=== PATIENT | female | born 1940 | race Caucasian/White ===

== ENCOUNTER → 2017-11-28 10:10 | Outpatient (CLI) | payer MEDICARE, SELFPAY ==
[2017-11-28 11:49] LABS: Calcium 12.2 mg/dL (8.4-10.2); Estimated Glomerular Filt Rate 12.2 mL/min (>60); Glucose 99 mg/dL (80-110); HEMOLYSIS < 15 (0-50); Potassium 3.2 mmol/L (3.4-5.1); Sodium 140 mmol/L (137-145)
== END ==
PROVIDERS: Family Provider Internal Medicine; PCP Internal Medicine; Visit Provider Internal Medicine
DX: I10 Essential (primary) hypertension (principal); N18.3 Chronic kidney disease, stage 3 (moderate)
CPT/HCPCS: 36415; 80048

== ENCOUNTER → 2017-12-13 15:50 | Outpatient (CLI) | payer MEDICARE, SELFPAY | PROVIDERS: Family Provider Internal Medicine; PCP Internal Medicine; Visit Provider Internal Medicine | DX: Z53.9 Procedure and treatment not carried out, unspecified reason (principal) | CPT/HCPCS: 87507 ==

== ENCOUNTER → 2017-12-13 16:55 | Outpatient (CLI) | payer MEDICARE, SELFPAY ==
[2017-12-13 17:35] LABS: Add Manual Diff / Slide Review NO; Basophils Percent Auto 1.3 % (0-2); Eosinophils Percent Auto 3.1 % (2-4); Hematocrit 36.5 % (36-46); Hemoglobin 11.8 g/dL (12.0-16.0); Lymphocytes Percent Auto 25.1 % (25-40); Mean Corpuscular HGB Conc 32.2 % (30-36); Mean Corpuscular Volume 89.9 fL (80-100); Monocytes Percent Auto 6.4 % (3-14); Neutrophils Absolute Auto 5500 /uL (3000-5900); Neutrophils Percent Auto 64.1 % (50-75); Platelet Count 151 X10^3/uL (150-400); Red Blood Cell Count 4.06 X10^6/uL (4.0-5.2); Red Cell Distribution Width 18.4 % (11.6-14.8); White Blood Cell Count 8.5 X10^3/uL (4.5-11.0)
[2017-12-13 19:04] LABS: Blood Urea Nitrogen 36 mg/dL (7-17); Calcium 11.9 mg/dL (8.4-10.2); Carbon Dioxide 25 mmol/L (22-32); Chloride 101 mmol/L (98-107); Estimated Glomerular Filt Rate 27.2 mL/min (>60); Glucose 89 mg/dL (80-110); HEMOLYSIS < 15 (0-50); Potassium 3.6 mmol/L (3.4-5.1); Sodium 140 mmol/L (137-145)
[2017-12-14 08:51] LABS: Alanine Aminotransferase 27 IU/L (9-52); Albumin Globulin Ratio 1.7 (1.0-2.8); Alkaline Phosphatase 82 U/L (38-126); Aspartate Aminotransferase 21 IU/L (14-36); Bilirubin Total 0.4 mg/dL (0.2-1.3); Bilirubin Unconjugated 0.1 mg/dL (0.0-1.1); Globulin 2.4 g/dL (1.7-4.1); HEMOLYSIS < 15 (0-50); Total Protein 6.4 g/dL (6.3-8.2)
[2017-12-15 15:15] LABS: Parathyroid Hormone Int 20 pg/mL (14-64)
[2017-12-16 20:14] LABS: Ionized Calcium 6.1 mg/dL (4.8-5.6)
== END ==
PROVIDERS: Family Provider Internal Medicine; PCP Internal Medicine; Visit Provider Internal Medicine
DX: N18.3 Chronic kidney disease, stage 3 (moderate) (principal); I10 Essential (primary) hypertension; R19.7 Diarrhea, unspecified; E83.52 Hypercalcemia
CPT/HCPCS: 36415; 80048; 80076; 82330; 83970; 84550; 85025

== ENCOUNTER → 2017-12-14 14:57 | Outpatient (CLI) | payer MEDICARE, SELFPAY ==
[2017-12-14 17:19] LABS: Campylobacter Not Detected (Not Detect); Cryptosporidium Not Detected (Not Detect); Cyclospora cayetanensis Not Detected (Not Detect); Entamoeba histolytica Not Detected (Not Detect); Enteroaggregative E.coli Not Detected (Not Detect); Enteropathogenic E.coli Not Detected (Not Detect); Enterotoxigenic E.coli It/st Not Detected (Not Detect); Giardia lamblia Not Detected (Not Detect); Plesiomonsa shigelloides Not Detected (Not Detect); Salmonella Not Detected (Not Detect); Shiga-like toxin-prod E.coli Not Detected (Not Detect); Shigella/Enteroinvasive E.coli Not Detected (Not Detect); Vibrio Not Detected (Not Detect); Vibrio cholerae Not Detected (Not Detect); Yersinia enterocolitica Not Detected (Not Detect)
[2017-12-14 17:20] LABS: Adenovirus F 40/41 Not Detected (Not Detect); Astrovirus Not Detected (Not Detect); Clostridium difficile toxin AB Detected (Not Detect); Norovirus GI/GII Not Detected (Not Detect); Rotavirus A Not Detected (Not Detect)
== END ==
PROVIDERS: Family Provider Internal Medicine; PCP Internal Medicine; Visit Provider Internal Medicine
DX: R19.7 Diarrhea, unspecified (principal)
CPT/HCPCS: 87507

== ENCOUNTER → 2018-01-23 11:56 | Outpatient (CLI) | payer MEDICARE, SELFPAY ==
[2018-01-23 12:56] LABS: BUN Creatinine Ratio 16.5 (6-22); Blood Urea Nitrogen 28 mg/dL (7-17); C-Reactive Protein Quant 1.2 mg/dL (<1.0); Calcium 11.2 mg/dL (8.4-10.2); Carbon Dioxide 27 mmol/L (22-32); Chloride 104 mmol/L (98-107); Estimated Glomerular Filt Rate 29.1 mL/min (>60); Glucose 99 mg/dL (80-110); HEMOLYSIS < 15 (0-50); Potassium 4.6 mmol/L (3.4-5.1); Sodium 139 mmol/L (137-145); Uric Acid 4.3 mg/dL (2.5-6.2)
[2018-01-23 13:07] LABS: Erythrocyte Sedimentation Rate 45 MM/HR (0-20)
[2018-01-23 20:47] LABS: Adenovirus F 40/41 Not Detected (Not Detect); Astrovirus Not Detected (Not Detect); Campylobacter Not Detected (Not Detect); Clostridium difficile toxin AB Detected (Not Detect); Cryptosporidium Not Detected (Not Detect); Cyclospora cayetanensis Not Detected (Not Detect); Entamoeba histolytica Not Detected (Not Detect); Enteroaggregative E.coli Not Detected (Not Detect); Enteropathogenic E.coli Not Detected (Not Detect); Enterotoxigenic E.coli It/st Not Detected (Not Detect); Giardia lamblia Not Detected (Not Detect); Norovirus GI/GII Not Detected (Not Detect); Plesiomonsa shigelloides Not Detected (Not Detect); Rotavirus A Not Detected (Not Detect); Salmonella Not Detected (Not Detect); Sapovirus Not Detected; Shiga-like toxin-prod E.coli Not Detected (Not Detect); Shigella/Enteroinvasive E.coli Not Detected (Not Detect); Vibrio Not Detected (Not Detect); Vibrio cholerae Not Detected (Not Detect); Yersinia enterocolitica Not Detected (Not Detect)
== END ==
PROVIDERS: Family Provider Internal Medicine; PCP Internal Medicine; Visit Provider Internal Medicine
DX: N18.3 Chronic kidney disease, stage 3 (moderate) (principal); E83.52 Hypercalcemia; A04.72 Enterocolitis due to Clostridium difficile, not specified as recurrent; Z87.39 Personal history of other diseases of the musculoskeletal system and connective tissue
CPT/HCPCS: 36415; 80048; 84550; 85651; 86140; 87507

== ENCOUNTER → 2018-02-01 09:35 | Outpatient (CLI) | payer MEDICARE, SELFPAY ==
--- NOTE | 2018-02-01 09:37 | DI.NM.S_ITS ---
PROCEDURE: NM BONE SCAN WHOLE BODY RADIOPHARMACEUTICAL: 19.4 mCi Tc-99m MDP IV. INDICATIONS: hypercalcemia TECHNIQUE: Delayed whole-body scintigrams were obtained approximately 3-4 hours after intravenous injection of radiotracer. Anterior and posterior views were acquired from vertex to feet. Additional left and right oblique views were not obtained COMPARISON: [facility], , CHEST 2 VIEW, 02/04/2010, 10:46. FINDINGS: Osteoarthritic changes are noted in the sternoclavicular, glenohumeral and acromioclavicular joints bilaterally. There is dextroconvex scoliosis in the midthoracic spine with focal area of increased tracer activity at the T8 level, possibly representing compression fracture but indeterminate. Probable degenerative uptake also noted in the lower lumbar spine at L4. Pelvis and hips are unremarkable. Photopenia at the knees consistent with bilateral arthroplasties. Considerable degenerative uptake over the tarsal bones with additional uptake over the left medial malleolus and first metatarsal phalangeal joint. The right foot shows uptake most marked over the right first metatarsal phalangeal joint and second toe. IMPRESSION: 1. No findings suspect for metastatic bone disease. 2. Mid thoracic scoliosis and focal uptake at the T8 level. Likely degenerative uptake at the L4 level. Plain films of the thoracic and lumbar spine suggested. 3. Status post bilateral total knee arthroplasties. 4. Degenerative type uptake in the upper and lower extremities. Dictated by: Cornelius Espinoza M.D. on 02/01/2018 at 15:56 Approved by: Cornelius Espinoza M.D. on 02/01/2018 at 16:03
== END ==
PROVIDERS: Family Provider Internal Medicine; PCP Internal Medicine; Visit Provider Internal Medicine
DX: E83.52 Hypercalcemia (principal); M41.9 Scoliosis, unspecified; Z96.653 Presence of artificial knee joint, bilateral
CPT/HCPCS: 78306; A9503

== ENCOUNTER → 2018-03-17 09:27 | Outpatient (CLI) | payer MEDICARE, SELFPAY ==
[2018-03-17 10:29] LABS: Add Manual Diff / Slide Review NO; Eosinophils Percent Auto 2.1 % (2-4); Hematocrit 36.9 % (36-46); Lymphocytes Percent Auto 22.3 % (25-40); Mean Corpuscular HGB Conc 32.5 % (30-36); Mean Corpuscular Hemoglobin 30.1 PG (26-34); Mean Corpuscular Volume 92.8 fL (80-100); Monocytes Percent Auto 6.3 % (3-14); Neutrophils Absolute Auto 5200 /uL (3000-5900); Neutrophils Percent Auto 68.3 % (50-75); Platelet Count 147 X10^3/uL (150-400); Red Blood Cell Count 3.97 X10^6/uL (4.0-5.2); Red Cell Distribution Width 17.2 % (11.6-14.8); White Blood Cell Count 7.6 X10^3/uL (4.5-11.0)
[2018-03-17 10:44] LABS: Erythrocyte Sedimentation Rate 26 MM/HR (0-20)
[2018-03-17 10:48] LABS: Alanine Aminotransferase 41 IU/L (9-52); Albumin 4.1 g/dL (3.5-5.0); Albumin Globulin Ratio 1.5 (1.0-2.8); Alkaline Phosphatase 105 U/L (38-126); Aspartate Aminotransferase 34 IU/L (14-36); BUN Creatinine Ratio 18.2 (6-22); Bilirubin Total 0.4 mg/dL (0.2-1.3); Blood Urea Nitrogen 31 mg/dL (7-17); C-Reactive Protein Quant 1.2 mg/dL (<1.0); Calcium 10.8 mg/dL (8.4-10.2); Carbon Dioxide 26 mmol/L (22-32); Chloride 107 mmol/L (98-107); Estimated Glomerular Filt Rate 29.1 mL/min (>60); Globulin 2.8 g/dL (1.7-4.1); Glucose 96 mg/dL (80-110); HEMOLYSIS < 15 (0-50); Potassium 4.7 mmol/L (3.4-5.1); Sodium 143 mmol/L (137-145); Total Protein 6.9 g/dL (6.3-8.2)
[2018-03-18 15:44] LABS: Clostridium Difficile Tox PCR Negative for C. diff
== END ==
PROVIDERS: Family Provider Internal Medicine; PCP Internal Medicine; Visit Provider Internal Medicine
DX: A04.72 Enterocolitis due to Clostridium difficile, not specified as recurrent (principal); N18.3 Chronic kidney disease, stage 3 (moderate); R19.7 Diarrhea, unspecified
CPT/HCPCS: 36415; 80053; 85025; 85651; 86140; 87493

== ENCOUNTER → 2018-03-18 13:36 | Outpatient (CLI) | payer MEDICARE, SELFPAY | PROVIDERS: Family Provider Internal Medicine; PCP Internal Medicine; Visit Provider Internal Medicine | DX: Z53.9 Procedure and treatment not carried out, unspecified reason (principal) ==

== ENCOUNTER → 2018-05-16 16:26 | Outpatient (CLI) | payer MEDICARE, SELFPAY ==
[2018-05-16 17:22] LABS: Appearance Urine UA SL CLOUDY; Bilirubin Urine UA NEGATIVE (NEGATIVE); Color Urine UA YELLOW; Glucose Urine UA NEGATIVE (Normal); Ketones Urine UA NEGATIVE (NEGATIVE); Leukocyte Esterase Urine UA 2+ (NEGATIVE); Nitrite Urine UA POSITIVE (Negative); Occult Blood Urine UA TRACE-LYSED (Negative); Protein Urine UA 2+ (Negative); Specific Gravity Urine UA 1.015 (1.000-1.035); Urobilinogen Urine UA 0.2 E.U./dL (0.2)
[2018-05-16 17:26] LABS: Add Manual Diff / Slide Review NO; Basophils Percent Auto 0.7 % (0-2); Eosinophils Percent Auto 1.3 % (2-4); Hematocrit 34.8 % (36-46); Hemoglobin 11.3 g/dL (12.0-16.0); Mean Corpuscular HGB Conc 32.5 % (30-36); Mean Corpuscular Hemoglobin 29.7 PG (26-34); Mean Corpuscular Volume 91.3 fL (80-100); Monocytes Percent Auto 6.3 % (3-14); Neutrophils Absolute Auto 7000 /uL (3000-5900); Neutrophils Percent Auto 74.7 % (50-75); Platelet Count 182 X10^3/uL (150-400); Red Blood Cell Count 3.82 X10^6/uL (4.0-5.2); Red Cell Distribution Width 16.8 % (11.6-14.8); White Blood Cell Count 9.3 X10^3/uL (4.5-11.0)
[2018-05-16 17:28] LABS: RBC Urine 0-1/HPF (0-5/HPF)
[2018-05-16 17:30] LABS: Renal Epithelial Cells Urine 1-5/HPF; Squamous Epithelial Cell Urine 0-1 /HPF; Transitional Epi Cells Urine 1-5/HPF (0-5/HPF); WBC Urine 30-100/HPF (0-5/HPF)
[2018-05-16 17:31] LABS: Bacteria Urine Many (>30); Culture Indicated Urine Specimen Cultured; Mucus Urine 1+ (Negative); Urine Comments Occ Oval Fat Body
[2018-05-16 17:40] LABS: Alanine Aminotransferase 44 IU/L (9-52); Albumin 3.9 g/dL (3.5-5.0); Albumin Globulin Ratio 1.8 (1.0-2.8); Alkaline Phosphatase 116 U/L (38-126); Amylase 43 U/L (30-110); Aspartate Aminotransferase 23 IU/L (14-36); BUN Creatinine Ratio 18.1 (6-22); Bilirubin Total 0.4 mg/dL (0.2-1.3); Blood Urea Nitrogen 29 mg/dL (7-17); Calcium 11.4 mg/dL (8.4-10.2); Carbon Dioxide 29 mmol/L (22-32); Chloride 102 mmol/L (98-107); Estimated Glomerular Filt Rate 31.2 mL/min (>60); Globulin 2.2 g/dL (1.7-4.1); Glucose 105 mg/dL (80-110); HEMOLYSIS < 15 (0-50); Lipase 101 U/L (23-300); Sodium 145 mmol/L (137-145); Total Protein 6.1 g/dL (6.3-8.2)
[2018-05-16 17:52] LABS: Erythrocyte Sedimentation Rate 56 MM/HR (0-20)
[2018-05-16 17:53] LABS: C-Reactive Protein Quant 7.7 mg/dL (<1.0)
[2018-05-16 17:56] LABS: Free T4, Direct Thyroxine 1.29 ng/dL (0.78-2.19)
[2018-05-18 13:55] LABS: Parathyroid Hormone Int 10 pg/mL (14-64)
== END ==
PROVIDERS: PCP Internal Medicine; Visit Provider Internal Medicine
DX: I10 Essential (primary) hypertension (principal); N18.3 Chronic kidney disease, stage 3 (moderate); E83.52 Hypercalcemia
CPT/HCPCS: 36415; 80053; 81001; 82150; 83690; 83970; 84439; 84443; 85025; 85651; 86140; 87077; 87086; 87186

== ENCOUNTER → 2019-02-01 12:12 | Outpatient (CLI) | payer MEDICARE, SELFPAY ==
--- NOTE | 2019-02-01 12:15 | DI.RAD.S_ITS ---
PROCEDURE: XR KNEE RT 3V INDICATIONS: right knee pain TECHNIQUE: 3 views of the knee were acquired. COMPARISON: [facility], BESSY, TIB/FIB 2V RIGHT, 05/27/2014, 19:31. [facility], , KNEE 3V RIGHT, 10/02/2010, 10:13. FINDINGS: Bones: No fractures or dislocations. There is right knee total arthroplasty. There is lucency over the medial aspect of the femoral prosthesis component No suspicious bony lesions. Soft tissues: No joint effusion. No suspicious soft tissue calcifications. Multiple subcutaneous soft tissue calcifications anterior to the knee. IMPRESSION: Right knee arthroplasty. There is lucency over the medial aspect of the femoral prosthesis component concerning for prosthesis loosening. Dictated by: Donaldo Yan M.D. on 02/01/2019 at 17:25 Approved by: Donaldo Yan M.D. on 02/01/2019 at 17:29
== END ==
PROVIDERS: PCP Internal Medicine; Visit Provider Nurse Practitioner
DX: M25.561 Pain in right knee (principal); W10.9XXA Fall (on) (from) unspecified stairs and steps, initial encounter
CPT/HCPCS: 73562

== ENCOUNTER 2019-02-26 11:36 | Emergency (ER) | payer MEDICARE, SELFPAY ==
[2019-02-26 11:50] VITALS: BP 192/88; PULSE 65; RESP 18; TEMP 36.7; O2SAT 100
--- NOTE | 2019-02-26 11:59 | DI.RAD.S_ITS ---
PROCEDURE: XR SHOULDER RT MIN 2V INDICATIONS: atraumatic right shoulder pain x 3 weeks. TECHNIQUE: 3 views of the shoulder were acquired. COMPARISON: None. FINDINGS: Bones: No fractures or dislocations. No suspicious bony lesions. Visualized ribs appear intact. Periarticular osteophyte formation at the acromioclavicular joint glenohumeral joints. Soft tissues: Calcifications project over the rotator cuff. IMPRESSION: 1. Osteoarthritis. 2. Calcific tendinitis of the rotator cuff. Dictated by: Julita Betts M.D. on 02/26/2019 at 12:32 Approved by: Julita Betts M.D. on 02/26/2019 at 12:32
[2019-02-26] MEDS: IBUPROFEN 400 MG TABLET PO (13:16)
[2019-02-26] MEDS: LIDOCAINE PATCH 1 EACH ADH..PATCH TOP (13:16)
[2019-02-26] MEDS: TRAMADOL 50 MG TABLET PO (13:17)
--- NOTE | 2019-02-26 13:50 | ED.UPPEXIN ---
HPI - Extremity Injury (Upper) <Amanda Butler, [facility] - Last Filed: 02/26/19 14:52> General Chief Complaint: Extremity Injury, Upper Stated Complaint: Right shoulder/elbow/wrist/gout Time Seen by Provider: 02/26/19 12:00 Source: patient and family Mode of arrival: ambulatory Limitations: no limitations History of Present Illness HPI narrative: The patient is a 78-year-old female former smoker with history of knee replacement who presents for chief complaint of shoulder pain. She states that she has had right shoulder pain, worse with motion for the past few weeks. She states that Tylenol and heat help her pain. However she is concerned that the pain keeps coming back. She denies any falls or trauma other than a fall to her knees last month. She states that she was seen by her PCP for knee pain, plans on following up with Orthopedics. She states that she has had x-rays done. She states her shoulder pain is worse by range of motion. She denies any redness. She did try her gout medications to see if they would help on it does not help. She tried colchicine and prednisone 3 days ago. She denies any recent falls or trauma, chest pain, shortness of breath, fevers nausea vomiting or diarrhea. She states she is here only for her right shoulder pain. Related Data Home Medications Medication Instructions Recorded Confirmed albuterol sulfate HFA 90 1 puff INHALATION BID 12/13/17 02/26/19 mcg/actuation aerosol inhaler fluticasone propionate 110 1 puff INHALATION BID 12/13/17 02/26/19 mcg/actuation HFA aerosol inhaler loratadine 10 mg tablet 10 mg PO DAILY 12/13/17 02/26/19 acetaminophen [Tylenol 8 Hour] 650 mg PO PRN PRN 02/26/19 02/26/19 albuterol sulfate 2.5 mg INHALATION PRN PRN 02/26/19 02/26/19 allopurinol 300 mg PO DAILY 02/26/19 02/26/19 clopidogrel [Plavix] 75 mg PO DAILY 02/26/19 02/26/19 colchicine 0.6 mg PO DIRECTED 02/26/19 02/26/19 fluticasone propionate [Flonase 1 spray INTRANASAL DAILY 02/26/19 02/26/19 Allergy Relief] furosemide 20 mg PO DAILY 02/26/19 02/26/19 oxybutynin chloride 10 mg PO DAILY 02/26/19 02/26/19 zinc 50 mg PO DAILY 02/26/19 02/26/19 Previous Rx's Medication Instructions Recorded potassium chloride ER 20 mEq 20 meq PO DAILY #30 tab 08/30/18 tablet,extended release(part/cryst) atenolol 50 mg tablet 25 mg PO DAILY #45 tab 11/30/18 Allergies Allergy/AdvReac Type Severity Reaction Status Date / Time aspirin [ASPIRIN] Allergy Mild RACING Verified 02/01/19 11:24 HEARTBEAT/RASH gemfibrozil [GEMFIBROZIL] Allergy Mild Verified 02/01/19 11:24 iodine [IODINE] Allergy Mild RASH Verified 02/01/19 11:24 Penicillins [PENICILLINS] Allergy Mild GI Verified 02/01/19 11:24 DISTURBANCE, RASH promethazine [PROMETHAZINE] Allergy Mild RASH Verified 02/01/19 11:24 Sulfa (Sulfonamide AdvReac Severe SOB Verified 02/01/19 11:24 Antibiotics) [SULFA (SULFONAMIDE ANTIBIOTICS)] atorvastatin [ATORVASTATIN] AdvReac Mild MUSCLE Verified 02/01/19 11:24 ACHES AND WEAKNESS latex AdvReac Mild Rash when Verified 02/01/19 11:24 worn rosuvastatin [ROSUVASTATIN] AdvReac Mild MUSCLE Verified 02/01/19 11:24 PAIN ANS WEAKNESS Review of Systems <JAMIA Hallman - Last Filed: 02/26/19 14:52> Review of Systems GENERAL: Denies chills, fatigue, malaise, fever, sweats. HEENT: Denies sinus pain, ear pain, sore throat, difficulty swallowing, dizziness. RESPIRATORY: Denies dyspnea, cough, wheezing, hemoptysis, sputum. CARDIOVASCULAR: Denies chest pain, palpitations, orthopnea, edema, GASTROINTESTINAL: Denies nausea, vomiting, abdominal pain, diarrhea, constipation, melena. : Denies dysuria, frequency, incontinence, hematuria, urinary retention. MUSCULOSKELETAL: See HPI SKIN: Denies rash, skin lesions, or other NEUROLOGIC: Denies weakness, headache, numbness, change in speech, confusion, seizures, incoordination. PSYCHIATRIC: No concerning psychosocial issues. 12 point review of systems is negative except for those stated above PFSH <ENEDINA Hallman - Last Filed: 02/26/19 14:52> Medical History Essential hypertension (Chronic) Chronic renal failure, stage 3 (moderate) (Chronic 11/29/16) Unspecified asthma, uncomplicated (Chronic) Chronic back pain (Chronic) History of stroke (Resolved 05/2014) Urinary incontinence (Chronic 07/24/15) Peripheral edema (Chronic 01/10/17) Hammertoe of right foot (Inactive) H/O: gout (Chronic) Social History marital status: number of children: 3 household members: children lives independently: Yes caregiver/support person: No housing: house pets and animals: Yes education level: master's degree occupational status: other current occupational exposures/hazards: No 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 special jim needs: No travel history: other leisure activities: music Smoking Status: Former smoker Tobacco: How many years used: 2 Smokeless tobacco user: other quit status: quit date established second hand exposure: No alcohol intake: never substance use type: does not use Social History marital status: number of children: 3 household members: children lives independently: Yes caregiver/support person: No housing: house pets and animals: Yes education level: master's degree occupational status: other current occupational exposures/hazards: No 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 Normocephalic. No temporal or scalp tenderness. EYES: Pupils equal round and reactive. Extraocular motions intact. No scleral icterus. No injection or drainage. ENT: Nose without bleeding, purulent drainage or septal hematoma. Throat without erythema, tonsillar hypertrophy or exudate. Uvula midline. Airway patent. NECK: Trachea midline. No JVD or lymphadenopathy. Supple, nontender, no meningeal signs. CARDIOVASCULAR: Regular rate and rhythm RESPIRATORY: Clear to auscultation. Breath sounds equal bilaterally. No wheezes, rales, or rhonchi. No cough. No accessory muscle use. GASTROINTESTINAL: Abdomen soft, non-tender, nondistended. No hepato-splenomegaly, or palpable masses. No guarding. EXTREMITIES: General pain to palpation right shoulder. Able to flex and extend right shoulder. Positive radial pulse right hand. BACK: Nontender without deformity or crepitance. No flank tenderness. NEURO: AOx3. SKIN: No overlying erythema rash laceration or abrasion noted right shoulder Initial Vital Signs Initial Vital Signs: Vital Signs Temperature 98.1 F 02/26/19 11:50 Pulse Rate 65 02/26/19 11:50 Respiratory Rate 18 02/26/19 11:50 Blood Pressure 192/88 H 02/26/19 11:50 Pulse Oximetry 100 02/26/19 11:50 <Doreen Alonso DO - Last Filed: 02/27/19 07:13> Initial Vital Signs Initial Vital Signs: Vital Signs Temperature 98.1 F 02/26/19 11:50 Pulse Rate 65 02/26/19 11:50 Respiratory Rate 18 02/26/19 11:50 Blood Pressure 192/88 H 02/26/19 11:50 Pulse Oximetry 100 02/26/19 11:50 Course <ROXIE Hallman-STEPHAN - Last Filed: 02/26/19 14:52> Orders Ordered: Discontinued Medications Ibuprofen (Advil) 400 mg PO NOW ONE Stop: 02/26/19 12:54 Last Admin: 02/26/19 13:16 Dose: 400 mg Lidocaine (Lidoderm) 1 each TOP NOW ONE Stop: 02/26/19 12:50 Last Admin: 02/26/19 13:16 Dose: 1 each Tramadol HCl (Ultram) 50 mg PO NOW ONE Stop: 02/26/19 12:50 Last Admin: 02/26/19 13:17 Dose: 50 mg Vital Signs - 8 hr 02/26/19 11:50 Temperature 98.1 F Pulse Rate 65 Respiratory Rate 18 Blood Pressure 192/88 H Pulse Oximetry 100 <Doreen Alonso DO - Last Filed: 02/27/19 07:13> Orders Ordered: Discontinued Medications Ibuprofen (Advil) 400 mg PO NOW ONE Stop: 02/26/19 12:54 Last Admin: 02/26/19 13:16 Dose: 400 mg Lidocaine (Lidoderm) 1 each TOP NOW ONE Stop: 02/26/19 12:50 Last Admin: 02/26/19 13:16 Dose: 1 each Tramadol HCl (Ultram) 50 mg PO NOW ONE Stop: 02/26/19 12:50 Last Admin: 02/26/19 13:17 Dose: 50 mg Vital Signs - 8 hr 02/26/19 11:50 Temperature 98.1 F Pulse Rate 65 Respiratory Rate 18 Blood Pressure 192/88 H Pulse Oximetry 100 MDM - Extremity Injury (Upper) <ENEDINA Hallman - Last Filed: 02/26/19 14:52> Imaging Data Shoulder x-ray: Radiologist's impression: [address] [id number] XRay Report Signed Patient: Sarah Enrique [facility]#: [id number] : 1940Acct:[id number] Age/Sex: 78 / FDate of Service: 02/26/19 Loc: ED Accession Number: [id number] Procedure: XR shoulder RT min 2V Ordering Provider: Doreen Alonso D.O. PROCEDURE: XR SHOULDER RT MIN 2V INDICATIONS: atraumatic right shoulder pain x 3 weeks. TECHNIQUE: 3 views of the shoulder were acquired. COMPARISON: None. FINDINGS: Bones: No fractures or dislocations. No suspicious bony lesions. Visualized ribs appear intact. Periarticular osteophyte formation at the acromioclavicular joint glenohumeral joints. Soft tissues: Calcifications project over the rotator cuff. IMPRESSION: 1. Osteoarthritis. 2. Calcific tendinitis of the rotator cuff. Dictated by: Julita Betts M.D. on 02/26/2019 at 12:32 Approved by: Julita Betts M.D. on 02/26/2019 at 12:32 [facility] Narrative Medical decision making narrative: Patient presents with a chief complaint of shoulder pain. She states she has been using Tylenol and heat at home with success. However she is concerned that the pain keeps coming back. X-ray shows calcific tendinitis of right rotator cuff. I discussed at length usual treatment for this includes anti-inflammatories, physical therapy etc. Encouraged her to follow up with primary care provider. She is given lidocaine patches we discussed at length continued heat, anti-inflammatories etc. Patient is neurovascularly intact. I discussed going back to the ER for any acute concerns such as chest pain, shortness of breath, decreased circulation hand. No questions or concerns upon discharge. Discharge Plan Departure Patient Disposition: Home Clinical Impression: Calcific tendinitis of right shoulder Acute shoulder pain Qualifiers: Laterality: right Qualified Code(s): M25.511 - Pain in right shoulder Discharge Date/Time: 02/26/19 14:34 Interventions: ED Discharge Assessment Last Done: 02/26/19 14:33 Instructions: Calcific Tendonitis of the Shoulder, DI for Calcific Tendonitis of the Shoulder, DI for Shoulder Pain Activity Restrictions/Additional Instructions: Your x-ray shows no fracture, but there is concern for calcific tendinitis of the shoulder. Please continue anti-inflammatories such as ibuprofen as able. I also suggest Tylenol and heat this helps. You can also try lidocaine 4% patches [id number] or Aspercreme. Please follow up with primary care provider. Physical therapy may be helpful Please come back to the emergency department for any acute concerns such as chest pain, shortness of breath concern of heart attack or stroke. Prescriptions: No Action potassium chloride 20 mEq tablet,ER particles/crystals 20 meq PO DAILY Qty: 30 RF: 3 atenolol 50 mg tablet 25 mg PO DAILY Qty: 45 RF: 3 albuterol sulfate 90 mcg/actuation HFA aerosol inhaler 1 puff INHALATION BID RF: 0 loratadine [Claritin] 10 mg tablet 10 mg PO DAILY RF: 0 fluticasone propionate [Flovent HFA] 110 mcg/actuation HFA aerosol inhaler 1 puff INHALATION BID RF: 0 allopurinol 300 mg tablet 300 mg PO DAILY RF: 0 oxybutynin chloride 10 mg tablet extended release 24hr 10 mg PO DAILY RF: 0 clopidogrel [Plavix] 75 mg tablet 75 mg PO DAILY RF: 0 albuterol sulfate 2.5 mg /3 mL (0.083 %) Solution For Nebulization 2.5 mg INHALATION PRN PRN (Reason: Shortness Of Breath) RF: 0 acetaminophen [Tylenol 8 Hour] 650 mg Tablet Extended Release 650 mg PO PRN PRN (Reason: pain) RF: 0 zinc 50 mg Tablet 50 mg PO DAILY RF: 0 colchicine 0.6 mg Tablet 0.6 mg PO DIRECTED RF: 0 fluticasone propionate [Flonase Allergy Relief] 50 mcg/actuation Lucernemines,Suspension 1 spray INTRANASAL DAILY RF: 0 furosemide 20 mg tablet 20 mg PO DAILY RF: 0 Referrals: David Welsh MD [Primary Care Provider] - <Doreen Alonso DO - Last Filed: 02/27/19 07:13> Cosign ED Attending Cosignature Attestation: I was immediately available in the department for consultation. Documentation has been reviewed. I agree with assessment and plan.
== END 2019-02-26 14:34 | disposition home or self-care (01) ==
PROVIDERS: Emergency Provider Nurse Practitioner Family; PCP Internal Medicine
DX: M75.31 Calcific tendinitis of right shoulder (principal)
CPT/HCPCS: 73030; 99283

== ENCOUNTER 2019-08-18 13:29 | Emergency (ER) | payer MEDICARE, SELFPAY ==
[2019-08-18 13:40] VITALS: BP 176/83; PULSE 60; RESP 14; TEMP 37; O2SAT 100; BMI 26.2
--- NOTE | 2019-08-18 14:07 | ED.UPPEXIN ---
HPI - Extremity Injury (Upper) <Meaghan ChewFAUSTINO - Last Filed: 08/18/19 21:29> General Chief Complaint: Extremity Injury, Upper Stated Complaint: Right Shoulder Pain Time Seen by Provider: 08/18/19 13:43 Source: patient Mode of arrival: Ambulatory Limitations: no limitations History of Present Illness HPI narrative: 79yo female with a history of chronic right shoulder pain with osteoarthritis and calcified tendinitis of the rotator cuff, presents emergency department complaining of worsening right shoulder pain over the past 3 days. This originally started in February for which she was seen in the emergency department. She states she had a cortisone shot in her right shoulder in March which significantly improved the pain. Patient states the pain is worse with arm extension and shoulder internal external rotation. She states it feels slightly better when she presses on her deltoid muscle. She has an appointment in September but states the pain is slowly returning. She denies any trauma to the area, falls, swelling, redness, fevers, chills, nausea, vomiting, diarrhea, or other concerns. Patient is hoping to have another cortisone injection. Related Data Home Medications Medication Instructions Recorded Confirmed albuterol sulfate 90 mcg/actuation 1 puff INHALATION BID 12/13/17 03/01/19 aerosol inhaler fluticasone propionate 110 1 puff INHALATION BID 12/13/17 03/01/19 mcg/actuation HFA aerosol inhaler loratadine 10 mg tablet 10 mg PO DAILY 12/13/17 03/01/19 acetaminophen [Tylenol 8 Hour] 650 mg PO PRN PRN 02/26/19 03/01/19 albuterol sulfate 2.5 mg INHALATION PRN PRN 02/26/19 03/01/19 allopurinol 300 mg PO DAILY 02/26/19 03/01/19 clopidogrel [Plavix] 75 mg PO DAILY 02/26/19 03/01/19 colchicine 0.6 mg PO DIRECTED 02/26/19 03/01/19 fluticasone propionate [Flonase 1 spray INTRANASAL DAILY 02/26/19 03/01/19 Allergy Relief] furosemide 20 mg PO DAILY 02/26/19 03/01/19 zinc 50 mg PO DAILY 02/26/19 03/01/19 Previous Rx's Medication Instructions Recorded potassium chloride 20 mEq 20 meq PO DAILY #30 tab 08/30/18 tablet,extended release(part/cryst) atenolol 50 mg tablet 25 mg PO DAILY #45 tab 11/30/18 dexamethasone 2 mg tablet 2 mg PO Q6H #16 tab 03/01/19 tramadol 50 mg tablet 50 mg PO Q8H PRN #30 tab 03/01/19 oxybutynin chloride 10 mg 10 mg PO DAILY #90 tab 05/14/19 tablet,extended release 24 hr Allergies Allergy/AdvReac Type Severity Reaction Status Date / Time aspirin [ASPIRIN] Allergy Mild RACING Verified 08/18/19 13:40 HEARTBEAT/RASH gemfibrozil [GEMFIBROZIL] Allergy Mild Verified 08/18/19 13:40 iodine [IODINE] Allergy Mild RASH Verified 08/18/19 13:40 Penicillins [PENICILLINS] Allergy Mild GI Verified 08/18/19 13:40 DISTURBANCE, RASH promethazine [PROMETHAZINE] Allergy Mild RASH Verified 08/18/19 13:40 Sulfa (Sulfonamide AdvReac Severe SOB Verified 08/18/19 13:40 Antibiotics) [SULFA (SULFONAMIDE ANTIBIOTICS)] atorvastatin [ATORVASTATIN] AdvReac Mild MUSCLE Verified 08/18/19 13:40 ACHES AND WEAKNESS latex AdvReac Mild Rash when Verified 08/18/19 13:40 worn rosuvastatin [ROSUVASTATIN] AdvReac Mild MUSCLE Verified 08/18/19 13:40 PAIN ANS WEAKNESS Review of Systems <FAUSTINO Villeda - Last Filed: 08/18/19 21:29> Review of Systems Narrative: REVIEW OF SYSTEMS: GENERAL: Denies fever or chills. HENT: No head trauma. EYES: No double vision or vision loss. CARDIOVASCULAR: No chest pain or syncope. RESPIRATORY: No shortness of breath or cough. GASTROINTESTINAL: No nausea, vomiting, diarrhea, or constipation. MUSCULOSKELETAL: Complains of right shoulder pain, see HPI. INTEGUMENTARY: No rash, lesions, or pruritus. NEURO: No numbness, tingling. PSYCH: No behavior or mood changes. Patient History <FAUSTINO Villeda - Last Filed: 08/18/19 21:29> Medical History Chronic back pain (Chronic) Chronic renal failure, stage 3 (moderate) (Chronic 11/29/16) Essential hypertension (Chronic) H/O: gout (Chronic) Hammertoe of right foot (Inactive) History of stroke (Resolved 05/2014) Peripheral edema (Chronic 01/10/17) Unspecified asthma, uncomplicated (Chronic) Urinary incontinence (Chronic 07/24/15) Social History marital status: number of children: 3 household members: children lives independently: Yes caregiver/support person: No housing: house pets and animals: Yes education level: master's degree occupational status: other current occupational exposures/hazards: No 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 jim/congregation: [employer] special jim needs: No travel history: other leisure activities: music Smoking Status: Former smoker Tobacco: How many years used: 2 Smokeless tobacco user: other quit status: quit date established second hand exposure: No alcohol intake: never substance use type: does not use Smoking Status: Former smoker alcohol intake frequency: holidays/special occasions only Substance Use Type: does not use Exam <FAUSTINO Villeda - Last Filed: 08/18/19 21:29> Initial Vital Signs Initial Vital Signs: Vital Signs Temperature 98.6 F 08/18/19 13:40 Pulse Rate 60 08/18/19 13:40 Respiratory Rate 14 08/18/19 13:40 Blood Pressure 176/83 H 08/18/19 13:40 Pulse Oximetry 100 08/18/19 13:40 PHYSICAL EXAMINATION: GENERAL: Well groomed, alert, and cooperative. Answers questions promptly and appropriately. Vital signs noted. HENT: Normocephalic, atraumatic. EYES: Symmetrical, sclera white, no periorbital swelling. CARDIOVASCULAR: S1 and S2 sounds normal. Regular rate and rhythm, no murmurs, clicks, or bruits. No pedal edema. RESPIRATORY: Normal respiratory rate, trachea midline, airway patent. No stridor, nasal flaring or accessory muscle use. Lungs are clear in all [place]. MUSCULOSKELETAL: Tenderness to anterior and posterior aspect of joint. Equal strength bilaterally to mother helper and forearms. Decreased arm extension, internal, and external rotation. Unable to test deltoid strength due to limited range of motion of shoulder. No clavicle or rib tenderness. No ecchymosis or erythema to the area. Normal gait and coordination. Equal tone and mass bilaterally. EXTREMITIES: CMS intact. Radial pulses 2+ and intact bilaterally. SKIN: Warm, dry, soft, appropriate color for ethnicity. No lesions, rashes, or wounds to visual areas.. NEURO: Alert and Oriented X 3. No sensory deficits. PSYCH: Appropriate affect and mood. <Lali Gonzales MD - Last Filed: 09/01/19 18:36> Initial Vital Signs Initial Vital Signs: Vital Signs Temperature 98.6 F 08/18/19 13:40 Pulse Rate 60 08/18/19 13:40 Respiratory Rate 14 08/18/19 13:40 Blood Pressure 176/83 H 08/18/19 13:40 Pulse Oximetry 100 08/18/19 13:40 <Lali Gonzales MD - Last Filed: 09/01/19 18:36> [facility] Procedure Name of Procedure: Right intra-articular shoulder injection Time out performed: Yes Technique/Description of procedure performed: Indication: Right shoulder arthritis with calcific tendinitis. No evidence of infection Area is prepped in a sterile manner. Anterior approach is used 1 cc of 2% lidocaine without epi, 40 mg of Kenalog injected into the right shoulder joint with minimal resistance. Significant pain relief almost immediately Patient tolerated the procedure well There were no complications Follow-up instructions were given 14:[address] Gonzales. Course <FAUSTINO Villeda - Last Filed: 08/18/19 21:29> Course Course Narrative: Dr. Gonzales performed a joint injection to patient's right shoulder. Patient declined x-ray. Orders Ordered: Discontinued Medications Lidocaine HCl 4.4 ml/ Sodium (Chloride) 54.4 mls @ 326.4 mls/hr IV NOW ONE Stop: 08/18/19 14:22 Last Admin: 08/18/19 14:53 Dose: Not Given Documented by: MEICANDELARIA Lidocaine HCl (Xylocaine 2%) 1 ml SUBCUT NOW ONE Stop: 08/18/19 14:35 Last Admin: 08/18/19 14:34 Dose: 1 ml Documented by: BRITNI Triamcinolone (Kenalog-40) 40 mg IM NOW ONE Stop: 08/18/19 14:21 Last Admin: 08/18/19 14:32 Dose: 40 mg Documented by: MEISENB Vital Signs Vital signs: Vital Signs - 8 hr 08/18/19 13:40 08/18/19 15:01 08/18/19 15:10 Temperature 98.6 F Pulse Rate 60 71 72 Respiratory Rate 14 18 Blood Pressure 176/83 H Blood Pressure [Right Arm] 226/99 H Pulse Oximetry 100 100 99 <Lali Gonzales MD - Last Filed: 09/01/19 18:36> Orders Ordered: Discontinued Medications Lidocaine HCl 4.4 ml/ Sodium (Chloride) 54.4 mls @ 326.4 mls/hr IV NOW ONE Stop: 08/18/19 14:22 Last Admin: 08/18/19 14:53 Dose: Not Given Documented by: MEICANDELARIA Lidocaine HCl (Xylocaine 2%) 1 ml SUBCUT NOW ONE Stop: 08/18/19 14:35 Last Admin: 08/18/19 14:34 Dose: 1 ml Documented by: MEICANDELARIA Triamcinolone (Kenalog-40) 40 mg IM NOW ONE Stop: 08/18/19 14:21 Last Admin: 08/18/19 14:32 Dose: 40 mg Documented by: BRITNI Vital Signs Vital signs: Vital Signs - 8 hr 08/18/19 13:40 08/18/19 15:01 08/18/19 15:10 Temperature 98.6 F Pulse Rate 60 71 72 Respiratory Rate 14 18 Blood Pressure 176/83 H Blood Pressure [Right Arm] 226/99 H Pulse Oximetry 100 100 99 MDM - Extremity Injury (Upper) <FAUSTINO Villeda - Last Filed: 08/18/19 21:29> Medical Records Attestation: I reviewed the patient's medical records. Lab Data Attestation: I reviewed the patient's lab results. MDM Narrative Medical decision making narrative: 79-year-old female here for a steroid injection to her right shoulder with chronic arthritis and calcification of rotator cuff tendon. Injection was performed by Dr. Gonzales. I suspect this most likely a chronic exacerbation of her previous shoulder pain. Less likely fracture due to lack of trauma or swelling. Less likely cellulitis or septic joint due to lack of erythema or systemic symptoms such as fever. Patient reported improved pain after injection. Follow-up instructions discussed and return precautions given. Discharge Plan Departure Patient Disposition: Home Clinical Impression: Acute shoulder pain Qualifiers: Laterality: right Qualified Code(s): M25.511 - Pain in right shoulder Discharge Date/Time: 08/18/19 15:10 Instructions: DI for Shoulder Pain Activity Restrictions/Additional Instructions: Thank you for coming in today I'm so sorry that her shoulder is hurting so much. We did do steroid injection into the right shoulder. The injection also included a small amount of numbing medicine. That numbing medicine should help for the next couple of hours and the steroid should start working by tomorrow morning. I do want you to be aware that often times a 2nd joint injection is not as effective as the 1st one. I would suggest that you use a sling to give your shoulder a bit more support so it's not bothering you so much. It is okay to use a topical lidocaine patch over the area of tenderness. It is also okay to use Tylenol as needed for pain You need to follow-up with your orthopedic surgeon to see if there's additional options to help with your pain. I hope you feel better. Prescriptions: No Action potassium chloride 20 mEq tablet,ER particles/crystals 20 meq PO DAILY Qty: 30 RF: 3 atenolol 50 mg tablet 25 mg PO DAILY Qty: 45 RF: 3 oxybutynin chloride 10 mg tablet extended release 24hr 10 mg PO DAILY Qty: 90 RF: 1 albuterol sulfate 90 mcg/actuation HFA aerosol inhaler 1 puff INHALATION BID RF: 0 loratadine [Claritin] 10 mg tablet 10 mg PO DAILY RF: 0 fluticasone propionate [Flovent HFA] 110 mcg/actuation HFA aerosol inhaler 1 puff INHALATION BID RF: 0 tramadol 50 mg tablet 50 mg PO Q8H PRN (Reason: pain) Qty: 30 RF: 0 dexamethasone 2 mg tablet 2 mg PO Q6H Qty: 16 RF: 0 allopurinol 300 mg tablet 300 mg PO DAILY RF: 0 clopidogrel [Plavix] 75 mg tablet 75 mg PO DAILY RF: 0 albuterol sulfate 2.5 mg /3 mL (0.083 %) Solution For Nebulization 2.5 mg INHALATION PRN PRN (Reason: Shortness Of Breath) RF: 0 acetaminophen [Tylenol 8 Hour] 650 mg Tablet Extended Release 650 mg PO PRN PRN (Reason: pain) RF: 0 zinc 50 mg Tablet 50 mg PO DAILY RF: 0 colchicine 0.6 mg Tablet 0.6 mg PO DIRECTED RF: 0 fluticasone propionate [Flonase Allergy Relief] 50 mcg/actuation [place],Suspension 1 spray INTRANASAL DAILY RF: 0 furosemide 20 mg tablet 20 mg PO DAILY RF: 0 Referrals: David Welsh MD [Primary Care Provider] -
--- NOTE | 2019-08-18 14:08 | PC.NURSE ---
right shoulder pain , worsening the last 3 days, denies injuries, requesting steroid Injections. skin warm dry pink, cap refill <2,, limited rom due to pain .
[2019-08-18] MEDS: TRIAMCINOLONE 40 MG/ML VIAL IM (14:32)
[2019-08-18] MEDS: LIDOCAINE 2% INJ MDV 1 ML SUBCUT (14:34)
[2019-08-18 15:01] VITALS: PULSE 71; O2SAT 100
[2019-08-18 15:10] VITALS: BP 226/99; PULSE 72; RESP 18; O2SAT 99
== END 2019-08-18 15:10 | disposition home or self-care (01) ==
PROVIDERS: Emergency Provider Nurse Practitioner; PCP Internal Medicine
DX: M25.511 Pain in right shoulder (principal)
CPT/HCPCS: 96372; 99283

== ENCOUNTER 2020-04-18 13:45 | Emergency (ER) | payer MEDICARE, SELFPAY ==
[2020-04-18] VITALS (10 sets, daily range): BP systolic 168–203; BP diastolic 73–82; PULSE 57–82; RESP 18–27; TEMP 36.5; O2SAT 98–100
--- NOTE | 2020-04-18 14:18 | ED.GENADULT ---
HPI - General Adult General Chief complaint: Weakness Stated complaint: sleepiness started last night Time Seen by Provider: 04/18/20 14:08 Source: patient Mode of arrival: Wheelchair Limitations: no limitations History of Present Illness HPI narrative: Patient is an 79-year-old female. Not on anti coagulation here for evaluation of which she describes as sleepiness. She states that yesterday she slept in the afternoon which she normally does not do. She went to bed last night and slept all night without much problems. Woke up this morning. Took a nap between breakfast and lunch and then took another nap after lunch. She states this is not normal for her. Patient's family was at bedside states that they thought that she may be slurring her words yesterday. The patient states that was because they talk to her right after she woke up from her nap. Other than the sleepiness she denies any other symptoms. Has been taking her medications like normal. Contact her primary doctor's office who told her to come to the emergency department for evaluation. Related Data Home Medications Medication Instructions Recorded Confirmed albuterol sulfate 90 mcg/actuation 1 puff INHALATION BID 12/13/17 03/01/19 aerosol inhaler fluticasone propionate 110 1 puff INHALATION BID 12/13/17 03/01/19 mcg/actuation HFA aerosol inhaler loratadine 10 mg tablet 10 mg PO DAILY 12/13/17 03/01/19 acetaminophen [Tylenol 8 Hour] 650 mg PO PRN PRN 02/26/19 03/01/19 albuterol sulfate 2.5 mg INHALATION PRN PRN 02/26/19 03/01/19 colchicine 0.6 mg PO DIRECTED 02/26/19 03/01/19 fluticasone propionate [Flonase 1 spray INTRANASAL DAILY 02/26/19 03/01/19 Allergy Relief] furosemide 20 mg PO DAILY 02/26/19 03/01/19 zinc 50 mg PO DAILY 02/26/19 03/01/19 Previous Rx's Medication Instructions Recorded potassium chloride 20 mEq 20 meq PO DAILY #30 tab 08/30/18 tablet,extended release(part/cryst) dexamethasone 2 mg tablet 2 mg PO Q6H #16 tab 03/01/19 tramadol 50 mg tablet 50 mg PO Q8H PRN #30 tab 03/01/19 clopidogrel 75 mg tablet 75 mg PO DAILY #90 tab 10/01/19 allopurinol 300 mg tablet 300 mg PO DAILY #90 tab 01/04/20 oxybutynin chloride 10 mg 10 mg PO DAILY #90 tab 02/20/20 tablet,extended release 24 hr atenolol 50 mg tablet 25 mg PO DAILY #45 tab 03/19/20 nitrofurantoin monohyd/m-cryst 100 mg PO Q12H 5 Days #10 cap 04/18/20 [Macrobid] Allergies Allergy/AdvReac Type Severity Reaction Status Date / Time aspirin [ASPIRIN] Allergy Mild RACING Verified 08/18/19 13:40 HEARTBEAT/RASH gemfibrozil [GEMFIBROZIL] Allergy Mild Verified 08/18/19 13:40 iodine [IODINE] Allergy Mild RASH Verified 08/18/19 13:40 Penicillins [PENICILLINS] Allergy Mild GI Verified 08/18/19 13:40 DISTURBANCE, RASH promethazine [PROMETHAZINE] Allergy Mild RASH Verified 08/18/19 13:40 Sulfa (Sulfonamide AdvReac Severe SOB Verified 08/18/19 13:40 Antibiotics) [SULFA (SULFONAMIDE ANTIBIOTICS)] atorvastatin [ATORVASTATIN] AdvReac Mild MUSCLE Verified 08/18/19 13:40 ACHES AND WEAKNESS latex AdvReac Mild Rash when Verified 08/18/19 13:40 worn rosuvastatin [ROSUVASTATIN] AdvReac Mild MUSCLE Verified 08/18/19 13:40 PAIN ANS WEAKNESS Review of Systems Constitutional Constitutional: Reports daytime sleepiness, Denies difficulty sleeping and Denies fever(s) Eyes Eyes: Denies change in vision Cardiovascular Cardiovascular: Denies chest pain and Denies dyspnea Respiratory Respiratory: Denies dyspnea Gastrointestinal Gastrointestinal: Denies abdominal pain Genitourinary Genitourinary: Denies dysuria Genitourinary: Denies dysuria Musculoskeletal Musculoskeletal: Denies arthralgias and Denies myalgias Integumentary/Breasts Skin/Breast: Denies rash Neurologic Neurologic: Denies behavioral changes Psychiatric Psychiatric: Denies behavioral changes Hematologic/Lymphatic Hematologic/Lymphatic: Denies easy bleeding and Denies easy bruising Allergic/Immunologic Allergic/Immunologic: Denies urticaria Patient History Medical History Chronic back pain (Chronic) Chronic renal failure, stage 3 (moderate) (Chronic 11/29/16) Essential hypertension (Chronic) H/O: gout (Chronic) Hammertoe of right foot (Inactive) History of stroke (Resolved 05/2014) Peripheral edema (Chronic 01/10/17) Unspecified asthma, uncomplicated (Chronic) Urinary incontinence (Chronic 07/24/15) Social History marital status: number of children: 3 household members: children lives independently: Yes caregiver/support person: No housing: house pets and animals: Yes education level: master's degree occupational status: other current occupational exposures/hazards: No 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 jim/christianity: Islam special jim needs: No travel history: other leisure activities: music Smoking Status: Former smoker Tobacco: How many years used: 2 Smokeless tobacco user: other quit status: quit date established second hand exposure: No alcohol intake: never substance use type: does not use Smoking Status: Former smoker alcohol intake frequency: holidays/special occasions only Substance Use Type: does not use Exam Initial Vital Signs Initial Vital Signs: Vital Signs Temperature 97.7 F 04/18/20 14:01 Pulse Rate 82 04/18/20 14:01 Respiratory Rate 20 04/18/20 14:01 Blood Pressure 203/82 H 04/18/20 14:01 Pulse Oximetry 98 04/18/20 14:01 Const General: cooperative, comfortable, well developed and well groomed Limitations: mental status not altered HENMT Head: normal to inspection and normocephalic Ears: hearing grossly normal bilaterally Nose: external nose normal Face and sinus: normal facial exam Eyes General: appearance normal, both eyes and all related structures Pupils: PERRL Resp Effort & Inspection: normal respiratory effort Auscultation: clear to auscultation bilaterally Cardio Rate: regular rate Rhythm: regular rhythm GI Inspection: non-distended Palpation: soft and No firm Skin Lesions: no lesions Rashes: no rashes Neuro General: patient alert, patient awake and patient oriented x3 Cranial Nerves: CN's II-XI intact bilaterally Cognition: normal cognition Speech: speech normal Motor: muscle tone normal throughout Sensory Exam: no sensory deficits noted Extrem General: normal to inspection and capillary refill normal Psych Appearance: grossly normal and well kempt Scores GCS Malik coma scale eye opening: Spontaneous Malik coma scale verbal response: [place] coma scale motor response: Obey commands Malik coma scale total score: 15 NIH Stroke Scale Level of Conciousness: Alert, keenly responsive Ask month/age: Answers both questions correctly. Open/close eyes, close hand: Performs both tasks correctly Best gaze horizontal: Normal Visual lazcano: No visual loss Facial palsy: Normal symetrical movement Left arm drift: No drift for full 10 sec Right arm drift: No drift for full 10 sec Left leg drift: No drift for full 5 sec Right leg drift: No drift for full 5 sec Limb ataxia: Absent Sensory on face/arms/legs: Normal, no sensory loss Best language: No aphasia, normal Dysarthria: Normal Extinction or inattention: No abnormality Total NIH Stroke scale score: 0 Course Orders Ordered: ED Orders 04/18/20 14:19 CT head/brain wo con Stat EKG-12 Lead Stat 04/18/20 14:30 Complete Blood Count AUTO DIFF Stat Comprehensive Metabolic Panel Stat Ethanol (ETOH) Stat Lipase Stat Partial Thromboplastin Time Stat Prothrombin Time INR Stat 04/18/20 14:48 Urine Culture Stat Urine Microscopic Stat 04/18/20 15:20 Ammonia (NH3) Stat Vital Signs Vital signs: Vital Signs - 8 hr 04/18/20 14:01 04/18/20 14:45 04/18/20 15:00 Temperature 97.7 F Pulse Rate 82 69 62 Respiratory Rate 20 20 Blood Pressure 203/82 H Pulse Oximetry 98 99 98 04/18/20 15:02 04/18/20 15:30 04/18/20 15:31 Temperature Pulse Rate 58 L 59 L 63 Respiratory Rate 22 22 27 H Blood Pressure 180/74 H 187/80 H Pulse Oximetry 98 99 100 04/18/20 16:00 04/18/20 16:01 04/18/20 16:30 Temperature Pulse Rate 58 L 60 58 L Respiratory Rate 18 26 H 24 Blood Pressure 189/77 H Pulse Oximetry 98 98 99 04/18/20 16:31 Temperature Pulse Rate 57 L Respiratory Rate 20 Blood Pressure 168/73 H Pulse Oximetry 99 Medical Decision Making Lab Data Lab results reviewed: Yes I reviewed the patient's lab results. Result diagrams: 04/18/20 14:30 04/18/20 14:30 Labs: Lab Results 04/18/20 04/18/20 04/18/20 Range/Units 14:30 14:30 14:30 WBC 7.1 (4.5-11.0) X10^3/uL RBC 3.50 L (4.0-5.2) X10^6/uL Hgb 11.2 L (12.0-16.0) g/dL Hct 34.9 L (36-46) % MCV 99.7 (80-100) fL MCH 32.1 (26-34) PG MCHC 32.2 (30-36) % RDW 15.4 H (11.6-14.8) % Plt Count 131 L (150-400) X10^3/uL Neut % (Auto) 61.5 (50-75) % Lymph % (Auto) 28.7 (25-40) % Grady % (Auto) 6.7 (3-14) % Eos % (Auto) 1.8 L (2-4) % Baso % (Auto) 1.3 (0-2) % Neut # (Auto) 4300 (4873-0210) /uL Lymph # (Auto) 2000 (1768-6750) /uL Grady # (Auto) 500 (0-900) /uL Eos # (Auto) 100 (0-450) /uL Baso # (Auto) 100 (0-100) /uL PT 10.5 (10.1-12.7) SECONDS INR 0.9 (0.9-1.3) APTT 28 (26.4-36.2) SECONDS Sodium 139 (137-145) mmol/L Potassium 3.8 (3.4-5.1) mmol/L Chloride 108 H (98-107) mmol/L Carbon Dioxide 25 (22-32) mmol/L BUN 42 H (7-17) mg/dL Creatinine 1.51 H (0.52-1.04) mg/dL Estimated GFR 33.2 L (>60) mL/min BUN/Creatinine Ratio 27.8 H (6-22) Glucose 95 (80-110) mg/dL Calcium 11.7 H (8.4-10.2) mg/dL Total Bilirubin 0.4 (0.2-1.3) mg/dL AST 24 (14-36) IU/L ALT 18 (<35) IU/L Alkaline Phosphatase 71 (38-126) U/L Ammonia (9-30) umol/L Total Protein 6.1 L (6.3-8.2) g/dL Albumin 3.8 (3.5-5.0) g/dL Globulin 2.3 (1.7-4.1) g/dL Albumin/Globulin Ratio 1.7 (1.0-2.8) Lipase 226 (23-300) U/L Urine RBC (0-5/HPF) Urine WBC (0-5/HPF) Ur Squamous Epith Cells (0-5/HPF) Urine Bacteria (None) Ur Culture Indicated? Ethyl Alcohol < 10 ( - 10) mg/dL 04/18/20 04/18/20 Range/Units 14:48 15:20 WBC (4.5-11.0) X10^3/uL RBC (4.0-5.2) X10^6/uL Hgb (12.0-16.0) g/dL Hct (36-46) % MCV (80-100) fL MCH (26-34) PG MCHC (30-36) % RDW (11.6-14.8) % Plt Count (150-400) X10^3/uL Neut % (Auto) (50-75) % Lymph % (Auto) (25-40) % [place] % (Auto) (3-14) % Eos % (Auto) (2-4) % Baso % (Auto) (0-2) % Neut # (Auto) (5259-2643) /uL Lymph # (Auto) (7131-1073) /uL [place]ady # (Auto) (0-900) /uL Eos # (Auto) (0-450) /uL Baso # (Auto) (0-100) /uL PT (10.1-12.7) SECONDS INR (0.9-1.3) APTT (26.4-36.2) SECONDS Sodium (137-145) mmol/L Potassium (3.4-5.1) mmol/L Chloride (98-107) mmol/L Carbon Dioxide (22-32) mmol/L BUN (7-17) mg/dL Creatinine (0.52-1.04) mg/dL Estimated GFR (>60) mL/min BUN/Creatinine Ratio (6-22) Glucose (80-110) mg/dL Calcium (8.4-10.2) mg/dL Total Bilirubin (0.2-1.3) mg/dL AST (14-36) IU/L ALT (<35) IU/L Alkaline Phosphatase (38-126) U/L Ammonia < 9 L (9-30) umol/L Total Protein (6.3-8.2) g/dL Albumin (3.5-5.0) g/dL Globulin (1.7-4.1) g/dL Albumin/Globulin Ratio (1.0-2.8) Lipase (23-300) U/L Urine RBC 0-1/hpf (0-5/HPF) Urine WBC 30-100/hpf H (0-5/HPF) Ur Squamous Epith Cells 1-5 /hpf (0-5/HPF) Urine Bacteria Many (>30) H (None) Ur Culture Indicated? Specimen cultured Ethyl Alcohol ( - 10) mg/dL Urine Dip Bedside Urine Glucose Negative Bedside Urine Bilirubin - Negative Bedside Urine Ketone - Negative Urine Specific [place] 1.025 Bedside Urine Occult Blood - Negative Bedside Urine pH 5.5 Bedside Urine Protein ++ 100 Bedside Urine Urobilinogen - Negative Bedside Urine Nitrite + Positive Bedside Urine Leukocytes +/- 15 Esterase Point of care testing: Urine Dip Bedside Urine Glucose Negative Bedside Urine Bilirubin - Negative Bedside Urine Ketone - Negative Urine Specific [place] 1.025 Bedside Urine Occult Blood - Negative Bedside Urine pH 5.5 Bedside Urine Protein ++ 100 Bedside Urine Urobilinogen - Negative Bedside Urine Nitrite + Positive Bedside Urine Leukocytes +/- [address] scan - head: Radiologist's Impression: [address] [address] [address] Scan Report Signed Patient: Sarah Enrique [facility]#: [id number] : 1940Acct:[id number] Age/Sex: 79 / FDate of Service: 04/18/20 Loc: ED Accession Number: [id number] Procedure: CT head/brain wo con Ordering Provider: Morris Miller D.O. PROCEDURE: CT HEAD/BRAIN WO CON INDICATIONS: Slurring words TECHNIQUE: Noncontrast 4.5 mm thick angled axial sections acquired from the foramen magnum to the vertex, with coronal and sagittal reformats. For radiation dose reduction, the following was used: automated exposure control, adjustment of mA and/or kV according to patient size. COMPARISON: [facility], CT, HEAD WITHOUT CONTRAST, 05/27/2014, 20:44. FINDINGS: Image quality: Excellent. CSF spaces: Basal cisterns are patent. No extra-axial fluid collections. The ventricles are symmetric in size and shape. Brain: No intracranial bleeds or masses. There is cerebral volume loss for age, with resultant ventricular and sulcal prominence. There are periventricular and deep white matter chronic small vessel ischemic changes , with interval progression . There is intracranial internal carotid artery atherosclerosis. Skull and face: Calvarium and visualized facial bones appear intact, without suspicious lesions. Sinuses: Visualized sinuses and mastoids are clear. IMPRESSION: No acute intracranial process. Numerous white matter hypodense changes which are technically age indeterminate. If there is clinical concern for acute ischemia, a noncontrast brain MRI could provide further assessment Dictated by: Long Beatty M.D. on 04/18/2020 at 15:18 Approved by: Long Beatty M.D. on 04/18/2020 at 15:22 ECG Data Attestation: I personally reviewed and interpreted this ECG as follows: Prior ECG tracings: not available for review Interpretation: Sinus rhythm Ventricular rate of 61 Normal axis Normal QRS Normal QTC No ST T wave changes MDM Narrative Medical decision making narrative: Patient has a nonfocal neurologic exam. NIH score of 0. She is not slurring her words here in the emergency department and her son agrees with this. Her head CT does show chronic disease. Discussed the case with her primary provider who was able to look at a MRI from a prior stroke and the findings on the CT scan today seemed similar to those. I feel the patient can be safely discharged home with follow-up with primary provider beginning next week. She is not having any urinary symptoms however she does have a nitrite positive urine. Given her slurring words and sleepiness this could potentially be the cause of these symptoms. I did inform her that a urine culture was pending at the time of discharge. Antibiotics were electronically transmitted to her preferred pharmacy. She was given return precautions and follow-up instructions. She expressed understanding and agreement. Discharge Plan Departure Patient Disposition: Home Clinical Impression: Daytime somnolence Urinary tract infection Qualifiers: Urinary tract infection type: acute cystitis Hematuria presence: with hematuria Qualified Code(s): N30.01 - Acute cystitis with hematuria Instructions: DI for Fatigue Activity Restrictions/Additional Instructions: I recommend that on Tuesday morning you contact Dr. Welsh office for a follow-up. Take the antibiotics as directed. Return to the emergency department for any new or worsening symptoms. Your prescription was electronically transmitted to [facility]. Prescriptions: New nitrofurantoin monohyd/m-cryst [Macrobid] 100 mg capsule 100 mg PO Q12H 5 Days Qty: 10 RF: 0 No Action potassium chloride 20 mEq tablet,ER particles/crystals 20 meq PO DAILY Qty: 30 RF: 3 clopidogrel [Plavix] 75 mg tablet 75 mg PO DAILY Qty: 90 RF: 3 allopurinol 300 mg tablet 300 mg PO DAILY Qty: 90 RF: 3 oxybutynin chloride 10 mg tablet extended release 24hr 10 mg PO DAILY Qty: 90 RF: 0 atenolol 50 mg tablet 25 mg PO DAILY Qty: 45 RF: 0 albuterol sulfate 90 mcg/actuation HFA aerosol inhaler 1 puff INHALATION BID RF: 0 loratadine [Claritin] 10 mg tablet 10 mg PO DAILY RF: 0 fluticasone propionate [Flovent HFA] 110 mcg/actuation HFA aerosol inhaler 1 puff INHALATION BID RF: 0 tramadol 50 mg tablet 50 mg PO Q8H PRN (Reason: pain) Qty: 30 RF: 0 dexamethasone 2 mg tablet 2 mg PO Q6H Qty: 16 RF: 0 albuterol sulfate 2.5 mg /3 mL (0.083 %) Solution For Nebulization 2.5 mg INHALATION PRN PRN (Reason: Shortness Of Breath) RF: 0 acetaminophen [Tylenol 8 Hour] 650 mg Tablet Extended Release 650 mg PO PRN PRN (Reason: pain) RF: 0 zinc 50 mg Tablet 50 mg PO DAILY RF: 0 colchicine 0.6 mg Tablet 0.6 mg PO DIRECTED RF: 0 fluticasone propionate [Flonase Allergy Relief] 50 mcg/actuation [place],Suspension 1 spray INTRANASAL DAILY RF: 0 furosemide 20 mg tablet 20 mg PO DAILY RF: 0 Referrals: David Welsh MD [Primary Care Provider] -
[2020-04-18 14:40] LABS: Add Manual Diff / Slide Review NO; Basophils Absolute Auto 100 /uL (0-100); Basophils Percent Auto 1.3 % (0-2); Eosinophils Absolute Auto 100 /uL (0-450); Eosinophils Percent Auto 1.8 % (2-4); Hematocrit 34.9 % (36-46); Hemoglobin 11.2 g/dL (12.0-16.0); Lymphocytes Absolute Auto 2000 /uL (1100-4500); Lymphocytes Percent Auto 28.7 % (25-40); Mean Corpuscular HGB Conc 32.2 % (30-36); Mean Corpuscular Hemoglobin 32.1 PG (26-34); Mean Corpuscular Volume 99.7 fL (80-100); Monocytes Absolute Auto 500 /uL (0-900); Monocytes Percent Auto 6.7 % (3-14); Neutrophils Absolute Auto 4300 /uL (1500-7000); Neutrophils Percent Auto 61.5 % (50-75); Platelet Count 131 X10^3/uL (150-400); Red Cell Distribution Width 15.4 % (11.6-14.8); White Blood Cell Count 7.1 X10^3/uL (4.5-11.0)
[2020-04-18 14:46] LABS: INR 0.9 (0.9-1.3); Prothrombin Time 10.5 SECONDS (10.1-12.7)
[2020-04-18 14:49] LABS: PTT Partial Thromboplastin Tim 28 SECONDS (26.4-36.2)
[2020-04-18 14:51] LABS: Alanine Aminotransferase 18 IU/L (<35); Albumin 3.8 g/dL (3.5-5.0); Albumin Globulin Ratio 1.7 (1.0-2.8); Alkaline Phosphatase 71 U/L (38-126); Aspartate Aminotransferase 24 IU/L (14-36); BUN Creatinine Ratio 27.8 (6-22); Bilirubin Total 0.4 mg/dL (0.2-1.3); Blood Urea Nitrogen 42 mg/dL (7-17); Calcium 11.7 mg/dL (8.4-10.2); Carbon Dioxide 25 mmol/L (22-32); Chloride 108 mmol/L (98-107); Estimated Glomerular Filt Rate 33.2 mL/min (>60); Ethanol (ETOH) < 10 mg/dL; Globulin 2.3 g/dL (1.7-4.1); Glucose 95 mg/dL (80-110); HEMOLYSIS < 15 (0-50); Lipase 226 U/L (23-300); Potassium 3.8 mmol/L (3.4-5.1); Sodium 139 mmol/L (137-145); Total Protein 6.1 g/dL (6.3-8.2)
[2020-04-18 15:26] LABS: Bacteria Urine Many (>30); Culture Indicated Urine Specimen Cultured; RBC Urine 0-1/HPF (0-5/HPF); Squamous Epithelial Cell Urine 1-5 /HPF (0-5/HPF); WBC Urine 30-100/HPF (0-5/HPF)
[2020-04-18 15:41] LABS: Ammonia (NH3) < 9 umol/L (9-30)
== END 2020-04-18 16:55 | disposition home or self-care (01) ==
PROVIDERS: Emergency Provider Emergency Medicine; PCP Internal Medicine
DX: N30.01 Acute cystitis with hematuria (principal); R40.0 Somnolence; R47.81 Slurred speech
CPT/HCPCS: 36415; 70450; 80053; 80320; 81003; 81015; 82140; 83690; 85025; 85610; 85730; 87077; 87086; 87186; 93005; 99284

== ENCOUNTER → 2020-04-22 11:51 | Outpatient (CLI) | payer MEDICARE, SELFPAY ==
[2020-04-22 15:59] LABS: TSH w/ Reflex to FT4 1.63 uIU/mL (0.47-4.68)
== END ==
PROVIDERS: PCP Internal Medicine; Visit Provider Internal Medicine
DX: R40.0 Somnolence (principal)
CPT/HCPCS: 36415; 84443

== ENCOUNTER 2020-06-01 07:24 | Emergency (ER) | payer MEDICARE, SELFPAY ==
[2020-06-01] VITALS (46 sets, daily range): BP systolic 142–212; BP diastolic 69–106; PULSE 66–103; RESP 12–31; TEMP 37.3; O2SAT 92–100; BMI 25.0
--- NOTE | 2020-06-01 07:35 | DI.RAD.S_ITS ---
PROCEDURE: XR CHEST 1V INDICATIONS: chest pain TECHNIQUE: One view of the chest was acquired. COMPARISON: [facility], CHEST 1 VIEW, 05/17/2014, 16:00. [facility], CHEST 1 VIEW, 05/27/2014, 19:24. FINDINGS: Surgical changes and devices: None. Lungs and pleura: Generalized interstitial prominence is seen. No pleural effusions or pneumothorax. Mediastinum: The cardiac contours are within normal limits. The aorta demonstrates calcification and tortuosity. Bones and chest wall: No suspicious bony lesions. S-shaped scoliotic curvature is seen. Age-appropriate bony degenerative changes are seen. Overlying soft tissues appear unremarkable. IMPRESSION: Interstitial prominence is seen throughout. The interstitial prominence is nonspecific, yet may be related to pulmonary edema. Dictated by: Latrell Jiang M.D. on 06/01/2020 at 7:27 Approved by: Latrell Jiang M.D. on 06/01/2020 at 7:28
--- NOTE | 2020-06-01 07:39 | ED.ARRPALP ---
HPI - Arrhythmia/Palpitations General Chief Complaint: Weakness Stated Complaint: RACING HEART Time Seen by Provider: 06/01/20 07:26 Source: patient and family Limitations: no limitations History of Present Illness HPI narrative: This is a pleasant 79-year-old female who comes in with complaint of fast heartbeat overnight. She states she noticed symptoms at about midnight. Patient states that she was able to fall asleep and when she woke this morning about 7:00 a.m. she felt weak, she still felt like her heart rate was fast but not as significantly fast. She still feels like did some quick at this time although her telemetry rhythm is in the 70s but she states it also does not feel like it is as fast as it was. She denies any fevers or chills. No cold cough or congestion. She does not think that she has had any recent COVID exposures. She denies any chest pain or pressure, no shortness of breath, no lightheadedness or presyncope. No nausea or vomiting. No diaphoresis. No abdominal pain. She did have some discomfort into her arms and back. She denies any prior symptoms that are similar. She does have chronic swelling in her bilateral lower extremities which they relate to gout. Per patient her ankles are always swollen and they are not any worse than normal. 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 She states she has many allergies. She denies any tobacco or alcohol use. She states she did have a stress test 20 years ago she has never had a heart catheterization. She follows with Dr. 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 Related Data Home Medications Medication Instructions Recorded Confirmed albuterol sulfate 90 mcg/actuation 1 puff INHALATION BID 12/13/17 05/20/20 aerosol inhaler fluticasone propionate 110 1 puff INHALATION BID 12/13/17 05/20/20 mcg/actuation HFA aerosol inhaler loratadine 10 mg tablet 10 mg PO DAILY 12/13/17 05/20/20 acetaminophen [Tylenol 8 Hour] 650 mg PO PRN PRN 02/26/19 05/20/20 albuterol sulfate 2.5 mg INHALATION PRN PRN 02/26/19 05/20/20 colchicine 0.6 mg PO DIRECTED 02/26/19 05/20/20 fluticasone propionate [Flonase 1 spray INTRANASAL DAILY 02/26/19 05/20/20 Allergy Relief] furosemide 20 mg PO DAILY 02/26/19 05/20/20 zinc 50 mg PO DAILY 02/26/19 05/20/20 Previous Rx's Medication Instructions Recorded potassium chloride 20 mEq 20 meq PO DAILY #30 tab 08/30/18 tablet,extended release(part/cryst) clopidogrel 75 mg tablet 75 mg PO DAILY #90 tab 10/01/19 allopurinol 300 mg tablet 300 mg PO DAILY #90 tab 01/04/20 atenolol 50 mg tablet 25 mg PO DAILY #45 tab 03/19/20 nitrofurantoin 100 mg PO Q12H #4 cap 04/22/20 monohydrate/macrocrystals 100 mg capsule amlodipine 2.5 mg tablet 2.5 mg PO DAILY #30 tab 05/20/20 oxybutynin chloride 10 mg 10 mg PO DAILY #90 tab 05/29/20 tablet,extended release 24 hr Allergies Allergy/AdvReac Type Severity Reaction Status Date / Time aspirin [ASPIRIN] Allergy Mild RACING Verified 06/01/20 08:56 HEARTBEAT/RASH gemfibrozil [GEMFIBROZIL] Allergy Mild Verified 06/01/20 08:56 iodine [IODINE] Allergy Mild RASH Verified 06/01/20 08:56 Penicillins [PENICILLINS] Allergy Mild GI Verified 06/01/20 08:56 DISTURBANCE, RASH promethazine [PROMETHAZINE] Allergy Mild RASH Verified 06/01/20 08:56 Sulfa (Sulfonamide AdvReac Severe SOB Verified 06/01/20 08:56 Antibiotics) [SULFA (SULFONAMIDE ANTIBIOTICS)] atorvastatin [ATORVASTATIN] AdvReac Mild MUSCLE Verified 06/01/20 08:56 ACHES AND WEAKNESS latex AdvReac Mild Rash when Verified 06/01/20 08:56 worn rosuvastatin [ROSUVASTATIN] AdvReac Mild MUSCLE Verified 06/01/20 08:56 PAIN ANS WEAKNESS Review of Systems Review of Systems ROS Unobtainable: All systems reviewed & are unremarkable except as noted in HPI and below Patient History Medical History (Updated 06/01/20 @ 14:09 by Amanda Osei DO) Chronic back pain Chronic renal failure, stage 3 (moderate) (11/29/16) Essential hypertension H/O: gout Hammertoe of right foot History of stroke (05/2014) Peripheral edema (01/10/17) Unspecified asthma, uncomplicated Urinary incontinence (07/24/15) Social History marital status: number of children: 3 household members: children lives independently: Yes caregiver/support person: No housing: house pets and animals: Yes education level: master's degree occupational status: other current occupational exposures/hazards: No 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: [employer] special jim needs: No travel history: other leisure activities: music Smoking Status: Former smoker Tobacco: How many years used: 2 Smokeless tobacco user: other quit status: quit date established second hand exposure: No alcohol intake: never substance use type: does not use Smoking Status: Former smoker alcohol intake frequency: holidays/special occasions only Substance Use Type: does not use Exam Narrative Exam Narrative: GENERAL: Alert and oriented x three, thin elderly female in mild distress HEENT: Head normocephalic, atraumatic, EOMI, pupils reactive, face symmetric, moist mucous membranes NECK: Supple, full range of motion CARDIOVASCULAR: Regular rate and rhythm without murmurs, rubs or gallops. No JVD. Patient has bilateral lower extremity swelling which is nonpitting. RESPIRATORY: Breath sounds equal bilaterally, no wheezes rales or rhonchi. ABDOMEN: Soft, nontender. Normoactive bowel sounds all 4 quadrants. No guarding or rebound, rigidity, no mass : No CVA tenderness EXTREMITIES: Normal range of motion, no clubbing or edema. Neurovascularly intact. No erythema, no warmth bilateral lower extremities. NEUROLOGICAL: Cranial nerves II through XII grossly intact. Moving all extremities SKIN: Warm, dry, no petechiae, no rashes or lesions. Initial Vital Signs Initial Vital Signs: Vital Signs Temperature 99.1 F 06/01/20 07:33 Pulse Rate 75 06/01/20 07:33 Respiratory Rate 20 06/01/20 07:33 Blood Pressure 188/79 H 06/01/20 07:33 Pulse Oximetry 99 06/01/20 07:33 Course Orders Ordered: ED Orders 06/01/20 10:22 Urine Culture Stat Urine Microscopic Stat 06/01/20 14:09 EKG-12 Lead Stat 06/01/20 15:31 Troponin I Stat 06/01/20 15:45 Partial Thromboplastin Time Stat Discontinued Medications Amlodipine Besylate (Amlodipine 5 Mg Tablet) 10 mg PO NOW ONE Stop: 06/01/20 09:39 Last Admin: 06/01/20 09:44 Dose: 10 mg Documented by: FIONA Clopidogrel Bisulfate (Clopidogrel 75 Mg Tablet) 75 mg PO NOW ONE Stop: 06/01/20 09:13 Last Admin: 06/01/20 09:38 Dose: 75 mg Documented by: FIONA Furosemide (Furosemide 40 Mg/4 Ml Vial) 40 mg IV NOW ONE Stop: 06/01/20 08:51 Last Admin: 06/01/20 09:00 Dose: 40 mg Documented by: FIONA Heparin Sodium (Porcine) (Heparin 5,000 Unit/Ml Vial) 4,000 unit IV NOW ONE Stop: 06/01/20 09:13 Last Admin: 06/01/20 09:47 Dose: 4,000 unit Documented by: FIONA Heparin Sodium/Dextrose (Heparin Drip) 25,000 unit in 500 mls @ 20 mls/hr IV CONT SHASHI; Protocol Last Titration: 06/01/20 17:44 Dose: 0 units/hr, 0 mls/hr Documented by: Admin: 06/01/20 09:48 Dose: 1,000 units/hr, 20 mls/hr Documented by: FIONA Labetalol HCl (Labetalol 20 Mg/4 Ml Syringe) 10 mg IV NOW ONE Stop: 06/01/20 09:13 Last Admin: 06/01/20 09:38 Dose: 10 mg Documented by: FIONA Reevaluation(s) Reevaluation #1: Patient currently asymptomatic. Time: 08:57 Reevaluation #2: Updated patient of lab findings, she is allergic to aspirin she states her face and lips swell when she takes this medication. She has not had her morning Plavix. We did discuss recommendations from Cardiology Time: 09:15 Reevaluation #3: Currently awaiting echo results, will recontact Cardiology shortly as patient just completed the exam. She continues to be asymptomatic and blood pressure is improved 155/76 Time: 13:30 Consultations Consultation #1: Spoke with Dr. Santillan who recommends getting an echo at this time as he suspects this may be more of a hypertensive emergency than acute [place]. Um he and I did discuss patient has allergy to aspirin which she describes as swelling of her face and lips. Plan to give her her normal Plavix dose of 75 mg, start with heparin bolus and drip which can be stopped if they decide that is not necessary. Plan to get echo to help decide disposition here or to outside facility with Cardiology in house. We also discussed labetalol IV as well as increasin patient's dose of amlodipine to 10 mg. Time: 09:15 Consultation #2: Patient's echo does show some akinetic changes. LV function was appropriate. Spoke with Dr. Santillan who does recommend transfer at this time patient blood pressure has improved. Patient EKG changes reviewed with Dr. Santillan on second. Continue heparin drip in Plavix, we did discuss repeating troponin it has been almost 8 hours from her initial. Awaiting bed assignment at [facility]. Time: 15:21 Consultation #3: Spoke with hospitalist, Dr. Louise accepts for transfer. Discussed cardiology recommendations. ECHO, EKG findings, labs, current medications on board. Troponin being repeated. Patient continues to be asymptomatic in department. Hypertension as improved after medication earlier today. Time: 13:35 Vital Signs Vital signs: Vital Signs - 8 hr 06/01/20 11:15 06/01/20 11:29 06/01/20 11:30 Pulse Rate 72 72 74 Respiratory Rate 20 19 Blood Pressure 168/77 H 168/77 H 166/77 H Pulse Oximetry 98 98 06/01/20 11:45 06/01/20 12:00 06/01/20 12:30 Pulse Rate 73 78 77 Respiratory Rate 17 23 18 Blood Pressure 163/78 H 155/76 H Pulse Oximetry 97 97 99 06/01/20 13:00 06/01/20 13:30 06/01/20 13:59 Pulse Rate 79 78 77 Respiratory Rate 19 19 27 H Blood Pressure 184/79 H Pulse Oximetry 98 97 97 06/01/20 14:00 06/01/20 14:15 06/01/20 14:30 Pulse Rate 85 82 82 Respiratory Rate 25 H 23 Blood Pressure 171/77 H 189/81 H 154/72 H Pulse Oximetry 97 97 95 06/01/20 14:45 06/01/20 15:00 06/01/20 15:15 Pulse Rate 78 81 82 Respiratory Rate 21 23 29 H Blood Pressure 161/76 H 158/77 H 152/78 H Pulse Oximetry 06/01/20 15:30 06/01/20 15:45 06/01/20 16:00 Pulse Rate 81 84 103 H Respiratory Rate 28 H 22 31 H Blood Pressure 153/73 H 158/74 H Pulse Oximetry 06/01/20 16:03 06/01/20 16:15 06/01/20 16:30 Pulse Rate 84 82 83 Respiratory Rate 28 H 27 H 25 H Blood Pressure 178/77 H 147/69 H 142/71 H Pulse Oximetry 06/01/20 16:45 Pulse Rate 84 Respiratory Rate 22 Blood Pressure 154/73 H Pulse Oximetry MDM - Arrhythmia/Palpitations Lab Data Attestation: I reviewed the patient's lab results. Result diagrams: 06/01/20 08:10 06/01/20 08:10 Labs: Lab Results 06/01/20 06/01/20 06/01/20 Range/Units 08:10 08:10 08:10 WBC 6.5 (4.5-11.0) X10^3/uL RBC 3.73 L (4.0-5.2) X10^6/uL Hgb 12.0 (12.0-16.0) g/dL Hct 37.5 (36-46) % MCV 100.5 H (80-100) fL MCH 32.0 (26-34) PG MCHC 31.9 (30-36) % RDW 15.9 H (11.6-14.8) % Plt Count 171 (150-400) X10^3/uL Neut % (Auto) 56.3 (50-75) % Lymph % (Auto) 32.5 (25-40) % [place] % (Auto) 6.9 (3-14) % Eos % (Auto) 2.0 (2-4) % Baso % (Auto) 2.3 H (0-2) % Neut # (Auto) 3700 (5441-3351) /uL Lymph # (Auto) 2100 (5014-5659) /uL [place] # (Auto) 500 (0-900) /uL Eos # (Auto) 100 (0-450) /uL Baso # (Auto) 100 (0-100) /uL PT 10.7 (10.1-12.7) SECONDS INR 0.9 (0.9-1.3) APTT 29 (26.4-36.2) SECONDS Sodium 138 (137-145) mmol/L Potassium 3.8 (3.4-5.1) mmol/L Chloride 106 (98-107) mmol/L Carbon Dioxide 27 (22-32) mmol/L BUN 34 H (7-17) mg/dL Creatinine 1.29 H (0.52-1.04) mg/dL Estimated GFR 39.8 L (>60) mL/min BUN/Creatinine Ratio 26.4 H (6-22) Glucose 94 (80-110) mg/dL Calcium 11.1 H (8.4-10.2) mg/dL Magnesium (1.6-2.3) mg/dL Total Bilirubin 0.5 (0.2-1.3) mg/dL AST 56 H (14-36) IU/L ALT 32 (<35) IU/L Alkaline Phosphatase 87 (38-126) U/L Total Creatine Kinase 184 H (30-135) U/L CK-MB (CK-2) 14.50 H (<2.37) ng/mL CK-MB (CK-2) Rel Index 7.9 H* (1.5-5.0) % Troponin I 4.170 H* (0.01-0.034) ng/mL NT-Pro-B Natriuret Pep (<450) pg/mL Total Protein 6.8 (6.3-8.2) g/dL Albumin 4.0 (3.5-5.0) g/dL Globulin 2.8 (1.7-4.1) g/dL Albumin/Globulin Ratio 1.4 (1.0-2.8) Lipase 230 (23-300) U/L TSH (0.47-4.68) uIU/mL Urine RBC (0-5/HPF) Urine WBC (0-5/HPF) Urine Bacteria (None) Ur Culture Indicated? COVID-19 PCR (Negative) 06/01/20 06/01/20 06/01/20 Range/Units 08:10 08:10 09:20 WBC (4.5-11.0) X10^3/uL RBC (4.0-5.2) X10^6/uL Hgb (12.0-16.0) g/dL Hct (36-46) % MCV (80-100) fL MCH (26-34) PG MCHC (30-36) % RDW (11.6-14.8) % Plt Count (150-400) X10^3/uL Neut % (Auto) (50-75) % Lymph % (Auto) (25-40) % [place] % (Auto) (3-14) % Eos % (Auto) (2-4) % Baso % (Auto) (0-2) % Neut # (Auto) (7575-9391) /uL Lymph # (Auto) (7143-9359) /uL [place] # (Auto) (0-900) /uL Eos # (Auto) (0-450) /uL Baso # (Auto) (0-100) /uL PT (10.1-12.7) SECONDS INR (0.9-1.3) APTT (26.4-36.2) SECONDS Sodium (137-145) mmol/L Potassium (3.4-5.1) mmol/L Chloride (98-107) mmol/L Carbon Dioxide (22-32) mmol/L BUN (7-17) mg/dL Creatinine (0.52-1.04) mg/dL Estimated GFR (>60) mL/min BUN/Creatinine Ratio (6-22) Glucose (80-110) mg/dL Calcium (8.4-10.2) mg/dL Magnesium 2.1 (1.6-2.3) mg/dL Total Bilirubin (0.2-1.3) mg/dL AST (14-36) IU/L ALT (<35) IU/L Alkaline Phosphatase (38-126) U/L Total Creatine Kinase (30-135) U/L CK-MB (CK-2) (<2.37) ng/mL CK-MB (CK-2) Rel Index (1.5-5.0) % Troponin I (0.01-0.034) ng/mL NT-Pro-B Natriuret Pep 1140 H (<450) pg/mL Total Protein (6.3-8.2) g/dL Albumin (3.5-5.0) g/dL Globulin (1.7-4.1) g/dL Albumin/Globulin Ratio (1.0-2.8) Lipase (23-300) U/L TSH 2.17 (0.47-4.68) uIU/mL Urine RBC (0-5/HPF) Urine WBC (0-5/HPF) Urine Bacteria (None) Ur Culture Indicated? COVID-19 PCR Negative (Negative) 06/01/20 06/01/20 06/01/20 Range/Units 10:22 15:31 15:45 WBC (4.5-11.0) X10^3/uL RBC (4.0-5.2) X10^6/uL Hgb (12.0-16.0) g/dL Hct (36-46) % MCV (80-100) fL MCH (26-34) PG MCHC (30-36) % RDW (11.6-14.8) % Plt Count (150-400) X10^3/uL Neut % (Auto) (50-75) % Lymph % (Auto) (25-40) % [place] % (Auto) (3-14) % Eos % (Auto) (2-4) % Baso % (Auto) (0-2) % Neut # (Auto) (6169-7856) /uL Lymph # (Auto) (9477-1289) /uL [place] # (Auto) (0-900) /uL Eos # (Auto) (0-450) /uL Baso # (Auto) (0-100) /uL PT (10.1-12.7) SECONDS INR (0.9-1.3) APTT 67 H D (26.4-36.2) SECONDS Sodium (137-145) mmol/L Potassium (3.4-5.1) mmol/L Chloride (98-107) mmol/L Carbon Dioxide (22-32) mmol/L BUN (7-17) mg/dL Creatinine (0.52-1.04) mg/dL Estimated GFR (>60) mL/min BUN/Creatinine Ratio (6-22) Glucose (80-110) mg/dL Calcium (8.4-10.2) mg/dL Magnesium (1.6-2.3) mg/dL Total Bilirubin (0.2-1.3) mg/dL AST (14-36) IU/L ALT (<35) IU/L Alkaline Phosphatase (38-126) U/L Total Creatine Kinase (30-135) U/L CK-MB (CK-2) (<2.37) ng/mL CK-MB (CK-2) Rel Index (1.5-5.0) % Troponin I 4.810 H* (0.01-0.034) ng/mL NT-Pro-B Natriuret Pep (<450) pg/mL Total Protein (6.3-8.2) g/dL Albumin (3.5-5.0) g/dL Globulin (1.7-4.1) g/dL Albumin/Globulin Ratio (1.0-2.8) Lipase (23-300) U/L TSH (0.47-4.68) uIU/mL Urine RBC None seen (0-5/HPF) Urine WBC 5-10/hpf H (0-5/HPF) Urine Bacteria Many (>30) H (None) Ur Culture Indicated? Specimen cultured COVID-19 PCR (Negative) Urine Dip Bedside Urine Glucose Negative Bedside Urine Bilirubin - Negative Bedside Urine Ketone - Negative Urine Specific [place] 1.015 Bedside Urine Occult Blood - Negative Bedside Urine pH 6.0 Bedside Urine Protein + 30 Bedside Urine Urobilinogen - Negative Bedside Urine Nitrite + Positive Bedside Urine Leukocytes - Negative Esterase Imaging Data Chest x-ray: Radiologist's Impresson: [address] [id number] ReportSigned Patient: Sarah Enrique [facility]#: [id number]: [id number]:[id number]/Sex: 79 / FDate of Service: 06/01/20Loc: EDAccession Number: [id number] Procedure: XR chest 1V Ordering Provider: Amanda Osei D.O. PROCEDURE: XR CHEST 1V INDICATIONS: chest pain TECHNIQUE: One view of the chest was acquired. COMPARISON: [facility], CHEST 1 VIEW, 05/17/2014, 16:00. [facility], CHEST 1 VIEW, 05/27/2014, 19:24. FINDINGS: Surgical changes and devices: None. Lungs and pleura: Generalized interstitial prominence is seen. No pleural effusions or pneumothorax. Mediastinum: The cardiac contours are within normal limits. The aorta demonstrates calcification and tortuosity. Bones and chest wall: No suspicious bony lesions. S-shaped scoliotic curvature is seen. Age-appropriate bony degenerative changes are seen. Overlying soft tissues appear unremarkable. IMPRESSION: Interstitial prominence is seen throughout. The interstitial prominence is nonspecific, yet may be related to pulmonary edema. Dictated by: Latrell Jiang M.D. on 06/01/2020 at 7:27 Approved by: Latrell Jiang M.D. on 06/01/2020 at 7:28 ECG Data Attestation: I personally reviewed and interpreted this ECG as follows: Prior ECG tracings: available for review Interpretation: Rate of 71, pr 136, qrs of 78 and QTC of 415. T wave inversions of 3 andV1, No elevation appreciated. Prior EKG from 04/18/20 appears similar except for lead 3 and v1. EKG#2 sinus rhythm rate 82, RI 132, QRS 82 and QTC 455. T-wave inversion/depression is more significant on repeat EKG, there appears to be about a L of elevation V1 definitely there in V2 flattened in V3 a little bit of depression in lateral leads. [facility] Narrative Medical decision making narrative: Patient comes in with complaint of palpitations or heart racing, she states that she did have some discomfort into both arms in her back during that episode. She went to sleep and upon awakening this morning about 7:00 a.m. still felt weak but otherwise no arm, chest or back discomfort. Patient is hypertensive upon arrival. Her EKG shows some nonspecific change. Labs show an elevated troponin at 4, she has normal hemoglobin, normal coags, patient's renal function appears at baseline with her prior creatinine ranging from 1.5-1.7 from April of 2020 through January of 2018. Patient's BNP is elevated at 1140 with no priors for comparison and her chest x-ray does show some interstitial changes consistent with pulmonary edema. TSH is negative and COVID swab is negative as well. Patient has a allergy she describes is swelling of her lips and face with aspirin so this was deferred and she was given her regular dose of Plavix, started on heparin bolus and drip, and patient received a dose of IV labetalol as well as amlodipine 10 mg which did improve her blood pressure. This had been discussed with Dr. Santillan, he requested echo and evaluated this and felt it was necessary for transfer to [facility]. Discussed with Dr. Louise hospitalist who kindly accepted. Discharge Plan Departure Patient Disposition: [facility] Clinical Impression: Non-ST elevation [place] (NSTEMI) Prescriptions: No Action potassium chloride 20 mEq tablet,ER particles/crystals 20 meq PO DAILY Qty: 30 RF: 3 clopidogrel [Plavix] 75 mg tablet 75 mg PO DAILY Qty: 90 RF: 3 allopurinol 300 mg tablet 300 mg PO DAILY Qty: 90 RF: 3 atenolol 50 mg tablet 25 mg PO DAILY Qty: 45 RF: 0 oxybutynin chloride 10 mg tablet extended release 24hr 10 mg PO DAILY Qty: 90 RF: 1 albuterol sulfate 90 mcg/actuation HFA aerosol inhaler 1 puff INHALATION BID RF: 0 loratadine [Claritin] 10 mg tablet 10 mg PO DAILY RF: 0 fluticasone propionate [Flovent HFA] 110 mcg/actuation HFA aerosol inhaler 1 puff INHALATION BID RF: 0 nitrofurantoin monohyd/m-cryst [Macrobid] 100 mg capsule 100 mg PO Q12H Qty: 4 RF: 0 amlodipine 2.5 mg tablet 2.5 mg PO DAILY Qty: 30 RF: 3 albuterol sulfate 2.5 mg /3 mL (0.083 %) Solution For Nebulization 2.5 mg INHALATION PRN PRN (Reason: Shortness Of Breath) RF: 0 acetaminophen [Tylenol 8 Hour] 650 mg Tablet Extended Release 650 mg PO PRN PRN (Reason: pain) RF: 0 zinc 50 mg Tablet 50 mg PO DAILY RF: 0 colchicine 0.6 mg Tablet 0.6 mg PO DIRECTED RF: 0 fluticasone propionate [Flonase Allergy Relief] 50 mcg/actuation [place],Suspension 1 spray INTRANASAL DAILY RF: 0 furosemide 20 mg tablet 20 mg PO DAILY RF: 0 Referrals: David Welsh MD [Primary Care Provider] -
[2020-06-01 08:23] LABS: INR 0.9 (0.9-1.3); Prothrombin Time 10.7 SECONDS (10.1-12.7)
[2020-06-01 08:24] LABS: Add Manual Diff / Slide Review NO; Basophils Absolute Auto 100 /uL (0-100); Basophils Percent Auto 2.3 % (0-2); Eosinophils Absolute Auto 100 /uL (0-450); Hematocrit 37.5 % (36-46); Lymphocytes Absolute Auto 2100 /uL (1100-4500); Lymphocytes Percent Auto 32.5 % (25-40); Mean Corpuscular HGB Conc 31.9 % (30-36); Mean Corpuscular Volume 100.5 fL (80-100); Monocytes Absolute Auto 500 /uL (0-900); Monocytes Percent Auto 6.9 % (3-14); Neutrophils Absolute Auto 3700 /uL (1500-7000); Neutrophils Percent Auto 56.3 % (50-75); Platelet Count 171 X10^3/uL (150-400); Red Blood Cell Count 3.73 X10^6/uL (4.0-5.2); Red Cell Distribution Width 15.9 % (11.6-14.8); White Blood Cell Count 6.5 X10^3/uL (4.5-11.0)
[2020-06-01 08:26] LABS: PTT Partial Thromboplastin Tim 29 SECONDS (26.4-36.2)
[2020-06-01 08:31] LABS: Magnesium 2.1 mg/dL (1.6-2.3)
[2020-06-01 08:33] LABS: Alanine Aminotransferase 32 IU/L (<35); Albumin Globulin Ratio 1.4 (1.0-2.8); Alkaline Phosphatase 87 U/L (38-126); Aspartate Aminotransferase 56 IU/L (14-36); BUN Creatinine Ratio 26.4 (6-22); Bilirubin Total 0.5 mg/dL (0.2-1.3); Blood Urea Nitrogen 34 mg/dL (7-17); Calcium 11.1 mg/dL (8.4-10.2); Carbon Dioxide 27 mmol/L (22-32); Chloride 106 mmol/L (98-107); Creatine Kinase 184 U/L (30-135); Estimated Glomerular Filt Rate 39.8 mL/min (>60); Globulin 2.8 g/dL (1.7-4.1); Glucose 94 mg/dL (80-110); HEMOLYSIS < 15 (0-50); Lipase 230 U/L (23-300); Potassium 3.8 mmol/L (3.4-5.1); Sodium 138 mmol/L (137-145); Total Protein 6.8 g/dL (6.3-8.2)
[2020-06-01 08:41] LABS: NT-proBNP (BNP-Adult 18+) 1140 pg/mL (<450)
[2020-06-01] MEDS: FUROSEMIDE 40 MG/4 ML VIAL IV (09:00)
[2020-06-01 09:04] LABS: Thyroid Stimulating Hormone 2.17 uIU/mL (0.47-4.68)
[2020-06-01] MEDS: LABETALOL 20 MG/4 ML SYRINGE 10 MG IV (09:38)
[2020-06-01] MEDS: CLOPIDOGREL 75 MG TABLET PO (09:38)
[2020-06-01 09:39] LABS: COVID19 -Nasal RAPID Negative (Negative)
[2020-06-01] MEDS: AMLODIPINE 5 MG TABLET 10 MG PO (09:44)
[2020-06-01] MEDS: HEPARIN 5,000 UNIT/ML VIAL 4000 UNIT IV (09:47)
[2020-06-01] MEDS: HEPARIN DRIP 25,000 UNIT/500 ML IV.SOLN 20 UNIT IV (09:48)
[2020-06-01 10:59] LABS: RBC Urine None Seen (0-5/HPF)
[2020-06-01 11:04] LABS: CKMB % Relative Index 7.9 % (1.5-5.0)
[2020-06-01 11:18] LABS: Bacteria Urine Many (>30); Culture Indicated Urine Specimen Cultured; WBC Urine 5-10/HPF (0-5/HPF)
--- NOTE | 2020-06-01 12:26 | DI.ECHO.S_ITS ---
Echocardiogram Report + + :Name: JOSEPHINE HOLT Study Date: 06/01/2020 Height: 60 in : :[facility] Exam Location: [place] Weight: 120 lb : : Gender: Female BSA: 1.5 m2 : :: 1940 Age: 79 yrs BP: 155/76 mmHg: :Reason For Study: Hypertension/ DE : :Ordering Physician: [place] : :Hospitalist Performed By: Mary Page : + + Interpretation Summary 1) Normal left ventricular thickness, size, and systolic function (EF 60-65%). 2) Akinesis of the inferoapex and apex. 3) Normal right ventricular size and function. 4) There is moderate aortic stenosis (valve area 1.3cm2, mean gradient 26.5mmHg). 5) Hypertension present during the study (BP 155/76mmHg). 6) Compared to the Echo done 05/20/2014, wall motion abnormalities are new on this study. Procedure: A two-dimensional transthoracic echocardiogram with color flow and Doppler was performed. The study quality was technically adequate. Comparison is made with the echocardiogram of 05/20/2014. The patient was in normal sinus rhythm during the exam. Left Ventricle: The left ventricle is normal in size and wall thickness. The ejection fraction is estimated to be 60-65%. Akinesis of the inferoapex and apex. Diastolic parameters suggest a relaxation abnormality of the left ventricle, consistent with probable normal filling pressures. Right Ventricle: The right ventricle is normal in size and function. Atria: The left atrium is severely dilated. The right atrium is borderline dilated. There is no Doppler evidence for an interatrial shunt. The interatrial septum bows toward left atrium consistent with elevated right atrial pressure. Mitral Valve: There is mild to moderate mitral annular calcification. The mitral valve leaflets appear moderately thickened, but open well. There is trace mitral regurgitation. Aortic Valve: The aortic valve is trileaflet. The aortic valve is moderately calcified. The peak aortic velocity is 3.5 m/sec. The aortic valve mean gradient is 26.5 mmHg. The peak aortic velocity on the previous exam was 2.2 m/sec. The calculated aortic valve area is 1.3 cm2. There is moderate aortic stenosis. There is mild aortic regurgitation. Compared to the prior echo study, the aortic insufficiency is a new finding. Tricuspid Valve: The tricuspid valve is normal in structure and function. There is trace tricuspid regurgitation. The right ventricular systolic pressure is estimated to be at least 27 mmHg based on an estimated right atrial pressure of 3 mm Hg. Pulmonic Valve: The pulmonic valve is not well visualized. There is a trace or physiologic amount of pulmonic regurgitation. Great Vessels: The aortic root is normal size. The ascending aorta is normal in size. The pulmonary is not well visualized. The IVC is of normal diameter and collapses greater than 50% with a sniff. This suggests a low right atrial pressure of 3 mm Hg. Pericardium/ Pleura There is a trace loculated pericardial effusion. There is no pleural effusion. MMode/2D Measurements & Calculations LVIDd: 4.2 cm LVOT diam: 2.0 cm LVIDs: 2.0 cm Ao root diam: 3.0 cm FS: 51.6 % asc Aorta Diam: 3.3 cm IVSd: 0.83 cm LVPWd: 0.82 cm LV menjivar. diameter/BSA (cm/m^2): 2.8 LV sys. diameter/BSA (cm/m^2): 1.3 LA A2 area: 24.3 cm2 RA long axis: 4.9 cm LA A4 area: 22.7 cm2 RA area: 15.8 cm2 LA length (vol): 5.2 cm RA vol: 43.3 ml LA vol: 90.7 ml RA : 28.8 ml/m2 LA vol index: 60.4 ml/m2 IVC diam: 1.4 cm RVD1 (basal): 3.0 cm TAPSE: 2.1 cm Doppler Measurements & Calculations Ao V2 max: 352.5 cm/sec LVOT Max Jerry: 151.9 cm/sec Ao V2 mean: 245.0 cm/sec LV V1 max P.2 mmHg Ao max P.7 mmHg LV V1 VTI: 30.9 cm Ao mean P.5 mmHg DANTE(I,D): 1.3 cm2 Ao V2 VTI: 73.4 cm DANTE(V,D): 1.3 cm2 sev ratio: 0.42 DANTE indexed to BSA (cm^2/m^2): 0.84 AI P1/2t: 436.0 msec AI dec slope: 244.9 cm/sec2 MV E max jerry: 81.3 cm/sec TR max jerry: 246.4 cm/sec MV A max jerry: 126.8 cm/sec TR max P.3 mmHg MV E/A: 0.64 PA V2 max: 93.6 cm/sec Med Peak E' Jerry: 3.5 cm/sec PA V2 mean: 69.7 cm/sec E/E' med: 23.3 PA mean P.1 mmHg Lat Peak E' Jerry: 7.8 cm/sec PA pr(Accel): 46.9 mmHg E/E' lat: 10.4 E/e' average: 16.8 MV dec time: 0.28 sec MVA(VTI): 3.0 cm2 MV V2 mean: 67.6 cm/sec SV(LVOT): 93.1 ml MV mean P.2 mmHg MV V2 VTI: 31.1 cm Reading Physician:03:22 PM
[2020-06-01 16:05] LABS: PTT Partial Thromboplastin Tim 67 SECONDS (26.4-36.2)
== END 2020-06-01 18:00 | disposition short-term general hospital (02) ==
PROVIDERS: Emergency Provider Emergency Medicine; PCP Internal Medicine
DX: I21.4 Non-ST elevation (NSTEMI) myocardial infarction (principal); R07.9 Chest pain, unspecified; J81.1 Chronic pulmonary edema
CPT/HCPCS: 36415; 71045; 80053; 81003; 81015; 82550; 82553; 83690; 83735; 83880; 84443; 84484; 85025; 85610; 85730; 87077; 87086; 87186; 87635; 93005; 93010; 93306; 96365; 96366; 96375; 99284; J1644; J1940

== ENCOUNTER → 2020-07-18 12:13 | Outpatient (CLI) | payer MEDICARE, SELFPAY ==
[2020-07-18 14:13] LABS: Appearance Urine UA CLOUDY; Bilirubin Urine UA NEGATIVE (NEGATIVE); Color Urine UA YELLOW; Glucose Urine UA NEGATIVE (Negative); Ketones Urine UA NEGATIVE (NEGATIVE); Leukocyte Esterase Urine UA 2+ (NEGATIVE); Nitrite Urine UA POSITIVE (Negative); Occult Blood Urine UA TRACE-LYSED (Negative); Protein Urine UA 2+ (Negative); Urobilinogen Urine UA 0.2 E.U./dL (0.2)
[2020-07-18 14:20] LABS: pH Urine UA 5.5 (4.5-8.0)
[2020-07-18 14:22] LABS: Amorphous Sediment Urine 2+; Bacteria Urine Many (>30); Culture Indicated Urine Specimen Cultured; RBC Urine 0-1/HPF (0-5/HPF); Squamous Epithelial Cell Urine 0-1 /HPF (0-5/HPF); WBC Urine 10-30/HPF (0-5/HPF)
== END ==
PROVIDERS: PCP Internal Medicine; Referring Provider Internal Medicine; Visit Provider Internal Medicine
DX: R30.0 Dysuria (principal)
CPT/HCPCS: 81001; 87077; 87086; 87186

== ENCOUNTER → 2021-02-23 12:23 | Outpatient (CLI) | payer MEDICARE, SELFPAY ==
[2021-02-23 13:21] LABS: Alanine Aminotransferase 49 IU/L (<35); Albumin 4.1 g/dL (3.5-5.0); Albumin Globulin Ratio 1.5 (1.0-2.8); Alkaline Phosphatase 91 U/L (38-126); Aspartate Aminotransferase 52 IU/L (14-36); BUN Creatinine Ratio 23.9 (6-22); Bilirubin Total 0.4 mg/dL (0.2-1.3); Blood Urea Nitrogen 34 mg/dL (7-17); Calcium 10.8 mg/dL (8.4-10.2); Carbon Dioxide 27 mmol/L (22-32); Chloride 107 mmol/L (98-107); Cholesterol 185 mg/dL (140-199); Estimated Glomerular Filt Rate 35.5 mL/min (>60); Globulin 2.8 g/dL (1.7-4.1); Glucose 107 mg/dL (80-110); HDL Cholesterol 85 mg/dL (40-60); HEMOLYSIS < 15 (0-50); LDL Cholesterol Calculated 65 mg/dL (<100); Potassium 4.4 mmol/L (3.4-5.1); Sodium 140 mmol/L (137-145); Total Protein 6.9 g/dL (6.3-8.2); Triglycerides 175 mg/dL (35-150)
== END ==
PROVIDERS: PCP Internal Medicine; Referring Provider Internal Medicine; Visit Provider Internal Medicine
DX: I10 Essential (primary) hypertension (principal); I25.10 Atherosclerotic heart disease of native coronary artery without angina pectoris; N18.32 Chronic kidney disease, stage 3b
CPT/HCPCS: 36415; 80053; 80061

== ENCOUNTER → 2021-06-29 12:11 | Outpatient (CLI) | payer MEDICARE, SELFPAY ==
--- NOTE | 2021-06-29 12:13 | DI.RAD.S_ITS ---
PROCEDURE: XR FOOT LT MIN 3V INDICATIONS: pain, swelling TECHNIQUE: 3 views of the foot were acquired. COMPARISON: [facility], , FOOT 3V LEFT, 06/04/2011, 12:01. FINDINGS: Bones: No fractures or dislocations. No suspicious bony lesions. Generalized decrease in osseous mineralization noted. Plantar calcaneal spur noted. Tarsometatarsal joint space narrowing and small marginal osteophyte Soft tissues: No tibiotalar joint effusion. Achilles tendon appears normal. Diffuse atherosclerotic vascular calcification noted. Dorsal soft tissue swelling noted. IMPRESSION: Osteopenia, osteoarthritis and atherosclerosis without fracture or lytic lesion. Approved by: Mihir Parra M.D. on 06/29/2021 at 11:49
== END ==
PROVIDERS: PCP Internal Medicine; Referring Provider Physician Assistant; Visit Provider Physician Assistant
DX: I70.202 Unspecified atherosclerosis of native arteries of extremities, left leg (principal); M19.072 Primary osteoarthritis, left ankle and foot; M85.872 Other specified disorders of bone density and structure, left ankle and foot; R26.89 Other abnormalities of gait and mobility; M79.89 Other specified soft tissue disorders
CPT/HCPCS: 73630

== ENCOUNTER → 2021-08-17 12:54 | Outpatient (CLI) | payer MEDICARE, SELFPAY ==
[2021-08-17 14:11] LABS: Alanine Aminotransferase 36 IU/L (<35); Albumin 4.2 g/dL (3.5-5.0); Albumin Globulin Ratio 1.6 (1.0-2.8); Alkaline Phosphatase 84 U/L (38-126); Aspartate Aminotransferase 46 IU/L (14-36); BUN Creatinine Ratio 20.3 (6-22); Bilirubin Total 0.5 mg/dL (0.2-1.3); Blood Urea Nitrogen 31 mg/dL (7-17); Carbon Dioxide 25 mmol/L (22-32); Chloride 107 mmol/L (98-107); Cholesterol 165 mg/dL (140-199); Estimated Glomerular Filt Rate 32.5 mL/min (>60); Globulin 2.6 g/dL (1.7-4.1); Glucose 92 mg/dL (80-110); HDL Cholesterol 70 mg/dL (40-60); HEMOLYSIS < 15 (0-50); LDL Cholesterol Calculated 59 mg/dL (<100); Potassium 3.4 mmol/L (3.4-5.1); Sodium 139 mmol/L (137-145); Total Protein 6.8 g/dL (6.3-8.2); Triglycerides 180 mg/dL (35-150); Uric Acid 2.9 mg/dL (2.5-6.2)
== END ==
PROVIDERS: PCP Internal Medicine; Referring Provider Internal Medicine; Visit Provider Internal Medicine
DX: I10 Essential (primary) hypertension (principal); N18.32 Chronic kidney disease, stage 3b; Z87.39 Personal history of other diseases of the musculoskeletal system and connective tissue
CPT/HCPCS: 36415; 80053; 80061; 84550

== ENCOUNTER → 2022-02-19 12:25 | Outpatient (CLI) | payer MEDICARE, SELFPAY ==
[2022-02-19 15:46] LABS: Alanine Aminotransferase 38 IU/L (<35); Albumin 3.9 g/dL (3.5-5.0); Albumin Globulin Ratio 1.6 (1.0-2.8); Alkaline Phosphatase 82 U/L (38-126); Aspartate Aminotransferase 44 IU/L (14-36); BUN Creatinine Ratio 24.6 (6-22); Bilirubin Total 0.1 mg/dL (0.2-1.3); Blood Urea Nitrogen 34 mg/dL (7-17); Calcium 10.6 mg/dL (8.4-10.2); Carbon Dioxide 27 mmol/L (22-32); Chloride 108 mmol/L (98-107); Estimated Glomerular Filt Rate 38 mL/min (>60); Globulin 2.5 g/dL (1.7-4.1); Glucose 89 mg/dL (80-110); HEMOLYSIS < 15 (0-50); Potassium 3.7 mmol/L (3.4-5.1); Sodium 141 mmol/L (137-145); Total Protein 6.4 g/dL (6.3-8.2); Uric Acid 2.3 mg/dL (2.5-6.2)
== END ==
PROVIDERS: PCP Internal Medicine; Referring Provider Internal Medicine; Visit Provider Internal Medicine
DX: E83.52 Hypercalcemia (principal); I10 Essential (primary) hypertension; M10.9 Gout, unspecified; N18.32 Chronic kidney disease, stage 3b
CPT/HCPCS: 36415; 80053; 84550

== ENCOUNTER → 2022-08-19 | Outpatient (CLI) | payer MEDICARE, SELFPAY ==
--- NOTE | 2022-08-19 16:13 | DI.ECHO.S_ITS ---
Interpretation Summary 1) Normal left ventricular size and systolic function (EF 60-65%). 2) Akinesis of the inferoapex and apex. 3) Normal right ventricular size and function. 4) There is severe aortic stenosis (valve area 0.7cm2, mean gradient 52mmHg). 5) Hypertension present during the study (BP 182/90mmHg). 6) Compared to the Echo done 06/01/2020, aortic stenosis has progressed from moderate to severe on this study. Procedure: A two-dimensional transthoracic echocardiogram with color flow and Doppler was performed. The study quality was technically adequate. The patient was in sinus rhythm with heart rates between 60-64 bpm during the exam. The patient had occasional PVCs during the exam. Left Ventricle: The left ventricle is normal in size. Left ventricular wall thickness is borderline increased. The ejection fraction is estimated to be 60-65%. This is unchanged compared to the previous study. Akinesis of the inferoapex and apex. Diastolic parameters suggest a relaxation abnormality of the left ventricle, consistent with probable normal filling pressures. Right Ventricle: The right ventricle is normal in size and function. Atria: The left atrium is severely dilated. The right atrium is mildly dilated. There is no Doppler evidence for an interatrial shunt. Mitral Valve: The mitral valve leaflets are moderately calcified. Calcified mitral apparatus causing mitral stenosis. There is mild mitral stenosis. There is mild mitral regurgitation. Aortic Valve: The aortic valve is trileaflet. The aortic valve is heavily calcified. There is severe aortic stenosis. Compared to the prior echo study, there has been an increase in the severity of aortic stenosis. The aortic valve mean gradient is 52 mmHg. There is mild aortic regurgitation. Tricuspid Valve: The tricuspid valve is normal in structure and function. There is mild tricuspid regurgitation. This is an increase compared to the previous study. The right ventricular systolic pressure is estimated to be at least 28.6 mmHg based on an estimated right atrial pressure of 3 mm Hg. Pulmonic Valve: The pulmonic valve leaflets are thin and pliable; valve motion is normal. There is no pulmonic valvular regurgitation. Great Vessels: The ascending aorta is normal in size. The IVC is of normal diameter and collapses greater than 50% with a sniff. This suggests a low right atrial pressure of 3 mm Hg. Pericardium/ Pleura There is a trace loculated pericardial effusion. There is no pleural effusion. MMode/2D Measurements & Calculations LVIDd: 2.8 cm LVOT diam: 1.8 cm LVIDs: 1.7 cm Ao root diam: 3.0 cm FS: 39.3 % asc Aorta Diam: 3.1 cm EPSS: 0.20 cm IVSd: 1.1 cm LVPWd: 1.1 cm LV menjivar. diameter/BSA (cm/m^2): 1.8 LV sys. diameter/BSA (cm/m^2): 1.1 LA dimension: 4.0 cm RA long axis: 4.3 cm LA A2 area: 23.6 cm2 RA area: 13.5 cm2 LA A4 area: 19.7 cm2 RA vol: 36.0 ml LA length (vol): 5.7 cm RA : 23.5 ml/m2 LA vol: 69.6 ml IVC diam: 1.7 cm LA vol index: 45.3 ml/m2 RVD1 (basal): 2.9 cm LVLs ap4: 5.2 cm LVLd ap2: 6.6 cm TAPSE_phl: 2.9 cm LVLs ap2: 6.1 cm Doppler Measurements & Calculations Ao V2 max: 470.0 cm/sec LVOT Max Jerry: 124.0 cm/sec Ao V2 mean: 348.0 cm/sec LV V1 max P.2 mmHg Ao max P.4 mmHg LV V1 VTI: 30.3 cm Ao mean P.0 mmHg DANTE(I,D): 0.65 cm2 Ao V2 VTI: 118.0 cm DANTE(V,D): 0.67 cm2 sev ratio: 0.26 DANTE indexed to BSA (cm^2/m^2): 0.43 AI P1/2t: 536.3 msec AI dec slope: 225.0 cm/sec2 MV E max jerry: 118.0 cm/sec TR max jerry: 253.0 cm/sec MV A max jerry: 135.0 cm/sec TR max P.6 mmHg MV E/A: 0.87 PA V2 max: 102.0 cm/sec Med Peak E' Jerry: 4.0 cm/sec PA V2 mean: 70.4 cm/sec E/E' med: 29.5 PA mean P.0 mmHg Lat Peak E' Jerry: 7.2 cm/sec E/E' lat: 16.4 E/e' average: 22.9 MV dec time: 0.28 sec MVA(VTI): 1.7 cm2 MV V2 mean: 82.9 cm/sec SV(LVOT): 77.1 ml MV mean P.0 mmHg MV V2 VTI: 45.8 cm AV P1/2t-pr_phl: 537.0 msec AV VR_phl: 0.27 DANTE(VTI)/BSA_phl: 0.42 Reading Physician:07:26 PM
== END ==
LOC: ECHO 15:41
PROVIDERS: PCP Internal Medicine; Referring Provider Internal Medicine Cardiovascular Disease; Visit Provider Internal Medicine Cardiovascular Disease
DX: I08.3 Combined rheumatic disorders of mitral, aortic and tricuspid valves (principal); I25.10 Atherosclerotic heart disease of native coronary artery without angina pectoris
CPT/HCPCS: 93306

== ENCOUNTER → 2022-10-18 12:26 | Outpatient (CLI) | payer MEDICARE, SELFPAY ==
[2022-10-18 14:36] LABS: Alanine Aminotransferase 20 IU/L (<35); Albumin 3.3 g/dL (3.5-5.0); Albumin Globulin Ratio 1.6 (1.0-2.8); Alkaline Phosphatase 69 U/L (38-126); Aspartate Aminotransferase 24 IU/L (14-36); BUN Creatinine Ratio 27.9 (6-22); Bilirubin Total 0.3 mg/dL (0.2-1.3); Blood Urea Nitrogen 48 mg/dL (7-17); Calcium 10.5 mg/dL (8.4-10.2); Carbon Dioxide 20 mmol/L (22-32); Chloride 108 mmol/L (98-107); Estimated Glomerular Filt Rate 29 mL/min (>60); Globulin 2.1 g/dL (1.7-4.1); Glucose 92 mg/dL (80-110); HEMOLYSIS < 15 (0-50); Potassium 3.8 mmol/L (3.4-5.1); Sodium 137 mmol/L (137-145); Total Protein 5.4 g/dL (6.3-8.2); Uric Acid 1.8 mg/dL (2.5-6.2)
== END ==
PROVIDERS: PCP Internal Medicine; Referring Provider Internal Medicine; Visit Provider Internal Medicine
DX: I10 Essential (primary) hypertension (principal); Z87.39 Personal history of other diseases of the musculoskeletal system and connective tissue; N18.30 Chronic kidney disease, stage 3 unspecified
CPT/HCPCS: 36415; 80053; 84550

== ENCOUNTER → 2023-01-07 12:51 | Outpatient (CLI) | payer MEDICARE, SELFPAY ==
[2023-01-07 13:45] LABS: Add Manual Diff / Slide Review NO; Basophils Absolute Auto 100 /uL (0-100); Eosinophils Absolute Auto 200 /uL (0-450); Eosinophils Percent Auto 2.6 % (2-4); Hematocrit 30.1 % (36-46); Hemoglobin 9.9 g/dL (12.0-16.0); Lymphocytes Absolute Auto 1600 /uL (1100-4500); Mean Corpuscular HGB Conc 33.1 % (30-36); Mean Corpuscular Hemoglobin 34.3 PG (26-34); Mean Corpuscular Volume 103.6 fL (80-100); Monocytes Absolute Auto 500 /uL (0-900); Monocytes Percent Auto 7.4 % (3-14); Neutrophils Absolute Auto 4500 /uL (1500-7000); Platelet Count 131 X10^3/uL (150-400); White Blood Cell Count 6.9 X10^3/uL (4.5-11.0)
[2023-01-07 13:55] LABS: Alanine Aminotransferase 17 IU/L (<35); Albumin Globulin Ratio 1.7 (1.0-2.8); Alkaline Phosphatase 73 U/L (38-126); Aspartate Aminotransferase 22 IU/L (14-36); BUN Creatinine Ratio 23.2 (6-22); Bilirubin Total 0.4 mg/dL (0.2-1.3); Blood Urea Nitrogen 62 mg/dL (7-17); C-Reactive Protein Quant 0.9 mg/dL (<1.0); Calcium 10.7 mg/dL (8.4-10.2); Carbon Dioxide 19 mmol/L (22-32); Chloride 107 mmol/L (98-107); Estimated Glomerular Filt Rate 17 mL/min (>60); Globulin 2.4 g/dL (1.7-4.1); Glucose 105 mg/dL (80-110); HEMOLYSIS < 15 (0-50); Potassium 3.4 mmol/L (3.4-5.1); Sodium 139 mmol/L (137-145); Total Protein 6.4 g/dL (6.3-8.2)
[2023-01-07 14:29] LABS: Erythrocyte Sedimentation Rate 33 MM/HR (0-20)
[2023-01-07 17:27] LABS: Folate > 20.0 ng/mL (2.76-20.0); Vitamin B12 > 1000 pg/mL (239-931)
[2023-01-07 18:15] LABS: Clostridium Difficile Tox PCR Negative for C. diff (Negative)
== END ==
PROVIDERS: PCP Internal Medicine; Referring Provider Internal Medicine; Visit Provider Internal Medicine
DX: D64.9 Anemia, unspecified (principal); E83.52 Hypercalcemia; I10 Essential (primary) hypertension; R19.7 Diarrhea, unspecified; M10.9 Gout, unspecified; N18.30 Chronic kidney disease, stage 3 unspecified
CPT/HCPCS: 36415; 80053; 82607; 82746; 84443; 84550; 85025; 85651; 86140; 87493

== ENCOUNTER → 2023-01-10 13:07 | Outpatient (CLI) | payer MEDICARE, SELFPAY ==
[2023-01-10 15:46] LABS: BUN Creatinine Ratio 21.8 (6-22); Blood Urea Nitrogen 57 mg/dL (7-17); Calcium 9.9 mg/dL (8.4-10.2); Carbon Dioxide 15 mmol/L (22-32); Chloride 109 mmol/L (98-107); Estimated Glomerular Filt Rate 18 mL/min (>60); Glucose 82 mg/dL (80-110); HEMOLYSIS < 15 (0-50); Potassium 3.2 mmol/L (3.4-5.1); Sodium 137 mmol/L (137-145)
== END ==
PROVIDERS: PCP Internal Medicine; Referring Provider Internal Medicine; Visit Provider Internal Medicine
DX: N17.9 Acute kidney failure, unspecified (principal)
CPT/HCPCS: 36415; 80048

== ENCOUNTER 2023-01-20 15:41 | Inpatient (IN) | payer MEDICARE, SELFPAY ==
[2023-01-20] VITALS (22 sets, daily range): BP systolic 107–136; BP diastolic 59–81; PULSE 53–78; RESP 14–31; TEMP 36.3–36.6; O2SAT 91–100; BMI 22.4; BMI 22.2
[2023-01-20 16:31] LABS: Add Manual Diff / Slide Review NO; Basophils Absolute Auto 100 /uL (0-100); Basophils Percent Auto 0.8 % (0-2); Eosinophils Absolute Auto 100 /uL (0-450); Eosinophils Percent Auto 1.7 % (2-4); Hematocrit 30.2 % (36-46); Hemoglobin 10.1 g/dL (12.0-16.0); Lymphocytes Absolute Auto 1200 /uL (1100-4500); Lymphocytes Percent Auto 16.9 % (25-40); Mean Corpuscular HGB Conc 33.4 % (30-36); Mean Corpuscular Hemoglobin 34.3 PG (26-34); Mean Corpuscular Volume 102.7 fL (80-100); Monocytes Absolute Auto 400 /uL (0-900); Monocytes Percent Auto 6.3 % (3-14); Neutrophils Absolute Auto 5200 /uL (1500-7000); Neutrophils Percent Auto 74.3 % (50-75); Platelet Count 126 X10^3/uL (150-400); Red Blood Cell Count 2.94 X10^6/uL (4.0-5.2); Red Cell Distribution Width 18.4 % (11.6-14.8)
[2023-01-20 16:34] LABS: Alanine Aminotransferase 19 IU/L (<35); Albumin 3.9 g/dL (3.5-5.0); Albumin Globulin Ratio 1.6 (1.0-2.8); Alkaline Phosphatase 70 U/L (38-126); Aspartate Aminotransferase 24 IU/L (14-36); BUN Creatinine Ratio 25.2 (6-22); Bilirubin Total 0.3 mg/dL (0.2-1.3); Blood Urea Nitrogen 70 mg/dL (7-17); Calcium 10.8 mg/dL (8.4-10.2); Carbon Dioxide 16 mmol/L (22-32); Chloride 106 mmol/L (98-107); Estimated Glomerular Filt Rate 16 mL/min (>60); Globulin 2.4 g/dL (1.7-4.1); Glucose 108 mg/dL (80-110); HEMOLYSIS < 15 (0-50); Lipase 458 U/L (23-300); Sodium 137 mmol/L (137-145); Total Protein 6.3 g/dL (6.3-8.2)
[2023-01-20 16:41] LABS: Potassium 2.6 mmol/L (3.4-5.1)
[2023-01-20] MEDS: POTASSIUM CHLORIDE 20 MEQ/15 ML UDC 40 MEQ PO (17:01)
[2023-01-20] MEDS: ONDANSETRON 4 MG/2 ML INJ IV (17:01)
[2023-01-20] MEDS: POTASSIUM CHLORIDE IN WATER 10 MEQ/100 ML PIGGYBACK 100 MEQ IV ×2 (17:01→18:21)
[2023-01-20] MEDS: SODIUM CHLORIDE 0.9% 1,000 ML 1000 ML IV (17:02)
--- NOTE | 2023-01-20 18:44 | DI.CT.S_ITS ---
PROCEDURE: CT ABDOMEN PELVIS WO CON INDICATIONS: Diarrhea/abdominal pain TECHNIQUE: After the administration of oral contrast, 5 mm thick sections acquired from the diaphragms to the symphysis. 5 mm coronal and sagittal reformats were performed. For radiation dose reduction, the following was used: automated exposure control, adjustment of mA and/or kV according to patient size. COMPARISON: [facility], , CT ABDOMEN/PELVIS W/WO CONTRAST, 06/28/2003, 12:52. FINDINGS: ABDOMEN: Lung bases: No pleural effusion. Solid organs: Liver is normal in size. Gallbladder contains multiple small stones. Pancreas is normal in size. Spleen is normal in size. No adrenal nodules. No hydronephrosis. 3 mm nonobstructing stone right inferior kidney. Several hyperdense structures are present involving both kidneys, at least 1 of which measures greater than 70 Hounsfield units typical of a hyperdense cyst, others are technically indeterminate with internal density in the range of 66-67 Hounsfield units. Peritoneum and bowel: No bowel obstruction. No free air or substantial free fluid. Nodes and vessels: No retroperitoneal or mesenteric adenopathy by size criteria. Aorta and inferior vena cava are normal in size. PELVIS: Genitourinary: Appearance of asymmetric wall thickening calcification at the anterior bladder (for example series 2, image 66). Miscellaneous: No adenopathy. Bones: Multilevel degenerative change of the visualized spine. IMPRESSION: 1. No acute appearing abnormality identified within the abdomen or pelvis. 2. Small nonobstructing right renal stone. 3. Cholelithiasis. 4. Several indeterminate structures are present involving both kidneys, likely hyperdense cysts but technically indeterminate. Nonemergent renal protocol MRI or CT may be helpful for further evaluation. 5. Focal wall thickening of the urinary bladder with associated calcification, nonspecific, could be post infectious/postinflammatory but neoplasia is not excludable. Evaluation with cystoscopy may be helpful. Dictated by: Sergio Gillis M.D. on 01/20/2023 at 19:41 Approved by: Sergio Gillis M.D. on 01/20/2023 at 19:49
--- NOTE | 2023-01-20 19:22 | ED_ITS ---
HPI - Nausea/Vomiting/Diarrhea General Chief complaint: Nausea/Vomiting/Diarrhea Stated complaint: Trouble with things, Sent from [facility] Time Seen by Provider: 01/20/23 18:20 Source: patient and family Mode of arrival: Wheelchair History of Present Illness HPI Narrative: Patient sent here from the office by primary care Dr. Weems, for IV hydration as well as potassium replacement and CT abdomen and pelvis. As well as possible admission in the hospital. Patient has dealt with diarrhea for many weeks. Worse in the last 3 weeks. Can not eat or drink anything. And when she does has diarrhea. Patient denies denies any chest pain abdominal pain back pain. No black or bloody stools. Related Data Home Medications Medication Instructions Recorded Confirmed loratadine 10 mg tablet (Claritin) 10 mg PO DAILY 12/13/17 01/20/23 albuterol sulfate 2.5 mg/3 mL 2.5 mg inhalation PRN PRN 02/26/19 01/20/23 (0.083 %) solution for nebulization Shortness Of Breath zinc 50 mg tablet 50 mg PO DAILY 02/26/19 01/20/23 prednisone 20 mg tablet 20 mg PO DAILY PRN gout flare x4-5 06/17/20 01/20/23 days acetaminophen 650 mg 650 mg PO BID PRN pain 07/18/20 01/20/23 tablet,extended release (Tylenol 8 Hour) albuterol sulfate 90 mcg/actuation 1 puff inhalation BID PRN 07/18/20 01/20/23 aerosol inhaler shortness of breath or wheezing amlodipine 2.5 mg tablet 2.5 mg PO DAILY 01/20/23 01/20/23 Previous Rx's Medication Instructions Recorded Disabled Parking #1 ea 08/29/20 nitroglycerin 0.4 mg sublingual 0.4 mg sublingual Q5-15M PRN chest 09/02/20 tablet pain #100 tabs colchicine 0.6 mg tablet 0.6 mg PO BID PRN gout #60 tabs 02/19/22 fluticasone propionate 50 1 spray intranasal DAILY #16 grams 02/19/22 mcg/actuation nasal spray,suspension (Flonase Allergy Relief) furosemide 20 mg tablet 20 mg PO DAILY #90 tabs 02/19/22 isosorbide mononitrate 60 mg 60 mg PO DAILY #90 tabs 02/19/22 tablet,extended release 24 hr metoprolol tartrate 50 mg tablet 50 mg PO BID #180 tabs 02/19/22 oxybutynin chloride 10 mg 10 mg PO DAILY #90 tabs 02/19/22 tablet,extended release 24 hr rosuvastatin 5 mg tablet 2.5 mg PO QPM #45 tabs 02/19/22 allopurinol 300 mg tablet 450 mg PO QPM #135 tabs 08/04/22 clopidogrel 75 mg tablet (Plavix) 75 mg PO DAILY #90 tabs 10/08/22 Allergies Allergy/AdvReac Type Severity Reaction Status Date / Time aspirin [ASPIRIN] Allergy Mild RACING Verified 01/20/23 15:51 HEARTBEAT/RASH gemfibrozil [GEMFIBROZIL] Allergy Mild Verified 01/20/23 15:51 iodine [IODINE] Allergy Mild RASH Verified 01/20/23 15:51 Penicillins [PENICILLINS] Allergy Mild GI Verified 01/20/23 15:51 DISTURBANCE, RASH promethazine [PROMETHAZINE] Allergy Mild RASH Verified 01/20/23 15:51 Sulfa (Sulfonamide AdvReac Severe SOB Verified 01/20/23 15:51 Antibiotics) [SULFA (SULFONAMIDE ANTIBIOTICS)] atorvastatin [ATORVASTATIN] AdvReac Mild MUSCLE Verified 01/20/23 15:51 ACHES AND WEAKNESS latex AdvReac Mild Rash when Verified 01/20/23 15:51 worn rosuvastatin [ROSUVASTATIN] AdvReac Mild MUSCLE Verified 01/20/23 15:51 PAIN ANS WEAKNESS Review of Systems Review of Systems Narrative: GENERAL: negative chills, fatigue, malaise, fever, sweats. HEENT: negative sinus pain, ear pain, sore throat RESPIRATORY: negative dyspnea, cough CARDIOVASCULAR: negative chest pain, palpitations GASTROINTESTINAL: negative nausea, vomiting, abdominal pain, positive diarrhea : negative dysuria, frequency, hematuria MUSCULOSKELETAL: negative muscle or bony pain SKIN: negative rash, skin lesions NEUROLOGIC: negative weakness, numbness ROS Unobtainable: All systems reviewed & are unremarkable except as noted in HPI and below Patient History Medical History Chronic back pain Chronic renal failure, stage 3 (moderate) (11/29/16) Coronary artery disease Essential hypertension H/O: gout Hammertoe of right foot History of stroke (05/2014) Hypercalcemia Peripheral edema (01/10/17) Unspecified asthma, uncomplicated Urinary incontinence (07/24/15) Social History marital status: number of children: 3 household members: none lives independently: Yes caregiver/support person: No housing: house pets and animals: Yes education level: master's degree occupational status: other current occupational exposures/hazards: No 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 EYES: Pupils equal round ENT: Mucous membranes moist. NECK: Trachea midline. CARDIOVASCULAR: Regular rate and rhythm without murmurs RESPIRATORY: Clear to auscultation. Breath sounds equal bilaterally. No wheezes, rales, or rhonchi. GASTROINTESTINAL: Abdomen soft, non-tender abdomen soft flat nontender no peritoneal signs bowel sounds are present. EXTREMITIES: No gross deformities. BACK: No flank tenderness. NEURO: AOx4. SKIN: Warm and dry PSYCH: Not anxious, is cooperative Initial Vital Signs Initial Vital Signs: Vital Signs Temperature 98 F 01/20/23 15:48 Pulse Rate 56 L 01/20/23 15:48 Respiratory Rate 18 01/20/23 15:48 Blood Pressure 136/62 01/20/23 15:48 Pulse Oximetry 100 01/20/23 15:48 Oxygen Delivery Method Room Air 01/20/23 15:48 Course Orders Ordered: ED Orders 01/20/23 18:44 CT abdomen pelvis wo con Stat 01/20/23 21:40 Urine Culture Stat Urine Microscopic Stat Acetaminophen (Acetaminophen 325 Mg Tablet) 650 mg PO Q6H SHASHI Last Admin: 01/20/23 23:30 Dose: 650 mg Documented By: PEDRO PABLO Enoxaparin Sodium (Enoxaparin 30 Mg/0.3 Ml Syringe) 30 mg SUBCUT DAILY [facility] Potassium Chloride/Sodium Chloride (Ns With Kcl 20 Meq) 1,000 mls @ 84 mls/hr IV CONT SHASHI Last Admin: 01/21/23 00:13 Dose: 84 mls/hr Documented By: PEDRO PABLO Ondansetron HCl (Ondansetron 4 Mg Odt) 4 mg PO NOW PRN PRN Reason: Nausea And Vomiting Ondansetron HCl (Ondansetron 4 Mg/2 Ml Inj) 4 mg IV NOW PRN PRN Reason: Nausea And Vomiting Last Admin: 01/20/23 17:01 Dose: 4 mg Documented By: RB Discontinued Medications Sodium Chloride (Normal Saline 0.9%) 1,000 mls @ 1,000 mls/hr IV BOLUS ONE Stop: 01/20/23 17:04 Last Infusion: 01/20/23 18:13 Dose: 0 mls/hr Documented By: Admin: 01/20/23 17:02 Dose: 1,000 mls/hr Documented By: RB POTASSIUM CHLORIDE IN WATER (Potassium Cl 10 Meq/100 Ml Muna) 10 meq in 100 mls @ 100 mls/hr IV Q1H SHASHI Stop: 01/20/23 18:59 Last Infusion: 01/20/23 19:50 Dose: 0 mls/hr Documented By: Infusion: 01/20/23 19:15 Dose: 100 mls/hr Documented By: Infusion: 01/20/23 18:58 Dose: 0 mls/hr Documented By: Admin: 01/20/23 18:21 Dose: 100 mls/hr Documented By: Infusion: 01/20/23 18:01 Dose: 0 mls/hr Documented By: Admin: 01/20/23 17:01 Dose: 100 mls/hr Documented By: RB Potassium Chloride (Potassium Chloride 20 Meq/15 Ml Udc) 40 meq PO NOW ONE Stop: 01/20/23 16:46 Last Admin: 01/20/23 17:01 Dose: 40 meq Documented By: RB Vital Signs Vital signs: Vital Signs - 8 hr 01/20/23 19:30 01/20/23 19:45 01/20/23 20:00 Pulse Rate 78 76 71 Respiratory Rate 22 18 15 Pulse Oximetry 99 99 96 Oxygen Delivery Method Room Air Room Air Room Air 01/20/23 20:15 01/20/23 20:30 01/20/23 20:45 Pulse Rate 78 77 70 Respiratory Rate 20 18 18 Pulse Oximetry 99 99 97 Oxygen Delivery Method Room Air Room Air 01/20/23 21:00 01/20/23 21:15 Pulse Rate 72 74 Respiratory Rate 23 24 Pulse Oximetry 97 97 Oxygen Delivery Method Room Air MDM - Nausea/Vomiting/Diarrhea Lab Data 01/20/23 16:15 01/20/23 16:15 Labs: Lab Results 01/20/23 01/20/23 01/20/23 Range/Units 16:15 16:15 21:40 WBC 7.0 (4.5-11.0) X10^3/uL RBC 2.94 L (4.0-5.2) X10^6/uL Hgb 10.1 L (12.0-16.0) g/dL Hct 30.2 L (36-46) % MCV 102.7 H (80-100) fL MCH 34.3 H (26-34) PG MCHC 33.4 (30-36) % RDW 18.4 H (11.6-14.8) % Plt Count 126 L (150-400) X10^3/uL Neut % (Auto) 74.3 (50-75) % Lymph % (Auto) 16.9 L (25-40) % [place] % (Auto) 6.3 (3-14) % Eos % (Auto) 1.7 L (2-4) % Baso % (Auto) 0.8 (0-2) % Neut # (Auto) 5200 (9187-3126) /uL Lymph # (Auto) 1200 (3769-8569) /uL [place] # (Auto) 400 (0-900) /uL Eos # (Auto) 100 (0-450) /uL Baso # (Auto) 100 (0-100) /uL Sodium 137 (137-145) mmol/L Potassium 2.6 L* (3.4-5.1) mmol/L Chloride 106 (98-107) mmol/L Carbon Dioxide 16 L (22-32) mmol/L BUN 70 H (7-17) mg/dL Creatinine 2.78 H (0.52-1.04) mg/dL Estimated GFR 16 L (>60) mL/min BUN/Creatinine Ratio 25.2 H (6-22) Glucose 108 (80-110) mg/dL Calcium 10.8 H (8.4-10.2) mg/dL Total Bilirubin 0.3 (0.2-1.3) mg/dL AST 24 (14-36) IU/L ALT 19 (<35) IU/L Alkaline Phosphatase 70 (38-126) U/L Total Protein 6.3 (6.3-8.2) g/dL Albumin 3.9 (3.5-5.0) g/dL Globulin 2.4 (1.7-4.1) g/dL Albumin/Globulin Ratio 1.6 (1.0-2.8) Lipase 458 H (23-300) U/L Urine RBC 0-1/hpf (0-5/HPF) Urine WBC 5-10/hpf H (0-5/HPF) Ur Squamous Epith Cells None seen (0-5/HPF) Urine Bacteria Occasional (0-1) (None) Ur Culture Indicated? Specimen cultured Urine Dip Bedside Urine Glucose Negative Bedside Urine Bilirubin - Negative Bedside Urine Ketone - Negative Urine Specific [place] 1.01 Bedside Urine Occult Blood - Negative Bedside Urine pH 6 Bedside Urine Protein +/- 15 Bedside Urine Urobilinogen - Negative Bedside Urine Nitrite + Positive Bedside Urine Leukocytes + [address] scan - abdomen/pelvis: Radiologist's Impression: [address] [address] [address] Scan Report Signed Patient: Sarah Enrique MR#: [id number] : 1940 Acct:[id number] Age/Sex: 82 / F Date of Service: 01/20/23 Loc: ED Accession Number: [id number] ?? Procedure: CT abdomen pelvis wo con Ordering Provider: Rubén Dior MD PROCEDURE:? CT ABDOMEN PELVIS WO CON ? INDICATIONS:? Diarrhea/abdominal pain ? TECHNIQUE:? After the administration of oral contrast, 5 mm thick sections acquired from the diaphragms to the symphysis.? 5 mm coronal and sagittal reformats were performed.? For radiation dose reduction, the following was used:? automated exposure control, adjustment of mA and/or kV according to patient size.? ? COMPARISON:? [facility], , CT ABDOMEN/PELVIS W/WO CONTRAST, 06/28/2003, 12:52. ? FINDINGS:? ? ABDOMEN:? Lung bases:? No pleural effusion. ? Solid organs:? Liver is normal in size.? Gallbladder contains multiple small stones.? Pancreas is normal in size.? Spleen is normal in size.? No adrenal nodules.? No hydronephrosis.? 3 mm nonobstructing stone right inferior kidney.? Several hyperdense structures are present involving both kidneys, at least 1 of which measures greater than 70 Hounsfield units typical of a hyperdense cyst, others are technically indeterminate with internal density in the range of 66-67 Hounsfield units. ? Peritoneum and bowel:? No bowel obstruction.? No free air or substantial free fluid. ? Nodes and vessels:? No retroperitoneal or mesenteric adenopathy by size criteria.? Aorta and inferior vena cava are normal in size.? PELVIS:? Genitourinary:? Appearance of asymmetric wall thickening calcification at the anterior bladder (for example series 2, image 66). ? Miscellaneous:? No adenopathy.? ? Bones:? Multilevel degenerative change of the visualized spine. ? IMPRESSION:? 1. No acute appearing abnormality identified within the abdomen or pelvis. 2. Small nonobstructing right renal stone. 3. Cholelithiasis. 4. Several indeterminate structures are present involving both kidneys, likely hyperdense cysts but technically indeterminate.? Nonemergent renal protocol MRI or CT may be helpful for further evaluation. 5. Focal wall thickening of the urinary bladder with associated calcification, nonspecific, could be post infectious/postinflammatory but neoplasia is not excludable.? Evaluation with cystoscopy may be helpful. ? ? Dictated by: Sergio Gillis M.D. on 01/20/2023 at 19:41 ? ? Approved by: Sergio Gillis M.D. on 01/20/2023 at 19:49 ? [facility] Narrative Medical decision making narrative: Patient sent here from the office by primary care Dr. Weems, for IV hydration as well as potassium replacement and CT abdomen and pelvis. As well as possible admission in the hospital. Patient has dealt with diarrhea for many weeks. Worse in the last 3 weeks. Can not eat or drink anything. And when she does has diarrhea. Patient denies denies any chest pain abdominal pain back pain. No black or bloody stools. After history and exam CBC CMP CT abdomen pelvis potassium chloride normal saline, stool culture [facility] CC: Diarrhea hypokalemia Complicating co-morbidities: Chronic diarrhea Data collected from: Patient Medical records reviewed: Office visit primary care today Dr. Weems Differential considered: Includes but not limited to colitis bacterial enter itis viral enteritis Exam documented above, pertinent findings include: Nontender abdomen Lab Test results independently reviewed as above. Pertinent findings: WBC 7.0 hemoglobin 10.1 potassium 2.6 BUN 70 creatinine 2.78 GFR 16 Imaging studies independently reviewed: CT abdomen pelvis no acute finding Consultations: 8:56 p.m. spoke with dick selby for dr weems will admit pt Treatments: Normal saline KCL Re-evaluations: 9:00 p.m.. Reviewed results with patient. At the same in no distress. She does agree for admission. Discussion: Appropriate for admission for hypokalemia and potassium replacement. Consideration for colonoscopy will be done tomorrow morning. Diagnosis: Hypokalemia Discharge Plan Departure Patient Disposition: Admitted as Observation Clinical Impression: Acute hypokalemia, Chronic kidney disease Admit Date/Time: 01/20/23 21:49 Admit Provider: David Weems
[2023-01-20 22:03] LABS: Bacteria Urine Occasional (0-1); Culture Indicated Urine Specimen Cultured; RBC Urine 0-1/HPF (0-5/HPF); Squamous Epithelial Cell Urine None Seen (0-5/HPF); WBC Urine 5-10/HPF (0-5/HPF)
--- NOTE | 2023-01-20 22:38 | PC.NURSE ---
2235: Pt arrived to room 224 via wheelchair from ED at 2150. Pt is in no acute distress. VSS. Pt is AAO x4. Pt's daughter in law was at bedside. Pt oriented to room, unit, RN, ARNP, and educated regarding POC. Pt verbalized understanding. Pt was educated regarding fall precautions and using call light to call for assistance. Pt verbalized understanding; call light is within reach. Dr. Stein was notified that pt is in room 224 and admit orders need to be placed; awaiting response.
[2023-01-20] MEDS: ACETAMINOPHEN 325 MG TABLET 650 MG PO (23:30)
[2023-01-21] VITALS: BP 105/59; PULSE 65; RESP 18; TEMP 36.6; O2SAT 94
[2023-01-21] MEDS: KCL 20 MEQ IN NS 1,000 ML 84 MEQ IV (00:13)
[2023-01-21 04:00] VITALS: BP 97/58; PULSE 63; RESP 16; TEMP 36.3; O2SAT 99
[2023-01-21] MEDS: ACETAMINOPHEN 325 MG TABLET 650 MG PO ×2 (04:31→21:46)
[2023-01-21 04:50] LABS: Add Manual Diff / Slide Review NO; Basophils Absolute Auto 0 /uL (0-100); Basophils Percent Auto 0.6 % (0-2); Eosinophils Absolute Auto 100 /uL (0-450); Hematocrit 24.1 % (36-46); Lymphocytes Absolute Auto 1700 /uL (1100-4500); Lymphocytes Percent Auto 26.2 % (25-40); Mean Corpuscular HGB Conc 33.3 % (30-36); Mean Corpuscular Hemoglobin 34.4 PG (26-34); Mean Corpuscular Volume 103.5 fL (80-100); Monocytes Absolute Auto 500 /uL (0-900); Monocytes Percent Auto 7.3 % (3-14); Neutrophils Absolute Auto 4100 /uL (1500-7000); Neutrophils Percent Auto 63.9 % (50-75); Platelet Count 96 X10^3/uL (150-400); Red Blood Cell Count 2.33 X10^6/uL (4.0-5.2); Red Cell Distribution Width 18.7 % (11.6-14.8); White Blood Cell Count 6.5 X10^3/uL (4.5-11.0)
[2023-01-21 05:06] LABS: Alanine Aminotransferase 17 IU/L (<35); Albumin 2.7 g/dL (3.5-5.0); Albumin Globulin Ratio 1.2 (1.0-2.8); Alkaline Phosphatase 52 U/L (38-126); Aspartate Aminotransferase 23 IU/L (14-36); BUN Creatinine Ratio 28.3 (6-22); Bilirubin Total 0.3 mg/dL (0.2-1.3); Blood Urea Nitrogen 63 mg/dL (7-17); Calcium 9.2 mg/dL (8.4-10.2); Carbon Dioxide 15 mmol/L (22-32); Chloride 116 mmol/L (98-107); Estimated Glomerular Filt Rate 21 mL/min (>60); Globulin 2.3 g/dL (1.7-4.1); Glucose 90 mg/dL (80-110); HEMOLYSIS < 15 (0-50); Potassium 3.6 mmol/L (3.4-5.1); Sodium 138 mmol/L (137-145)
--- NOTE | 2023-01-21 06:43 | P.HP_ITS ---
History of Present Illness History of Present Illness Date Patient Seen: 01/21/23 Time Patient Seen: 06:43 Chief complaint: Diarrhea?and?dehydration Narrative: 82-y ear-old?female?who?has?been?dealing?with?ongoing?diarrhea?characterized?by?loose ?stool?several?times ?a?day.??She?seems?to?think?this?is?stimulated?by?eating?and?so?has?cut?back?sig nificantly?on?any?or al?intake?although?trying?to?keep?herself?hydrated?with?fluids?primarily.?? She?is?become?increasingly?weak.?? Was?seen?in?the?clinic?about?2?weeks?ago?initial?studies?for?C?diff?(which?she?h as?a?hi story?of)?were?negative.??She?did?however?demonstrate?some?evidence?of?acute?kid jacob?injury/dehydrati on.??She?is?worked?hard?to?continue?hydration?but?is?become?persistently?weak? No?real?abdominal?pa in?or?cramping.??No?syncope?near?syncope?lightheadedness?dizziness.??No?fever?ch ills.??Nobody?else?i n?the?household?has?been?ill?or?has?any?symptoms.??She?seen?no?blood?in?the?toil et.??No?urinary?tract?symptoms.??No?real?nausea?or?vomiting.?? [facility] Medical History Chronic back pain Chronic renal failure, stage 3 (moderate) (11/29/16) Coronary artery disease Essential hypertension H/O: gout Hammertoe of right foot History of stroke (05/2014) Hypercalcemia Peripheral edema (01/10/17) Unspecified asthma, uncomplicated Urinary incontinence (07/24/15) Social History marital status: number of children: 3 household members: none lives independently: Yes caregiver/support person: No housing: house pets and animals: Yes education level: master's degree occupational status: other current occupational exposures/hazards: No 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[employer] special jim needs: No travel history: other leisure activities: music Smoking Status: Former smoker Tobacco: How many years used: 2 Smokeless tobacco user: other quit status: quit date established second hand exposure: No alcohol intake: current substance use type: does not use Meds Home Medications and Allergies Home Medications Medication Instructions Recorded Confirmed Type loratadine 10 mg tablet (Claritin) 10 mg PO DAILY 12/13/17 01/20/23 History albuterol sulfate 2.5 mg/3 mL 2.5 mg inhalation PRN PRN 02/26/19 01/20/23 History (0.083 %) solution for nebulization Shortness Of Breath zinc 50 mg tablet 50 mg PO DAILY 02/26/19 01/20/23 History prednisone 20 mg tablet 20 mg PO DAILY PRN gout flare x4-5 06/17/20 01/20/23 History days acetaminophen 650 mg 650 mg PO BID PRN pain 07/18/20 01/20/23 History tablet,extended release (Tylenol 8 Hour) albuterol sulfate 90 mcg/actuation 1 puff inhalation BID PRN 07/18/20 01/20/23 History aerosol inhaler shortness of breath or wheezing Disabled Parking #1 ea 08/29/20 01/20/23 Rx nitroglycerin 0.4 mg sublingual 0.4 mg sublingual Q5-15M PRN chest 09/02/20 01/20/23 Rx tablet pain #100 tabs colchicine 0.6 mg tablet 0.6 mg PO BID PRN gout #60 tabs 02/19/22 01/20/23 Rx fluticasone propionate 50 1 spray intranasal DAILY #16 grams 02/19/22 01/20/23 Rx mcg/actuation nasal spray,suspension (Flonase Allergy Relief) furosemide 20 mg tablet 20 mg PO DAILY #90 tabs 02/19/22 01/20/23 Rx isosorbide mononitrate 60 mg 60 mg PO DAILY #90 tabs 02/19/22 01/20/23 Rx tablet,extended release 24 hr metoprolol tartrate 50 mg tablet 50 mg PO BID #180 tabs 02/19/22 01/20/23 Rx oxybutynin chloride 10 mg 10 mg PO DAILY #90 tabs 02/19/22 01/20/23 Rx tablet,extended release 24 hr rosuvastatin 5 mg tablet 2.5 mg PO QPM #45 tabs 02/19/22 01/20/23 Rx allopurinol 300 mg tablet 450 mg PO QPM #135 tabs 08/04/22 01/20/23 Rx clopidogrel 75 mg tablet (Plavix) 75 mg PO DAILY #90 tabs 10/08/22 01/20/23 Rx amlodipine 2.5 mg tablet 2.5 mg PO DAILY 01/20/23 01/20/23 History Allergies Allergy/AdvReac Type Severity Reaction Status Date / Time aspirin [ASPIRIN] Allergy Mild RACING Verified 01/20/23 15:51 HEARTBEAT/RASH gemfibrozil [GEMFIBROZIL] Allergy Mild Verified 01/20/23 15:51 iodine [IODINE] Allergy Mild RASH Verified 01/20/23 15:51 Penicillins [PENICILLINS] Allergy Mild GI Verified 01/20/23 15:51 DISTURBANCE, RASH promethazine [PROMETHAZINE] Allergy Mild RASH Verified 01/20/23 15:51 Sulfa (Sulfonamide AdvReac Severe SOB Verified 01/20/23 15:51 Antibiotics) [SULFA (SULFONAMIDE ANTIBIOTICS)] atorvastatin [ATORVASTATIN] AdvReac Mild MUSCLE Verified 01/20/23 15:51 ACHES AND WEAKNESS latex AdvReac Mild Rash when Verified 01/20/23 15:51 worn rosuvastatin [ROSUVASTATIN] AdvReac Mild MUSCLE Verified 01/20/23 15:51 PAIN ANS WEAKNESS Review of Systems Review of Systems ROS: Yes All systems reviewed with the patient and are negative except as otherwise documented Exam Vital Signs (past 8 hours): - 01/21/23 00:00 01/21/23 04:00 Temperature 97.8 F 97.3 F L Pulse Rate 65 63 Respiratory Rate 18 16 Blood Pressure 105/59 L 97/58 L Pulse Oximetry 94 99 Oxygen Flow Rate 0 0 Oxygen Delivery Method Room Air Oxygen Flow Rate 0 Narrative Exam Narrative: Elderly?female?who?looks?fairly?weak?and?globally?uncomfo rtable,?as?well?as?chronically?ill HEENT?unremarkable Lungs-Clear? Heart-regular?rate?and?rhythm, ?harsh?blowing?murmur?throughout?the?precordium?consistent?with?her?known?aortic ?stenosis Abdomen-positive?bowel?tones?soft?nontender?nondistended Extremities-no?cyanosis?clubbing?or?edema Neuro-alert?oriented?x3?moves?all?4?extremities Objective Labs 01/21/23 04:18 01/21/23 04:18 Labs: Laboratory Results - last 24 hr 01/20/23 01/20/23 01/20/23 16:15 16:15 21:40 WBC 7.0 RBC 2.94 L Hgb 10.1 L Hct 30.2 L MCV 102.7 H MCH 34.3 H MCHC 33.4 RDW 18.4 H Plt Count 126 L Neut % (Auto) 74.3 Lymph % (Auto) 16.9 L [place] % (Auto) 6.3 Eos % (Auto) 1.7 L Baso % (Auto) 0.8 Neut # (Auto) 5200 Lymph # (Auto) 1200 [place] # (Auto) 400 Eos # (Auto) 100 Baso # (Auto) 100 Sodium 137 Potassium 2.6 L* Chloride 106 Carbon Dioxide 16 L BUN 70 H Creatinine 2.78 H Estimated GFR 16 L BUN/Creatinine Ratio 25.2 H Glucose 108 Calcium 10.8 H Total Bilirubin 0.3 AST 24 ALT 19 Alkaline Phosphatase 70 Total Protein 6.3 Albumin 3.9 Globulin 2.4 Albumin/Globulin Ratio 1.6 Lipase 458 H Urine RBC 0-1/hpf Urine WBC 5-10/hpf H Ur Squamous Epith Cells None seen Urine Bacteria Occasional (0-1) Ur Culture Indicated? Specimen cultured 01/21/23 01/21/23 04:18 04:18 WBC 6.5 RBC 2.33 L Hgb 8.0 L Hct 24.1 L MCV 103.5 H MCH 34.4 H MCHC 33.3 RDW 18.7 H Plt Count 96 L Neut % (Auto) 63.9 Lymph % (Auto) 26.2 [place] % (Auto) 7.3 Eos % (Auto) 2.0 Baso % (Auto) 0.6 Neut # (Auto) 4100 Lymph # (Auto) 1700 [place] # (Auto) 500 Eos # (Auto) 100 Baso # (Auto) 0 Sodium 138 Potassium 3.6 Chloride 116 H Carbon Dioxide 15 L BUN 63 H Creatinine 2.23 H Estimated GFR 21 L BUN/Creatinine Ratio 28.3 H Glucose 90 Calcium 9.2 Total Bilirubin 0.3 AST 23 ALT 17 Alkaline Phosphatase 52 Total Protein 5.0 L Albumin 2.7 L Globulin 2.3 Albumin/Globulin Ratio 1.2 Lipase Urine RBC Urine WBC Ur Squamous Epith Cells Urine Bacteria Ur Culture Indicated? Assessment & Plan Assessment & Plan narrative: 1.?? Acute?kidney?injury/dehydration-patient?received?IV?fluids?in?the?ER.??Her?elect rolytes?have?been?no rmalized?with?IV?potassium.??She?somewhat?hypotensive?this?morning?needs?to?cont inue?on?IV?fluids?at?this?time? 2.?GI-patient?with?ongoing?symptoms?of?diarrhea?seem?to?be?triggered?by?food?ing estion. ??Lipase?a?bit?elevated?but?CT?scan?does?not?really?demonstrate?evidence?of?acti ve?pancreatitis.??Pa tient?not?on?high-risk?medication?for?pancreatitis.??Will?continue?investigation ?for?possible?infect ious?source?of?her?diarrhea.??May?eventually?need?colonoscopy?for?this?and?her?a nemia.??Consider?emp iric?treatment?with?metronidazole?or?other?appropriate?antibiotic?therapy.??Stoo l?sample?be?obtained ?looking?for?infectious?sources?as?well?as?screening?for?GI?bleed 3.??Anemia-patient?newly?anemic?w ith?macrocytosis.??This?is?developed?since?her?illness?began?it?would?appear.??N o?evidence?of?active ?bleeding.??For?the?moment?will?investigate?for?vitamin?B12/folic?acid?deficienc ies.??May?eventually ?require?upper?and?lower?endoscopy?to?rule?out?GI?bleed.??Will?also?evaluate?for ?GI?bleeding?with?occult?blood?testing?of?stool.?? 4.?History?of?CVA-patient?with?a?history?of?significant?CVA.??She?is ?been?on?clopidogrel?ever?sense?and?she?does?not?tolerate/has?an?allergy?to?aspi rin.??I?would?contin ue?this?for?now?unless?we?establish?she?has?an?active?GI?bleed?which?I?am?not?co nvinced?is?the?case?at?this?time. 5.?Coronary?disease-patient?with?evidence?of?triple-vessel?coronary?disease?on?p revio us?catheterization.??She?is?on?multiple?medications?including?metoprolol?and?alicia g-acting?nitrates?fo r?this?indication.??However?she?somewhat?hypotensive?this?morning?I?am?going?to? hold?these?medications?for?now?plan?to?restart?once?blood?pressure?supports. 6.??Asthma-patient?with?as?needed?albuterol?available 7.??VTE?prophylaxis-continue?with?SCDs?alone.??Do?not?believe?she?is?a?candidate ?for?Lo venox?at?this?time?because?of?her?anemia?until?we?establish?whether?not?she?has? active?bleeding. 8. ??Code?status-patient?requests?full?code?in?the?event?of?a?sudden?cardiac?or?res piratory?arrest?whic h?is?appropriate.??I?do?think?she?understands,?she?would?not?want?to?be?kept?ali ve?artificially?but? understands?that?in?the?moment?of?a?sudden?arrest?she?would?want?the?opportunity ?to?be?resuscitated. Quality VTE Deep Vein Thrombosis/Pulmonary Embolism Present on Admission: No
[2023-01-21] MEDS: LACTATED RINGERS 1,000 ML 150 ML IV ×2 (06:59→13:17)
[2023-01-21 07:40] LABS: Vitamin B12 > 1000 pg/mL (239-931)
[2023-01-21 08:00] VITALS: BP 100/50; PULSE 69; RESP 15; TEMP 36.4; O2SAT 99
[2023-01-21 09:28] LABS: Folate > 20.0 ng/mL (2.76-20.0)
[2023-01-21] MEDS: ENOXAPARIN 30 MG/0.3 ML SYRINGE SUBCUT (09:42)
[2023-01-21] MEDS: CLOPIDOGREL 75 MG TABLET PO (09:42)
--- NOTE | 2023-01-21 11:19 | CM.DANOTE ---
DCP Assessment: Patient is a 82yo F here under the care of Dr. Welsh after experiencing diarrhea/vomiting/dehydration. PCP: Dr. Welsh Payer: Medicare and self pay BOX NAILER reviewed EMR. From nursing staff, patient has had chronic diarrhea for the past 10 years. Nursing staff suggests that HH may be a good idea for d/c. BOX NAILER entered room and introduced self and role. Patient was sitting up in bed and appeared A/Ox4. Patient reports she lives home alone with her cat and parrot. Patient's son/emergency contact Miguel ([phone] or [phone]) lives a few blocks away and helps her as needed. Patient is confident that she would be safe to return home upon her d/c and denies HH at this time. Patient reports she is pretty independent at baseline. She has a walker/cane that she utilizes and she has a shower seat/grab bars in the bathroom. Patient drives [place] Her son Miguel assists her with longer drives. Patient is hopeful to be out of here Tuesday or Tuesday. Plan: patient will likely d/c home when medically stable with no needs from CM team. CM team will continue to follow closely to r/o HH. Transport with son in POV. NAIDA Corbin Discharge Planning/Care Management CM Discharge Assessment Start: 01/21/23 11:18 Freq: Status: Active Protocol: Document 01/21/23 11:18 (Rec: 01/21/23 11:19 [id number]) Discharge Planning Assessment Assigned Pound Keeper NAIDA Wolfe DPOA/Assigned Designee Name Miguel (son) Contact Information [phone] Advance Directives? Yes: Health Care DIrective Advance Directives on File Yes History Provided By Patient,Medical Record Prior Living Arrangements House Household Members none Type of transporation used prior to Drives own vehicle admit Comment drives short distances. son in area to assist as needed. Independent with ADL's Yes Is patient alert and oriented? Yes Barriers to Discharge No Discharge Plan Home Transportation Arrangement son will come transport her home Whiteboard Updated in Patient Room with Yes name and ext. # of Pound Keeper Review Status In Process Next Review Type Continued Stay Review
[2023-01-21 12:26] LABS: Adenovirus F 40/41 Not Detected (Not Detect); Astrovirus Not Detected (Not Detect); Campylobacter Not Detected (Not Detect); Clostridium difficile toxin AB Not Detected (Not Detect); Cryptosporidium Not Detected (Not Detect); Cyclospora cayetanensis Not Detected (Not Detect); Entamoeba histolytica Not Detected (Not Detect); Enteroaggregative E.coli Not Detected (Not Detect); Enteropathogenic E.coli Not Detected (Not Detect); Enterotoxigenic E.coli It/st Not Detected (Not Detect); Giardia lamblia Not Detected (Not Detect); Norovirus GI/GII Not Detected (Not Detect); Plesiomonsa shigelloides Not Detected (Not Detect); Rotavirus A Not Detected (Not Detect); Salmonella Not Detected (Not Detect); Sapovirus Not Detected (Not Detect); Shiga-like toxin-prod E.coli Not Detected (Not Detect); Shigella/Enteroinvasive E.coli Not Detected (Not Detect); Vibrio Not Detected (Not Detect); Vibrio cholerae Not Detected (Not Detect); Yersinia enterocolitica Not Detected (Not Detect)
[2023-01-21 12:57] VITALS: BP 141/73; PULSE 82; RESP 16; TEMP 36.5; O2SAT 100
[2023-01-21 13:00] LABS: Hematocrit 27.6 % (36-46); Hemoglobin 9.1 g/dL (12.0-16.0)
[2023-01-21 13:14] LABS: BUN Creatinine Ratio 26.2 (6-22); Blood Urea Nitrogen 54 mg/dL (7-17); Calcium 9.4 mg/dL (8.4-10.2); Carbon Dioxide 16 mmol/L (22-32); Chloride 115 mmol/L (98-107); Estimated Glomerular Filt Rate 23 mL/min (>60); Glucose 122 mg/dL (80-110); HEMOLYSIS < 15 (0-50); Potassium 2.9 mmol/L (3.4-5.1); Sodium 141 mmol/L (137-145)
[2023-01-21] MEDS: POTASSIUM CHLORIDE IN WATER 10 MEQ/100 ML PIGGYBACK 100 MEQ IV ×4 (14:19→17:26)
[2023-01-21 15:30] VITALS: BP 137/78; PULSE 78; RESP 18; TEMP 36.5; O2SAT 98
[2023-01-21 20:00] VITALS: BP 127/58; PULSE 74; RESP 19; TEMP 37.3; O2SAT 100
[2023-01-21] MEDS: ATORVASTATIN 20 MG TABLET 10 MG PO (20:02)
[2023-01-21] MEDS: POTASSIUM CHLORIDE IN WATER 10 MEQ/100 ML PIGGYBACK 50 MEQ IV ×2 (21:45→23:34)
[2023-01-22] VITALS: BP 112/57; PULSE 72; RESP 16; TEMP 37.1; O2SAT 98
[2023-01-22 00:33] LABS: HEMOLYSIS < 15 (0-50); Magnesium 1.8 mg/dL (1.6-2.3); Potassium 3.9 mmol/L (3.4-5.1)
[2023-01-22 04:00] VITALS: BP 117/69; PULSE 69; RESP 19; TEMP 37.1; O2SAT 97
[2023-01-22] MEDS: ACETAMINOPHEN 325 MG TABLET 650 MG PO ×2 (04:48→06:30)
[2023-01-22 05:12] LABS: Add Manual Diff / Slide Review NO; Basophils Absolute Auto 0 /uL (0-100); Basophils Percent Auto 0.7 % (0-2); Eosinophils Absolute Auto 100 /uL (0-450); Hematocrit 24.9 % (36-46); Hemoglobin 8.4 g/dL (12.0-16.0); Lymphocytes Absolute Auto 1800 /uL (1100-4500); Lymphocytes Percent Auto 27.1 % (25-40); Mean Corpuscular HGB Conc 33.5 % (30-36); Mean Corpuscular Hemoglobin 34.3 PG (26-34); Mean Corpuscular Volume 102.5 fL (80-100); Monocytes Absolute Auto 500 /uL (0-900); Monocytes Percent Auto 7.8 % (3-14); Neutrophils Absolute Auto 4200 /uL (1500-7000); Neutrophils Percent Auto 62.4 % (50-75); Platelet Count 103 X10^3/uL (150-400); Red Blood Cell Count 2.43 X10^6/uL (4.0-5.2); White Blood Cell Count 6.7 X10^3/uL (4.5-11.0)
[2023-01-22 05:20] LABS: Prothrombin Time 11.5 SECONDS (10.1-12.7)
[2023-01-22 05:22] LABS: PTT Partial Thromboplastin Tim 26 SECONDS (26-36)
[2023-01-22 05:32] LABS: Lipase 273 U/L (23-300)
[2023-01-22 05:33] LABS: BUN Creatinine Ratio 26.4 (6-22); Blood Urea Nitrogen 43 mg/dL (7-17); Calcium 8.9 mg/dL (8.4-10.2); Carbon Dioxide 16 mmol/L (22-32); Chloride 113 mmol/L (98-107); Estimated Glomerular Filt Rate 31 mL/min (>60); Glucose 90 mg/dL (80-110); HEMOLYSIS < 15 (0-50); Potassium 3.9 mmol/L (3.4-5.1); Sodium 135 mmol/L (137-145)
[2023-01-22] MEDS: LACTATED RINGERS 1,000 ML 100 ML IV (08:11)
[2023-01-22] MEDS: CLOPIDOGREL 75 MG TABLET PO (08:18)
--- NOTE | 2023-01-22 10:27 | PM.DS.1 ---
History of Present Illness History of Present Illness Date Patient Seen: 01/22/23 Time Patient Seen: 10:15 Chief complaint: Diarrhea?and?dehydration Narrative: Potassium repleted and patient is feeling better today. Able to get up and move around with her usual need for assistance. Hypokalemia does seem to be 2/2 her diarrhea issue - we discussed empiric management with Imodium AD. She is eating and going to the bathroom ok. Reports her appetite is much decreased lately for no real reason she can identify. OK to go home on potassium supplementation to f/u as outpt. Discharge Providers Provider Date of admission: 01/21/23 15:45 Discharge Date: 01/22/23 Primary care physician: David Welsh MD Discharge provider: Sathya Stein MD Summary Hospital Course Discharge Diagnosis: #Acute?kidney?injury/dehydration #acute hypokalemia #systolic ejection murmur #diarrhea #macrocytic anemia #Hx of CVA #Hx of CAD s/p caths Hospital Course: Admitted with dehydration and hypokalemia repleted feeling better this morning endorses continued daily diarrhea discussed management with Imodium we will need to follow up as an outpatient with Dr. Welsh advise continue potassium supplementation. She endorses loss of appetite and energy last few months I do note a systolic ejection squeak over the aorta she might benefit from outpatient echo or colonoscopy. Status at Discharge Cognitive/behavioral status at discharge: at baseline, oriented Functional status at discharge: uses cane/walker Overall status at discharge: patient is back to baseline Exam Vital Signs (past 8 hours): - 01/22/23 04:00 Temperature 98.7 F Pulse Rate 69 Respiratory Rate 19 Blood Pressure 117/69 Pulse Oximetry 97 Oxygen Flow Rate 2 Oxygen Delivery Method Room Air Oxygen Flow Rate 2 Narrative Exam Narrative: Pleasant elderly lying in hospital bed Resp Other: Clear to auscultation bilaterally Cardio Other: mildly elevated rate with 3+ systolic ejection squeak at aorta GI Other: soft nontender active bowel sounds Neuro General: patient alert, patient awake, patient oriented x3, moves all extremities and no focal motor deficits Objective Labs 01/22/23 04:41 01/22/23 04:41 Labs: Laboratory Results - last 24 hr 01/21/23 01/21/23 01/21/23 10:25 12:55 12:55 WBC RBC Hgb 9.1 L Hct 27.6 L MCV MCH MCHC RDW Plt Count Neut % (Auto) Lymph % (Auto) [place] % (Auto) Eos % (Auto) Baso % (Auto) Neut # (Auto) Lymph # (Auto) [place] # (Auto) Eos # (Auto) Baso # (Auto) PT INR APTT Sodium 141 Potassium 2.9 L Chloride 115 H Carbon Dioxide 16 L BUN 54 H Creatinine 2.06 H Estimated GFR 23 L BUN/Creatinine Ratio 26.2 H Glucose 122 H Calcium 9.4 Magnesium Lipase Stl C. cayetanensis PCR Not detected Stool Rotavirus (PCR) Not detected Stool Adenovirus (PCR) Not detected Stool Astrovirus (PCR) Not detected Stool Cryptosporidium PCR Not detected Stl E.coli Shiga Tox PCR Not detected St Sh/Enteroin Ecoli PCR Not detected Stool E coli O157 PCR Not Reportable Stl Enterotoxigenic E PCR Not detected Stool EPEC (PCR) Not detected Stl E. histolytica PCR Not detected Stool Giardia Lamblia PCR Not detected Stool Sapovirus (PCR) Not detected Stl P. shigelloides PCR Not detected St Y.enterocolitica PCR Not detected Stool Vibrio (PCR) Not detected Stl Vibrio cholerae PCR Not detected Stl Enteroaggr Ecoli PCR Not detected Stl Norovirus GI/GII PCR Not detected Campylobacter (PCR) Not detected C. difficile Tox (PCR) Not detected Salmonella (PCR) Not detected 01/22/23 01/22/23 01/22/23 00:13 04:41 04:41 WBC 6.7 RBC 2.43 L Hgb 8.4 L Hct 24.9 L MCV 102.5 H MCH 34.3 H MCHC 33.5 RDW 19.0 H Plt Count 103 L Neut % (Auto) 62.4 Lymph % (Auto) 27.1 [place] % (Auto) 7.8 Eos % (Auto) 2.0 Baso % (Auto) 0.7 Neut # (Auto) 4200 Lymph # (Auto) 1800 [place] # (Auto) 500 Eos # (Auto) 100 Baso # (Auto) 0 PT INR APTT Sodium 135 L Potassium 3.9 3.9 Chloride 113 H Carbon Dioxide 16 L BUN 43 H Creatinine 1.63 H Estimated GFR 31 L BUN/Creatinine Ratio 26.4 H Glucose 90 Calcium 8.9 Magnesium 1.8 Lipase Stl C. cayetanensis PCR Stool Rotavirus (PCR) Stool Adenovirus (PCR) Stool Astrovirus (PCR) Stool Cryptosporidium PCR Stl E.coli Shiga Tox PCR St Sh/Enteroin Ecoli PCR Stool E coli O157 PCR Stl Enterotoxigenic E PCR Stool EPEC (PCR) Stl E. histolytica PCR Stool Giardia Lamblia PCR Stool Sapovirus (PCR) Stl P. shigelloides PCR St Y.enterocolitica PCR Stool Vibrio (PCR) Stl Vibrio cholerae PCR Stl Enteroaggr Ecoli PCR Stl Norovirus GI/GII PCR Campylobacter (PCR) C. difficile Tox (PCR) Salmonella (PCR) 01/22/23 01/22/23 04:41 04:41 WBC RBC Hgb Hct MCV MCH MCHC RDW Plt Count Neut % (Auto) Lymph % (Auto) [place] % (Auto) Eos % (Auto) Baso % (Auto) Neut # (Auto) Lymph # (Auto) [place] # (Auto) Eos # (Auto) Baso # (Auto) PT 11.5 INR 1.0 APTT 26 Sodium Potassium Chloride Carbon Dioxide BUN Creatinine Estimated GFR BUN/Creatinine Ratio Glucose Calcium Magnesium Lipase 273 Stl C. cayetanensis PCR Stool Rotavirus (PCR) Stool Adenovirus (PCR) Stool Astrovirus (PCR) Stool Cryptosporidium PCR Stl E.coli Shiga Tox PCR St Sh/Enteroin Ecoli PCR Stool E coli O157 PCR Stl Enterotoxigenic E PCR Stool EPEC (PCR) Stl E. histolytica PCR Stool Giardia Lamblia PCR Stool Sapovirus (PCR) Stl P. shigelloides PCR St Y.enterocolitica PCR Stool Vibrio (PCR) Stl Vibrio cholerae PCR Stl Enteroaggr Ecoli PCR Stl Norovirus GI/GII PCR Campylobacter (PCR) C. difficile Tox (PCR) Salmonella (PCR) [facility] Medical History Chronic back pain Chronic renal failure, stage 3 (moderate) (11/29/16) Coronary artery disease Essential hypertension H/O: gout Hammertoe of right foot History of stroke (05/2014) Hypercalcemia Peripheral edema (01/10/17) Unspecified asthma, uncomplicated Urinary incontinence (07/24/15) Social History marital status: number of children: 3 household members: none lives independently: Yes caregiver/support person: No housing: house pets and animals: Yes education level: master's degree occupational status: other current occupational exposures/hazards: No 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 jim/holiness: Islam special jim needs: No travel history: other leisure activities: music Smoking Status: Former smoker Tobacco: How many years used: 2 Smokeless tobacco user: other quit status: quit date established second hand exposure: No alcohol intake: current substance use type: does not use Discharge Assessment & Plan Assessment and Plan Assessment: #Acute?kidney?injury/dehydration #acute hypokalemia improved s/p IVF and potassium repletion continue K supplementation #systolic ejection murmur possible aortic stenosis, consider echo as outpt #diarrhea etiology unclear but certainly contributing to her hypokalemia recommend aggressive management with loperamide aim for 1 BM/day continue supplementation outpt - consider colonoscopy #macrocytic anemia workup unrevealing, continue to look at this as outpt #Hx of CVA continue clopidogrel #Hx of CAD s/p caths resume home meds dispo: home with family to f/u as outpt PCP: Blaise Time spent: 40 min Discharge Plan Discharge Plan Patient Disposition: Home Discharge orders & Medications Prescriptions: New potassium chloride 20 mEq tablet extended release 20 meq PO DAILY Qty: 30 0RF Continued nitroglycerin 0.4 mg tablet, sublingual 0.4 mg sublingual Q5-15M PRN (Reason: chest pain) Qty: 100 1RF Rx Instructions: Maximum 3 tabs in 15 mins. Call 911 if chest pain has not gone away. allopurinol 300 mg tablet 450 mg PO QPM Qty: 135 3RF clopidogrel [Plavix] 75 mg tablet 75 mg PO DAILY Qty: 90 3RF loratadine [Claritin] 10 mg tablet 10 mg PO DAILY albuterol sulfate 90 mcg/actuation HFA aerosol inhaler 1 puff INHALATION BID PRN (Reason: shortness of breath or wheezing) prednisone 20 mg tablet 20 mg PO DAILY PRN (Reason: gout flare x4-5 days) (DME) Disabled Parking See Rx Instructions .ROUTE .MEDSUPPLY Qty: 1 0RF Rx Instructions: Patient qualifies for disabled parking as per the attached form. colchicine 0.6 mg tablet 0.6 mg PO BID PRN (Reason: gout) Qty: 60 0RF fluticasone propionate [Flonase Allergy Relief] 50 mcg/actuation spray,suspension 1 spray INTRANASAL DAILY Qty: 16 8RF furosemide 20 mg tablet 20 mg PO DAILY Qty: 90 3RF isosorbide mononitrate 60 mg tablet extended release 24 hr 60 mg PO DAILY Qty: 90 3RF metoprolol tartrate 50 mg tablet 50 mg PO BID Qty: 180 3RF oxybutynin chloride 10 mg tablet extended release 24hr 10 mg PO DAILY Qty: 90 2RF rosuvastatin 5 mg tablet 2.5 mg PO QPM Qty: 45 3RF albuterol sulfate 2.5 mg /3 mL (0.083 %) Solution For Nebulization 2.5 mg INHALATION PRN PRN (Reason: Shortness Of Breath) zinc 50 mg Tablet 50 mg PO DAILY acetaminophen [Tylenol 8 Hour] 650 mg tablet extended release 650 mg PO BID PRN (Reason: pain) amlodipine 2.5 mg Tablet 2.5 mg PO DAILY Follow up/Referrals: David Welsh MD [Primary Care Provider] - Visit Report/Discharge Packet Stand Alone Forms: Patient Portal/API, Stroke Signs & Symptoms Discharge Data Primary Care Provider: David Welsh Quality VTE Deep Vein Thrombosis/Pulmonary Embolism Present on Admission: No
--- NOTE | 2023-01-22 11:12 | PC.NURSE ---
Addendum entered by Alison Juarez R.N. 01/22/23 13:52: Pt D/C instructions given to pt & son w/understanding. HL D/C'd Pt escorted by staff via W/C to waiting vehicle in stable condition. Original Note: Pt denies discomfort. IVF changed to SL SBA w/walker to BR Pt discharge plan in progress. Call light w/in reach, bed alarm on for pt safety. Continue w/plan of care
[2023-01-22 11:16] VITALS: BP 120/65; PULSE 70; RESP 18; TEMP 36.6; O2SAT 98
--- NOTE | 2023-01-22 11:55 | CM.DPC ---
Addendum entered by Rufina Luong R.N. 01/22/23 12:37: Son, Miguel, is here. Brought in an [facility] pamphlet, and Senior Resource Book with listing of agencies for house keeping. Son is hoping to speak to Dr. Stein about patient's labs, wants to ensure that she is medically ready for discharge. Nurse, Meghan, has texted Dr. Stein, who is supposed to come in and meet with son. Original Note: DCP Cont: Dr. Stein is here seeing patient, medically ready for discharge. She has been up using walker. Patient reluctant to go home today. Met with patient and let her know that home health can be ordered. Patient stated she had someone coming to her house for cleaning. Let her know that home health is not the same, it is covered by her insurance. She stated, then what do they do? Let her know that nursing can come in, check her vitals, medications, labs if needed, and that P.T. and O.t. can come in and work on mobility and strengthening. Stated, she doesn't think that she will need it, but should be ok. Went over agency list on Medicare.gov, has no preferences. Called [facility] (was on calendar), unable to get through. Called over at [facility], spoke to Lea in intake. Stated that nursing can come by the . Went ahead and gave her the name of patient, and faxed over face sheet, orders, face to face, DC Summary, and H&P. Patient stated, she does not want to leave today, Dr. Welsh told me that I could stay until Tuesday. Dr. Stein explained to patient that she is medically stable, no medical criteria to keep her here. This DC c4 planner explained the same, asked her if she wanted to go to a skilled facility, stated, No. She stated she can't cook. Asked her if she is interested in Meals on Wheels, stated that she is not. Dr. Stein called patient's son and explained patient's reluctant to leave, but no medical need to keep her. Son will be in, he is the one picking her up. [facility] now has referral, patient should be discharging home today. P: Patient is supposed to discharge home today, son will be here, and will try to meet with provider, and explain to patient. Rufina Luong RN/Drawing Operator
[2023-01-22] MEDS: LOPERAMIDE 2 MG CAPSULE 4 MG PO (13:14)
== END 2023-01-22 13:50 | disposition home health service (06) | DRG 641 ==
LOC: ED 20:58 → AC 21:50
PROVIDERS: Emergency Medicine; Family Medicine; Admitting Provider Internal Medicine; Emergency Provider Emergency Medicine; PCP Internal Medicine; Referring Provider Emergency Medicine; Visit Provider Internal Medicine
DX: E86.0 Dehydration (principal); N17.9 Acute kidney failure, unspecified; E87.6 Hypokalemia; R19.7 Diarrhea, unspecified; I25.10 Atherosclerotic heart disease of native coronary artery without angina pectoris; J45.909 Unspecified asthma, uncomplicated; R01.1 Cardiac murmur, unspecified; M10.9 Gout, unspecified; I10 Essential (primary) hypertension; Z86.73 Personal history of transient ischemic attack (TIA), and cerebral infarction without residual deficits; Z87.891 Personal history of nicotine dependence
CPT/HCPCS: 36415; 74176; 80048; 80053; 81003; 81015; 82607; 82746; 83690; 83735; 84132; 85014; 85018; 85025; 85610; 85730; 87045; 87077; 87086; 87186; 87507; 87899; 93005; 96365; 96366; 96375; 99223; 99284; G0378; J1650; J2405

== ENCOUNTER → 2023-01-28 11:14 | Outpatient (CLI) | payer MEDICARE, SELFPAY ==
[2023-01-20 22:15] VITALS: BMI 22.2
[2023-01-28 12:24] LABS: Alanine Aminotransferase 19 IU/L (<35); Albumin 3.3 g/dL (3.5-5.0); Albumin Globulin Ratio 1.7 (1.0-2.8); Alkaline Phosphatase 67 U/L (38-126); Aspartate Aminotransferase 21 IU/L (14-36); BUN Creatinine Ratio 25.2 (6-22); Bilirubin Total 0.2 mg/dL (0.2-1.3); Blood Urea Nitrogen 62 mg/dL (7-17); Calcium 10.2 mg/dL (8.4-10.2); Carbon Dioxide 16 mmol/L (22-32); Chloride 108 mmol/L (98-107); Estimated Glomerular Filt Rate 19 mL/min (>60); Glucose 118 mg/dL (80-110); HEMOLYSIS < 15 (0-50); Potassium 4.8 mmol/L (3.4-5.1); Sodium 133 mmol/L (137-145); Total Protein 5.3 g/dL (6.3-8.2)
== END ==
PROVIDERS: PCP Internal Medicine; Referring Provider Internal Medicine; Visit Provider Internal Medicine
DX: E87.6 Hypokalemia (principal); I10 Essential (primary) hypertension; N18.9 Chronic kidney disease, unspecified
CPT/HCPCS: 36415; 80053

== ENCOUNTER → 2023-02-11 15:20 | Outpatient (CLI) | payer MEDICARE, SELFPAY ==
[2023-01-20 22:15] VITALS: BMI 22.2
[2023-02-11 16:58] LABS: BUN Creatinine Ratio 46.2 (6-22); Blood Urea Nitrogen 73 mg/dL (7-17); Calcium 9.6 mg/dL (8.4-10.2); Carbon Dioxide 24 mmol/L (22-32); Chloride 102 mmol/L (98-107); Estimated Glomerular Filt Rate 32 mL/min (>60); Glucose 134 mg/dL (80-110); HEMOLYSIS < 15 (0-50); Magnesium 2.1 mg/dL (1.6-2.3); Potassium 4.8 mmol/L (3.4-5.1); Sodium 136 mmol/L (137-145)
== END ==
PROVIDERS: PCP Internal Medicine; Referring Provider Internal Medicine; Visit Provider Internal Medicine
DX: E87.6 Hypokalemia (principal); N18.9 Chronic kidney disease, unspecified
CPT/HCPCS: 36415; 80048; 83735

== ENCOUNTER → 2023-02-28 12:10 | Outpatient (CLI) | payer MEDICARE, SELFPAY ==
[2023-01-20 22:15] VITALS: BMI 22.2
[2023-02-28 13:07] LABS: Add Manual Diff / Slide Review NO; Basophils Absolute Auto 0 /uL (0-100); Basophils Percent Auto 0.2 % (0-2); Eosinophils Absolute Auto 0 /uL (0-450); Eosinophils Percent Auto 0.1 % (2-4); Hematocrit 23.4 % (36-46); Hemoglobin 7.6 g/dL (12.0-16.0); Lymphocytes Absolute Auto 300 /uL (1100-4500); Lymphocytes Percent Auto 3.9 % (25-40); Mean Corpuscular HGB Conc 32.4 % (30-36); Mean Corpuscular Hemoglobin 35.1 PG (26-34); Mean Corpuscular Volume 108.4 fL (80-100); Monocytes Absolute Auto 200 /uL (0-900); Monocytes Percent Auto 2.7 % (3-14); Neutrophils Absolute Auto 8300 /uL (1500-7000); Neutrophils Percent Auto 93.1 % (50-75); Platelet Count 127 X10^3/uL (150-400); Red Blood Cell Count 2.16 X10^6/uL (4.0-5.2); Red Cell Distribution Width 17.3 % (11.6-14.8); White Blood Cell Count 8.9 X10^3/uL (4.5-11.0)
[2023-02-28 13:40] LABS: Alanine Aminotransferase 47 IU/L (<35); Albumin 3.2 g/dL (3.5-5.0); Albumin Globulin Ratio 1.6 (1.0-2.8); Alkaline Phosphatase 61 U/L (38-126); Aspartate Aminotransferase 27 IU/L (14-36); BUN Creatinine Ratio 59.9 (6-22); Bilirubin Total 0.2 mg/dL (0.2-1.3); Blood Urea Nitrogen 88 mg/dL (7-17); Calcium 9.4 mg/dL (8.4-10.2); Carbon Dioxide 22 mmol/L (22-32); Chloride 109 mmol/L (98-107); Estimated Glomerular Filt Rate 35 mL/min (>60); Glucose 114 mg/dL (80-110); HEMOLYSIS < 15 (0-50); Potassium 4.8 mmol/L (3.4-5.1); Sodium 134 mmol/L (137-145); Total Protein 5.2 g/dL (6.3-8.2)
[2023-02-28 14:05] LABS: Appearance Urine UA CLEAR; Bilirubin Urine UA NEGATIVE (NEGATIVE); Color Urine UA YELLOW; Glucose Urine UA NEGATIVE (Negative); Ketones Urine UA NEGATIVE (NEGATIVE); Leukocyte Esterase Urine UA NEGATIVE (NEGATIVE); Nitrite Urine UA POSITIVE (Negative); Occult Blood Urine UA NEGATIVE (Negative); Protein Urine UA NEGATIVE (Negative); Urobilinogen Urine UA 0.2 E.U./dL (0.2)
[2023-02-28 14:33] LABS: Bacteria Urine Many (>30); Culture Indicated Urine Specimen Cultured; RBC Urine None Seen (0-5/HPF); Squamous Epithelial Cell Urine 1-5 /HPF (0-5/HPF); WBC Urine 10-30/HPF (0-5/HPF)
[2023-03-02 09:58] LABS: Folate 9.5 ng/mL (2.76-20.0); Vitamin B12 929 pg/mL (239-931)
== END ==
PROVIDERS: PCP Internal Medicine; Referring Provider Internal Medicine; Visit Provider Internal Medicine
DX: E83.52 Hypercalcemia (principal); I10 Essential (primary) hypertension; I35.0 Nonrheumatic aortic (valve) stenosis; D64.9 Anemia, unspecified; N18.30 Chronic kidney disease, stage 3 unspecified
CPT/HCPCS: 36415; 80053; 81001; 82607; 82746; 85025; 87077; 87086; 87186

== ENCOUNTER 2023-03-10 16:03 | Inpatient (IN) | payer MEDICARE, SELFPAY ==
[2023-01-20 22:15] VITALS: BMI 22.2
[2023-03-10] VITALS (7 sets, daily range): BP systolic 110–151; BP diastolic 52–70; PULSE 88–102; RESP 14–25; TEMP 36.4–37.2; O2SAT 94–100; BMI 23.2
[2023-03-10 19:20] LABS: Add Manual Diff / Slide Review NO; Basophils Absolute Auto 0 /uL (0-100); Basophils Percent Auto 0.2 % (0-2); Eosinophils Absolute Auto 0 /uL (0-450); Lymphocytes Absolute Auto 300 /uL (1100-4500); Lymphocytes Percent Auto 3.3 % (25-40); Mean Corpuscular Hemoglobin 34.3 PG (26-34); Mean Corpuscular Volume 107.1 fL (80-100); Monocytes Absolute Auto 300 /uL (0-900); Neutrophils Absolute Auto 9400 /uL (1500-7000); Neutrophils Percent Auto 93.5 % (50-75); Platelet Count 143 X10^3/uL (150-400); Red Blood Cell Count 2.05 X10^6/uL (4.0-5.2); Red Cell Distribution Width 16.4 % (11.6-14.8); White Blood Cell Count 10.1 X10^3/uL (4.5-11.0)
[2023-03-10 19:21] LABS: PTT Partial Thromboplastin Tim 22 SECONDS (26-36)
[2023-03-10 19:23] LABS: Alanine Aminotransferase 31 IU/L (<35); Albumin 3.5 g/dL (3.5-5.0); Albumin Globulin Ratio 1.7 (1.0-2.8); Alkaline Phosphatase 49 U/L (38-126); Aspartate Aminotransferase 25 IU/L (14-36); BUN Creatinine Ratio 50.5 (6-22); Bilirubin Total 0.2 mg/dL (0.2-1.3); Blood Urea Nitrogen 94 mg/dL (7-17); Calcium 9.9 mg/dL (8.4-10.2); Carbon Dioxide 18 mmol/L (22-32); Chloride 112 mmol/L (98-107); Estimated Glomerular Filt Rate 27 mL/min (>60); Globulin 2.1 g/dL (1.7-4.1); Glucose 118 mg/dL (80-110); HEMOLYSIS < 15 (0-50); Sodium 137 mmol/L (137-145); Total Protein 5.6 g/dL (6.3-8.2)
[2023-03-10 19:25] LABS: Potassium 5.5 mmol/L (3.4-5.1)
--- NOTE | 2023-03-10 19:41 | ED.GIBLEED ---
HPI - GI Bleed General Chief complaint: GI Bleed Stated complaint: Black diarrhea, Weakness Time Seen by Provider: 03/10/23 19:41 Source: patient Mode of arrival: Wheelchair Limitations: no limitations History of Present Illness HPI Narrative: This is an 82-year-old female history of prior NSTEMI, aortic stenosis, prior kidney resection with reconstruction of bladder, appendectomy on medications for hypertension, gout and anticoagulated on Plavix daily. Patient presents with complaint of black tarry stool that started last night and into today. She describes some progressive weakness in general. No syncope. She is had some lightheadedness. She denies chest pain or pressure, no shortness of breath, no cough, no orthopnea. Patient states no nausea or vomiting. Started having diarrhea black stool she is had several episodes last night and today. She did try Imodium. She is not been taking any iron, Pepto-Bismol or similar medications. She states she had chronic diarrhea and was hospitalized about a month ago but did not have black stools at that time. Did not have any upper or lower scopes. Patient states the black discoloration is new. Patient states her diarrhea had actually stopped for some time. Patient denies any urinary symptoms. She no she is on a blood thinner but does not know the name. Related Data Home Medications Medication Instructions Recorded Confirmed loratadine 10 mg tablet (Claritin) 10 mg PO DAILY 12/13/17 03/11/23 albuterol sulfate 2.5 mg/3 mL 2.5 mg inhalation PRN PRN 02/26/19 03/11/23 (0.083 %) solution for nebulization Shortness Of Breath acetaminophen 650 mg 650 mg PO BID PRN pain 07/18/20 03/11/23 tablet,extended release (Tylenol 8 Hour) albuterol sulfate 90 mcg/actuation 1 puff inhalation BID PRN 07/18/20 03/11/23 aerosol inhaler shortness of breath or wheezing amlodipine 2.5 mg tablet 2.5 mg PO DAILY 01/20/23 03/11/23 Previous Rx's Medication Instructions Recorded Disabled Parking #1 ea 08/29/20 nitroglycerin 0.4 mg sublingual 0.4 mg sublingual Q5-15M PRN chest 09/02/20 tablet pain #100 tabs colchicine (gout) 0.6 mg tablet 0.6 mg PO BID PRN gout #60 tabs 02/19/22 fluticasone propionate 50 1 spray intranasal DAILY #16 grams 02/19/22 mcg/actuation nasal spray,suspension (Flonase Allergy Relief) isosorbide mononitrate 60 mg 60 mg PO DAILY #90 tabs 02/19/22 tablet,extended release 24 hr metoprolol tartrate 50 mg tablet 50 mg PO BID #180 tabs 02/19/22 allopurinol 300 mg tablet 450 mg PO QPM #135 tabs 08/04/22 clopidogrel 75 mg tablet (Plavix) 75 mg PO DAILY #90 tabs 10/08/22 potassium chloride 20 mEq 20 meq PO DAILY #30 tabs 01/22/23 tablet,extended release prednisone 20 mg tablet 40 mg PO DAILY #60 tabs 01/24/23 [id number]-[id number] 2 cap PO QID #360 caps 01/28/23 36,000-114,000-180,000 unit capsule,delay rel (Creon) furosemide 20 mg tablet 20 mg PO DAILY #90 tabs 02/21/23 oxybutynin chloride 10 mg 10 mg PO DAILY #90 tabs 02/21/23 tablet,extended release 24 hr rosuvastatin 5 mg tablet 2.5 mg PO QPM #45 tabs 02/21/23 ciprofloxacin HCl 500 mg tablet 500 mg PO BID #20 tabs 02/28/23 Allergies Allergy/AdvReac Type Severity Reaction Status Date / Time aspirin [ASPIRIN] Allergy Mild RACING Verified 03/10/23 16:09 HEARTBEAT/RASH gemfibrozil [GEMFIBROZIL] Allergy Mild Verified 03/10/23 16:09 iodine [IODINE] Allergy Mild RASH Verified 03/10/23 16:09 Penicillins [PENICILLINS] Allergy Mild GI Verified 03/10/23 16:09 DISTURBANCE, RASH promethazine [PROMETHAZINE] Allergy Mild RASH Verified 03/10/23 16:09 Sulfa (Sulfonamide AdvReac Severe SOB Verified 03/10/23 16:09 Antibiotics) [SULFA (SULFONAMIDE ANTIBIOTICS)] atorvastatin [ATORVASTATIN] AdvReac Mild MUSCLE Verified 03/10/23 16:09 ACHES AND WEAKNESS latex AdvReac Mild Rash when Verified 03/10/23 16:09 worn rosuvastatin [ROSUVASTATIN] AdvReac Mild MUSCLE Verified 03/10/23 16:09 PAIN ANS WEAKNESS Review of Systems Review of Systems ROS Unobtainable: All systems reviewed & are unremarkable except as noted in HPI and below Patient History Medical History Aortic stenosis Chronic back pain Chronic renal failure, stage 3 (moderate) (11/29/16) Coronary artery disease Essential hypertension H/O: gout Hammertoe of right foot History of stroke (05/2014) Hypercalcemia Peripheral edema (01/10/17) Unspecified asthma, uncomplicated Urinary incontinence (07/24/15) Social History marital status: number of children: 3 household members: none lives independently: Yes caregiver/support person: No housing: house pets and animals: Yes education level: master's degree occupational status: other current occupational exposures/hazards: No 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/yarsanism: [employer] special jim needs: No travel history: other leisure activities: music Smoking Status: Former smoker Tobacco: How many years used: 2 Smokeless tobacco user: other quit status: quit date established second hand exposure: No alcohol intake: current substance use type: does not use Smoking Status: Former smoker alcohol intake frequency: holidays/special occasions only Substance Use Type: does not use Exam Narrative Exam Narrative: GENERAL: Alert and oriented x three, elderly female in mild distress HEENT: Head normocephalic, atraumatic, EOMI, pupils reactive, face symmetric, moist mucous membranes NECK: Supple, full range of motion CARDIOVASCULAR: Regular rate and rhythm without murmurs, rubs or gallops. RESPIRATORY: Breath sounds equal bilaterally, no wheezes rales or rhonchi. No tachypnea or accessory muscle use. ABDOMEN: Soft, nontender. Normoactive bowel sounds all 4 quadrants. No guarding or rebound, rigidity, no mass, stool occult is positive with black tarry stool on examination. Nondistended. : No CVA tenderness EXTREMITIES: Normal range of motion, patient has bilateral lower extremity edema. Neurovascularly intact NEUROLOGICAL: Cranial nerves II through XII grossly intact. Moving all extremities SKIN: Warm, dry, no petechiae, no rashes or lesions. Initial Vital Signs Initial Vital Signs: Vital Signs Temperature 98.9 F 03/10/23 16:09 Pulse Rate 91 H 03/10/23 16:09 Respiratory Rate 14 03/10/23 16:09 Blood Pressure 110/52 L 03/10/23 16:09 Pulse Oximetry 100 03/10/23 16:09 Oxygen Delivery Method Room Air 03/10/23 16:09 Course Orders Ordered: Ondansetron HCl (Ondansetron 4 Mg/2 Ml Inj) 4 mg IV NOW PRN PRN Reason: Nausea And Vomiting Discontinued Medications Furosemide (Furosemide 40 Mg/4 Ml Vial) 40 mg IV NOW ONE Stop: 03/10/23 22:24 Last Admin: 03/11/23 00:46 Dose: 40 mg Documented By: KYLEIGH Furosemide (Furosemide 40 Mg/4 Ml Vial) 40 mg IV NOW ONE Stop: 03/11/23 04:25 Last Admin: 03/11/23 05:24 Dose: 40 mg Documented By: KYLEIGH Pantoprazole Sodium (Pantoprazole 40 Mg Vial) 80 mg IV NOW ONE Stop: 03/10/23 19:09 Last Admin: 03/10/23 22:12 Dose: 80 mg Documented By: CECY Pantoprazole Sodium (Pantoprazole 40 Mg Vial) 80 mg IV NOW ONE Stop: 03/10/23 22:24 Last Admin: 03/10/23 22:34 Dose: Not Given Documented By: CECY Vital Signs Vital signs: Vital Signs - 8 hr 03/10/23 22:30 03/10/23 22:30 Pulse Rate 99 H Respiratory Rate 25 H Blood Pressure 140/68 Pulse Oximetry 98 Oxygen Delivery Method Room Air MDM - GI Bleed Lab Data 03/11/23 04:45 03/11/23 04:45 Labs: Lab Results 03/10/23 03/10/23 03/10/23 Range/Units 16:43 16:43 16:43 WBC 10.1 (4.5-11.0) X10^3/uL RBC 2.05 L (4.0-5.2) X10^6/uL Hgb 7.0 L (12.0-16.0) g/dL Hct 22.0 L (36-46) % MCV 107.1 H (80-100) fL MCH 34.3 H (26-34) PG MCHC 32.0 (30-36) % RDW 16.4 H (11.6-14.8) % Plt Count 143 L (150-400) X10^3/uL Neut % (Auto) 93.5 H (50-75) % Lymph % (Auto) 3.3 L (25-40) % Pacific % (Auto) 3.0 (3-14) % Eos % (Auto) 0.0 L (2-4) % Baso % (Auto) 0.2 (0-2) % Neut # (Auto) 9400 H (2151-7605) /uL Lymph # (Auto) 300 L (3868-7917) /uL Pacific # (Auto) 300 (0-900) /uL Eos # (Auto) 0 (0-450) /uL Baso # (Auto) 0 (0-100) /uL PT 11.0 (10.1-12.7) SECONDS INR 1.0 (0.9-1.3) APTT 22 L (26-36) SECONDS Sodium 137 (137-145) mmol/L Potassium 5.5 H (3.4-5.1) mmol/L Chloride 112 H (98-107) mmol/L Carbon Dioxide 18 L (22-32) mmol/L BUN 94 H (7-17) mg/dL Creatinine 1.86 H (0.52-1.04) mg/dL Estimated GFR 27 L (>60) mL/min BUN/Creatinine Ratio 50.5 H (6-22) Glucose 118 H (80-110) mg/dL Calcium 9.9 (8.4-10.2) mg/dL Total Bilirubin 0.2 (0.2-1.3) mg/dL AST 25 (14-36) IU/L ALT 31 (<35) IU/L Alkaline Phosphatase 49 (38-126) U/L Total Protein 5.6 L (6.3-8.2) g/dL Albumin 3.5 (3.5-5.0) g/dL Globulin 2.1 (1.7-4.1) g/dL Albumin/Globulin Ratio 1.7 (1.0-2.8) Blood Type Antibody Screen Crossmatch 03/10/23 Range/Units 20:05 WBC (4.5-11.0) X10^3/uL RBC (4.0-5.2) X10^6/uL Hgb (12.0-16.0) g/dL Hct (36-46) % MCV (80-100) fL MCH (26-34) PG MCHC (30-36) % RDW (11.6-14.8) % Plt Count (150-400) X10^3/uL Neut % (Auto) (50-75) % Lymph % (Auto) (25-40) % Pacific % (Auto) (3-14) % Eos % (Auto) (2-4) % Baso % (Auto) (0-2) % Neut # (Auto) (5881-3383) /uL Lymph # (Auto) (1320-1847) /uL Pacific # (Auto) (0-900) /uL Eos # (Auto) (0-450) /uL Baso # (Auto) (0-100) /uL PT (10.1-12.7) SECONDS INR (0.9-1.3) APTT (26-36) SECONDS Sodium (137-145) mmol/L Potassium (3.4-5.1) mmol/L Chloride (98-107) mmol/L Carbon Dioxide (22-32) mmol/L BUN (7-17) mg/dL Creatinine (0.52-1.04) mg/dL Estimated GFR (>60) mL/min BUN/Creatinine Ratio (6-22) Glucose (80-110) mg/dL Calcium (8.4-10.2) mg/dL Total Bilirubin (0.2-1.3) mg/dL AST (14-36) IU/L ALT (<35) IU/L Alkaline Phosphatase (38-126) U/L Total Protein (6.3-8.2) g/dL Albumin (3.5-5.0) g/dL Globulin (1.7-4.1) g/dL Albumin/Globulin Ratio (1.0-2.8) Blood Type O Positive Antibody Screen Negative Crossmatch See Detail Point of Care Testing Stool Occult Blood Positive MDM Narrative Medical decision making narrative: 82-year-old female who presents with complaint of black tarry stools patient appears to likely have not GI bleed, she does have chronic medical issues but they appear fairly baseline creatinine slightly elevated at 1.8 but looks like she ranges between 2.5 and 1.5 BUN is elevated at 90 she tends to be 40s to 60s. Hemoglobin is been drifting down since mid January was 10, 9 and today is 7. Patient is hemodynamically stable. Positive stool occult with black tarry stools. Patient is on Plavix daily. Spoke with Dr. Alexandra, general surgery who asked for NPO after midnight with plan for scope tomorrow. Spoke with Dr. Stein, covering for patient's admitting service accepts for admission agrees with plan for Protonix, 1 unit of blood, Lasix afterwards to prevent fluid overload. Patient and family are agreeable. Sudden patient both state that she is DNR/DNI. But open to interventions otherwise. Critical Care Time Critical Care Time Critical Care Time: Yes Total Critical Care Time: 35 Attestation: The high probability of a clinically significant, sudden or life threatening deterioration of the [cardiac, heme] system(s) required my full and direct attention, intervention and personal management. The aggregate critical care time was [] minutes. This time is in addition to time spent performing reported procedures but includes the following: [x] Data Review and interpretation [x] Patient assessment and monitoring of vital signs [x] Documentation [x] Medication orders and management Discharge Plan Departure Patient Disposition: Admitted As Inpatient Clinical Impression: GI bleed, Symptomatic anemia, CKD (chronic kidney disease) Admit Date/Time: 03/10/23 22:32 Admit Provider: Sathya Stein
[2023-03-10] MEDS: PANTOPRAZOLE 40 MG VIAL 80 MG IV (22:12)
[2023-03-11] VITALS (16 sets, daily range): BP systolic 102–142; BP diastolic 49–69; PULSE 67–114; RESP 16–24; TEMP 36.1–36.9; O2SAT 93–100; BMI 26.0; BMI 26.6
--- NOTE | 2023-03-11 | PATH_ITS ---
[facility] Accession Number: [id number] No. of containers..01 Tissue . 01 Material submitted: . stomach - STOMACH BIOPSY . 01 Diagnosis: Stomach, Biopsies: Gastric antral and body mucosa with mild features of reactive gastropathy. Negative for Helicobacter organisms by immunohistochemistry. Negative for intestinal metaplasia. Negative for dysplasia or malignancy. [facility] 03/21/2023 1527 Local . 01 Electronically signed: . Garrison Dobbs MD, PhD, Pathologist NPI- [id number] . 01 Gross description: . STOMACH BIOPSY: Received in formalin is 3 fragment(s) of prieto, soft tissue measuring 0.2 x 0.2 x 0.1 cm to 0.2 x 0.1 x 0.1 cm submitted entirely in 1 cassette(s) /AAY 03/14/2023 0548 Local . 01 Microscopic: . An immunohistochemical stain was performed to evaluate for Helicobacter organisms and is negative. The control stain showed appropriate reactivity. . * This test was developed and its performance characteristics determined by [facility]. It has not been cleared or approved by the U.S. Food and Drug Administration. The FDA has determined that such clearance or approval is not necessary. This test is used for clinical purposes. It should not be regarded as investigational or for research. . 01 Pathologist provided ICD-10: K29.70 . 01 CPT . 281392, K42005 Specimen Comment: A courtesy copy of this report has been sent to [phone] Performed at: 01 [facility] [address] [place] [address] [address] [facility], [place], [place] [id number] MD Bob Freeman MD Phone: [phone]
--- NOTE | 2023-03-11 00:16 | PC.NURSE ---
Patient transferred upstairs to acute care with Leukocyte reduced RBC running at 100ml/hr. Patient also notably having increased expiratory wheezing when transferring patient. Face to face update given to Elyse RN who assumed care of patient and Renee NESBITT, doctor of nursing practice upstairs.
[2023-03-11] MEDS: FUROSEMIDE 40 MG/4 ML VIAL IV ×2 (00:46→05:24)
[2023-03-11 04:58] LABS: Add Manual Diff / Slide Review NO; Basophils Absolute Auto 0 /uL (0-100); Basophils Percent Auto 0.2 % (0-2); Eosinophils Absolute Auto 0 /uL (0-450); Eosinophils Percent Auto 0.3 % (2-4); Hematocrit 25.8 % (36-46); Hemoglobin 8.3 g/dL (12.0-16.0); Lymphocytes Absolute Auto 1300 /uL (1100-4500); Lymphocytes Percent Auto 9.2 % (25-40); Mean Corpuscular HGB Conc 32.1 % (30-36); Mean Corpuscular Hemoglobin 32.5 PG (26-34); Mean Corpuscular Volume 101.1 fL (80-100); Monocytes Absolute Auto 700 /uL (0-900); Monocytes Percent Auto 4.9 % (3-14); Neutrophils Absolute Auto 11700 /uL (1500-7000); Neutrophils Percent Auto 85.4 % (50-75); Platelet Count 127 X10^3/uL (150-400); Red Blood Cell Count 2.55 X10^6/uL (4.0-5.2); Red Cell Distribution Width 19.7 % (11.6-14.8); White Blood Cell Count 13.7 X10^3/uL (4.5-11.0)
[2023-03-11 05:09] LABS: BUN Creatinine Ratio 52.7 (6-22); Blood Urea Nitrogen 97 mg/dL (7-17); Calcium 9.9 mg/dL (8.4-10.2); Carbon Dioxide 18 mmol/L (22-32); Chloride 114 mmol/L (98-107); Estimated Glomerular Filt Rate 27 mL/min (>60); Glucose 84 mg/dL (80-110); HEMOLYSIS < 15 (0-50); Sodium 140 mmol/L (137-145)
[2023-03-11 05:39] LABS: NT-proBNP (BNP-Adult 18+) 30500 pg/mL (<450)
--- NOTE | 2023-03-11 06:51 | DI.ECHO.S_ITS ---
[place] [facility]---------+ [facility] +---------+ : : [address] : : : : [phone] : : : : Phone: [phone]+ Echocardiogram Report + + :Name: JOSEPHINE HOLT Study Date: 03/11/2023 Height: 59 in : :[facility] ReadingLocation: Weight: 128 lb : : Gender: Female BSA: 1.5 m2 : :: 1940 Age: 82 yrs BP: 142/69 mmHg: :Reason For Study: Congestive Heart Failure : :Ordering Physician: ROCKY, : :LACEY Lizarraga Performed By: Shanice Landry : :Referring: LACEY HIDALGO : + + Interpretation Summary The ejection fraction is estimated to be 55-60%. Grade II diastolic dysfunction. The right ventricle is normal in size and function. The right ventricular systolic pressure is estimated to be at least 42 mmHg based on an estimated right atrial pressure of 8 mm Hg. The left atrium is severely dilated. There is mild mitral regurgitation. There is severe aortic stenosis. There is mild aortic regurgitation. There is mild tricuspid regurgitation. Cardiology consultation is recommended for severe aortic stenosis. Procedure: A two-dimensional transthoracic echocardiogram with color flow and Doppler was performed. The study quality was technically adequate. Comparison is made with the echocardiogram of 08/19/2022. Left Ventricle: The left ventricle is normal in size. The ejection fraction is estimated to be 55-60%. Grade II diastolic dysfunction. Right Ventricle: The right ventricle is normal in size and function. Atria: The left atrium is severely dilated. Right atrial size is normal. There is no Doppler evidence for an interatrial shunt. Mitral Valve: The mitral valve leaflets are moderately calcified. There is moderate to severe mitral annular calcification. There is mild mitral stenosis. The mitral valve mean gradient is 3 mmHg. There is mild mitral regurgitation. Aortic Valve: The aortic valve is heavily calcified. There is severe aortic stenosis. The peak aortic velocity is 4.29 m/sec. The aortic valve mean gradient is 45 mmHg. There is mild aortic regurgitation. Tricuspid Valve: The tricuspid valve is normal. There is no tricuspid stenosis. There is mild tricuspid regurgitation. The right ventricular systolic pressure is estimated to be at least 42 mmHg based on an estimated right atrial pressure of 8 mm Hg. Pulmonic Valve: The pulmonic valve is not well visualized. There is no pulmonic valvular stenosis. There is trace pulmonic regurgitation. Great Vessels: The aortic root is normal size. The ascending aorta is normal in size. The pulmonary artery is normal size. The IVC is dilated (diameter is greater than 2.1 cm) yet it collapses greater than 50% with a sniff. This suggests a right atrial pressure of 8 mm Hg. Pericardium/ Pleura There is no pericardial effusion. There is no pleural effusion. MMode/2D Measurements & Calculations LVIDd: 3.9 cm LVOT diam: 1.6 cm LVIDs: 3.0 cm Ao root diam: 2.8 cm FS: 23.1 % asc Aorta Diam: 3.2 cm IVSd: 0.90 cm LVPWd: 1.0 cm LV menjivar. diameter/BSA (cm/m^2): 2.6 LV sys. diameter/BSA (cm/m^2): 2.0 LA A2 area: 21.0 cm2 RA long axis: 4.6 cm LA A4 area: 18.3 cm2 RA area: 11.3 cm2 LA length (vol): 5.1 cm RA vol: 23.2 ml LA vol: 64.3 ml RA : 15.2 ml/m2 LA vol index: 42.2 ml/m2 RVD1 (basal): 3.4 cm LVLs ap4: 5.9 cm LVLd ap2: 6.8 cm TAPSE_phl: 1.9 cm LVLs ap2: 6.5 cm Doppler Measurements & Calculations Ao V2 max: 391.6 cm/sec LVOT Max Jerry: 100.9 cm/sec Ao V2 mean: 288.2 cm/sec LV V1 max P.1 mmHg Ao max P.0 mmHg LV V1 VTI: 22.6 cm Ao mean P.0 mmHg DANTE(I,D): 0.50 cm2 Ao V2 VTI: 90.9 cm DANTE(V,D): 0.52 cm2 sev ratio: 0.25 DANTE indexed to BSA (cm^2/m^2): 0.33 MV E max jerry: 136.0 cm/sec TR max jerry: 291.6 cm/sec MV A max jerry: 101.0 cm/sec TR max P.1 mmHg MV E/A: 1.3 PA V2 max: 111.0 cm/sec Med Peak E' Jerry: 4.3 cm/sec PA V2 mean: 79.6 cm/sec E/E' med: 31.9 PA mean P.0 mmHg Lat Peak E' Jerry: 7.4 cm/sec E/E' lat: 18.5 E/e' average: 25.2 MV dec time: 0.18 sec MVA(VTI): 1.1 cm2 MV V2 mean: 74.0 cm/sec SV(LVOT): 45.4 ml MV mean P.0 mmHg MV V2 VTI: 42.7 cm AV VR_phl: 0.26 DANTE(VTI)/BSA_phl: 0.33 Reading Physician:GARRISON
--- NOTE | 2023-03-11 06:54 | P.HP_ITS ---
History of Present Illness History of Present Illness Date Patient Seen: 03/11/23 Time Patient Seen: 06:54 Chief complaint: Black diarrhea, Weakness Narrative: 82-year-old female who is admitted with probable GI bleed Patient has been struggling with diarrhea inability to eat weight loss etcetera for several weeks now. She was hospitalized with this back in January. Patient has been somewhat resistant to invasive procedures such as colonoscopy and as such has not had that She did not really respond to oral steroid therapy there is no evidence of infection on multiple cultures. She was started on pancreatic enzyme replacement which did seem to make a difference for her she was able to eat and diarrhea seem to stop least temporarily. She did have a CT scan of the abdomen and pelvis that was essentially unremarkable in January as well However over the last several days apparently she is had recurrent diarrhea with black colored stool which turns out to be Hemoccult positive as expected in the emergency department. She is on Plavix for stroke risk reduction. She does complain of some midepigastric discomfort as well. The diarrhea returned with t he onset of the black-colored stool she thinks they are very much connected than has the sense that if she did not have black stool whatever is causing that she would not have diarrhea either Her hemoglobin hematocrit are actually somewhat improved over where they been recently although down from past. She does have a persistent macrocytosis which has defied explanation to this point. Patient also with severe aortic stenosis not felt to be a candidate or desiring intervention. Also has coronary disease and chronic renal failure. Also with distant history of asthma. [facility] Medical History Aortic stenosis Chronic back pain Chronic renal failure, stage 3 (moderate) (11/29/16) Coronary artery disease Essential hypertension H/O: gout Hammertoe of right foot History of stroke (05/2014) Hypercalcemia Peripheral edema (01/10/17) Unspecified asthma, uncomplicated Urinary incontinence (07/24/15) Social History marital status: number of children: 3 household members: none lives independently: Yes caregiver/support person: No housing: house pets and animals: Yes education level: master's degree occupational status: other current occupational exposures/hazards: No 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/roman catholic: Confucianism special jim needs: No travel history: other leisure activities: music Smoking Status: Former smoker Tobacco: How many years used: 2 Smokeless tobacco user: other quit status: quit date established second hand exposure: No alcohol intake: current substance use type: does not use Meds Home Medications and Allergies Home Medications Medication Instructions Recorded Confirmed Type loratadine 10 mg tablet (Claritin) 10 mg PO DAILY 12/13/17 03/11/23 History albuterol sulfate 2.5 mg/3 mL 2.5 mg inhalation PRN PRN 02/26/19 03/11/23 History (0.083 %) solution for nebulization Shortness Of Breath acetaminophen 650 mg 650 mg PO BID PRN pain 07/18/20 03/11/23 History tablet,extended release (Tylenol 8 Hour) albuterol sulfate 90 mcg/actuation 1 puff inhalation BID PRN 07/18/20 03/11/23 History aerosol inhaler shortness of breath or wheezing Disabled Parking #1 ea 08/29/20 03/11/23 Rx nitroglycerin 0.4 mg sublingual 0.4 mg sublingual Q5-15M PRN chest 09/02/20 03/11/23 Rx tablet pain #100 tabs colchicine (gout) 0.6 mg tablet 0.6 mg PO BID PRN gout #60 tabs 02/19/22 03/11/23 Rx fluticasone propionate 50 1 spray intranasal DAILY #16 grams 02/19/22 03/11/23 Rx mcg/actuation nasal spray,suspension (Flonase Allergy Relief) isosorbide mononitrate 60 mg 60 mg PO DAILY #90 tabs 02/19/22 03/11/23 Rx tablet,extended release 24 hr metoprolol tartrate 50 mg tablet 50 mg PO BID #180 tabs 02/19/22 03/11/23 Rx allopurinol 300 mg tablet 450 mg PO QPM #135 tabs 08/04/22 03/11/23 Rx clopidogrel 75 mg tablet (Plavix) 75 mg PO DAILY #90 tabs 10/08/22 03/11/23 Rx amlodipine 2.5 mg tablet 2.5 mg PO DAILY 01/20/23 03/11/23 History potassium chloride 20 mEq 20 meq PO DAILY #30 tabs 07/15/23 09/01/23 Rx tablet,extended release prednisone 20 mg tablet 40 mg PO DAILY #60 tabs 01/24/23 03/11/23 Rx begyfr-ulrikapy-ufinqoq 2 cap PO QID #360 caps 01/28/23 03/11/23 Rx 36,000-114,000-180,000 unit capsule,delay rel (Creon) furosemide 20 mg tablet 20 mg PO DAILY #90 tabs 02/21/23 03/11/23 Rx oxybutynin chloride 10 mg 10 mg PO DAILY #90 tabs 02/21/23 03/11/23 Rx tablet,extended release 24 hr rosuvastatin 5 mg tablet 2.5 mg PO QPM #45 tabs 02/21/23 03/11/23 Rx ciprofloxacin HCl 500 mg tablet 500 mg PO BID #20 tabs 02/28/23 03/11/23 Rx Allergies Allergy/AdvReac Type Severity Reaction Status Date / Time aspirin [ASPIRIN] Allergy Mild RACING Verified 03/10/23 16:09 HEARTBEAT/RASH gemfibrozil [GEMFIBROZIL] Allergy Mild Verified 03/10/23 16:09 iodine [IODINE] Allergy Mild RASH Verified 03/10/23 16:09 Penicillins [PENICILLINS] Allergy Mild GI Verified 03/10/23 16:09 DISTURBANCE, RASH promethazine [PROMETHAZINE] Allergy Mild RASH Verified 03/10/23 16:09 Sulfa (Sulfonamide AdvReac Severe SOB Verified 03/10/23 16:09 Antibiotics) [SULFA (SULFONAMIDE ANTIBIOTICS)] atorvastatin [ATORVASTATIN] AdvReac Mild MUSCLE Verified 03/10/23 16:09 ACHES AND WEAKNESS latex AdvReac Mild Rash when Verified 03/10/23 16:09 worn rosuvastatin [ROSUVASTATIN] AdvReac Mild MUSCLE Verified 03/10/23 16:09 PAIN ANS WEAKNESS Review of Systems Review of Systems ROS: Yes All systems reviewed with the patient and are negative except as otherwise documented Exam Vital Signs (past 8 hours): - 03/10/23 23:00 03/10/23 23:00 03/10/23 23:30 Temperature 97.6 F Pulse Rate 102 H 102 H Respiratory Rate 20 22 Blood Pressure 148/68 H 151/70 H Pulse Oximetry 100 Oxygen Delivery Method Room Air Oxygen Flow Rate 03/10/23 23:30 03/10/23 23:30 03/10/23 23:48 Temperature 97.7 F Pulse Rate 102 H 100 H Respiratory Rate 24 22 Blood Pressure 151/70 H 140/65 Pulse Oximetry 99 Oxygen Delivery Method Oxygen Flow Rate 03/11/23 00:00 03/11/23 00:00 03/11/23 00:30 Temperature 96.9 F L Pulse Rate 102 H 95 H Respiratory Rate 23 21 Blood Pressure 128/63 142/69 H Pulse Oximetry 97 97 Oxygen Delivery Method Oxygen Flow Rate 0 03/11/23 02:29 03/11/23 04:45 03/11/23 01:01 Temperature 97.4 F L 96.9 F L Pulse Rate 82 85 Respiratory Rate 18 19 Blood Pressure 128/66 137/62 Pulse Oximetry 94 Oxygen Delivery Method Room Air Oxygen Flow Rate 0 Oxygen Delivery Method Room Air Oxygen Flow Rate 0 Narrative Exam Narrative: Elderly female in no obvious distress lying in hospital bed HEENT-normocephalic atraumatic PERRLA EOMs intact Neck-no bruits Lungs-clear with good breath sounds no wheezes or crackles Heart-regular rate and rhythm grade 3-4/6 systolic ejection murmur across the entire precordium with some radiation toward the right neck, unchanged from previous Abdomen-positive bowel tones soft nontender nondistended [id number]+ pitting edema at the ankle and pretibial area bilaterally Neuro-alert orient x3, gait not tested Objective Labs 03/11/23 04:45 03/11/23 04:45 Labs: Laboratory Results - last 24 hr 03/10/23 03/10/23 03/10/23 16:43 16:43 16:43 WBC 10.1 RBC 2.05 L Hgb 7.0 L Hct 22.0 L MCV 107.1 H MCH 34.3 H MCHC 32.0 RDW 16.4 H Plt Count 143 L Neut % (Auto) 93.5 H Lymph % (Auto) 3.3 L [place] % (Auto) 3.0 Eos % (Auto) 0.0 L Baso % (Auto) 0.2 Neut # (Auto) 9400 H Lymph # (Auto) 300 L [place] # (Auto) 300 Eos # (Auto) 0 Baso # (Auto) 0 PT 11.0 INR 1.0 APTT 22 L Sodium 137 Potassium 5.5 H Chloride 112 H Carbon Dioxide 18 L BUN 94 H Creatinine 1.86 H Estimated GFR 27 L BUN/Creatinine Ratio 50.5 H Glucose 118 H Calcium 9.9 Total Bilirubin 0.2 AST 25 ALT 31 Alkaline Phosphatase 49 NT-Pro-B Natriuret Pep Total Protein 5.6 L Albumin 3.5 Globulin 2.1 Albumin/Globulin Ratio 1.7 Blood Type Antibody Screen Crossmatch 03/10/23 03/11/23 03/11/23 20:05 04:45 04:45 WBC 13.7 H RBC 2.55 L Hgb 8.3 L Hct 25.8 L MCV 101.1 H D MCH 32.5 MCHC 32.1 RDW 19.7 H Plt Count 127 L Neut % (Auto) 85.4 H Lymph % (Auto) 9.2 L [place] % (Auto) 4.9 Eos % (Auto) 0.3 L Baso % (Auto) 0.2 Neut # (Auto) 01441 H Lymph # (Auto) 1300 [place] # (Auto) 700 Eos # (Auto) 0 Baso # (Auto) 0 PT INR APTT Sodium 140 Potassium 5.0 Chloride 114 H Carbon Dioxide 18 L BUN 97 H Creatinine 1.84 H Estimated GFR 27 L BUN/Creatinine Ratio 52.7 H Glucose 84 Calcium 9.9 Total Bilirubin AST ALT Alkaline Phosphatase NT-Pro-B Natriuret Pep Total Protein Albumin Globulin Albumin/Globulin Ratio Blood Type O Positive Antibody Screen Negative Crossmatch See Detail 03/11/23 04:45 WBC RBC Hgb Hct MCV MCH MCHC RDW Plt Count Neut % (Auto) Lymph % (Auto) [place] % (Auto) Eos % (Auto) Baso % (Auto) Neut # (Auto) Lymph # (Auto) [place] # (Auto) Eos # (Auto) Baso # (Auto) PT INR APTT Sodium Potassium Chloride Carbon Dioxide BUN Creatinine Estimated GFR BUN/Creatinine Ratio Glucose Calcium Total Bilirubin AST ALT Alkaline Phosphatase NT-Pro-B Natriuret Pep 64813 H Total Protein Albumin Globulin Albumin/Globulin Ratio Blood Type Antibody Screen Crossmatch Assessment & Plan Assessment & Plan narrative: 1. GI bleed with diarrhea-patient now with evidence GI bleed which is new for her in the setting of this persistent chronic diarrhea. The GI bleed sounds like an upper GI source given the black tarry stool etcetera but certainly with the persistent diarrhea 1 would wonder about a lower GI source as well. Patient will likely need upper and lower endoscopy during this hospitalization. With her severe aortic stenosis a colonic AVM would be a likely etiology for her bleeding, but again the black tarry stool suggest an upper GI source. She was given IV pantoprazole in the ER and I will continue that until we have a chance to evaluate her upper GI tract. At this point I do not believe she requires transfusion as her numbers are actually somewhat better than they have been recently. However we do need to come up with a diagnosis if at all possible. Patient did receive transfusion in the emergency department 2. Acute kidney injury-patient with chronic renal failure with creatinine normally running between about 1.2 and 1.7. With the onset of her diarrhea her creatinine jumped to a peak of 2.78. There is some evidence of volume depletion despite the fact she has significant edema etcetera. Difficult to know what her fluid balance is. She has received transfusion as above I would continue with some gentle IV fluids but perhaps some Lasix to see if we can get fluids immobilized and follow her renal function carefully 3. Aortic stenosis/coronary artery disease-patient with known severe aortic stenosis based on echo from earlier this year. Also with known three-vessel coronary disease. Her coronary disease not been active. However her BNP is quite elevated. She also shows lower extremity edema. I am going to repeat her echo as her previous was about 6 months ago. I think some limited Lasix to try mobilize fluid as above makes sense as well. Continue her beta-baudilio and her long-acting nitrate 4. VTE prophylaxis-given the GI bleed as above patient not a candidate for chemo prophylaxis. SCDs appropriate and have been ordered 5. Code status-patient indicates desire for no resuscitation in the event of a sudden cardiac or respiratory arrest which is consistent with prior wishes. She is therefore a do not resuscitate 6. Diarrhea-this point I do not have a clear etiology for her diarrhea. Based on her empiric improvement with the pancreatic enzyme replacement I am suspicious that may be a source for diarrhea but with her current presentation, I am not as convinced as I was previously. Will continue the pancreatic enzyme replacement when she is able to take orals, but would think evaluating her lower tract with colonoscopy including random biopsies or directed biopsies would make sense as well.
--- NOTE | 2023-03-11 07:07 | DI.RAD.S_ITS ---
PROCEDURE: XR CHEST 1V INDICATIONS: Congestive heart failure TECHNIQUE: One view of the chest was acquired. COMPARISON: [facility], CR, XR CHEST 1V, 06/01/2020, 7:50. FINDINGS: Surgical changes and devices: None. Lungs and pleura: Diffuse bilateral pulmonary opacities and interstitial prominence. No pleural effusions or pneumothorax. Mediastinum: Mediastinal contours appear normal. Heart size is stable. Bones and chest wall: No suspicious bony lesions. Overlying soft tissues appear unremarkable. IMPRESSION: Diffuse interstitial prominence and bilateral pulmonary opacities are suspicious for edema versus bilateral pneumonia. Approved by: Sergio Lopez M.D. on 03/11/2023 at 8:14
[2023-03-11] MEDS: DEXTROSE 5%-0.9% NS 1,000 ML 80 ML IV (07:51)
[2023-03-11] MEDS: PANTOPRAZOLE 40 MG VIAL IV ×2 (08:42→20:48)
[2023-03-11] MEDS: METOPROLOL IR 50 MG TABLET PO ×2 (08:52→20:47)
[2023-03-11] MEDS: predniSONE 20 MG TABLET PO (08:52)
[2023-03-11] MEDS: ISOSORBIDE MONONITRATE ER 30 MG TABLET 60 MG PO (08:52)
[2023-03-11] MEDS: ACETAMINOPHEN 325 MG TABLET 650 MG PO ×2 (09:02→18:28)
--- NOTE | 2023-03-11 09:07 | PM.CALLCOV.1 ---
Call Coverage Note Note Date of Patient Contact: 03/11/23 Time of Patient Contact: 09:07 Narrative of Care Provided: 82-year-old woman on Plavix with a GI bleed hemodynamically stable. Suspect upper source will proceed with EGD today. If no diagnosis is identified bowel prep and colonoscopy tomorrow.
--- NOTE | 2023-03-11 15:51 | P.CONS_ITS ---
History of Present Illness Consult details Date Patient Seen: 03/11/23 Time Patient Seen: 15:51 Chief complaint: Black diarrhea, Weakness Narrative: 82-year-old woman on Plavix with a history of aortic stenosis, coronary artery disease, CKD admitted to [facility] March 09 for a GI bleed. She describes diarrhea and melanotic stool for the past several days. No hematemesis. At admission normotensive and without tachycardia. Initial hematocrit 22, platelets 127, creatinine 1.9, BNP 30,500. She has not required transfusion at this point. Echo 03/11/23 Left Ventricle: ? The left ventricle is normal in size. The ejection fraction is estimated to be 55-60%. Grade II diastolic dysfunction. Right Ventricle: ? The right ventricle is normal in size and function. Atria: ? The left atrium is severely dilated. Right atrial size is normal. There is no Doppler evidence for an interatrial shunt. Mitral Valve: ? The mitral valve leaflets are moderately calcified. There is moderate to severe mitral annular calcification. There is mild mitral stenosis. The mitral valve mean gradient is 3 mmHg. There is mild mitral regurgitation. Aortic Valve: ? The aortic valve is heavily calcified. There is severe aortic stenosis. The peak aortic velocity is 4.29 m/sec. The aortic valve mean gradient is 45 mmHg. There is mild aortic regurgitation. Meds Home Medications and Allergies Home Medications Medication Instructions Recorded Confirmed Type loratadine 10 mg tablet (Claritin) 10 mg PO DAILY 12/13/17 03/11/23 History albuterol sulfate 2.5 mg/3 mL 2.5 mg inhalation PRN PRN 02/26/19 03/11/23 History (0.083 %) solution for nebulization Shortness Of Breath acetaminophen 650 mg 650 mg PO BID PRN pain 07/18/20 03/11/23 History tablet,extended release (Tylenol 8 Hour) albuterol sulfate 90 mcg/actuation 1 puff inhalation BID PRN 07/18/20 03/11/23 History aerosol inhaler shortness of breath or wheezing Disabled Parking #1 ea 08/29/20 03/11/23 Rx nitroglycerin 0.4 mg sublingual 0.4 mg sublingual Q5-15M PRN chest 09/02/20 03/11/23 Rx tablet pain #100 tabs colchicine (gout) 0.6 mg tablet 0.6 mg PO BID PRN gout #60 tabs 02/19/22 03/11/23 Rx fluticasone propionate 50 1 spray intranasal DAILY #16 grams 02/19/22 03/11/23 Rx mcg/actuation nasal spray,suspension (Flonase Allergy Relief) isosorbide mononitrate 60 mg 60 mg PO DAILY #90 tabs 02/19/22 03/11/23 Rx tablet,extended release 24 hr metoprolol tartrate 50 mg tablet 50 mg PO BID #180 tabs 02/19/22 03/11/23 Rx allopurinol 300 mg tablet 450 mg PO QPM #135 tabs 08/04/22 03/11/23 Rx clopidogrel 75 mg tablet (Plavix) 75 mg PO DAILY #90 tabs 10/08/22 03/11/23 Rx amlodipine 2.5 mg tablet 2.5 mg PO DAILY 01/20/23 03/11/23 History potassium chloride 20 mEq 20 meq PO DAILY #30 tabs 01/22/23 03/11/23 Rx tablet,extended release prednisone 20 mg tablet 40 mg PO DAILY #60 tabs 01/24/23 03/11/23 Rx jzwaol-ccgqwxez-nnalcsj 2 cap PO QID #360 caps 01/28/23 03/11/23 Rx 36,000-114,000-180,000 unit capsule,delay rel (Creon) furosemide 20 mg tablet 20 mg PO DAILY #90 tabs 02/21/23 03/11/23 Rx oxybutynin chloride 10 mg 10 mg PO DAILY #90 tabs 02/21/23 03/11/23 Rx tablet,extended release 24 hr rosuvastatin 5 mg tablet 2.5 mg PO QPM #45 tabs 02/21/23 03/11/23 Rx ciprofloxacin HCl 500 mg tablet 500 mg PO BID #20 tabs 02/28/23 03/11/23 Rx Allergies Allergy/AdvReac Type Severity Reaction Status Date / Time aspirin [ASPIRIN] Allergy Mild RACING Verified 03/10/23 16:09 HEARTBEAT/RASH gemfibrozil [GEMFIBROZIL] Allergy Mild Verified 03/10/23 16:09 iodine [IODINE] Allergy Mild RASH Verified 03/10/23 16:09 Penicillins [PENICILLINS] Allergy Mild GI Verified 03/11/23 13:57 DISTURBANCE, RASH promethazine [PROMETHAZINE] Allergy Mild RASH Verified 03/10/23 16:09 Sulfa (Sulfonamide AdvReac Severe SOB Verified 03/10/23 16:09 Antibiotics) [SULFA (SULFONAMIDE ANTIBIOTICS)] atorvastatin [ATORVASTATIN] AdvReac Mild MUSCLE Verified 03/10/23 16:09 ACHES AND WEAKNESS latex AdvReac Mild Rash when Verified 03/10/23 16:09 worn rosuvastatin [ROSUVASTATIN] AdvReac Mild MUSCLE Verified 03/10/23 16:09 PAIN ANS WEAKNESS Exam Vital Signs (past 8 hours): - 03/11/23 15:40 Temperature 97.2 F L Pulse Rate 77 Respiratory Rate 16 Blood Pressure 124/61 Pulse Oximetry 100 Oxygen Delivery Method Room Air Oxygen Delivery Method Room Air Oxygen Flow Rate 0 Narrative Exam Narrative: General elderly woman alert oriented tearful. Chest nonlabored respiration Abdomen soft minimal tenderness in the epigastric region. No peritonitis. Objective Labs 03/11/23 04:45 03/11/23 04:45 Labs: Laboratory Results - last 24 hr 03/10/23 03/10/23 03/10/23 16:43 16:43 16:43 WBC 10.1 RBC 2.05 L Hgb 7.0 L Hct 22.0 L MCV 107.1 H MCH 34.3 H MCHC 32.0 RDW 16.4 H Plt Count 143 L Neut % (Auto) 93.5 H Lymph % (Auto) 3.3 L [place] % (Auto) 3.0 Eos % (Auto) 0.0 L Baso % (Auto) 0.2 Neut # (Auto) 9400 H Lymph # (Auto) 300 L [place] # (Auto) 300 Eos # (Auto) 0 Baso # (Auto) 0 PT 11.0 INR 1.0 APTT 22 L Sodium 137 Potassium 5.5 H Chloride 112 H Carbon Dioxide 18 L BUN 94 H Creatinine 1.86 H Estimated GFR 27 L BUN/Creatinine Ratio 50.5 H Glucose 118 H Calcium 9.9 Total Bilirubin 0.2 AST 25 ALT 31 Alkaline Phosphatase 49 NT-Pro-B Natriuret Pep Total Protein 5.6 L Albumin 3.5 Globulin 2.1 Albumin/Globulin Ratio 1.7 Blood Type Antibody Screen Crossmatch 03/10/23 03/11/23 03/11/23 20:05 04:45 04:45 WBC 13.7 H RBC 2.55 L Hgb 8.3 L Hct 25.8 L MCV 101.1 H D MCH 32.5 MCHC 32.1 RDW 19.7 H Plt Count 127 L Neut % (Auto) 85.4 H Lymph % (Auto) 9.2 L [place] % (Auto) 4.9 Eos % (Auto) 0.3 L Baso % (Auto) 0.2 Neut # (Auto) 14132 H Lymph # (Auto) 1300 [place] # (Auto) 700 Eos # (Auto) 0 Baso # (Auto) 0 PT INR APTT Sodium 140 Potassium 5.0 Chloride 114 H Carbon Dioxide 18 L BUN 97 H Creatinine 1.84 H Estimated GFR 27 L BUN/Creatinine Ratio 52.7 H Glucose 84 Calcium 9.9 Total Bilirubin AST ALT Alkaline Phosphatase NT-Pro-B Natriuret Pep Total Protein Albumin Globulin Albumin/Globulin Ratio Blood Type O Positive Antibody Screen Negative Crossmatch See Detail 03/11/23 04:45 WBC RBC Hgb Hct MCV MCH MCHC RDW Plt Count Neut % (Auto) Lymph % (Auto) [place] % (Auto) Eos % (Auto) Baso % (Auto) Neut # (Auto) Lymph # (Auto) [place] # (Auto) Eos # (Auto) Baso # (Auto) PT INR APTT Sodium Potassium Chloride Carbon Dioxide BUN Creatinine Estimated GFR BUN/Creatinine Ratio Glucose Calcium Total Bilirubin AST ALT Alkaline Phosphatase NT-Pro-B Natriuret Pep 12518 H Total Protein Albumin Globulin Albumin/Globulin Ratio Blood Type Antibody Screen Crossmatch [facility] Medical History Aortic stenosis Chronic back pain Chronic renal failure, stage 3 (moderate) (11/29/16) Coronary artery disease Essential hypertension H/O: gout Hammertoe of right foot History of stroke (05/2014) Hypercalcemia Peripheral edema (01/10/17) Unspecified asthma, uncomplicated Urinary incontinence (07/24/15) Social History marital status: number of children: 3 household members: none lives independently: Yes caregiver/support person: No housing: house pets and animals: Yes education level: master's degree occupational status: other current occupational exposures/hazards: No 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 She is hemodynamically stable and not requiring transfusion at this time initial hematocrit 22. Most likely bleed is upper intestinal in source. We discussed options including observation with PPI vs diagnostic EGD. Following discussion descion is to proceed with esophagoduodenoscopy. Overview of the procedure was discussed with the patient. Procedural risks including hemorrhage, intestinal injury, heart attack, stroke, and were discussed her questions have been answered and she is in agreement with this plan. She provides her written and verbal consent to proceed.
[2023-03-11] MEDS: LACTATED RINGERS 1,000 ML 42 ML IV (16:13)
--- NOTE | 2023-03-11 16:19 | PC.NURSE ---
Patient lying in bed NPO since yesterday afternoon she states. She is A&O x2-3, with expressive aphasia. She is weaned to RA and tolerating it well, course lung sounds, SOB with exertion.VSS, afebrile. NSR on telemetry. She is given a.m. medications as Procedure not scheduled until later in the afternoon. She is reports generalized pain well controlled with prn tylenol. Purewick in place due to weakness, draining copious clear yellow urin. She hesitates and declines to turn in bed. D5 NS IVF running @ 80ml/hr. She denies n/v and no stool this shift. She is taken to pre op area via stretcher and needs x3 people to assist with transfer at approximately 1530. Son at bedside earlier supportive.
--- NOTE | 2023-03-11 16:47 | PM.OP.EGD ---
Operative Date/Time/Diagnoses Date of procedure: 03/11/23 Time of procedure: 16:48 Pre-op diagnosis: GI bleed Post-op diagnosis: other (Gastric ulcer) Procedure & Clinicians Study performed: Esophagoduodenoscopy Same procedure as scheduled: Yes Indications: 82-year-old woman with severe aortic stenosis chronic kidney disease and coronary artery disease admitted with hemodynamically stable GI bleed with melanotic stool. Here for diagnostic EGD Surgeon: Bassam Bui Procedure Notes Procedure in detail: The history and physical was performed/updated and the patient is ASA class is 4. The procedure was discussed in detail with the patient. Potential risks complications including infection, bleeding, missed diagnosis, perforation, need for surgery, myocardial infarction stroke and were explained. Their questions were answered and informed consent was obtained. Patient placed in left lateral decubitus position. Time out was performed. Procedural sedation was administered by Anesthesia. A bite block was placed. the scope was inserted into the mouth and advanced through the esophagus and into the stomach. The stomach was notable for gastritis as well as a gastric ulcer nonbleeding with no visible vessel proximally 1 cm in the cardia. Biopsy of the stomach was performed. The pylorus was intubated and the duodenum was normal to the 2nd portion. At this point the patient became bradycardic which was rapidly corrected with ephedrine, epinephrine, and glycopyrrolate. Her resulting tachycardia was then corrected with neostigmine. Specimen(s): other (gastric) Impression: gastric ulcer non bleeding Post-procedure Plan for aftercare: hold plavix continue PPI Disposition: Acute Care
[2023-03-11] MEDS: LIPASE/PROTEASE/AMYLASE 5/17/24 CAP 3 CAP PO (18:27)
[2023-03-12 06:16] LABS: BUN Creatinine Ratio 43.5 (6-22); Blood Urea Nitrogen 80 mg/dL (7-17); Calcium 9.3 mg/dL (8.4-10.2); Carbon Dioxide 19 mmol/L (22-32); Chloride 112 mmol/L (98-107); Estimated Glomerular Filt Rate 27 mL/min (>60); Glucose 112 mg/dL (80-110); HEMOLYSIS < 15 (0-50); Potassium 4.5 mmol/L (3.4-5.1); Sodium 140 mmol/L (137-145)
[2023-03-12 06:17] LABS: Hematocrit 22.2 % (36-46); Hemoglobin 7.3 g/dL (12.0-16.0)
[2023-03-12 07:00] VITALS: BP 123/60; PULSE 88; RESP 18; TEMP 36.6; O2SAT 98
[2023-03-12 08:15] VITALS: O2SAT 98
[2023-03-12] MEDS: FUROSEMIDE 20 MG/2 ML VIAL IV (08:29)
[2023-03-12] MEDS: PANTOPRAZOLE 40 MG VIAL IV ×2 (08:29→20:50)
[2023-03-12] MEDS: METOPROLOL IR 50 MG TABLET PO ×2 (08:29→20:49)
[2023-03-12] MEDS: ISOSORBIDE MONONITRATE ER 30 MG TABLET 60 MG PO (08:30)
[2023-03-12] MEDS: ACETAMINOPHEN 325 MG TABLET 650 MG PO ×2 (08:30→15:20)
[2023-03-12] MEDS: LIPASE/PROTEASE/AMYLASE 5/17/24 CAP 3 CAP PO ×2 (08:30→11:47)
[2023-03-12] MEDS: predniSONE 20 MG TABLET PO (08:30)
[2023-03-12 12:26] VITALS: BP 121/64; PULSE 83; RESP 16; TEMP 36.6; O2SAT 100
--- NOTE | 2023-03-12 13:16 | PM.PN.1 ---
Subjective Subjective Date Patient Seen: 03/12/23 Time Patient Seen: 13:17 Interval history: Patient stable overnight. She received 1 unit of packed red blood cells yesterday and H&H had come up to 8.3 and is down a little bit today but no obvious source of bleeding. Patient is noting some difficulty swallowing and needs to take her oral medications with applesauce. Speech therapy has been consulted. Patient feels she is breathing better and feels improvement with Lasix Patient feels exhausted and just wants to go to sleep. Exam Vital Signs (past 8 hours): - 03/12/23 07:00 03/12/23 12:26 Temperature 97.9 F 98 F Pulse Rate 88 83 Respiratory Rate 18 16 Blood Pressure 123/60 121/64 Pulse Oximetry 98 100 Oxygen Flow Rate 0 0 Oxygen Delivery Method Room Air Oxygen Flow Rate 0 Narrative Exam Narrative: Afebrile vital signs are stable Patient appears pale HEENT shows poor dentition Neck: Supple without jugular venous distention or bruits Cor: Regular rate and rhythm with a 3/6 systolic ejection murmur heard loudest at the left upper sternal border Abdomen: Positive bowel sounds, soft, nontender, nondistended. Very mild tenderness left lower quadrant but no guarding or rebound Extremities: Trace edema Neurologic exam nonfocal Patient hard of hearing Objective Labs 03/12/23 05:33 03/12/23 05:33 Labs: Laboratory Results - last 24 hr 03/12/23 03/12/23 05:33 05:33 Hgb 7.3 L Hct 22.2 L Sodium 140 Potassium 4.5 Chloride 112 H Carbon Dioxide 19 L BUN 80 H Creatinine 1.84 H Estimated GFR 27 L BUN/Creatinine Ratio 43.5 H Glucose 112 H Calcium 9.3 PFSH Medical History Aortic stenosis Chronic back pain Chronic renal failure, stage 3 (moderate) (11/29/16) Coronary artery disease Essential hypertension H/O: gout Hammertoe of right foot History of stroke (05/2014) Hypercalcemia Peripheral edema (01/10/17) Unspecified asthma, uncomplicated Urinary incontinence (07/24/15) Social History marital status: number of children: 3 household members: none lives independently: Yes caregiver/support person: No housing: house pets and animals: Yes education level: master's degree occupational status: other current occupational exposures/hazards: No 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 82-year-old female with a history of chronic kidney disease, chronic diarrhea, anemia who is admitted for GI bleed. Patient underwent EGD yesterday which revealed a gastric ulcer and it is thought that this is the etiology of her bleed. Assessment 1. Gastric ulcer with GI bleed. Patient remains hemodynamically stable. Will decrease prednisone which she is been on for few months to help with diarrhea which appears has not been beneficial. We will decrease to 10 mg daily. Will continue with proton pump inhibitor. Will continue to monitor. 2.? Acute kidney injury-patient with chronic renal failure with creatinine normally running between about 1.2 and 1.7.? With the onset of her diarrhea her creatinine jumped to a peak of 2.78.? There is some evidence of volume depletion despite the fact she has significant edema etcetera.? Difficult to know what her fluid balance is.? She has received transfusion as above I would continue with some gentle IV fluids but perhaps some Lasix to see if we can get fluids immobilized and follow her renal function carefully. Will continue to monitor. 3. Aortic stenosis/coronary artery disease-patient with known severe aortic stenosis based on echo from earlier this year.? Also with known three-vessel coronary disease.? Her coronary disease not been active.? However her BNP is quite elevated.? She also shows lower extremity edema.? Repeat echo shows no significant change in her severe aortic stenosis. She has normal ejection fraction. Patient seems clinically better with IV Lasix. Will continue to do this gently. Continue her beta-baudilio and her long-acting nitrate 4. VTE prophylaxis-given the GI bleed as above patient not a candidate for chemo prophylaxis.? SCDs appropriate and have been ordered 5.? Code status-patient indicates desire for no resuscitation in the event of a sudden cardiac or respiratory arrest which is consistent with prior wishes.? She is therefore a do not resuscitate 6. Anemia, has been chronic now more acute due to GI bleed. Received 1 unit of packed red blood cells and H&H is decreased today from yesterday where it showed improvement. Patient continues to be hemodynamically stable. At this point we will continue to monitor. Will recheck in a.m. and if not improving will give an additional 1 unit of blood. Obviously have to be careful with this due to aortic stenosis and need to not fluid overload. 7. Diarrhea chronic longstanding does not seem to be responding to the prednisone. Prednisone certainly not helping with gastric ulcer so we will decrease his dose to 10 mg and continue to monitor closely.
[2023-03-12 14:03] LABS: NT-proBNP (BNP-Adult 18+) 40200 pg/mL (<450)
--- NOTE | 2023-03-12 14:47 | CM.DANOTE ---
Addendum entered by NAIDA Engel 03/13/23 08:42: ADD: According to December at [facility], patient cannot discharge to SNF on her pancreatic enzyme r/t high cost of this medication. In addition, patient does not have a secondary insurance, so family would need to be prepared for a $200 per day co-pay after 21 days at SNF Original Note: Initial DCP Assessment Note Pt is an 82 yo female, resident of [place] [address] [place]: 82-year-old female with a history of chronic kidney disease, chronic diarrhea, anemia who is admitted for GI bleed. Patient underwent EGD yesterday which revealed a gastric ulcer and it is thought that this is the etiology of her bleed. PCP: David Welsh Payer: [facility] Met w/patient and her son iMguel this morning to introduce self and role. Patient has been managing indepdently at home , son lives nearby and assists as needed. Patient prefers to return home w/[facility] and assist from son Later learned that after a visit w/Dr Bass, patient, son, doctor feel [facility] would be preferred over discharge home, likely discharge over the next 24-48 hrs Referral sent to December at [facility] to review. PT order placed today to assist in dispo recommendations NAIDA Avendano Discharge Planning/Care Management CM Discharge Assessment Start: 03/12/23 14:39 Freq: Status: Active Protocol: Document 03/12/23 14:41 LEX (Rec: 03/12/23 14:46 LEX [id number]) Discharge Planning Assessment Assigned Cashier Assistant NAIDA Huang DPOA/Assigned Designee Name gonzales Bernal Contact Information [phone] Advance Directives? Yes: Health Care DIrective Advance Directives on File Yes History Provided By Patient,Family Member,Medical Record Prior Living Arrangements House Household Members none Type of transporation used prior to Relies on Others admit Independent with ADL's Yes: Decreased activity tolerance recently Is patient alert and oriented? Yes Needs Assistance With Home Chores / Shopping Patient/Family Preference Long Term Facility Comment Patient, son and Dr Bass have discussed DCP and feel [facility] safest dispo at this time Barriers to Discharge No Comment SNF vs Home w/HH and son/ spouse to assist upon DC Discharge Plan Long Term Facility Transportation Arrangement SNF w/c abril vs son will come transport her home Referrals Initiated Long Term Additional Comment [facility] Medicare Choice List Provided Yes SNF/HH Preference [facility], SNF: [facility] Has Agency SNF been contacted Yes
[2023-03-12 16:07] VITALS: BP 109/54; PULSE 88; RESP 18; TEMP 36.6; O2SAT 100
--- NOTE | 2023-03-12 16:10 | PT-IP ANOTE ---
Pt declined physical therapy evaluation. She feels too tired at this time. She did get up to the bedside commode with nursing earlier with the FWW and one person assist. Will check back tomorrow for possible evaluation.
[2023-03-12 19:00] VITALS: O2SAT 98
--- NOTE | 2023-03-12 19:33 | PC.NURSE ---
ordered ST eval. PT called, they are the ones who call the ST solar installation crew supervisor. This was at [address]. [address] called PT back they said the order came in to late to see pt. There is no one solar installation crew supervisor through the holiday weekend. Her ST eval will be done on tuesday.
[2023-03-12 19:35] VITALS: BP 114/59; PULSE 86; RESP 18; TEMP 35.9; O2SAT 98
[2023-03-13] VITALS (9 sets, daily range): BP systolic 117–136; BP diastolic 51–69; PULSE 73–91; RESP 16–18; TEMP 36.1–36.6; O2SAT 97–100
[2023-03-13 06:29] LABS: BUN Creatinine Ratio 52.3 (6-22); Blood Urea Nitrogen 81 mg/dL (7-17); Calcium 9.4 mg/dL (8.4-10.2); Carbon Dioxide 21 mmol/L (22-32); Chloride 110 mmol/L (98-107); Estimated Glomerular Filt Rate 33 mL/min (>60); Glucose 107 mg/dL (80-110); HEMOLYSIS < 15 (0-50); Potassium 4.5 mmol/L (3.4-5.1); Sodium 136 mmol/L (137-145)
[2023-03-13 06:30] LABS: Add Manual Diff / Slide Review NO; Basophils Absolute Auto 0 /uL (0-100); Basophils Percent Auto 0.2 % (0-2); Eosinophils Absolute Auto 0 /uL (0-450); Eosinophils Percent Auto 0.1 % (2-4); Hematocrit 21.4 % (36-46); Lymphocytes Absolute Auto 600 /uL (1100-4500); Lymphocytes Percent Auto 5.7 % (25-40); Mean Corpuscular HGB Conc 32.8 % (30-36); Mean Corpuscular Hemoglobin 32.5 PG (26-34); Mean Corpuscular Volume 99.1 fL (80-100); Monocytes Absolute Auto 600 /uL (0-900); Monocytes Percent Auto 5.1 % (3-14); Neutrophils Absolute Auto 10100 /uL (1500-7000); Neutrophils Percent Auto 88.9 % (50-75); Platelet Count 104 X10^3/uL (150-400); Red Blood Cell Count 2.16 X10^6/uL (4.0-5.2); Red Cell Distribution Width 18.2 % (11.6-14.8); White Blood Cell Count 11.3 X10^3/uL (4.5-11.0)
--- NOTE | 2023-03-13 09:18 | PT.IIE ---
Current Diagnoses Gastrointestinal hemorrhage, unspecified (03/10/23) Surgery Performed Operation Date: 03/11/23 16:45 Actual Procedures p Esophagogastroduodenoscopy with biopsy - Bassam Bui MD Medical History (Last Reviewed 03/11/23 @ 06:58 by David Welsh MD) Aortic stenosis Chronic back pain Chronic renal failure, stage 3 (moderate) (11/29/16) Coronary artery disease Essential hypertension H/O: gout Hammertoe of right foot History of stroke (05/2014) Hypercalcemia Peripheral edema (01/10/17) Unspecified asthma, uncomplicated Urinary incontinence (07/24/15) Physical Therapy Inpatient Evaluation/Re-Eval M1 PT/OT-IP Prior Functional Status Start: 03/12/23 16:11 Freq: NEEDED Status: Active Protocol: Document 03/13/23 09:18 DLM (Rec: 03/13/23 10:50 DLM [id number]) Medical Review Prior Functional Status Medical History Reviewed Yes Communication Difficulty swallowing at home for 2-3 months per pt, she can drink milk, she feels like food will not go down. She has not had swallow study. It has been limiting what she eats. Pt is Hard of hearing and reads lips. She wears glasses all the time Mobility and Gait Independent with 4WW. Her distances are limited by her feet pain. She can ambulate short distances in the community. She drives locally and her Son gives her a ride if longer distances. She also has a cane that she uses sometimes to walk. Activities of Daily Living and IADL's Independent with basic ADL's. She has help for shopping and communications engineer. She gets assistance from her Son who lives locally. Prior Functional Level (Other details) Hospitalized in January and discharge with home health. Social History Household Members none Living Arrangements House Number of Floors (Floors) Two Floors Number of Stairs To Enter/Railing? 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 Her art studio and spare bedroom is on the lower level of the house where she enters with the car but she does not go down to that level except to get to the car. She lives on the upper level with bedroom, bathroom, kitchen... M2 PT-IP Current Condition Start: 03/12/23 16:11 Freq: NEEDED Status: Active Protocol: Document 03/13/23 09:18 DLM (Rec: 03/13/23 10:50 [facility] [id number]) Physical Therapy Current Condition Current Condition Evaluation Date 03/13/23 Treatment Diagnosis GI bleed, difficulty swallowing, weakness with impaired mobility Onset Date 03/10/23 M3 PT-IP Subjective Start: 03/12/23 16:11 Freq: NEEDED Status: Active Protocol: Document 03/13/23 09:18 DLM (Rec: 03/13/23 10:50 DL [id number]) Subjective Physical Therapy Visit Type Type Initial Evaluation Visit Start Time 08:45 Visit Stop Time 09:18 Total Visit Minutes 33 Number of VETERINARY PRACTITIONER Visits 0 Physical Therapy Visit Comments Patient Comments She does not want to go to SNF rehab. She is very worried about her difficulty swallowing and how much it limits her eating. She reports the food just will not go down. Patient Goals Discharge home Therapy Pain Assessment Pain When Pain Assessed During Mobility Pain Present Pain Present Pain Reported Location Feet Intensity 5 Scale Used Numeric (0 - 10) Description Aching,Tender Pain Management Techniques Re-positioning M4 PT-IP Mobility and Gait Start: 03/12/23 16:11 Freq: NEEDED Status: Active Protocol: Document 03/13/23 09:18 DLM (Rec: 03/13/23 10:50 [facility] [id number]) PT-Bed Mobility Assessment Supine to Sit Supine to Sit Moderate Assistance Scooting Scooting to Edge of Bed Standby Assistance PT-Transfer Assessment Sit to and From Stand Sit to and from Stand Contact Guard Assistance,Use of Upper Extremities Equipment Transfer Assistive Device Gait Belt,Front Wheeled Walker Transfers Transfer Destination Chair Transfer Technique Stand Step Pivot Transfer Ability Level of Assist Contact Guard Assistance,Use of Upper Extremities Comments Mobility Comments Observation: When I entered the room she was elevated in bed attempting to eat breakfast, she was coughing and reporting difficulty getting the food to go down ( oatmeal). She needs assist for right LE and trunk to get out of bed. She reports right LE is weak and painful today so needs more help moving the LE. Pt up to recliner this visit with the remaining part of her breakfast in front of her. Noted when pt eating sitting in the recliner she did not cough but eat only small bites with time between them. Gait Assessment Gait Gait Assistance Required: Contact Guard Assist Distance (Feet) 20 Assistive Devices Assistive Device Gait Belt,Front Wheeled Walker Gait Deviations General Gait Pattern Decreased Stride Length,Flexed Trunk Factors Limiting Gait Function Factors Limiting Gait Function Decreased Activity Tolerance, Decreased Strength,Poor Balance Comments Gait Comments She reports feeling short of breath during gait in her room with fatigue. O2 sats 100% on room air. Mild unsteadiness with gait with the FWW. She reports bilateral feet pain with gait. Noted pitting edema in distal LE's. Stair Climbing Assessment Comments Stair Climbing Comments does not have to do stairs at home, has chair lift PT-Balance Assessment Sitting Balance and Reactions Static Sitting Balance Ability Good Dynamic Sitting Balance Ability Good Standing Balance and Reactions Static Standing Balance Ability Good Dynamic Standing Balance Ability Fair Device Used FWW M5 PT-IP Objective Assessments Start: 03/12/23 16:11 Freq: NEEDED Status: Active Protocol: Document 03/13/23 09:18 DLM (Rec: 03/13/23 10:50 DLM [id number]) Orientation Orientation/Cognition Level of Alertness Alert Orientation Name,Age,Birthday,Month,Date, Year,Day of Week,Place, Situation Language Function Ability Hard of Hearing Safety Awareness Understands Safety Issues Memory Description No Deficits Noted Comments chart has hx of expressive aphasia but none identified at this time Pt reads lips to help manage Hearing impairment. She has her glasses on and no changes in vision reported this admit. Gross Range of Motion Upper Extremity ROM Assessment Bilaterally Impaired Impairments shoulder elevation to 90 degrees Lower Extremity ROM Assessment Within Functional Limits Strength Upper Extremity Strength Assessment Within Functional Limits Lower Extremity Strength Assessment Bilaterally Impaired Hip hip flex right 3-/5, left 3+/5 Knee ext right 4-/5, left 4/5 Ankle DF right 4-/5, left 4+/5 Comments Strength Comments feet are tender to touch Coordination Assessment Gross Coordination Gross Coordination WNL Sensation Assessment Sensation Gross Sensation Right LE Impaired,Left LE Impaired Sensation Description Pain Comments Sensation Comments pain bilateral feet which is baseline, pt thinks it is related gout Muscle Tone Muscle Tone WNL Yes M6 PT-IP Treatment Start: 03/12/23 16:11 Freq: NEEDED Status: Active Protocol: Document 03/13/23 09:18 DLM (Rec: 03/13/23 10:50 DLM [id number]) Physical Therapy Treatment Education Education Provided Safety M7 PT-IP Assessment and Plan Start: 03/12/23 16:11 Freq: NEEDED Status: Active Protocol: Document 03/13/23 09:18 DLM (Rec: 03/13/23 10:50 DLM [id number]) PT Summary Assessment and Plan Potential Rehabilitation Potential Good Status of Condition at Evaluation Evolving Summary Impairments Pain,ROM,Strength,Balance,Bed Mobility,Transfers,Gait, Activity Tolerance Assessment Summary Sarah is alert and resting in bed. With encouragement she agreed to get and move today. She fatigues quickly with light activity and reports getting short of breath. She only tolerated very short distance of gait with the FWW. Pt up to recliner this visit. Pt noted to be coughing when eating breakfast in bed but seemed to do better when sitting up in the chair. Oxygen sat 100% on room air during this visit. She may benefit from SNF rehab at discharge but she does not want to go to SNF. She is agreeable to home health services at discharge. Will continue to assess for discharge planning as she improves medically. Suspect her low H&H is a contributing factor in her low activity tolerance at this time. Goals Bed Mobility Goal Independent Transfer Goal Independent,Front Wheeled Walker Gait Goal Independent,Front Wheel Walker Gait Distance 100 feet Days to Meet Goals 7 Frequency of Treatment Frequency Of Treatment Once a Day Treatment Plan Physical Therapy Treatment Plan Bed Mobility Training,Transfer Training,Gait Training, Therapeutic Exercise,Balance Retraining,Discharge Planning, Neuromuscular Re-ed Precautions Other Precautions fall risk, swallowing difficulties with eating, [place] and reads lips, low H&H Recommendations To Nursing Amount of Assist Needed 1 Person Assist Discharge Recommendations PT Discharge Recommendations Home with Assistance,Home Health Other Discharge Recommendations her activity tolerance is very low to be home alone, she refuses SNF Recommend she sit up in chair for meals Transportation Needs at Discharge Private Vehicle
[2023-03-13] MEDS: FUROSEMIDE 20 MG/2 ML VIAL IV (09:51)
[2023-03-13] MEDS: PANTOPRAZOLE 40 MG VIAL IV ×2 (09:51→20:37)
[2023-03-13] MEDS: predniSONE 20 MG TABLET 10 MG PO (09:51)
[2023-03-13] MEDS: METOPROLOL IR 50 MG TABLET PO ×2 (09:51→20:37)
[2023-03-13] MEDS: ISOSORBIDE MONONITRATE ER 30 MG TABLET 60 MG PO (09:51)
--- NOTE | 2023-03-13 13:10 | P.PN_ITS ---
Subjective Subjective Date Patient Seen: 03/13/23 Time Patient Seen: 13:10 Interval history: Patient is feeling better today. She feels her breathing is a little bit better but otherwise unable to describe. She complains of belching a lot and having difficulty eating. She is on a pureed diet and seems to not be choking. Unfortunately speech therapy is on holiday and unable to see her this weekend. He denies any abdominal pain. She had a bowel movement yesterday. She did get up with physical therapy today. She denies any lightheadedness or dizziness. She does complain of foot pain. Otherwise no change in her history. Review of systems: No report of melanotic stools. No vomiting. Currently on IV proton pump inhibitor. Exam Vital Signs (past 8 hours): - 03/13/23 08:00 03/13/23 11:09 03/13/23 11:25 Temperature 97.3 F L 97.8 F 97.1 F L Pulse Rate 74 86 80 Respiratory Rate 18 16 17 Blood Pressure 134/55 L 130/59 L 129/51 L Pulse Oximetry 100 Oxygen Flow Rate 0 Oxygen Delivery Method Room Air Oxygen Flow Rate 0 Narrative Exam Narrative: Patient is alert and oriented in no apparent distress. She is sitting upright in the hospital chair eating lunch. She has improved color today Afebrile vital signs are stable Chest: Clear to auscultation with slight decreased breath sounds by lateral basilar. No wheezes, no rhonchi Cor: Regular rate and rhythm with unchanged loud systolic ejection murmur 3 to 4/5 loudest really at the right upper sternal border Abdomen: Positive bowel sounds, soft Extremities: Trace pitting edema. Significant tenderness to palpation of pretibial area and feet. Well-perfused with capillary refill time less than 3 seconds. Difficult to palpate pulses due to patient having discomfort with exam. No lesions on the skin Objective Labs 03/13/23 05:55 03/13/23 05:55 Labs: Laboratory Results - last 24 hr 03/10/23 03/12/23 03/13/23 20:05 05:33 05:55 WBC 11.3 H RBC 2.16 L Hgb 7.0 L Hct 21.4 L MCV 99.1 MCH 32.5 MCHC 32.8 RDW 18.2 H Plt Count 104 L Neut % (Auto) 88.9 H Lymph % (Auto) 5.7 L [place] % (Auto) 5.1 Eos % (Auto) 0.1 L Baso % (Auto) 0.2 Neut # (Auto) 19904 H Lymph # (Auto) 600 L [place] # (Auto) 600 Eos # (Auto) 0 Baso # (Auto) 0 Sodium Potassium Chloride Carbon Dioxide BUN Creatinine Estimated GFR BUN/Creatinine Ratio Glucose Calcium NT-Pro-B Natriuret Pep 48376 H Blood Type O Positive Antibody Screen Negative Crossmatch See Detail 03/13/23 05:55 WBC RBC Hgb Hct MCV MCH MCHC RDW Plt Count Neut % (Auto) Lymph % (Auto) [place] % (Auto) Eos % (Auto) Baso % (Auto) Neut # (Auto) Lymph # (Auto) [place] # (Auto) Eos # (Auto) Baso # (Auto) Sodium 136 L Potassium 4.5 Chloride 110 H Carbon Dioxide 21 L BUN 81 H Creatinine 1.55 H Estimated GFR 33 L BUN/Creatinine Ratio 52.3 H Glucose 107 Calcium 9.4 NT-Pro-B Natriuret Pep Blood Type Antibody Screen Crossmatch [facility] Medical History Aortic stenosis Chronic back pain Chronic renal failure, stage 3 (moderate) (11/29/16) Coronary artery disease Essential hypertension H/O: gout Hammertoe of right foot History of stroke (05/2014) Hypercalcemia Peripheral edema (01/10/17) Unspecified asthma, uncomplicated Urinary incontinence (07/24/15) Social History marital status: number of children: 3 household members: none lives independently: Yes caregiver/support person: No housing: house pets and animals: Yes education level: master's degree occupational status: other current occupational exposures/hazards: No 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 82-year-old female with a history of chronic kidney disease, chronic diarrhea, anemia who is admitted for GI bleed.? Patient underwent EGD 03/11/23 which reveal ed a gastric ulcer and it is thought that this is the etiology of her bleed. Assessment 1.? Gastric ulcer with GI bleed.? Patient remains hemodynamically stable.? Will decrease prednisone which she is been on for few months to help with diarrhea which appears has not been beneficial.? We will decrease to 10 mg daily.? Will continue with proton pump inhibitor.? Will continue to monitor. 2.? Acute kidney injury-patient with chronic renal failure with creatinine normally running between about 1.2 and 1.7.? Overall stable. Will continue to monitor closely as we judiciously diurese. 3. Aortic stenosis/coronary artery disease-patient with known severe aortic stenosis based on echo from earlier this year.? Also with known three-vessel coronary disease.? Her coronary disease not been active.? However her BNP is quite elevated.? She also shows lower extremity edema.? Repeat echo shows no significant change in her severe aortic stenosis.? She has normal ejection fraction.? Patient seems clinically better with IV Lasix.? Will continue to do this gently.? Continue her beta-baudilio and her long-acting nitrate. Will give additional IV Lasix after packed red blood cells go in 4. VTE prophylaxis-given the GI bleed as above patient not a candidate for chemo prophylaxis.? SCDs appropriate and have been ordered 5.? Code status-patient indicates desire for no resuscitation in the event of a sudden cardiac or respiratory arrest which is consistent with prior wishes.? She is therefore a do not resuscitate 6. Anemia, has been chronic now more acute due to GI bleed.? Received 1 unit of packed red blood cells and H&H is decreased today from yesterday where it showed improvement.? Patient continues to be hemodynamically stable.? Due to further decrease in hemoglobin we will go ahead and transfuse 1 unit packed red blood cells. Will give IV Lasix after. Will recheck in a.m. and if hemoglobin below 8 will transfuse a 2nd unit of blood. I am not doing 2 units today due to her difficult balance with chronic kidney disease and fluid overload in the clinical setting of severe aortic stenosis.? Obviously have to be careful with this due to aortic stenosis and need to not fluid overload. 7. Diarrhea chronic longstanding does not seem to be responding to the prednisone.? Prednisone certainly not helping with gastric ulcer so we will decrease his dose to 10 mg and continue to monitor closely.? 8. Disposition. Discussed with her son Miguel and [id number] yesterday. They are concerned about her going home and certainly seems in her best interest to go to skilled care facility. I discussed with her and she is adamant she will never going to 1 of those places again. We discussed that this would likely improve her overall health and enable her to maintain living at home but at this point she is not willing to even consider this as a possibility. We will reassess tomorrow.
[2023-03-13] MEDS: SODIUM CHLORIDE 0.9% FLUSH 10 ML IV (20:37)
[2023-03-13] MEDS: ACETAMINOPHEN 325 MG TABLET 650 MG PO (20:45)
[2023-03-14] VITALS (8 sets, daily range): BP systolic 104–147; BP diastolic 43–64; PULSE 66–92; RESP 16–20; TEMP 35.9–36.8; O2SAT 98–99
[2023-03-14] MEDS: ISOSORBIDE MONONITRATE ER 30 MG TABLET 60 MG PO (08:54)
[2023-03-14] MEDS: predniSONE 20 MG TABLET 10 MG PO (08:54)
[2023-03-14] MEDS: SODIUM CHLORIDE 0.9% FLUSH 10 ML IV ×2 (08:54→20:39)
[2023-03-14] MEDS: METOPROLOL IR 50 MG TABLET PO ×2 (08:54→20:31)
[2023-03-14] MEDS: PANTOPRAZOLE 40 MG VIAL IV ×2 (08:54→20:32)
[2023-03-14] MEDS: FUROSEMIDE 20 MG/2 ML VIAL IV (08:54)
[2023-03-14 09:26] LABS: Add Manual Diff / Slide Review NO; Basophils Absolute Auto 0 /uL (0-100); Basophils Percent Auto 0.2 % (0-2); Eosinophils Absolute Auto 100 /uL (0-450); Eosinophils Percent Auto 0.7 % (2-4); Hematocrit 23.5 % (36-46); Hemoglobin 7.9 g/dL (12.0-16.0); Lymphocytes Absolute Auto 1000 /uL (1100-4500); Lymphocytes Percent Auto 8.5 % (25-40); Mean Corpuscular HGB Conc 33.3 % (30-36); Mean Corpuscular Hemoglobin 32.8 PG (26-34); Mean Corpuscular Volume 98.4 fL (80-100); Monocytes Absolute Auto 600 /uL (0-900); Neutrophils Absolute Auto 9600 /uL (1500-7000); Neutrophils Percent Auto 85.6 % (50-75); Platelet Count 93 X10^3/uL (150-400); Red Blood Cell Count 2.39 X10^6/uL (4.0-5.2); Red Cell Distribution Width 18.5 % (11.6-14.8); White Blood Cell Count 11.2 X10^3/uL (4.5-11.0)
[2023-03-14 09:45] LABS: BUN Creatinine Ratio 70.4 (6-22); Blood Urea Nitrogen 100 mg/dL (7-17); Calcium 9.4 mg/dL (8.4-10.2); Carbon Dioxide 23 mmol/L (22-32); Chloride 107 mmol/L (98-107); Estimated Glomerular Filt Rate 37 mL/min (>60); Glucose 94 mg/dL (80-110); HEMOLYSIS < 15 (0-50); Potassium 3.4 mmol/L (3.4-5.1); Sodium 136 mmol/L (137-145)
--- NOTE | 2023-03-14 10:05 | PM.PN.1 ---
Subjective Subjective Date Patient Seen: 03/14/23 Time Patient Seen: 10:05 Interval history: Patient states that she slept well last night. She is still having difficulty swallowing where she feels that food is getting stuck. She is not had any further melanotic stools per report. She is not having significant abdominal pain but mild midepigastric pain. She denies any breathing difficulties. She still is not interested in going to a skilled care facility. Twelve point review of systems otherwise negative No chest pain. No fevers. Vital signs are stable Exam Vital Signs (past 8 hours): - 03/14/23 04:05 03/14/23 08:00 Temperature 96.6 F L 97.7 F Pulse Rate 66 76 Respiratory Rate 16 20 Blood Pressure 145/64 H 147/55 H Pulse Oximetry 98 99 Oxygen Flow Rate 0 0 Oxygen Delivery Method Room Air Oxygen Flow Rate 0 Narrative Exam Narrative: Afebrile vital signs are stable HEENT remarkable for pale color Neck: Supple without adenopathy Chest: Clear to auscultation without wheezes or rhonchi Cor: Regular rate and rhythm Abdomen positive bowel sounds, soft, nontender, nondistended Extremities unchanged Objective Labs 03/14/23 09:17 03/14/23 09:17 Labs: Laboratory Results - last 24 hr 03/10/23 03/14/23 03/14/23 20:05 09:17 09:17 WBC 11.2 H RBC 2.39 L Hgb 7.9 L Hct 23.5 L MCV 98.4 MCH 32.8 MCHC 33.3 RDW 18.5 H Plt Count 93 L Neut % (Auto) 85.6 H Lymph % (Auto) 8.5 L [place] % (Auto) 5.0 Eos % (Auto) 0.7 L Baso % (Auto) 0.2 Neut # (Auto) 9600 H Lymph # (Auto) 1000 L [place] # (Auto) 600 Eos # (Auto) 100 Baso # (Auto) 0 Sodium 136 L Potassium 3.4 Chloride 107 Carbon Dioxide 23 BUN 100 H Creatinine 1.42 H Estimated GFR 37 L BUN/Creatinine Ratio 70.4 H Glucose 94 Calcium 9.4 Blood Type O Positive Antibody Screen Negative Crossmatch See Detail [facility] Medical History Aortic stenosis Chronic back pain Chronic renal failure, stage 3 (moderate) (11/29/16) Coronary artery disease Essential hypertension H/O: gout Lelae of right foot History of stroke (05/2014) Hypercalcemia Peripheral edema (01/10/17) Unspecified asthma, uncomplicated Urinary incontinence (07/24/15) Social History marital status: number of children: 3 household members: none lives independently: Yes caregiver/support person: No housing: house pets and animals: Yes education level: master's degree occupational status: other current occupational exposures/hazards: No 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 Patient underwent EGD 03/11/23? which revealed a gastric ulcer and it is thought that this is the etiology of her bleed. Assessment 1.? Gastric ulcer with GI bleed.? Patient remains hemodynamically stable.? Will decrease prednisone which she is been on for few months to help with diarrhea which appears has not been beneficial.? We will decrease to 10 mg daily and then continue to wean from here.? Will continue with proton pump inhibitor.? Will continue to monitor. 2.? Acute kidney injury-patient with chronic renal failure with creatinine normally running between about 1.2 and 1.7.? Overall stable.? Will continue to monitor closely as we judiciously diurese. However BUN is quite elevated. Will encourage oral fluids. Will give blood. Will continue to monitor 3. Aortic stenosis/coronary artery disease-patient with known severe aortic stenosis based on echo from earlier this year.? Also with known three-vessel coronary disease.? Her coronary disease not been active.? However her BNP is quite elevated.? She also shows lower extremity edema.? Repeat echo shows no significant change in her severe aortic stenosis.? She has normal ejection fraction.? Patient seems clinically better with IV Lasix.? Will continue to do this gently.? Continue her beta-baudilio and her long-acting nitrate. 4. VTE prophylaxis-given the GI bleed as above patient not a candidate for chemo prophylaxis.? SCDs appropriate and have been ordered 5.? Code status-patient indicates desire for no resuscitation in the event of a sudden cardiac or respiratory arrest which is consistent with prior wishes.? She is therefore a do not resuscitate 6. Anemia, has been chronic now more acute due to GI bleed.? Received 1 unit of packed red blood cells and H&H is decreased today from yesterday where it showed improvement.? Patient continues to be hemodynamically stable.? Given multiple comorbidities as well as gastric ulcer and upper GI bleed and critical aortic stenosis we will go ahead and give another unit of blood today. Will recheck in a.m. and if hemoglobin below 8 will transfuse a 2nd unit of blood.? I am not doing 2 units today due to her difficult balance with chronic kidney disease and fluid overload in the clinical setting of severe aortic stenosis.? Obviously have to be careful with this due to aortic stenosis and need to not fluid overload. 7. Diarrhea chronic longstanding does not seem to be responding to the prednisone.? Prednisone certainly not helping with gastric ulcer so we will decrease his dose to 10 mg and continue to monitor closely.? 8. Disposition.? Discussed with her son Miguel and [id number] again today.? They are concerned about her going home and certainly seems in her best interest to go to skilled care facility.? I discussed with her and she is adamant she will never going to 1 of those places again.? Son states that he will talk to her today. May go home with home health. Assessment 9. Leukocytosis stable. No evidence of infection at this time. Suspect that this is related to her prednisone and we will continue to wean. Prednisone was given for the diarrhea. Assessment 10. Dysphagia. Unfortunately speech therapy was consulted on Tuesday and there was nobody on-call due to the long holiday weekend. They will evaluate her tomorrow. We will continue with supportive care and. Pureed Diet for now.
[2023-03-14 10:43] LABS: NT-proBNP (BNP-Adult 18+) 36900 pg/mL (<450)
--- NOTE | 2023-03-14 11:26 | PT.IPTN ---
Current Diagnoses Gastrointestinal hemorrhage, unspecified (03/10/23) Surgery Performed Operation Date: 03/11/23 16:45 Actual Procedures p Esophagogastroduodenoscopy with biopsy - Bassam Bui MD Physical Therapy Treatment Note M2 PT-IP Current Condition Start: 03/12/23 16:11 Freq: NEEDED Status: Active Protocol: Document 03/13/23 09:18 DLM (Rec: 03/13/23 10:50 DLM [id number]) Physical Therapy Current Condition Current Condition Evaluation Date 03/13/23 Treatment Diagnosis GI bleed, difficulty swallowing, weakness with impaired mobility Onset Date 03/10/23 M3 PT-IP Subjective Start: 03/12/23 16:11 Freq: NEEDED Status: Active Protocol: Document 03/14/23 11:26 AW (Rec: 03/14/23 12:03 AW [id number]) Subjective Physical Therapy Visit Type Type Treatment Note Visit Start Time 11:00 Visit Stop Time 11:26 Total Visit Minutes 26 Notes H&H improved to 7.9/23.5 today . Pt's son in room late in session, who expresses interest in SNF rehab for his mom. Number of [employer] Visits 0 Physical Therapy Visit Comments Patient Comments Pt is willing to participate with PT Patient Goals Hopes to go home but appears somewhat open to SNF when her son mentions it. Therapy Pain Assessment Pain When Pain Assessed During Mobility Pain Present Pain Present Allowed to Sleep Location Feet Intensity 3 Scale Used Numeric (0 - 10) Description Aching,Tender Pain Behaviors Facial Grimacing M4 PT-IP Mobility and Gait Start: 03/12/23 16:11 Freq: NEEDED Status: Active Protocol: Document 03/14/23 11:26 AW (Rec: 03/14/23 12:03 AW [id number]) PT-Bed Mobility Assessment Supine to Sit Supine to Sit Minimal Assistance Scooting Scooting to Edge of Bed Standby Assistance PT-Transfer Assessment Sit to and From Stand Sit to and from Stand Standby Assistance,Use of Upper Extremities Equipment Transfer Assistive Device Gait Belt,Front Wheeled Walker Transfers Transfer Destination Chair Transfer Technique Stand Step Pivot Transfer Ability Level of Assist Contact Guard Assistance,Use of Upper Extremities Comments Mobility Comments Pt very willing to get out of bed, struggles with bed mobility but does better when cued to roll to her left side and then transition to sitting (though still needing min A). She stood SBA and commented on the height of the standard FWW. Pt sat EOB while PT found a youth-sized walker which fit more appropriately. Pt stood SBA and used FWW to ambulate ~35 feet with slow, steady pace but not needing more than SBA. Fatigue set in and pt returned to the room with stops for standing rest every ~10 feet, slight SOB noted. SpO2 was stable 96-98% throughout and after ambulation. Pt sat on the chair, scooting herself back with increased effort but not needing physical assist. Pt was left with legs elevated, agreeing to sit up in the chair for lunch. Gait Assessment Gait Gait Assistance Required: Standby Assistance,Contact Guard Assist Distance (Feet) 75 Assistive Devices Assistive Device Gait Belt,Front Wheeled Walker Gait Deviations General Gait Pattern Decreased Stride Length,Flexed Trunk Factors Limiting Gait Function Factors Limiting Gait Function Decreased Activity Tolerance, Poor Balance,Respiratory Distress Comments Gait Comments SBA first 35 feet, CGA thereafter as fatigue set in and step height/length decreased. Stair Climbing Assessment Comments Stair Climbing Comments does not have to do stairs at home, has chair lift PT-Balance Assessment Sitting Balance and Reactions Static Sitting Balance Ability Good Dynamic Sitting Balance Ability Good Standing Balance and Reactions Static Standing Balance Ability Good Dynamic Standing Balance Ability Fair Device Used FWW M5 PT-IP Objective Assessments Start: 03/12/23 16:11 Freq: NEEDED Status: Active Protocol: Document 03/13/23 09:18 DLM (Rec: 03/13/23 10:50 DLM [id number]) Orientation Orientation/Cognition Level of Alertness Alert Orientation Name,Age,Birthday,Month,Date, Year,Day of Week,Place, Situation Language Function Ability Hard of Hearing Safety Awareness Understands Safety Issues Memory Description No Deficits Noted Comments chart has hx of expressive aphasia but none identified at this time Pt reads lips to help manage Hearing impairment. She has her glasses on and no changes in vision reported this admit. Gross Range of Motion Upper Extremity ROM Assessment Bilaterally Impaired Impairments shoulder elevation to 90 degrees Lower Extremity ROM Assessment Within Functional Limits Strength Upper Extremity Strength Assessment Within Functional Limits Lower Extremity Strength Assessment Bilaterally Impaired Hip hip flex right 3-/5, left 3+/5 Knee ext right 4-/5, left 4/5 Ankle DF right 4-/5, left 4+/5 Comments Strength Comments feet are tender to touch Coordination Assessment Gross Coordination Gross Coordination WNL Sensation Assessment Sensation Gross Sensation Right LE Impaired,Left LE Impaired Sensation Description Pain Comments Sensation Comments pain bilateral feet which is baseline, pt thinks it is related gout Muscle Tone Muscle Tone WNL Yes M6 PT-IP Treatment Start: 03/12/23 16:11 Freq: NEEDED Status: Active Protocol: Document 03/14/23 11:26 AW (Rec: 03/14/23 12:03 AW [id number]) Physical Therapy Treatment Education Education Provided Safety M7 PT-IP Assessment and Plan Start: 03/12/23 16:11 Freq: NEEDED Status: Active Protocol: Document 03/14/23 11:26 AW (Rec: 03/14/23 12:03 AW [id number]) PT Summary Assessment and Plan Potential Rehabilitation Potential Good Summary Impairments Pain,ROM,Strength,Balance,Bed Mobility,Transfers,Gait, Activity Tolerance Progress Towards Goals Progressing Toward Goals,Slow Progress due to Activity Tolerance Assessment Summary Sarah progressed nicely today toward her functional goals but remains limited by decreased functional reserve. PT would recommend consideration of 31/01 assist and daily rehab activities to restore prior level of function. Difficult to assess pt's willingness for SNF but it is clear she would benefit. If pt elects to go home, would recommend resumed HH services. Goals Bed Mobility Goal Independent Transfer Goal Independent,Front Wheeled Walker Gait Goal Independent,Front Wheel Walker Gait Distance 100 feet Days to Meet Goals 7 Frequency of Treatment Frequency Of Treatment Once a Day Treatment Plan Physical Therapy Treatment Plan Bed Mobility Training,Transfer Training,Gait Training, Therapeutic Exercise,Balance Retraining,Discharge Planning, Neuromuscular Re-ed Precautions Other Precautions fall risk, swallowing difficulties with eating, MARSHALL and reads lips, low H&H Recommendations To Nursing Amount of Assist Needed 1 Person Assist Discharge Recommendations PT Discharge Recommendations Home with Assistance,Home Health,SNF Rehab Other Discharge Recommendations Up in chair for meals Transportation Needs at Discharge Private Vehicle
--- NOTE | 2023-03-14 14:26 | CM.DPNOTE ---
DCP Note Patient adamantly against SNF upon DC, agreeable to HH Plan: Discharge home when medically stable with supportive son and [facility] CM team will plan to follow for coordination of DCP; new HH order vs resumption order through [facility] (?) JW
[2023-03-14] MEDS: POTASSIUM CHLORIDE 20 MEQ TAB 40 MEQ PO (16:56)
[2023-03-14] MEDS: ACETAMINOPHEN 325 MG TABLET 650 MG PO (20:31)
[2023-03-15] VITALS (10 sets, daily range): BP systolic 114–140; BP diastolic 55–67; PULSE 70–100; RESP 16–20; TEMP 36.2–36.8; O2SAT 95–100
--- NOTE | 2023-03-15 | DI.RAD.S_ITS ---
PROCEDURE: FL BARIUM SWALLOW W SPEECH INDICATIONS: trouble swallowing COMPARISON: TECHNIQUE: Examination was conducted in conjunction with speech pathology per standard protocol. In the lateral projection, filming was performed of the patient swallowing. AP projection filming may also be performed with patient swallowing. COMPARISON: [facility], CR, XR ABDOMEN MIN 2V, 03/15/2023, 7:27. FINDINGS: Function: The oral preparatory phase appears normal, with proper containment. No laryngotracheal penetration or aspiration. No pathologic vallecular pooling. Morphology: No cricopharyngeal bar is identified. No cervical esophageal webs. No Zenker's diverticulum. No strictures. IMPRESSION: No laryngeal penetration or aspiration. Please see separate speech pathologist's report. Dictated by: Donaldo Yan M.D. on 03/17/2023 at 10:46 Approved by: Donaldo Yan M.D. on 03/17/2023 at 10:47
[2023-03-15] MEDS: OXYCODONE IR 5 MG TABLET PO (05:50)
[2023-03-15 06:11] LABS: Add Manual Diff / Slide Review NO; Basophils Absolute Auto 0 /uL (0-100); Basophils Percent Auto 0.2 % (0-2); Eosinophils Absolute Auto 100 /uL (0-450); Eosinophils Percent Auto 0.5 % (2-4); Hemoglobin 7.5 g/dL (12.0-16.0); Lymphocytes Absolute Auto 1500 /uL (1100-4500); Lymphocytes Percent Auto 10.2 % (25-40); Mean Corpuscular HGB Conc 33.9 % (30-36); Mean Corpuscular Hemoglobin 32.1 PG (26-34); Mean Corpuscular Volume 94.8 fL (80-100); Monocytes Absolute Auto 800 /uL (0-900); Monocytes Percent Auto 5.3 % (3-14); Neutrophils Absolute Auto 12600 /uL (1500-7000); Neutrophils Percent Auto 83.8 % (50-75); Platelet Count 91 X10^3/uL (150-400); Red Blood Cell Count 2.32 X10^6/uL (4.0-5.2); Red Cell Distribution Width 18.3 % (11.6-14.8)
[2023-03-15 06:17] LABS: Calcium 9.3 mg/dL (8.4-10.2); Carbon Dioxide 22 mmol/L (22-32); Chloride 109 mmol/L (98-107); Estimated Glomerular Filt Rate 44 mL/min (>60); Glucose 91 mg/dL (80-110); HEMOLYSIS 37 (0-50); Potassium 4.6 mmol/L (3.4-5.1); Sodium 134 mmol/L (137-145)
--- NOTE | 2023-03-15 06:23 | PC.NURSE ---
pt was c/o pf abdomen pain this am to her left lower side. Pt was assisted to the bedside commode and kieran a large form black stools. Pt medicated with 5 mg of oycodone and assisted back to bed. Pt had labs done this am and not much change to her hemoglobin/hematocrit.
[2023-03-15 06:26] LABS: BUN Creatinine Ratio 103.3 (6-22)
[2023-03-15 06:28] LABS: Blood Urea Nitrogen 125 mg/dL (7-17)
--- NOTE | 2023-03-15 06:48 | P.PN_ITS ---
Subjective Subjective Date Patient Seen: 03/15/23 Time Patient Seen: 06:48 Interval history: Patient with relatively uneventful weekend. Still quite weak. Complaining of some difficulty swallowing. Hemoglobin hematocrit relatively stable although both are diminished from normal and from patient's recent baseline Continued with some low-grade diuresis now with BUN quite elevated although creatinine stable Complaining of some lower abdominal pain overnight. Does not really have any recollection of her bowel movements whether she has diarrhea or not. To this point has not really had abdominal pain and cramping with her diarrhea Exam Vital Signs (past 8 hours): - 03/14/23 23:30 03/15/23 04:00 Temperature 96.6 F L 97.2 F L Pulse Rate 77 79 Respiratory Rate 18 20 Blood Pressure 131/61 136/56 L Pulse Oximetry 99 99 Oxygen Flow Rate 0 0 Oxygen Delivery Method Room Air Oxygen Flow Rate 0 Objective Labs 03/15/23 06:00 03/15/23 06:00 Labs: Laboratory Results - last 24 hr 03/10/23 03/14/23 03/14/23 20:05 09:17 09:17 WBC 11.2 H RBC 2.39 L Hgb 7.9 L Hct 23.5 L MCV 98.4 MCH 32.8 MCHC 33.3 RDW 18.5 H Plt Count 93 L Neut % (Auto) 85.6 H Lymph % (Auto) 8.5 L [place] % (Auto) 5.0 Eos % (Auto) 0.7 L Baso % (Auto) 0.2 Neut # (Auto) 9600 H Lymph # (Auto) 1000 L [place] # (Auto) 600 Eos # (Auto) 100 Baso # (Auto) 0 Sodium 136 L Potassium 3.4 Chloride 107 Carbon Dioxide 23 BUN 100 H Creatinine 1.42 H Estimated GFR 37 L BUN/Creatinine Ratio 70.4 H Glucose 94 Calcium 9.4 NT-Pro-B Natriuret Pep 26635 H Blood Type O Positive Antibody Screen Negative Crossmatch See Detail 03/15/23 03/15/23 03/15/23 06:00 06:00 06:00 WBC 15.0 H RBC 2.32 L Hgb 7.5 L Hct 22.0 L MCV 94.8 D MCH 32.1 MCHC 33.9 RDW 18.3 H Plt Count 91 L Neut % (Auto) 83.8 H Lymph % (Auto) 10.2 L [place] % (Auto) 5.3 Eos % (Auto) 0.5 L Baso % (Auto) 0.2 Neut # (Auto) 13727 H Lymph # (Auto) 1500 [place] # (Auto) 800 Eos # (Auto) 100 Baso # (Auto) 0 Sodium 134 L Potassium 4.6 D Chloride 109 H Carbon Dioxide 22 BUN 125 H* Creatinine 1.21 H Estimated GFR 44 L BUN/Creatinine Ratio 103.3 H Glucose 91 Calcium 9.3 NT-Pro-B Natriuret Pep Blood Type Antibody Screen Crossmatch See Detail [facility] Medical History Aortic stenosis Chronic back pain Chronic renal failure, stage 3 (moderate) (11/29/16) Coronary artery disease Essential hypertension H/O: gout Hammertoe of right foot History of stroke (05/2014) Hypercalcemia Peripheral edema (01/10/17) Unspecified asthma, uncomplicated Urinary incontinence (07/24/15) Social History marital status: number of children: 3 household members: none lives independently: Yes caregiver/support person: No housing: house pets and animals: Yes education level: master's degree occupational status: other current occupational exposures/hazards: No 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 Upper GI bleed-patient continues on proton pump inhibitor. She should continue on this for least 6 weeks and I would advocate remaining off of her Plavix as well, least for the initial 2-4 weeks perhaps the entire 6 weeks duration 2. Anemia-acute on chronic including acute blood loss as well as her probable anemia of chronic disease. Received transfusion yesterday needs additional blood today. Will need to go relatively slowly given her aortic stenosis etcetera. 3. Acute kidney injury-I think patient is a bit over diuresed although the bump in her BUN might likely be secondary to her transfusion as well. I am going to hold off on any additional furosemide and give her 1 unit of packed red cells today and follow-up numbers tomorrow. Her elevated BUN without change in her creatinine might be suggestive more of an intravascular hemolysis etcetera. Will go ahead and order a haptoglobin. 4. Swallowing difficulty-patient to be seen by speech therapy today 5. Diarrhea-uncertain as to etiology, patient did not improve with prednisone therapy which is now being tapered down eventual goal being to eliminate this. Have never found evidence of an infectious etiology for her diarrhea. Did seem to improve with pancreatic enzyme replacement which is continued here in the hospital. Perhaps diarrhea more secondary to low-grade upper GI bleed etcetera but at this point entirely uncertain. Not a candidate for colonoscopy given her hemodynamic instability during sedation for her EGD. 6. Disposition-patient would certainly benefit from [place] [facility] [place], does hear me when I tell her that I do not think she is safe to go home and that she would greatly benefit from [place] [facility]. She is not as adamant for me this morning as she has been I guess over the weekend that this not happen. She is not pleased at all about this concept and will see how the next couple of days goes since she needs some continued medical management for her medical problems as above is not yet ready for discharge 7. Lower abdominal pain-uncertain as to possible etiology here. Will start with plain films of the abdomen may need CT scan to further evaluate. Still concerned about the ongoing diarrhea that really has defied specific explanation, although she is not really been a candidate for appropriate evaluation with colonoscopy etcetera.
--- NOTE | 2023-03-15 07:23 | DI.RAD.S_ITS ---
PROCEDURE: XR ABDOMEN MIN 2V INDICATIONS: abd/pelvic pain TECHNIQUE: 2 views of the abdomen were acquired. COMPARISON: None. FINDINGS: Surgical changes and devices: None. Bowel: No pneumoperitoneum. The bowel gas pattern demonstrates increased bowel gas. No free air, pneumatosis, or portal venous gas. Soft tissues: No masses; visualized solid organ contours appear normal in size. No suspicious abdominal calcifications. Bones: S shaped scoliotic curvature of the thoracic spine. Multilevel degenerative changes. Degenerative changes of both hips. IMPRESSION: Increased gas throughout the abdomen with no evidence of bowel obstruction. Dictated by: Trent Mcneil M.D. on 03/15/2023 at 8:27 Approved by: Trent Mcneil M.D. on 03/15/2023 at 8:28
[2023-03-15] MEDS: PANTOPRAZOLE DR 40 MG TABLET PO ×2 (08:12→20:52)
[2023-03-15] MEDS: SUCRALFATE 1 GM/10 ML ORAL SUSP PO ×3 (08:13→20:52)
[2023-03-15] MEDS: SODIUM CHLORIDE 0.9% FLUSH 10 ML IV ×2 (08:13→20:53)
[2023-03-15] MEDS: ISOSORBIDE MONONITRATE ER 30 MG TABLET 60 MG PO (08:13)
[2023-03-15] MEDS: METOPROLOL IR 50 MG TABLET PO ×2 (08:13→20:52)
[2023-03-15] MEDS: ACETAMINOPHEN 325 MG TABLET 650 MG PO (08:15)
--- NOTE | 2023-03-15 13:30 | PT.IPTN ---
Current Diagnoses Gastrointestinal hemorrhage, unspecified (03/10/23) Surgery Performed Operation Date: 03/11/23 16:45 Actual Procedures p Esophagogastroduodenoscopy with biopsy - Bassam Bui MD Physical Therapy Treatment Note M2 PT-IP Current Condition Start: 03/12/23 16:11 Freq: NEEDED Status: Active Protocol: Document 03/13/23 09:18 DLM (Rec: 03/13/23 10:50 DLM [id number]) Physical Therapy Current Condition Current Condition Evaluation Date 03/13/23 Treatment Diagnosis GI bleed, difficulty swallowing, weakness with impaired mobility Onset Date 03/10/23 M3 PT-IP Subjective Start: 03/12/23 16:11 Freq: NEEDED Status: Active Protocol: Document 03/15/23 14:12 TS (Rec: 03/15/23 14:34 TS [id number]) Subjective Physical Therapy Visit Type Type Treatment Note Visit Start Time 13:30 Visit Stop Time 14:02 Total Visit Minutes 32 Notes RN reports she had blood transfusion earlier this morning, cleared to work with PT. 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 Pt somewhat emotional this afternoon when discussing rehab vs home. Therapy Pain Assessment Pain When Pain Assessed During Mobility Pain Present Pain Present Denied Pain M4 PT-IP Mobility and Gait Start: 03/12/23 16:11 Freq: NEEDED Status: Active Protocol: Document 03/15/23 14:12 TS (Rec: 03/15/23 14:34 TS [id number]) PT-Bed Mobility Assessment Sit to Supine Sit to Supine Minimal Assistance PT-Transfer Assessment Sit to and From Stand Sit to and from Stand Contact Guard Assistance, Minimal Assistance,Use of Upper Extremities Equipment Transfer Assistive Device Gait Belt,Front Wheeled Walker Transfers Transfer Destination Bed Transfer Technique Stand Step Pivot Transfer Ability Level of Assist Contact Guard Assistance,Use of Upper Extremities Comments Mobility Comments Sit to stand from chair Jacques w /FWW. She performed stand step pivot transfer to chair CGA with slow gait, required some cues for FWW management and stand to sit. Sit to stand from bed CGA w/FWW, pt is slow to stand, denied any dizziness or SOB. She ambulated ~60'CGA, after ~30' pt became very fatigued and stated she can't move her legs, pt ambulated back to bed with some motivation. Sit to supine Jacques for LEs into bed, pt laterally scooted to reposition in bed. Pt was left in bed, call light within reach, all needs met. Gait Assessment Gait Gait Assistance Required: Contact Guard Assist Distance (Feet) 60 Assistive Devices Assistive Device Gait Belt,Front Wheeled Walker Gait Deviations General Gait Pattern Decreased Stride Length,Flexed Trunk Factors Limiting Gait Function Factors Limiting Gait Function Decreased Activity Tolerance, Poor Balance,Respiratory Distress Comments Gait Comments See mobility comments. Stair Climbing Assessment Comments Stair Climbing Comments does not have to do stairs at home, has chair lift PT-Balance Assessment Sitting Balance and Reactions Static Sitting Balance Ability Good Dynamic Sitting Balance Ability Good Standing Balance and Reactions Static Standing Balance Ability Good Dynamic Standing Balance Ability Fair Device Used FWW M5 PT-IP Objective Assessments Start: 03/12/23 16:11 Freq: NEEDED Status: Active Protocol: Document 03/13/23 09:18 DLM (Rec: 03/13/23 10:50 DLM [id number]) Orientation Orientation/Cognition Level of Alertness Alert Orientation Name,Age,Birthday,Month,Date, Year,Day of Week,Place, Situation Language Function Ability Hard of Hearing Safety Awareness Understands Safety Issues Memory Description No Deficits Noted Comments chart has hx of expressive aphasia but none identified at this time Pt reads lips to help manage Hearing impairment. She has her glasses on and no changes in vision reported this admit. Gross Range of Motion Upper Extremity ROM Assessment Bilaterally Impaired Impairments shoulder elevation to 90 degrees Lower Extremity ROM Assessment Within Functional Limits Strength Upper Extremity Strength Assessment Within Functional Limits Lower Extremity Strength Assessment Bilaterally Impaired Hip hip flex right 3-/5, left 3+/5 Knee ext right 4-/5, left 4/5 Ankle DF right 4-/5, left 4+/5 Comments Strength Comments feet are tender to touch Coordination Assessment Gross Coordination Gross Coordination WNL Sensation Assessment Sensation Gross Sensation Right LE Impaired,Left LE Impaired Sensation Description Pain Comments Sensation Comments pain bilateral feet which is baseline, pt thinks it is related gout Muscle Tone Muscle Tone WNL Yes M6 PT-IP Treatment Start: 03/12/23 16:11 Freq: NEEDED Status: Active Protocol: Document 03/15/23 14:12 TS (Rec: 03/15/23 14:34 TS [id number]) Physical Therapy Treatment Education Education Provided Safety M7 PT-IP Assessment and Plan Start: 03/12/23 16:11 Freq: NEEDED Status: Active Protocol: Document 03/15/23 14:12 TS (Rec: 03/15/23 14:34 TS [id number]) PT Summary Assessment and Plan Potential Rehabilitation Potential Good Summary Impairments Pain,ROM,Strength,Balance,Bed Mobility,Transfers,Gait, Activity Tolerance Progress Towards Goals Progressing Toward Goals,Slow Progress due to Activity Tolerance Assessment Summary Sarah continues to make some progress with her mobility but remains limited by a poor activity tolerance. She performed sit to stand x3 Jacques/CGA w/FWW. She continues to ambulate short distances before she fatigues. This session she could ambulate about 30' CGA before becoming fatigued, she stated having difficulty moving LEs to walk back to bed. PT recommends home w/ 31/01 assist vs SNF to progress functional mobility and activity tolerance. Goals Bed Mobility Goal Independent Transfer Goal Independent,Front Wheeled Walker Gait Goal Independent,Front Wheel Walker Gait Distance 100 feet Days to Meet Goals 7 Frequency of Treatment Frequency Of Treatment Once a Day Treatment Plan Physical Therapy Treatment Plan Bed Mobility Training,Transfer Training,Gait Training, Therapeutic Exercise,Balance Retraining,Discharge Planning, Neuromuscular Re-ed Precautions Other Precautions fall risk, swallowing difficulties with eating, PAUMA and reads lips, low H&H Recommendations To Nursing Amount of Assist Needed 1 Person Assist Discharge Recommendations PT Discharge Recommendations Home with 31/01 Assist Available,Home Health,SNF Rehab Other Discharge Recommendations Up in chair for meals Transportation Needs at Discharge Private Vehicle,Wheelchair/ Cabulance
--- NOTE | 2023-03-15 13:55 | ST.IPCSEOM ---
Visit Care Team Role Provider Type Beau Alexandra MD Other Providers Physician Specialty: General Surgery Address: [address] [place] [address], [address], [place], [address] Email: [email or web address] Amanda Osei DO Emergency Provider Physician Referring Provider Specialty: Emergency Medicine Address: [address] [place] [address], [id number] Email: [email or web address] Elsi Welsh MD Attending Provider Physician Primary Care Provider Specialty: Internal Medicine Address: [address] [place] [address], [address], [place], [address] Email: [email or web address] Sathya Stein MD Admit Provider Physician Other Providers Specialty: Family Practice Address: [facility] [address], [place], [address] Email: [email or web address] Current Diagnoses Gastrointestinal hemorrhage, unspecified (03/10/23) Past Medical History (Last Reviewed 03/11/23 @ 06:58 by Elsi Welsh MD) Aortic stenosis (Medical) Severe 08/2022 ECHO Chronic back pain (Medical) Chronic renal failure, stage 3 (moderate) (Medical 11/29/16) Coronary artery disease (Medical) Three-vessel based on catheterization May 2020, medical management Essential hypertension (Medical) H/O: gout (Medical) Hammertoe of right foot (Medical) History of stroke (Medical 05/2014) Aphasia, mostly resolved Hypercalcemia (Medical) Probable hyperparathyroidism Peripheral edema (Medical 01/10/17) Unspecified asthma, uncomplicated (Medical) Urinary incontinence (Medical 07/24/15) Speech-Language Pathology Swallow Evaluation RN TELE Clinical Swallow Evaluation Start: 03/15/23 11:33 Freq: Status: Active Protocol: Document 03/15/23 11:33 DH (Rec: 03/15/23 11:49 [id number]) Clinical Swallow Evaluation Session Time Visit Start Time 10:20 Visit Stop Time 11:45 Total Visit Minutes 75 Referral Referring Provider elsi welsh Reason for Referral dysphagia Setting Assessment Location Acute Care Visit Type Note Type Initial evaluation Patient Information Identification Type Name,Date of History 82-year-old female who is admitted with probable GI bleed, Esophagoduodenoscopy revealed stomach was notable for gastritis as well as a gastric ulcer nonbleeding with no visible vessel proximally 1 cm in the cardia. Pt has received blood transfusion 03/13 , 03/14 and 03/15 Patient has been struggling with diahrrea inability to eat weight loss etcetera for several weeks now. She was hospitalized with this back in January. However over the last several days apparently she is had recurrent diarrhea with black colored stool which turns out to be Hemoccult positive as expected in the emergency department. She is on Plavix for stroke risk reduction. Patient also with severe aortic stenosis not felt to be a candidate or desiring intervention. Also has coronary disease and chronic renal failure. Patient demonstrating increased difficulty w swallowing, with reports of coughing and globus with all intake, mitigated somewhat by patient instigated compensatory strategies of small bites/sips and altered texture diet (even down to mostly liquids per patient), however this, combined w diarrhea has contibuted to extreme weight loss, pt estimated at least 80 lbs in last 3-4 months. Reported by Patient/Caregiver Other Symptoms Choking,Coughing,Difficulty swallowing liquids,Difficulty swallowing pills,Difficulty swallowing solids,Food gets stuck,Weight loss Current Diet Regular (IDDSI 7) Baseline Feeding Method Independent in self-feeding Type of Patient Questionnaire (e.g., EAT PROMIS GDS: 29/74.1, -10, MDADI, etc.) indicative of severe swallow impairment. Pt verbalized Results Patient verbalized difficulty swallowing both liquids and solids, with noted reflexive cough on liquids, and globus sensation with solids, as well as difficulty swallowing pills, things feel like they get stuck. Patient also noted she doesn't like things in her mouth, when asked for clarification, pt stated that when she puts something in her mouth, she tries to swallow quickly, because she doesn't like it.. The IDDSI Framework Protocol: IDDSI.1 Objective Assessment Mental Status Alert Oral Integrity WFL Dentition Missing teeth Lip Function Within normal limits Observation of Lips at Rest Symmetrical Pucker Within normal limits Lip Retraction Within normal limits Alternating Pucker/Lip Retraction Reduced range of motion Tongue Function Within normal limits Observations of Tongue at Rest Within normal limits Tongue Protrusion Within normal limits Tongue Retraction Within normal limits Tongue Lateralization Within normal limits Jaw Function Within normal limits Observation of Jaw at Rest Within normal limits Jaw Opening Within normal limits Jaw Closing Within normal limits Hard/Soft Palate Function Within normal limits Observations of Hard/Soft Palate Within normal limits Nasality Within normal limits Respiratory Sufficiency Within normal limits Comment OME demonstrated all WFL, some confusion w request to push against inside of her cheeck with tongue, pt noted she is having trouble hearing w left ear, stated that her left ear turns off for 2-3 months of the year then comes back. It is unclear if she has hearing loss and confusion or yearly ear infections/allergies? ST recommended discussing w dr and possibly visiting ENT or detail technician. Pt stated this was not her primary concern at this time. Food and Liquid Trials Position During Assessment Upright (90 degrees) Liquids Trialed Thin (IDDSI 0) Solid Trials Purred (IDDSI 4),Easy to Chew (IDDSI 7) Administration Type Tea spoon,Cup single sip,Cup consecutive sips Oral Impairment Mildly impaired Oral Phase Comments Pt demonstrated mild difficulty w guageing cup tilt needed for a drink and apparent hesitancy for intake, slowed mastication, and poor AP transport, delayed swallow initiation, with reported globus sensations with puree and small bite of cracker. No cough response observed. Pharyngeal Impairment Within normal limits The IDDSI Framework Protocol: IDDSI.1 Findings Swallowing Function Oropharyngeal phase dysphagia Swallowing Function Comments oropharyngeal dysphagia suspected Severity of Swallow Impairment Mildly-moderately impaired Contributing Factors to Swallow Difficulty following Impairment directions,Delayed swallow initiation Comment Patient demonstrated mild/mod oropharyngeal dysphagia demonstrated by poor AP transit and delayed swallow, with reported globus sensation following solid intake. Patient will require an instrumental swallow study to fully assess physiology and anatomy of the swallow and to determine the appropriate diet and/or appropriately targeted rehabilitation exercises. Impact on Safety and Functioning Risk for aspiration,Risk for inadequate nutrition/hydration Recommendations Instrumental Assessment Yes Recommended Solids Minced & Moist (IDDSI 5) Recommended Liquids Thin (IDDSI 0) Safety Precautions/Swallowing Remain upright (90 degrees) Recommendations during all oral intake,Small bites and sips when eating Medication Recommendations As Tolerated Education Patient/Caregiver Education Patient expressed understanding of evaluation Goals Short-term Goals Patient will participate in a MBS (modified barium swallow study) with review for POC pending results
--- NOTE | 2023-03-15 13:56 | ST.IPCSEOM ---
Visit Care Team Role Provider Type Beau Alexandra MD Other Providers Physician Specialty: General Surgery Address: [address] [place] [address], [address], [place], [address] Email: [email or web address] Amanda Osei DO Emergency Provider Physician Referring Provider Specialty: Emergency Medicine Address: [address] [place] [address], [address] Email: [email or web address] Elsi Welsh MD Attending Provider Physician Primary Care Provider Specialty: Internal Medicine Address: [address] [place] [address], [address], [place], [address] Email: [email or web address] Sathya Stein MD Admit Provider Physician Other Providers Specialty: Family Practice Address: [facility] [address], [place], [address] Email: [email or web address] Current Diagnoses Gastrointestinal hemorrhage, unspecified (03/10/23) Past Medical History (Last Reviewed 03/11/23 @ 06:58 by Elsi Welsh MD) Aortic stenosis (Medical) Severe 08/2022 ECHO Chronic back pain (Medical) Chronic renal failure, stage 3 (moderate) (Medical 11/29/16) Coronary artery disease (Medical) Three-vessel based on catheterization May 2020, medical management Essential hypertension (Medical) H/O: gout (Medical) Hammertoe of right foot (Medical) History of stroke (Medical 05/2014) Aphasia, mostly resolved Hypercalcemia (Medical) Probable hyperparathyroidism Peripheral edema (Medical 01/10/17) Unspecified asthma, uncomplicated (Medical) Urinary incontinence (Medical 07/24/15) Speech-Language Pathology Swallow 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 Clinical Swallow Evaluation Start: 03/15/23 11:33 Freq: Status: Active Protocol: Document 03/15/23 11:33 DH (Rec: 03/15/23 11:49 [id number]) Clinical Swallow Evaluation Session Time Visit Start Time 10:20 Visit Stop Time 11:45 Total Visit Minutes 75 Referral Referring Provider elsi welsh Reason for Referral dysphagia Setting Assessment Location Acute Care Visit Type Note Type Initial evaluation Patient Information Identification Type Name,Date of History 82-year-old female who is admitted with probable GI bleed, Esophagoduodenoscopy revealed stomach was notable for gastritis as well as a gastric ulcer nonbleeding with no visible vessel proximally 1 cm in the cardia. Pt has received blood transfusion 03/13 , 03/14 and 03/15 Patient has been struggling with diahrrea inability to eat weight loss etcetera for several weeks now. She was hospitalized with this back in January. However over the last several days apparently she is had recurrent diarrhea with black colored stool which turns out to be Hemoccult positive as expected in the emergency department. She is on Plavix for stroke risk reduction. Patient also with severe aortic stenosis not felt to be a candidate or desiring intervention. Also has coronary disease and chronic renal failure. Patient demonstrating increased difficulty w swallowing, with reports of coughing and globus with all intake, mitigated somewhat by patient instigated compensatory strategies of small bites/sips and altered texture diet (even down to mostly liquids per patient), however this, combined w diarrhea has contibuted to extreme weight loss, pt estimated at least 80 lbs in last 3-4 months. Reported by Patient/Caregiver Other Symptoms Choking,Coughing,Difficulty swallowing liquids,Difficulty swallowing pills,Difficulty swallowing solids,Food gets stuck,Weight loss Current Diet Regular (IDDSI 7) Baseline Feeding Method Independent in self-feeding Type of Patient Questionnaire (e.g., EAT PROMIS GDS: 29/74.1, -10, MDADI, etc.) indicative of severe swallow impairment. Pt verbalized Results Patient verbalized difficulty swallowing both liquids and solids, with noted reflexive cough on liquids, and globus sensation with solids, as well as difficulty swallowing pills, things feel like they get stuck. Patient also noted she doesn't like things in her mouth, when asked for clarification, pt stated that when she puts something in her mouth, she tries to swallow quickly, because she doesn't like it.. The IDDSI Framework Protocol: IDDSI.1 Objective Assessment Mental Status Alert Oral Integrity WFL Dentition Missing teeth Lip Function Within normal limits Observation of Lips at Rest Symmetrical Pucker Within normal limits Lip Retraction Within normal limits Alternating Pucker/Lip Retraction Reduced range of motion Tongue Function Within normal limits Observations of Tongue at Rest Within normal limits Tongue Protrusion Within normal limits Tongue Retraction Within normal limits Tongue Lateralization Within normal limits Jaw Function Within normal limits Observation of Jaw at Rest Within normal limits Jaw Opening Within normal limits Jaw Closing Within normal limits Hard/Soft Palate Function Within normal limits Observations of Hard/Soft Palate Within normal limits Nasality Within normal limits Respiratory Sufficiency Within normal limits Comment OME demonstrated all WFL, some confusion w request to push against inside of her cheeck with tongue, pt noted she is having trouble hearing w left ear, stated that her left ear turns off for 2-3 months of the year then comes back. It is unclear if she has hearing loss and confusion or yearly ear infections/allergies? 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 Pt stated this was not her primary concern at this time. Food and Liquid Trials Position During Assessment Upright (90 degrees) Liquids Trialed Thin (IDDSI 0) Solid Trials Purred (IDDSI 4),Easy to Chew (IDDSI 7) Administration Type Tea spoon,Cup single sip,Cup consecutive sips Oral Impairment Mildly impaired Oral Phase Comments Pt demonstrated mild difficulty w guageing cup tilt needed for a drink and apparent hesitancy for intake, slowed mastication, and poor AP transport, delayed swallow initiation, with reported globus sensations with puree and small bite of cracker. No cough response observed. Pharyngeal Impairment Within normal limits The IDDSI Framework Protocol: IDDSI.1 Findings Swallowing Function Oropharyngeal phase dysphagia Swallowing Function Comments oropharyngeal dysphagia suspected Severity of Swallow Impairment Mildly-moderately impaired Contributing Factors to Swallow Difficulty following Impairment directions,Delayed swallow initiation Comment Patient demonstrated mild/mod oropharyngeal dysphagia demonstrated by poor AP transit and delayed swallow, with reported globus sensation following solid intake. Patient will require an instrumental swallow study to fully assess physiology and anatomy of the swallow and to determine the appropriate diet and/or appropriately targeted rehabilitation exercises. Impact on Safety and Functioning Risk for aspiration,Risk for inadequate nutrition/hydration Recommendations Instrumental Assessment Yes Recommended Solids Minced & Moist (IDDSI 5) Recommended Liquids Thin (IDDSI 0) Safety Precautions/Swallowing Remain upright (90 degrees) Recommendations during all oral intake,Small bites and sips when eating Medication Recommendations As Tolerated Education Patient/Caregiver Education Patient expressed understanding of evaluation Goals Short-term Goals Patient will participate in a MBS (modified barium swallow study) with review for POC pending results
--- NOTE | 2023-03-15 14:06 | CM.DPC ---
DCP Cont. Reviewed chart for updates. Per hospitalist, pt to receive more blood today, continues medical instability. Plan is home w/Tosin on 03/16 pending orders and pt's status. Will continue to monitor.
--- NOTE | 2023-03-15 17:08 | ST.SWALLOW ---
Visit Care Team Role Provider Type Beau Alexandra MD Other Providers Physician Specialty: General Surgery Address: [address] [place] [address], [address], [place], [address] Email: [email or web address] Amanda Osei DO Emergency Provider Physician Referring Provider Specialty: Emergency Medicine Address: [address] [address], [address] Email: [email or web address] Elsi Welsh MD Attending Provider Physician Primary Care Provider Specialty: Internal Medicine Address: [address] [place] [address], [address], [place], [address] Email: [email or web address] Sathya Stein MD Admit Provider Physician Other Providers Specialty: Family Practice Address: [facility] [place], [address] Email: [email or web address] Modified Barium Swallow Study 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 Pt has received blood transfusion 03/13 , 03/14 and 03/15 Patient has been struggling with diahrrea inability to eat weight loss etcetera for several weeks now. She was hospitalized with this back in January. However over the last several days apparently she is had recurrent diarrhea with black colored stool which turns out to be Hemoccult positive as expected in the emergency department. She is on Plavix for stroke risk reduction. Patient also with severe aortic stenosis not felt to be a candidate or desiring intervention. Also has coronary disease and chronic renal failure. Patient demonstrating increased difficulty w swallowing, with reports of coughing and globus with all intake, mitigated somewhat by patient instigated compensatory strategies of small bites/sips and altered texture diet (even down to mostly liquids per patient), however this, combined w diarrhea has contibuted to extreme weight loss, pt estimated at least 80 lbs in last 3-4 months. Lateral View Textures Administered Trials Presented Thin Liquid via Spoon (IDDSI 0 ),Thin Liquid via Cup (IDDSI 0 ),Thin Liquid via Straw (IDDSI 0),Puree (IDDSI 4),Regular ( IDDSI 7) Barium Tablet Yes The IDDSI Framework Protocol: IDDSI.1 Oral Impairment Source: The Modified Barium Swallow Impairment Profile (MBSImP??) Lip Closure No labial escape Tongue Control During Bolus Hold Cohesive bolus between tongue to palatal seal Bolus Preparation/Mastication Slow prolonged chewing/mashing with complete re-collection Bolus Transport/Lingual Motion Delayed initiation of tongue motion Oral Residue Residue collection on oral structures Location Palate,Tongue Initiation of Pharyngeal Swallow Bolus head at pyriforms Additional Oral Impairment Observations bolus head in the pyriforms only noted with straw presentation, with no asp/pen noted. Pt demonstrated extreme reluctance for solid intake into the oral cavaity, initially taking a pinky nail sized bite of cracker and taking approx 30-[address] a larger bite in her mouth when a larger bite was requested. The barium paste was immediately pressed to the roof of the mouth and was unable to be dislodged with tongue sweeps, requiring multipe liquid washes to clear . Patient demonstrated increasingly longer timeframes to transport bolus to the back of the mouth as we moved from liquids to solids. Residue noted on back of tongue and soft palette after the swallows. Pharyngeal Impairment Source: The Modified Barium Swallow Impairment Profile (MBSImP??) Soft Palate Elevation Trace column of contrast between soft palate & pharyngeal wall Laryngeal Elevation Comp.sup.move.thyroid cart.w/ comp.approx.arytenoids to epiglot petiole Anterior Hyoid Excursion Complete anterior movement Epiglottic Movement Complete inversion Laryngeal Vestibular Closure Complete; no air/contrast in laryngeal vestibule Pharyngeal Stripping Wave Present - complete Pharyngoesophageal Segment Opening Complete distention & complete duration; no obstruction of flow Tongue Base Retraction Narrow column of contrast/air betwn tongue base & post. pharyngeal wall Pharyngeal Residue Trace residue within/on pharyngeal structures Location Pharyngeal wall A/P View The IDDSI Framework Protocol: IDDSI.1 Clinical Impressions Dysphagia Type Oral Findings While an instrumental is a snapshot in time and cannot rule out incidences of aspiration/penetration at home , given oral hesitancy with intake, combined with good oral strength and coordination , as well as no observed aspiration or penetration with any trials, reduced tongue based retraction and subsequent residue appears likely to be be related to swallow hesitancy d/t anxiety with intake related to recent GI concerns where intake has caused discomfort/pain, rather than a mechanical or neurological causation. Further ST does not appear appropriate at this time. Patient would benefit from further consult/evaluation of anxiety as this has impacted her oral intake and increased her risk for malnutrition/ dehydration. Patient Appropriate for Therapy No Recommendations Diet Liquids Order Thin (IDDSI 0) Diet Order Minced & Moist (IDDSI 5) Medication Recommendation As Tolerated Aspiration Precautions Recommended Precautions Upright at 90 Degrees,Small Bites/Sips Treatment Plan Recommended Referrals Other Additional Recommended Referrals Patient may benefit from consult to address anxiety. Therapy Strategy Recommendations Sitting Upright (90 deg),Small Bites and Sips
[2023-03-15] MEDS: LIPASE/PROTEASE/AMYLASE 5/17/24 CAP 3 CAP PO (17:35)
[2023-03-16] VITALS (14 sets, daily range): BP systolic 84–145; BP diastolic 43–64; PULSE 65–99; RESP 16–20; TEMP 35.8–37; O2SAT 93–100
--- NOTE | 2023-03-16 04:12 | PC.NURSE ---
Patient is alert and oriented except did not know day of month or year; although, knowing patient from [place], some of what she says is questionable. [place] but does not have hearing aids. Becomes weepy when discussing possibly needing to go to SNF for rehab and then states she will not go. Breath sounds are diminished at the bases but RA sat was 100%. HR irregular with murmur but rate is controlled. Denied nausea. BT present and is passing flatus; no stools so far this shift. Is incontinent of urine although did void when gotten up to BSC; has external catheter in place. Is able to turn herself in bed. Gets out of bed with walker and 1 assist although is mostly SBA to BSC. Has 1+ bilateral LE edema and complains of discomfort in legs when touched. Refusing SCD's because they increase her LE edema. Denied any abdominal pain tonight. Fall risk score is high and bed alarm is activated.
[2023-03-16] MEDS: PANTOPRAZOLE DR 40 MG TABLET PO (06:16)
[2023-03-16 06:42] LABS: Calcium 9.1 mg/dL (8.4-10.2); Carbon Dioxide 22 mmol/L (22-32); Chloride 109 mmol/L (98-107); Estimated Glomerular Filt Rate 42 mL/min (>60); Glucose 92 mg/dL (80-110); HEMOLYSIS < 15 (0-50); Potassium 4.2 mmol/L (3.4-5.1); Sodium 135 mmol/L (137-145)
[2023-03-16 06:47] LABS: Hematocrit 18.1 % (36-46); Hemoglobin 6.2 g/dL (12.0-16.0)
[2023-03-16 06:48] LABS: BUN Creatinine Ratio 91.4 (6-22)
[2023-03-16 06:50] LABS: Blood Urea Nitrogen 117 mg/dL (7-17)
--- NOTE | 2023-03-16 07:58 | P.PN_ITS ---
Subjective Subjective Date Patient Seen: 03/16/23 Time Patient Seen: 07:58 Interval history: Patient with no new complaints this morning. Still has intermittent pelvic pain Seen by speech therapy yesterday who really could not find much of anything wrong with her swallowing mechanism. She seem to be highly anxious about difficulty swallowing that did not prove to be true. Speech therapy actually signed off given lack of findings on examination including modified barium swallow This morning her hemoglobin hematocrit have dropped rather dramatically. BUN remains quite elevated. All this together is consistent with ongoing GI bleed presumably upper GI, although we have not seen output from below to suggest large volume. I also wonder about some element of intravascular hemolysis given the transfusions etcetera. Exam Vital Signs (past 8 hours): - 03/16/23 00:08 03/16/23 02:00 03/16/23 04:43 Temperature 98.1 F 97.3 F L Pulse Rate 89 83 Respiratory Rate 16 16 Blood Pressure 114/55 L 139/61 Pulse Oximetry 100 99 Oxygen Delivery Method Room Air Oxygen Flow Rate 0 0 Oxygen Delivery Method Room Air Oxygen Flow Rate 0 Objective Labs 03/16/23 05:55 03/16/23 05:55 Labs: Laboratory Results - last 24 hr 03/15/23 03/16/23 03/16/23 06:00 05:55 05:55 Hgb 6.2 L* Hct 18.1 L* Sodium 135 L Potassium 4.2 Chloride 109 H Carbon Dioxide 22 BUN 117 H* Creatinine 1.28 H Estimated GFR 42 L BUN/Creatinine Ratio 91.4 H Glucose 92 Calcium 9.1 Blood Type O Positive Antibody Screen Negative Crossmatch See Detail [facility] Medical History Aortic stenosis Chronic back pain Chronic renal failure, stage 3 (moderate) (11/29/16) Coronary artery disease Essential hypertension H/O: gout Hammertoe of right foot History of stroke (05/2014) Hypercalcemia Peripheral edema (01/10/17) Unspecified asthma, uncomplicated Urinary incontinence (07/24/15) Social History marital status: number of children: 3 household members: none lives independently: Yes caregiver/support person: No housing: house pets and animals: Yes education level: master's degree occupational status: other current occupational exposures/hazards: No 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 Upper GI bleed-evidence of ongoing bleeding based on her elevated BUN combined with her inability to keep hemoglobin and hematocrit stable and dropping hemoglobin hematocrit. I am going to transfuse her 3 units of packed red cells today with Lasix and do this slowly and cautiously. I think if any thing she is a bit volume depleted despite her edema etcetera. May need additional Lasix but will monitor carefully 2. Anemia-acute on chronic including acute blood loss as well as her probable anemia of chronic disease. She is going to get 3 units as above. I also begin to wonder about intravascular hemolysis with the recent blood transfusions etcetera. I have added some additional labs to look into that possibility. 3. Acute kidney injury-kidney function appears to be normal. Elevated BUN more likely than not related to ongoing gastrointestinal bleeding and or intravascular hemolysis. 4. Swallowing difficulty-patient not found to have any significant difficulties with her swallow function by speech therapy. Will try and work on anxiety and encouragement for patient. 5. Diarrhea-no diarrhea at this point. Bit surprising especially if upper GI bleeding his ongoing, there should be a blood based catharsis which were not seeing. Again I think CT scan will be helpful. 6. Disposition-patient would certainly benefit from assisted placement, does hear me when I tell her that I do not think she is safe to go home and that she would greatly benefit from assisted placement. She is not as adamant for me this morning as she has been I guess over the weekend that this not happen. She is not pleased at all about this concept and will see how the next couple of days goes since she needs some continued medical management for her medical problems as above is not yet ready for discharge 7. Lower abdominal pain-plain film imaging was normal yesterday. Going to go ahead and order repeat CT scan of abdomen and pelvis which was last done about 2 months ago. I am concerned that we have not found all of the diagnoses present in this particular individual. 8. Anxiety-patient does have a high level of anxiety. I would really failed to appreciate that degree with which she is affected by this. I am going to go ahead and therefore add some low-dose clonazepam see if we can lower her level of anxiety without undue side effect from the long-acting benzodiazepine. Biggest risk would be sedation but will monitor carefully and she is in a hospital setting I think this is a good time to initiate this therapy
[2023-03-16 08:06] LABS: Lactate Dehydrogenase 159 U/L (120-246)
[2023-03-16 08:07] LABS: Alanine Aminotransferase 14 IU/L (<35); Albumin 2.1 g/dL (3.5-5.0); Albumin Globulin Ratio 1.3 (1.0-2.8); Alkaline Phosphatase 33 U/L (38-126); Aspartate Aminotransferase 18 IU/L (14-36); Bilirubin Total 0.2 mg/dL (0.2-1.3); Bilirubin Unconjugated 0.2 mg/dL (0.0-1.1); Globulin 1.6 g/dL (1.7-4.1); HEMOLYSIS < 15 (0-50); Total Protein 3.7 g/dL (6.3-8.2)
--- NOTE | 2023-03-16 08:16 | DI.CT.S_ITS ---
PROCEDURE: CT ABDOMEN PELVIS W CON INDICATIONS: pelvic pain/gastric ulcer TECHNIQUE: After the administration of oral and IV contrast, axial sections were acquired from the lung bases to the pubic symphysis. Coronal and sagittal reformats were performed. For radiation dose reduction, the following was used: automated exposure control, adjustment of mA and/or kV according to patient size. COMPARISON: [facility], CT, CT ABDOMEN PELVIS WO [facility], 01/20/2023, 18:51. FINDINGS: Image quality: Excellent. Lung bases: Small infiltrate versus atelectasis in posterior aspect of left lung base is seen. Scattered atelectasis in posterior and lateral periphery of right lung base is also noted. Heart: Heart size is enlarged, no pericardial effusion. Moderate atherosclerotic calcifications are seen. ABDOMEN: Liver: Unremarkable. Gallbladder: Multiple stones are seen in dependent portion of gallbladder lumen. No gallbladder wall thickening or pericholecystic fluid. Biliary ducts: No significant biliary ductal dilatation. Pancreas: Unremarkable. Spleen: Unremarkable. Adrenal Glands: Unremarkable. Kidneys and Ureters: 3 mm nonobstructing stone in mid to lower pole right kidney is again seen. Suggestion of bilateral renal cysts are noted. There is a 1.8 x 1.7 cm exophytic and slightly hyperdense structure involving posterior lateral cortex of midpole right kidney series 2, image 38. 6 mm hyperdense nodule is noted involving lower pole of left kidney series 2, image 40 complex appearing cystic structure in anterior cortex of midpole left kidney is also seen series 2 image 39 and measures 1.9 x 1.9 cm in size. No hydronephrosis or hydroureter. Stomach and Bowel: There is no bowel obstruction. Distal gastric wall thickening and proximal duodenal wall thickening is seen with narrowing of the lumen and wall edema likely related to patient's known peptic ulcer disease. No other bowel wall thickening or mesenteric fat stranding is seen. No abscess collection. Peritoneum: No abnormal intraperitoneal fluid. No free air. Ventral Wall: No hernia. Abdominal Nodes: No retroperitoneal or mesenteric adenopathy by size criteria. Vessels: Aorta and inferior vena cava are normal in size. Moderate atherosclerotic calcifications are noted in abdominal aorta. PELVIS: Pelvic Organs: Unremarkable. Bladder: Previously noted wall thickening and calcification involving right anterior lateral urinary bladder is again seen unchanged from prior study. No discrete bladder wall mass. Pelvic Nodes: No enlarged lymph nodes. Miscellaneous: No inguinal hernias are seen. Bones: No suspicious bony lesions. Degenerative disc disease throughout lower thoracic and lumbar spine is seen. IMPRESSION: 1. Distal gastric wall and proximal duodenal wall thickening in right upper quadrant abdomen suggestive of gastroenteritis secondary to patient's known peptic ulcer disease. No other area of abnormal bowel wall thickening. No bowel obstruction. No free fluid or free air. 2. Bilateral renal cysts and multiple hyperdense areas in bilateral kidneys as above which could represent hyperdense cyst. Solid mass such as renal cell carcinoma cannot be excluded. Dedicated renal ultrasound or MRI of abdomen can be done for further evaluation of bilateral kidneys. 3. Nonobstructing stone in midpole right kidney. No hydronephrosis or hydroureter. Stable focal area of wall thickening and calcification in right anterior bladder wall. No discrete bladder wall mass. 4. Cholelithiasis without evidence of acute cholecystitis. Dictated by: Mathew Patino M.D. on 03/16/2023 at 10:48 Approved by: Mathew Patino M.D. on 03/16/2023 at 11:00
[2023-03-16] MEDS: PANTOPRAZOLE 40 MG VIAL IV ×3 (09:03→21:19)
[2023-03-16] MEDS: LIPASE/PROTEASE/AMYLASE 5/17/24 CAP 3 CAP PO ×2 (09:04→16:35)
[2023-03-16] MEDS: clonazePAM 0.5 MG TABLET PO ×2 (09:04→21:18)
[2023-03-16] MEDS: FUROSEMIDE 20 MG/2 ML VIAL IV ×2 (09:04→21:04)
[2023-03-16] MEDS: SODIUM CHLORIDE 0.9% FLUSH 10 ML IV ×3 (09:05→21:19)
[2023-03-16] MEDS: ISOSORBIDE MONONITRATE ER 30 MG TABLET 60 MG PO (09:07)
[2023-03-16] MEDS: METOPROLOL IR 50 MG TABLET PO (09:07)
[2023-03-16] MEDS: diphenhydrAMINE 50 MG/ML VIAL IV (09:49)
--- NOTE | 2023-03-16 09:57 | PC.NURSE ---
Day shift: Pt given 50mg IV Benadryl now (Per Dr Reddy) and she is on her way to CT at 1000.
--- NOTE | 2023-03-16 11:24 | PT-IP ANOTE ---
Per nursing pt is not appropriate for PT today due to low H&H and is receiving 4-5 units of blood. PT will check back in tomorrow.
--- NOTE | 2023-03-16 11:48 | CM.DPC ---
DCP Cont. Reviewed chart and team rounds for pt status. Pt continues to have acutely H&H, plan is for a total of 5-blood transfusions today. This GREY GOODS TESTER called Tosin KIRKLAND to update, she would like a new F/F if pt does discharge back home w/HH. At this point, the CT did show a large renal mass. More evaluation is being planned for today, although pt states that she does not want any surgical or invasive interventions done. GREY [employer] TESTER consulted w/pt's RN. More clarity is needed in terms of pt's' goals of care moving forward, and if the goals should remain aggressive treatment or palliative focused. Pt is not safe to return home without 24-hour care, and continues to decline overall. GREY [employer] TESTER will initiate a SNF referral in case she does end up needing skilled care rehab vs. SNIF with hospice services. Will continue to monitor. Called December at [facility]. She will review the chart for acceptance and call this GREY [employer] TESTER back later.
--- NOTE | 2023-03-16 12:59 | PC.NURSE ---
Day shift: Pt sleeping now with no s/s of pain or discomfort. Tolerating blood transfusion. VS remain WNL. RA 98%. Door to room open for line of site.
--- NOTE | 2023-03-16 15:45 | PC.NURSE ---
Day shift: Dr Welsh contacted by phone regarding IV lasix after blood administration. IV lasix after the 2nd unit today per Dr Welsh. Will await this new order.
--- NOTE | 2023-03-16 16:44 | PC.NURSE ---
Day shift: Gave late afternoon meds in applesauce carrier and Pt tolerated well. Offered clear Ensure and she states that she does not like ENsure.
[2023-03-16] MEDS: SUCRALFATE 1 GM/10 ML ORAL SUSP PO (21:19)
--- NOTE | 2023-03-16 21:29 | TAR.TRANSNT ---
vital signs were already recorded and [facility] kept giving message that they had not been recorded.
[2023-03-17] VITALS (10 sets, daily range): BP systolic 105–156; BP diastolic 50–70; PULSE 58–104; RESP 16–20; TEMP 36–36.9; O2SAT 96–100
--- NOTE | 2023-03-17 02:48 | PC.NURSE ---
Patient is mostly alert and oriented. Verified with son, mickey, that some of conversation with patient last night was not actually accurate with what she had related to this RN. Is [place] and has no hearing aids. Breath sounds remain diminished at bases but CTA with RA sat of 99%; denies SOB. HRR w/murmur. Denies nausea. BT present and abdomen is soft; has had no stools since Tuesday but is passing flatus. Using external catheter as patient can be incontinent of urine. Is able to move herself in bed. Requires walker and 1 assist when up to BSC. Continues to have 1+ bilateral LE edema. Received 3 units total of PRBC with last unit started/infused on this shift. Patient still pale but color improved and seems to have more energy. VSS. Declines use of SCD's as causes bilateral LE to hurt. Denies other pain. Fall risk score is high and bed alarm is activated.
[2023-03-17 06:01] LABS: Haptoglobin 179 mg/dL (41-333)
[2023-03-17 06:17] LABS: Alanine Aminotransferase 15 IU/L (<35); Albumin 2.1 g/dL (3.5-5.0); Albumin Globulin Ratio 1.2 (1.0-2.8); Alkaline Phosphatase 33 U/L (38-126); Aspartate Aminotransferase 20 IU/L (14-36); Bilirubin Total 0.5 mg/dL (0.2-1.3); Calcium 8.9 mg/dL (8.4-10.2); Carbon Dioxide 22 mmol/L (22-32); Chloride 110 mmol/L (98-107); Estimated Glomerular Filt Rate 35 mL/min (>60); Globulin 1.7 g/dL (1.7-4.1); Glucose 86 mg/dL (80-110); HEMOLYSIS < 15 (0-50); Potassium 3.4 mmol/L (3.4-5.1); Sodium 137 mmol/L (137-145); Total Protein 3.8 g/dL (6.3-8.2)
[2023-03-17 06:23] LABS: Hematocrit 29.1 % (36-46); Hemoglobin 10.2 g/dL (12.0-16.0)
[2023-03-17 06:24] LABS: BUN Creatinine Ratio 80.4 (6-22)
[2023-03-17 06:29] LABS: Blood Urea Nitrogen 119 mg/dL (7-17)
--- NOTE | 2023-03-17 07:13 | P.PN_ITS ---
Subjective Subjective Date Patient Seen: 03/17/23 Time Patient Seen: 07:13 Interval history: Patient is sitting up in bed. She is smiling as I enter the room and looks to be feeling much better. She says she does indeed feel much better. She is drinking successfully without any difficulty a bit hesitant about eating anymore Was not up with physical therapy yesterday in the midst of all the blood transfusions CT scan done yesterday was pretty much unremarkable. Bilateral cysts on the kidneys including 1 that was poorly characterized probably a hyperdense cyst was again seen as was seen 2 months prior in January Hemoglobin hematocrit much better. Electrolytes renal function stable. BUN still quite elevated but slightly diminished Exam Vital Signs (past 8 hours): - 03/17/23 00:00 03/17/23 00:39 03/17/23 00:39 Temperature 97.3 F L 97.2 F L 97.2 F L Pulse Rate 91 H 90 90 Respiratory Rate 20 20 20 Blood Pressure 126/61 128/50 L 128/50 L Pulse Oximetry 97 97 Oxygen Flow Rate 0 0 03/17/23 04:10 Temperature 96.8 F L Pulse Rate 90 Respiratory Rate 16 Blood Pressure 134/66 Pulse Oximetry 97 Oxygen Flow Rate 0 Oxygen Delivery Method Room Air Oxygen Flow Rate 0 Objective Labs 03/17/23 05:20 03/17/23 05:20 Labs: Laboratory Results - last 24 hr 03/15/23 03/16/23 03/16/23 06:00 05:55 05:55 Hgb Hct Haptoglobin 179 Sodium Potassium Chloride Carbon Dioxide BUN Creatinine Estimated GFR BUN/Creatinine Ratio Glucose Calcium Total Bilirubin 0.2 Conjugated Bilirubin 0.0 Unconjugated Bilirubin 0.2 AST 18 ALT 14 Alkaline Phosphatase 33 L Lactate Dehydrogenase Total Protein 3.7 L Albumin 2.1 L Globulin 1.6 L Albumin/Globulin Ratio 1.3 Blood Type O Positive Antibody Screen Negative Crossmatch See Detail 03/16/23 03/17/23 03/17/23 05:55 05:20 05:20 Hgb 10.2 L Hct 29.1 L Haptoglobin Sodium 137 Potassium 3.4 Chloride 110 H Carbon Dioxide 22 BUN 119 H* Creatinine 1.48 H Estimated GFR 35 L BUN/Creatinine Ratio 80.4 H Glucose 86 Calcium 8.9 Total Bilirubin 0.5 Conjugated Bilirubin Unconjugated Bilirubin AST 20 ALT 15 Alkaline Phosphatase 33 L Lactate Dehydrogenase 159 Total Protein 3.8 L Albumin 2.1 L Globulin 1.7 Albumin/Globulin Ratio 1.2 Blood Type Antibody Screen Crossmatch COUNT INCLUDES THE [facility] Medical History Aortic stenosis Chronic back pain Chronic renal failure, stage 3 (moderate) (11/29/16) Coronary artery disease Essential hypertension H/O: gout Hammertoe of right foot History of stroke (05/2014) Hypercalcemia Peripheral edema (01/10/17) Unspecified asthma, uncomplicated Urinary incontinence (07/24/15) Social History marital status: number of children: 3 household members: none lives independently: Yes caregiver/support person: No housing: house pets and animals: Yes education level: master's degree occupational status: other current occupational exposures/hazards: No 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 Upper GI bleed-hopefully she stopped bleeding at this point. Plan to trend her hemoglobin hematocrit. Elevated BUN consistent with her upper GI bleed. Continue with parental proton pump inhibitor and sucralfate. No evidence of large volume bleeding at this time 2. Anemia-numbers are improved as of this morning. Will trend her numbers over time. Hopefully again they will stay improved with no evidence of active bleeding. There is no clinical evidence of massive upper GI bleeding 3. Acute kidney injury-appears to have resolved. Findings on CT will be followed up with renal ultrasound but do not expect there to be any serious finding 4. Swallowing difficulty-patient not found to have any significant difficulties with her swallow function by speech therapy. Will try and work on anxiety and encouragement for patient. She seems better this morning. 5. Diarrhea-very limited oral intake. Hopefully she can increase her oral intake and will follow her for increased diarrhea etcetera 6. Disposition-difficult to ascertain as to where exactly patient would best be served upon discharge since she is not been up with physical therapy in the last day or 2. Plan to get her up today and use that as a benchmark for next steps for her after hospitalization 7. Lower abdominal pain-no clear etiology. I wonder if there is some degree of cramping from the blood that must surely be going through. No reason to make any changes based on symptoms or lack of findings on CT etcetera. 8. Anxiety-patient does have a high level of anxiety. Thus far she is not had any negative reaction to the clonazepam. Continue that for now as well. Overall patient seems to be improved blood count certainly is improved vital signs were bit down yesterday the some modest hypotension but is much better and more normal this morning. She needs to be up with physical therapy and then I can better assess whether she will be safe to go home with home health services or whether she will need jail placement. She is I think just barely open to jail placement if I think that is necessary.
[2023-03-17] MEDS: LIPASE/PROTEASE/AMYLASE 5/17/24 CAP 3 CAP PO ×3 (08:06→16:36)
[2023-03-17] MEDS: SUCRALFATE 1 GM/10 ML ORAL SUSP PO ×4 (08:06→20:33)
--- NOTE | 2023-03-17 08:11 | DI.US.S_ITS ---
PROCEDURE: US RENAL COMPLETE INDICATIONS: abnl CT TECHNIQUE: Real-time scanning was performed of the kidneys and bladder, with image documentation. COMPARISON: [facility], CT, CT ABDOMEN PELVIS W CON, 03/16/2023, 10:10. FINDINGS: Kidneys: Lobular heterogeneous kidneys with multiple areas of scarring. Left kidney measures 8 cm. Right kidney measures 7 cm. Right: There are multiple suspected cysts, measuring up to 1.9 cm on the right with internal septations. There is suspected small nonobstructing stones measuring up to 5 mm. Left: Multiple simple and mildly complex cysts, with septations, measuring up to 1.5 x 1.3 cm and 1.2 x 0.8 cm. There may be small calcifications. No hydronephrosis. Bladder: Prevoid volume is 225 cc. Miscellaneous: Overall evaluation is limited due to bowel gas and adjacent ribs. IMPRESSION: Multiple bilateral cysts, some which with small complexity/septations and calcifications. However, sonographic evaluation is limited. The kidneys are not fully evaluated. Recommend follow up nonemergent renal protocol MRI. Dictated by: Reynaldo Mart M.D. on 03/17/2023 at 11:49 Approved by: Reynaldo Mart M.D. on 03/17/2023 at 11:54
[2023-03-17] MEDS: PANTOPRAZOLE 40 MG VIAL IV ×2 (09:51→20:33)
[2023-03-17] MEDS: ISOSORBIDE MONONITRATE ER 30 MG TABLET 60 MG PO (09:51)
[2023-03-17] MEDS: clonazePAM 0.5 MG TABLET PO ×2 (09:51→20:33)
[2023-03-17] MEDS: SODIUM CHLORIDE 0.9% FLUSH 10 ML IV ×2 (09:51→22:51)
--- NOTE | 2023-03-17 10:15 | PT.IPTN ---
Current Diagnoses Gastrointestinal hemorrhage, unspecified (03/10/23) Surgery Performed Operation Date: 03/11/23 16:45 Actual Procedures p Esophagogastroduodenoscopy with biopsy - Bassam Bui MD Physical Therapy Treatment Note M2 PT-IP Current Condition Start: 03/12/23 16:11 Freq: NEEDED Status: Active Protocol: Document 03/13/23 09:18 DLM (Rec: 03/13/23 10:50 DLM [id number]) Physical Therapy Current Condition Current Condition Evaluation Date 03/13/23 Treatment Diagnosis GI bleed, difficulty swallowing, weakness with impaired mobility Onset Date 03/10/23 M3 PT-IP Subjective Start: 03/12/23 16:11 Freq: NEEDED Status: Active Protocol: Document 03/17/23 11:07 TS (Rec: 03/17/23 11:33 TS [id number]) Subjective Physical Therapy Visit Type Type Treatment Note Visit Start Time 10:15 Visit Stop Time 11:00 Total Visit Minutes 45 Notes Pt had blood transfusion yesterday, was cleared for PT. Number of SERVICING MANAGER Visits 2 Physical Therapy Visit Comments Patient Comments Pt found resting in bed, reports feeling weak with mobility, is agreeable to PT. Therapy Pain Assessment Pain When Pain Assessed During Mobility Pain Present Pain Present Denied Pain M4 PT-IP Mobility and Gait Start: 03/12/23 16:11 Freq: NEEDED Status: Active Protocol: Document 03/17/23 11:07 TS (Rec: 03/17/23 11:33 TS [id number]) PT-Bed Mobility Assessment Supine to Sit Supine to Sit Minimal Assistance Sit to Supine Sit to Supine Moderate Assistance Scooting Scooting to Edge of Bed Standby Assistance Scooting Up and Down in Bed Maximum Assistance PT-Transfer Assessment Sit to and From Stand Sit to and from Stand Contact Guard Assistance, Minimal Assistance,Use of Upper Extremities Equipment Transfer Assistive Device Gait Belt,Front Wheeled Walker Comments Mobility Comments Pt found resting in bed, agreeable to PT. BP checked prior to mobility 132/53. Supine to sit Jacques for uprighting trunk, cued pt for handrail assist with RUE. Sit to stand CGA with FWW, pt is slow to stand, pt reports feeling weak. She ambulated ~ 10'CGA/Jacques, required some assistance turning FWW, pt has some difficulty stepping with RLE pt statesi can't move it , pt requested to rest on bed . Pt sat EOB, reported seeing stars , denied any dizziness or lightheadedness . Sit to stand Jacques w/FWW, pt ambulated another x10' with increased difficulty moving RLE, c/o feeling weak, continued to require assistance turning with FWW. Sit to supine ModA for LEs into bed, pt laterally scooted SBA with some cueing. Pt was left back inbed with call light nearby, all needs met. Gait Assessment Gait Gait Assistance Required: Contact Guard Assist,Minimum Assistance Distance (Feet) 20 Assistive Devices Assistive Device Gait Belt,Front Wheeled Walker Gait Deviations General Gait Pattern Decreased Stride Length,Flexed Trunk Factors Limiting Gait Function Factors Limiting Gait Function Decreased Activity Tolerance, Poor Balance,Respiratory Distress Comments Gait Comments Pt is having increased weakness with lower activity tolerance with gait. See mobility comments. Stair Climbing Assessment Comments Stair Climbing Comments does not have to do stairs at home, has chair lift PT-Balance Assessment Sitting Balance and Reactions Static Sitting Balance Ability Good Dynamic Sitting Balance Ability Good Standing Balance and Reactions Static Standing Balance Ability Fair Dynamic Standing Balance Ability Fair Device Used FWW M5 PT-IP Objective Assessments Start: 03/12/23 16:11 Freq: NEEDED Status: Active Protocol: Document 03/13/23 09:18 DLM (Rec: 03/13/23 10:50 DLM [id number]) Orientation Orientation/Cognition Level of Alertness Alert Orientation Name,Age,Birthday,Month,Date, Year,Day of Week,Place, Situation Language Function Ability Hard of Hearing Safety Awareness Understands Safety Issues Memory Description No Deficits Noted Comments chart has hx of expressive aphasia but none identified at this time Pt reads lips to help manage Hearing impairment. She has her glasses on and no changes in vision reported this admit. Gross Range of Motion Upper Extremity ROM Assessment Bilaterally Impaired Impairments shoulder elevation to 90 degrees Lower Extremity ROM Assessment Within Functional Limits Strength Upper Extremity Strength Assessment Within Functional Limits Lower Extremity Strength Assessment Bilaterally Impaired Hip hip flex right 3-/5, left 3+/5 Knee ext right 4-/5, left 4/5 Ankle DF right 4-/5, left 4+/5 Comments Strength Comments feet are tender to touch Coordination Assessment Gross Coordination Gross Coordination WNL Sensation Assessment Sensation Gross Sensation Right LE Impaired,Left LE Impaired Sensation Description Pain Comments Sensation Comments pain bilateral feet which is baseline, pt thinks it is related gout Muscle Tone Muscle Tone WNL Yes M6 PT-IP Treatment Start: 03/12/23 16:11 Freq: NEEDED Status: Active Protocol: Document 03/17/23 11:07 TS (Rec: 03/17/23 11:33 TS [id number]) Physical Therapy Treatment Education Education Provided Safety M7 PT-IP Assessment and Plan Start: 03/12/23 16:11 Freq: NEEDED Status: Active Protocol: Document 03/17/23 11:07 TS (Rec: 03/17/23 11:33 TS [id number]) PT Summary Assessment and Plan Potential Rehabilitation Potential Fair Summary Impairments Pain,ROM,Strength,Balance,Bed Mobility,Transfers,Gait, Activity Tolerance Progress Towards Goals Slow Progress due to Medical Issues,Slow Progress due to Activity Tolerance Assessment Summary Sarah is making slow progress with her mobility this session. She is Jacques for sitting up to EOB and requires ModA for LEs into bed. She peformed sit to stand x2 w/FWW CGA/Jacques due to weakness. She ambulated very short distances in room 2x10' w/FWW requiring seated rest break in between. Pt reports increased weakness with gait today and required Jacques for turning with FWW and difficulty stepping with RLE. PT continues to recommend Home 24/7 assist w/ HH vs SNF. Pt would like to return home but understands she may not be safe to do so. Goals Bed Mobility Goal Independent Transfer Goal Independent,Front Wheeled Walker Gait Goal Independent,Front Wheel Walker Gait Distance 100 feet Days to Meet Goals 7 Frequency of Treatment Frequency Of Treatment Once a Day Treatment Plan Physical Therapy Treatment Plan Bed Mobility Training,Transfer Training,Gait Training, Therapeutic Exercise,Balance Retraining,Discharge Planning, Neuromuscular Re-ed Precautions Other Precautions fall risk, swallowing difficulties with eating, [place] and reads lips, low H&H Recommendations To Nursing Amount of Assist Needed 1 Person Assist Discharge Recommendations PT Discharge Recommendations Home with 24/7 Assist Available,Home Health,SNF Rehab Other Discharge Recommendations Up in chair for meals Transportation Needs at Discharge Private Vehicle,Wheelchair/ Cabulance
[2023-03-17] MEDS: OXYCODONE IR 5 MG TABLET PO (20:33)
[2023-03-18] VITALS (7 sets, daily range): BP systolic 112–135; BP diastolic 50–62; PULSE 83–97; RESP 17–20; TEMP 36.1–36.7; O2SAT 95–100
[2023-03-18 06:02] LABS: Hematocrit 22.4 % (36-46); Hemoglobin 7.7 g/dL (12.0-16.0)
[2023-03-18 06:12] LABS: BUN Creatinine Ratio 78.2 (6-22); Calcium 8.8 mg/dL (8.4-10.2); Carbon Dioxide 23 mmol/L (22-32); Chloride 109 mmol/L (98-107); Estimated Glomerular Filt Rate 35 mL/min (>60); Glucose 94 mg/dL (80-110); HEMOLYSIS < 15 (0-50); Potassium 3.1 mmol/L (3.4-5.1); Sodium 136 mmol/L (137-145)
[2023-03-18 06:17] LABS: Blood Urea Nitrogen 115 mg/dL (7-17)
--- NOTE | 2023-03-18 07:24 | PM.PN.1 ---
Subjective Subjective Date Patient Seen: 03/18/23 Time Patient Seen: 07:24 Interval history: Patient was up with physical therapy yesterday although in a very limited fashion. Quickly became fatigued and did not have a lot of strength. Even she was surprised how weak she is She is not had a bowel movement now for at least 2 days probably closer to 3 days. Still with the lower abdominal crampy sensation. No upper abdominal symptoms although she says when she eats she gets full very very quickly. She ate about half of her breakfast yesterday and then very limited amount after that through the rest of the day No chest pain no syncope near-syncope. Vital signs have been okay. Exam Vital Signs (past 8 hours): - 03/17/23 23:56 03/18/23 03:24 Temperature 97.4 F L 98.0 F Pulse Rate 96 H 93 H Respiratory Rate 20 20 Blood Pressure 137/68 135/61 Pulse Oximetry 99 97 Oxygen Flow Rate 0 0 Oxygen Delivery Method Room Air Oxygen Flow Rate 0 Objective Labs 03/18/23 05:26 03/18/23 05:26 Labs: Laboratory Results - last 24 hr 03/18/23 03/18/23 05:26 05:26 Hgb 7.7 L Hct 22.4 L Sodium 136 L Potassium 3.1 L Chloride 109 H Carbon Dioxide 23 BUN 115 H* Creatinine 1.47 H Estimated GFR 35 L BUN/Creatinine Ratio 78.2 H Glucose 94 Calcium 8.8 PFSH Medical History Aortic stenosis Chronic back pain Chronic renal failure, stage 3 (moderate) (11/29/16) Coronary artery disease Essential hypertension H/O: gout Hammertoe of right foot History of stroke (05/2014) Hypercalcemia Peripheral edema (01/10/17) Unspecified asthma, uncomplicated Urinary incontinence (07/24/15) Social History marital status: number of children: 3 household members: none lives independently: Yes caregiver/support person: No housing: house pets and animals: Yes education level: master's degree occupational status: other current occupational exposures/hazards: No 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 Upper GI bleed-patient shows outward evidence of ongoing bleeding with hemoglobin hematocrit refusing to remained stable as well as persistently elevated BUN all of which is consistent with ongoing GI bleed of an upper source which is what we found on upper endoscopy. However there has been no large stool output. I have to believe therefore that the volume of ongoing bleeding is really not that great and there may well be some degree of fluid shifting ongoing, especially with the bounce in hemoglobin and hematocrit after transfusion on Tuesday with numbers being a bit higher than I would have expected, and then this morning's numbers being a bit lower than I would have expected. Continue with IV proton pump inhibitor plus oral sucralfate. Patient a poor candidate and has no desires for any further intervention certainly no surgery or anything like that. 2. Anemia-numbers this morning are back down somewhat. I believe there is some element of a delusional factor here. As above there maybe some ongoing bleeding but certainly does not appear to be large volume based on other clinical factors. Continue to monitor I am choosing not to transfuse her this morning. 3. Acute kidney injury-resolved 4. Swallowing difficulty-somewhat improved yesterday. Maybe due to clonazepam. Continue clonazepam. No actual mechanical swallowing difficulty identified with speech therapy 5. Hypokalemia-a bit surprising given the large number transfusions patient has required. Will give her IV potassium given her difficulty with oral intake and recheck numbers tomorrow. 6. Peripheral edema-I do think patient would benefit from ongoing low-dose furosemide and perhaps some of the delusional factor were seeing with her hemoglobin and hematocrit relate to volume overload status. Will continue with low-dose furosemide orally. 7. Lower abdominal pain-again no clear etiology. Would have thought perhaps that was a buildup of digested blood products from ongoing upper GI bleed but there really has not been evidence of any output to confirm that. CT scan was remarkably unremarkable in this regard. Continue to monitor for now. 8. Anxiety-patient with a high degree of anxiety seems to be tolerating clonazepam. Anxiety maybe related to just her general debilitated state 9. Aortic stenosis-patient somewhat labile with blood pressures etcetera as expected with severe aortic stenosis. I am surprised the echo did not demonstrate more critical aortic stenosis her clinical picture would be more consistent with that. Continue with some low-dose oral diuretic therapy and monitor her numbers. She will remain off of her beta-baudilio for now. 10. Disposition-I find it difficult to see if it is situation where patient would be appropriate for discharge back home however she is quite resistant to going to correction. Continue to work with physical therapy and I will continue to work with patient's strongly suggest that alternative to returning home would be in her best interest.
[2023-03-18] MEDS: POTASSIUM CHLORIDE IN WATER 10 MEQ/100 ML PIGGYBACK 100 MEQ IV ×6 (08:02→13:21)
[2023-03-18] MEDS: SUCRALFATE 1 GM/10 ML ORAL SUSP PO ×4 (08:02→20:19)
[2023-03-18] MEDS: LIPASE/PROTEASE/AMYLASE 5/17/24 CAP 3 CAP PO ×3 (08:02→16:54)
[2023-03-18] MEDS: FUROSEMIDE 20 MG TABLET PO (09:04)
[2023-03-18] MEDS: ISOSORBIDE MONONITRATE ER 30 MG TABLET PO (09:04)
[2023-03-18] MEDS: PANTOPRAZOLE 40 MG VIAL IV ×2 (09:04→20:18)
[2023-03-18] MEDS: SODIUM CHLORIDE 0.9% FLUSH 10 ML IV ×2 (09:05→20:19)
[2023-03-18] MEDS: clonazePAM 0.5 MG TABLET PO ×2 (09:05→20:19)
--- NOTE | 2023-03-18 10:06 | PT.IPTN ---
Current Diagnoses Gastrointestinal hemorrhage, unspecified (03/10/23) Surgery Performed Operation Date: 03/11/23 16:45 Actual Procedures p Esophagogastroduodenoscopy with biopsy - Bassam Bui MD Physical Therapy Treatment Note M2 PT-IP Current Condition Start: 03/12/23 16:11 Freq: NEEDED Status: Active Protocol: Document 03/13/23 09:18 DLM (Rec: 03/13/23 10:50 DLM [id number]) Physical Therapy Current Condition Current Condition Evaluation Date 03/13/23 Treatment Diagnosis GI bleed, difficulty swallowing, weakness with impaired mobility Onset Date 03/10/23 M3 PT-IP Subjective Start: 03/12/23 16:11 Freq: NEEDED Status: Active Protocol: Document 03/18/23 10:48 TS (Rec: 03/18/23 11:06 TS [id number]) Subjective Physical Therapy Visit Type Type Treatment Note Visit Start Time 10:06 Visit Stop Time 10:41 Total Visit Minutes 35 Notes BP 128/57 supine Number of [employer] Visits 3 Physical Therapy Visit Comments Patient Comments Pt found resting in bed, feeling tired and weak but is agreeable to PT. M4 PT-IP Mobility and Gait Start: 03/12/23 16:11 Freq: NEEDED Status: Active Protocol: Document 03/18/23 10:48 TS (Rec: 03/18/23 11:06 TS [id number]) PT-Bed Mobility Assessment Supine to Sit Supine to Sit Minimal Assistance,Moderate Assistance Sit to Supine Sit to Supine Moderate Assistance Scooting Scooting to Edge of Bed Minimal Assistance Scooting Up and Down in Bed Maximum Assistance PT-Transfer Assessment Sit to and From Stand Sit to and from Stand Contact Guard Assistance,Use of Upper Extremities Equipment Transfer Assistive Device Gait Belt,Front Wheeled Walker Comments Mobility Comments Pt found resting in bed, agreeable to PT. She performed supine to sit HOB elevated with increased difficulty this morning, she required Jacques for uprighting her trunk. She had x1 posterior LOB in sitting requiring ModA to sit upright. She scooted to EOB with slow movement and Jacques w/ transfer pad. She performed sit to stand x2 CGA, denied any dizziness or lightheadedness but reported feeling weak. She ambulated ~4 'from bed CGA w/FWW, had x1 buckling requiring Jacques for balance and requires max cueing for steps and FWW management. Pt fatigues quickly in standing, requested to sit back on bed. Sit to supine ModA for LEs into bed, pt laterally scooted SBA. Pt was left in bed with call light in reach, RN notified. Gait Assessment Gait Gait Assistance Required: Contact Guard Assist,Minimum Assistance Distance (Feet) 4 Assistive Devices Assistive Device Gait Belt,Front Wheeled Walker Gait Deviations General Gait Pattern Decreased Stride Length, Decreased Feet Clearance, Flexed Trunk,Step-to Gait,Wide Based Gait Factors Limiting Gait Function Factors Limiting Gait Function Decreased Activity Tolerance, Incoordination,Poor Balance, Respiratory Distress Comments Gait Comments See mobility comments. Stair Climbing Assessment Comments Stair Climbing Comments does not have to do stairs at home, has chair lift PT-Balance Assessment Sitting Balance and Reactions Static Sitting Balance Ability Good Dynamic Sitting Balance Ability Good Standing Balance and Reactions Static Standing Balance Ability Fair Dynamic Standing Balance Ability Fair Device Used FWW M5 PT-IP Objective Assessments Start: 03/12/23 16:11 Freq: NEEDED Status: Active Protocol: Document 03/13/23 09:18 DLM (Rec: 03/13/23 10:50 DLM [id number]) Orientation Orientation/Cognition Level of Alertness Alert Orientation Name,Age,Birthday,Month,Date, Year,Day of Week,Place, Situation Language Function Ability Hard of Hearing Safety Awareness Understands Safety Issues Memory Description No Deficits Noted Comments chart has hx of expressive aphasia but none identified at this time Pt reads lips to help manage Hearing impairment. She has her glasses on and no changes in vision reported this admit. Gross Range of Motion Upper Extremity ROM Assessment Bilaterally Impaired Impairments shoulder elevation to 90 degrees Lower Extremity ROM Assessment Within Functional Limits Strength Upper Extremity Strength Assessment Within Functional Limits Lower Extremity Strength Assessment Bilaterally Impaired Hip hip flex right 3-/5, left 3+/5 Knee ext right 4-/5, left 4/5 Ankle DF right 4-/5, left 4+/5 Comments Strength Comments feet are tender to touch Coordination Assessment Gross Coordination Gross Coordination WNL Sensation Assessment Sensation Gross Sensation Right LE Impaired,Left LE Impaired Sensation Description Pain Comments Sensation Comments pain bilateral feet which is baseline, pt thinks it is related gout Muscle Tone Muscle Tone WNL Yes M6 PT-IP Treatment Start: 03/12/23 16:11 Freq: NEEDED Status: Active Protocol: Document 03/18/23 10:48 TS (Rec: 03/18/23 11:06 TS [id number]) Physical Therapy Treatment Education Education Provided Safety M7 PT-IP Assessment and Plan Start: 03/12/23 16:11 Freq: NEEDED Status: Active Protocol: Document 03/18/23 10:48 TS (Rec: 03/18/23 11:06 TS [id number]) PT Summary Assessment and Plan Potential Rehabilitation Potential Fair Summary Impairments Pain,ROM,Strength,Balance,Bed Mobility,Transfers,Gait, Activity Tolerance Progress Towards Goals Slow Progress due to Medical Issues,Slow Progress due to Activity Tolerance Assessment Summary Pt is making slow progress with her mobility due to increased fatigue and weakness . She is requiring increased assist for bed mobility this morning for sitting upright and scooting to EOB. She performed sit to stand x2 CGA, denied any dizziness or lightheadedness but continues to report weakness. She has decreased tolerance to gait only ambulating 4' this morning due to wakness and fatigue. Pt continues to have some difficulty clearing RLE from the ground. She had x1 posterior LOB sitting requiring ModA to sit bakc upright and x1 buckling of LEs with ambulation requiring Jacques to maintain balance. PT continues to recommend SNF vs 24/7 home with HHPT. Goals Bed Mobility Goal Independent Transfer Goal Independent,Front Wheeled Walker Gait Goal Independent,Front Wheel Walker Gait Distance 100 feet Days to Meet Goals 7 Frequency of Treatment Frequency Of Treatment Once a Day Treatment Plan Physical Therapy Treatment Plan Bed Mobility Training,Transfer Training,Gait Training, Therapeutic Exercise,Balance Retraining,Discharge Planning, Neuromuscular Re-ed Precautions Other Precautions fall risk, swallowing difficulties with eating, [place] and reads lips, low H&H Recommendations To Nursing Amount of Assist Needed 1 Person Assist Discharge Recommendations PT Discharge Recommendations Home with 24/7 Assist Available,Home Health,SNF Rehab Other Discharge Recommendations Up in chair for meals Transportation Needs at Discharge Private Vehicle,Wheelchair/ Cabulance
[2023-03-18] MEDS: ACETAMINOPHEN 325 MG TABLET 650 MG PO (21:20)
[2023-03-19] VITALS (14 sets, daily range): BP systolic 116–147; BP diastolic 36–84; PULSE 86–102; RESP 16–20; TEMP 36.4–37.4; O2SAT 97–100
[2023-03-19] MEDS: OXYCODONE IR 5 MG TABLET PO (00:41)
--- NOTE | 2023-03-19 04:37 | PM.PN.1 ---
Subjective Subjective Date Patient Seen: 03/19/23 Interval history: The pt reports increasing abdominal pain. She states that she has diffuse abdominal pain, significantly worse in the LLQ, that seems to be getting progressively worse. She has not had a BM since 03/15 as per nursing. No nausea or vomiting, and she did pass some flatus yesterday. She continues to feel very weak. She also states that all of her joints are aching. Exam Vital Signs (past 8 hours): - 03/19/23 00:00 03/19/23 04:00 Temperature 97.8 F 97.5 F L Pulse Rate 93 H 95 H Respiratory Rate 20 16 Blood Pressure 116/54 L 131/55 L Pulse Oximetry 100 99 Oxygen Delivery Method Room Air Oxygen Flow Rate 0 Narrative Exam Narrative: Gen: NAD, sitting comfortably in bed, appears slightly pale CV: RRR, grade 4/6 systolic murmur Resp: clear to auscultation bilaterally Abd: soft, nondistended, normoactive bowel sounds, tender to palpation diffusely worse in LLQ without rebound/guarding/rigidity Ext: 1+ edema bilateral LE, hands appear swollen as well Objective Labs 03/19/23 07:00 03/19/23 07:00 Labs: Laboratory Results - last 24 hr 03/18/23 03/18/23 05:26 05:26 Hgb 7.7 L Hct 22.4 L Sodium 136 L Potassium 3.1 L Chloride 109 H Carbon Dioxide 23 BUN 115 H* Creatinine 1.47 H Estimated GFR 35 L BUN/Creatinine Ratio 78.2 H Glucose 94 Calcium 8.8 PFSH Medical History Aortic stenosis Chronic back pain Chronic renal failure, stage 3 (moderate) (11/29/16) Coronary artery disease Essential hypertension H/O: gout Hammertoe of right foot History of stroke (05/2014) Hypercalcemia Peripheral edema (01/10/17) Unspecified asthma, uncomplicated Urinary incontinence (07/24/15) Social History marital status: number of children: 3 household members: none lives independently: Yes caregiver/support person: No housing: house pets and animals: Yes education level: master's degree occupational status: other current occupational exposures/hazards: No 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 1) Presumed upper GI bleed with acute blood loss anemia: Pt with endoscopy completed 03/11/23 showing nonbleeding gastric ulcer. S/P 4 units PRBCs transfused this hospitalization. Question yesterday of slightly drop in H/H due to blood loss vs dilutional effect from volume overload, however with further H/H this morning, more concern for ongoing bleeding. Pt does not desire surgical intervention. - Transfuse 2 units PRBCs this morning with 20mg IV Lasix between units - Continue to trend H/H after transfusion - Continue PPI, sucralfate 2) Abdominal pain: Unclear etiology, although potentially from constipation, which is unexpected in the setting of likely GI bleed. Possibly from build up of digested blood products. - Abdominal CT today to evaluate further - Start Dulcolax today 3) Swallowing difficulty: No mechanical difficulty identified by speech therapy - Continue to monitor feeds for concern of aspiration 4) Hypokalemia: Improved minimally from yesterday - Continue potassium supplementation - Continue to trend 5) Peripheral edema: As per patient and family, stable. No respiratory compromise. - Continue PO Furosemide 20mg daily 6) Anxiety: Likely related to her general health status currently with significant debilitation - Continue Clonazepam BID 7) Aortic stenosis: Recent Echo 03/11/23. BPs stable. Pt with significant instability immediately after endoscopy. - Continue to hold beta baudilio due to low normal BPs 10) PATRICK: Resolved FEN: Cardiac diet DVT ppx: SCDs, holding medication due to GI bleed Code: DNR Dispo: Had lengthy discussion today with the patient, her son Miguel (DPOA), and his . Discussed ongoing care with continued drop in H/H, likely representing continuing bleeding. Discussed potential additional studies including capsule endoscopy, GI bleeding scan and potential treatments required such as embolization or surgery. The pt is not really interested in pursuing these, or so it seemed based on today's discussion. She is very high risk for any interventional treatments, especially with recent significant bradycardia with endoscopy. Therefore, also discussed potential home with 24hr caregiving and hospice, SNF with hospice, or ongoing transfusions. However, without treatment, need for transfusions could be ongoing for quite some time. Care management will discuss financial aspects of options with them as well. Care management will also consult to hospice for them to meet with the family, as they would like additional information regarding their care. More than 90 minutes spent in patient care, including speaking with the family, coordinating with care management, formulating plan, and dictating.
[2023-03-19 07:25] LABS: BUN Creatinine Ratio 85.7 (6-22); Calcium 8.8 mg/dL (8.4-10.2); Carbon Dioxide 23 mmol/L (22-32); Chloride 108 mmol/L (98-107); Estimated Glomerular Filt Rate 42 mL/min (>60); Glucose 97 mg/dL (80-110); Magnesium 2.2 mg/dL (1.6-2.3); Sodium 134 mmol/L (137-145)
[2023-03-19 07:29] LABS: HEMOLYSIS 63 (0-50)
[2023-03-19 07:30] LABS: Potassium 3.3 mmol/L (3.4-5.1)
[2023-03-19 07:31] LABS: Blood Urea Nitrogen 108 mg/dL (7-17)
[2023-03-19 07:32] LABS: Hemoglobin 6.5 g/dL (12.0-16.0)
[2023-03-19] MEDS: SODIUM CHLORIDE 0.9% FLUSH 10 ML IV ×2 (07:40→20:34)
[2023-03-19] MEDS: LIPASE/PROTEASE/AMYLASE 5/17/24 CAP 3 CAP PO ×3 (07:55→16:55)
[2023-03-19] MEDS: SUCRALFATE 1 GM/10 ML ORAL SUSP PO (07:55)
--- NOTE | 2023-03-19 08:33 | PT-IP ANOTE ---
Pt to receive blood transfusion today, per nursing pt not appropriate for PT. PT will check back tomorrow.
[2023-03-19] MEDS: clonazePAM 0.5 MG TABLET PO ×2 (10:30→20:34)
[2023-03-19] MEDS: ISOSORBIDE MONONITRATE ER 30 MG TABLET PO (10:30)
[2023-03-19] MEDS: FUROSEMIDE 20 MG TABLET PO (10:30)
[2023-03-19] MEDS: POTASSIUM CHLORIDE 20 MEQ TAB 40 MEQ PO ×2 (10:31→16:14)
[2023-03-19] MEDS: PANTOPRAZOLE 40 MG VIAL IV ×2 (10:53→20:33)
--- NOTE | 2023-03-19 11:14 | CM.DPC ---
Addendum entered by NAIDA Mccullough 03/19/23 13:10: ADD: Per MD rounding this w/e, long discussion with pt and family bedside and questions regarding Hospice, SNF coverage and ongoing transfusions, and other d/c options. Per MD, pt likely will need ongoing blood transfusion every other day or at least every 2 days due to her ongoing bleed and H&H over the past 10 days of admission. SW made [facility] referral and called to provide update and requested In-Person Info Visit bedside with pt and family (as pt is SHISHMAREF IRA and reads lips mostly) and Hospice will determine if bedside Info Visit can happen tomorrow [place] or 03/21. SW called [facility] admissions Shania (as December at [facility] not working this weekend) and inquired if SNF rehab and outpt blood transfusion/infusion clinic and option and [facility] states if the MD orders were sent to outpt infusion clinic and set up for needed transfusions then pt should be able to go to SNF rehab AND have outpt infusion if needed. [facility] states ideally pt could be accepted at [facility] and set up for [facility] since her PCP is local but [facility] would be willing to consider if [facility] cannot accept and they will keep pt's referral. SW unable to contact [facility] to confirm this is an option from [facility] and that her Medicare would cover outpt infusion and SNF and will have to make referral 03/21 when the clinic is open. SW met bedside with pt, son Miguel and his and discussed above. Pt confirms she wants SNF rehab and blood transfusions if needed for now and not yet ready for Hospice but agreeable with bedside Hospice Info Visit. SW discussed options if/when Hospice initiated and provided the list for [facility] agencies and also the range of cost of room and board at SNF or [facility] with Hospice/Com[facility] Care. Family considering pt moving into their small place if needed after SNF. Family currently fixing up/cleaning pt's home. Plan: SW to confirm bedside Hospice Info visit date and also to discuss with [facility] if they would be willing to accept pt for SNF rehab if pt continues to need blood transfusions and if this referral could be made to [facility] and covered by Medicare as outpt infusion. NAIDA Mccullough Original Note: DCP SNF Planning: Per , pt needed additional unit of blood this morning again and seems to continue to bleed without clear determination of source and pt and family have confirmed pt not a good candidate for further surgical intervention and MD had discussion with pt and son about need of SNF at d/c and pt likely here through the w/e. SW met bedside with pt (SHISHMAREF IRA) and adult son/DPMARIELA Rivera and explained role and they confirm that unfortunately pt's preference of straight to home at d/c is not a safe option and SNF needed. Pt has a hx of SNF at [facility] and this is their current preference of SNF at d/c and SW updated that [facility] reviewing and provided SNF Choice List to review and family agreeable with referrals to [facility] and [facility] in case [facility] not an option. Pt quite tearful and states she is sad/frustrated with still be in the hospital and too fatigued/weak with low H&H and not getting to d/c back to home but needing SNF. Son and Dtr inlaw very supportive and caring bedside with pt. DG called [facility] admissions and [facility] is covering for the w/e and states December plans to review on Tuesday to confirm if they can accept. SW faxed new referral to [facility] and left ms requesting review in case [facility] cannot accept. PASRR done. Plan: SW to follow closely for pt to be more medically stable with H&H towards plan of d/c to SNF at discharge. Preference is 1) [facility] 2) [facility] or [facility] and all reviewing. NAIDA Mccullough
--- NOTE | 2023-03-19 11:51 | DI.CT.S_ITS ---
PROCEDURE: CT CHEST ABD PEL WO CON INDICATIONS: persistent LLQ abdominal pain, ongoing GI bleeding TECHNIQUE: After the administration of oral contrast, 5 mm thick sections acquired from the lung apices to the symphysis pubis. 5 mm thick coronal and sagittal reformats acquired, with additional 7 mm coronal MIP reformats through the lungs. For radiation dose reduction, the following was used: automated exposure control, adjustment of mA and/or kV according to patient size. COMPARISON: None. FINDINGS: Chest: Cardiovascular: Heart size is enlarged. Dense coronary artery vascular calcification and mitral annular calcification. Lungs and pleural spaces: Small left pleural effusion. Right lower lobe 5 mm nodule. No follow-up required. Lymph nodes: No mediastinal, hilar or axillary adenopathy. Mediastinum: Unremarkable. No hiatal hernia. Thyroid within normal limits. Chest Wall and Bones: Unremarkable. No acute fracture. Abdomen and Pelvis: Liver: Normal in size and attenuation. No contour deformity present. Biliary system: Calcified stones noted in the lumen of the gallbladder. No pericholecystic inflammatory change. No intra or extrahepatic bile duct dilation. Pancreas: Unremarkable without mass or inflammation evident. Spleen: Normal in size and density. Adrenals: Normal morphology and density. Reproductive system: Unremarkable as visualized. Urinary system: Mild bilateral renal atrophy present.. Bilateral hyperdense cysts measure up to 2.1 cm No renal calculi, hydronephrosis, or solid mass present. Urinary bladder unremarkable. Gastrointestinal system: The bowel is unremarkable with no evidence of bowel obstruction or inflammation. The stomach appears unremarkable. Appendix: No findings to suggest acute appendicitis. Lymph nodes: No mesenteric or retroperitoneal adenopathy. Peritoneal spaces: No free air. No free fluid. Vasculature: Aortic atherosclerotic vascular calcification noted without evidence of aneurysm. Abdominal wall: Abdominal wall intact without evidence of ventral or inguinal hernias. Musculoskeletal: Normal bone mineralization. Degenerative disc disease and arthropathy noted in lower lumbar spine. 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 IMPRESSION: Small left pleural effusion. Bilateral renal atrophy. Subcutaneous edema noted in both upper extremities may related to fluid balance. Chronic findings as above Approved by: Mihir Parra M.D. on 03/19/2023 at 19:14
[2023-03-19] MEDS: BISACODYL 5 MG TABLET 10 MG PO ×2 (12:09→20:33)
[2023-03-19] MEDS: FUROSEMIDE 20 MG/2 ML VIAL IV (12:09)
[2023-03-19] MEDS: SUCRALFATE 1 GM TABLET PO ×3 (12:09→20:33)
--- NOTE | 2023-03-19 15:40 | PC.NURSE ---
pt tolerated 2 units of blood. IV got infiltrated half way during infusion, pt started c/o pain. New IV started by ER nurse on Lt.FA. Midline was also placed today. Pt has poor appetite. She ate a little breakfast but refused lunch and did not want to order any food for dinner. Pt in CT scan. I gave her bowel meds, but no BM yet. afebrile. Still feeling very weak, unable to work with PT.
[2023-03-19] MEDS: ACETAMINOPHEN 325 MG TABLET 650 MG PO (20:37)
[2023-03-20] VITALS (7 sets, daily range): BP systolic 110–144; BP diastolic 33–64; PULSE 93–111; RESP 17–19; TEMP 36.2–36.9; O2SAT 98–100
[2023-03-20 06:08] LABS: Add Manual Diff / Slide Review NO; Basophils Absolute Auto 0 /uL (0-100); Basophils Percent Auto 0.5 % (0-2); Eosinophils Absolute Auto 100 /uL (0-450); Eosinophils Percent Auto 1.5 % (2-4); Hemoglobin 7.9 g/dL (12.0-16.0); Lymphocytes Absolute Auto 1200 /uL (1100-4500); Lymphocytes Percent Auto 12.9 % (25-40); Mean Corpuscular HGB Conc 34.5 % (30-36); Mean Corpuscular Hemoglobin 31.7 PG (26-34); Mean Corpuscular Volume 91.7 fL (80-100); Monocytes Absolute Auto 700 /uL (0-900); Monocytes Percent Auto 7.4 % (3-14); Neutrophils Absolute Auto 7000 /uL (1500-7000); Neutrophils Percent Auto 77.7 % (50-75); Platelet Count 74 X10^3/uL (150-400); Red Blood Cell Count 2.51 X10^6/uL (4.0-5.2); Red Cell Distribution Width 15.1 % (11.6-14.8)
[2023-03-20 06:18] LABS: Alanine Aminotransferase 14 IU/L (<35); Albumin 2.1 g/dL (3.5-5.0); Albumin Globulin Ratio 1.1 (1.0-2.8); Alkaline Phosphatase 35 U/L (38-126); Aspartate Aminotransferase 22 IU/L (14-36); BUN Creatinine Ratio 76.2 (6-22); Bilirubin Total 0.6 mg/dL (0.2-1.3); Blood Urea Nitrogen 99 mg/dL (7-17); Calcium 8.4 mg/dL (8.4-10.2); Carbon Dioxide 22 mmol/L (22-32); Chloride 109 mmol/L (98-107); Estimated Glomerular Filt Rate 41 mL/min (>60); Globulin 1.9 g/dL (1.7-4.1); Glucose 88 mg/dL (80-110); HEMOLYSIS < 15 (0-50); Potassium 3.7 mmol/L (3.4-5.1); Sodium 135 mmol/L (137-145)
[2023-03-20] MEDS: LIPASE/PROTEASE/AMYLASE 5/17/24 CAP 3 CAP PO ×2 (08:40→17:31)
[2023-03-20] MEDS: SUCRALFATE 1 GM TABLET PO ×2 (08:40→17:31)
[2023-03-20] MEDS: PANTOPRAZOLE 40 MG VIAL IV ×2 (08:41→20:47)
[2023-03-20] MEDS: SODIUM CHLORIDE 0.9% FLUSH 10 ML IV ×3 (08:41→20:49)
--- NOTE | 2023-03-20 11:56 | P.PN_ITS ---
Subjective Subjective Date Patient Seen: 03/20/23 Interval history: The pt is very fatigued this morning. She continues to have abdominal pain, but states it is no worse than yesterday. She has still not had a BM. Exam Vital Signs (past 8 hours): - 03/20/23 06:15 03/20/23 08:00 Temperature 97.3 F L 98.4 F Pulse Rate 93 H 102 H Respiratory Rate 19 17 Blood Pressure 110/64 140/35 L Pulse Oximetry 99 100 Oxygen Flow Rate 0 0 Oxygen Delivery Method Room Air Oxygen Flow Rate 0 Narrative Exam Narrative: Gen: NAD, laying comfortably in bed, minimally responsive to questions CV: RRR, grade 4/6 systolic murmur Resp: clear to auscultation bilaterally Abd: soft, nondistended, normoactive bowel sounds, tender to palpation diffusely worse in LLQ without rebound/guarding/rigidity Ext: trace bilateral LE Objective Labs 03/20/23 05:45 03/20/23 05:45 Labs: Laboratory Results - last 24 hr 03/19/23 03/20/23 03/20/23 07:00 05:45 05:45 WBC 9.0 RBC 2.51 L Hgb 7.9 L Hct 23.0 L MCV 91.7 D MCH 31.7 MCHC 34.5 RDW 15.1 H Plt Count 74 L Neut % (Auto) 77.7 H Lymph % (Auto) 12.9 L [place] % (Auto) 7.4 Eos % (Auto) 1.5 L Baso % (Auto) 0.5 Neut # (Auto) 7000 Lymph # (Auto) 1200 [place] # (Auto) 700 Eos # (Auto) 100 Baso # (Auto) 0 Sodium 135 L Potassium 3.7 Chloride 109 H Carbon Dioxide 22 BUN 99 H Creatinine 1.30 H Estimated GFR 41 L BUN/Creatinine Ratio 76.2 H Glucose 88 Calcium 8.4 Total Bilirubin 0.6 AST 22 ALT 14 Alkaline Phosphatase 35 L Total Protein 4.0 L Albumin 2.1 L Globulin 1.9 Albumin/Globulin Ratio 1.1 Blood Type O Positive Antibody Screen Negative Crossmatch See Detail [facility] Medical History Aortic stenosis Chronic back pain Chronic renal failure, stage 3 (moderate) (11/29/16) Coronary artery disease Essential hypertension H/O: gout Hammertoe of right foot History of stroke (05/2014) Hypercalcemia Peripheral edema (01/10/17) Unspecified asthma, uncomplicated Urinary incontinence (07/24/15) Social History marital status: number of children: 3 household members: none lives independently: Yes caregiver/support person: No housing: house pets and animals: Yes education level: master's degree occupational status: other current occupational exposures/hazards: No 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 1) Presumed upper GI bleed with acute blood loss anemia: Pt with endoscopy co mpleted 03/11/23 showing nonbleeding gastric ulcer. S/P 6 units PRBCs transfused this hospitalization. Pt does not desire surgical intervention for ongoing bleeding. H/H did respond to transfusion yesterday, however not as significantly as desired. - Continue to trend H/H - Continue PPI, sucralfate 2) Abdominal pain: Unclear etiology, although potentially from constipation, which is unexpected in the setting of likely GI bleed. Possibly from build up of digested blood products. Abdominal CT yesterday unrevealing. - Continue Dulcolax - Add Miralax 3) Swallowing difficulty: No mechanical difficulty identified by speech therapy. Pt has been declining PO medications. - Continue to monitor feeds for concern of aspiration 4) Hypokalemia: Normalized - Continue to trend 5) Peripheral edema: Improved from yesterday. No respiratory compromise. - Continue PO Furosemide 20mg daily 6) Anxiety: Likely related to her general health status currently with significant debilitation - Continue Clonazepam BID 7) Aortic stenosis: Recent Echo 03/11/23. =Pt with significant instability immediately after endoscopy. BPs labile but rising. - Continue to hold beta baudilio for now, likely need to restart tomorrow however question if pt will be willing to take 10) PATRICK: Resolved FEN: Cardiac diet DVT ppx: SCDs, holding medication due to GI bleed Code: DNR Dispo: Discussed ongoing care again with the pt today. She states that what's the point, I'm not going to do anything anyway, and on further questioning acknowledges a desire to go onto hospice care. Discussed independently with her son as well. He states that she was leaning that way, but had not yet 100% made up her mind. They wish to continue treatment for today, but if blood count has dropped to transfusion level again tomorrow may likely not want to transfuse again. Discussed with him hospice care again, and that she likely will not have long to live without additional transfusions. Discussed her strong desire to return home. They do not have the resources for private pay nursing at home, and he is very concerned about changing her, etc. Care management will work with him and nursing regarding some in-hospital training if he is open to this idea, as it likely would not be needed for long. Discussed with care management. Will start making vague plans for home with hospice care, with [facility]. More than 70 minutes spent in patient care, including speaking with the family, coordinating with care management, formulating plan, and dictating.
[2023-03-20] MEDS: clonazePAM 0.5 MG TABLET PO ×2 (13:15→20:47)
[2023-03-20] MEDS: BISACODYL 5 MG TABLET 10 MG PO ×2 (13:15→20:46)
[2023-03-20] MEDS: polyethylene glycoL 3350 17 GM POWD.PACK PO ×2 (13:15→20:45)
[2023-03-20] MEDS: FUROSEMIDE 20 MG TABLET PO (13:16)
[2023-03-20] MEDS: ISOSORBIDE MONONITRATE ER 30 MG TABLET PO (13:16)
--- NOTE | 2023-03-20 13:49 | CM.DPC ---
DCP/continued: Reviewed notes. ENVIRONMENTAL PROTECTION FORESTER placed call to [facility] to check on when informational visit will take place. Dr. Smith rounding today and checking in with CM team. She reports that she has spoken with patient and son and that they are in agreement to hospice. Dr. Smith believes that they will want it at home vs. SNF. Spoke with Kiley at [facility] and she reports that she is unsure they will be able to do informational visit today. However, she does report that she will check in with family and plan in-person visit for tomorrow 03-21-23. Both home with hospice and SNF with hospice will need to be discussed with patient and family re: d/c plan. Case transferred to [facility] for next few days. Plan: Anticipate home with hospice once all finalized. Per Dr. Smith patient prefers home but unclear if family can provide assistance. LUCY
--- NOTE | 2023-03-20 14:17 | CM.DPC ---
DCP Continued: COMPUTER NETWORKER reviewed EMR. Per COMPUTER NETWORKER note, [facility] following and plans to contact family either this afternoon or tomorrow morning for more information. COMPUTER NETWORKER entered room and introduced self and role. Patient accompanied at bedside by son. Patient and son report they would prefer home but son does not believe he can care for her needs at home. Son reports they cannot afford a caregiver. If they were to go home, patient would need all equipment. Patient not on oxygen at this time/wouldn't need home O2. Patient and son would as a backup plan like [facility] for comfort care. Patient joined by and COMPUTER NETWORKER reported they would continue the d/c plan tomorrow. COMPUTER NETWORKER attempted to call [facility], spoke with nurse unfamiliar with admission system. COMPUTER NETWORKER will try again tomorrow. Plan: 1) home with [facility]/caregivers. likely transport with BLS. 2) [facility] for comfort care. Follow closely in AM. NAIDA Corbin
[2023-03-20] MEDS: OXYCODONE IR 5 MG TABLET PO (20:46)
[2023-03-21] VITALS (13 sets, daily range): BP systolic 98–161; BP diastolic 48–76; PULSE 98–110; RESP 16–20; TEMP 36.3–36.9; O2SAT 98–100
[2023-03-21 06:32] LABS: Basophils Absolute Auto 100 /uL (0-100); Basophils Percent Auto 0.5 % (0-2); Eosinophils Absolute Auto 100 /uL (0-450); Eosinophils Percent Auto 0.6 % (2-4); Lymphocytes Absolute Auto 800 /uL (1100-4500); Lymphocytes Percent Auto 6.4 % (25-40); Mean Corpuscular HGB Conc 33.9 % (30-36); Mean Corpuscular Volume 94.3 fL (80-100); Monocytes Absolute Auto 700 /uL (0-900); Monocytes Percent Auto 5.7 % (3-14); Neutrophils Absolute Auto 11400 /uL (1500-7000); Neutrophils Percent Auto 86.8 % (50-75); Platelet Count 94 X10^3/uL (150-400); Red Blood Cell Count 2.12 X10^6/uL (4.0-5.2); Red Cell Distribution Width 16.3 % (11.6-14.8); White Blood Cell Count 13.2 X10^3/uL (4.5-11.0)
[2023-03-21 06:39] LABS: BUN Creatinine Ratio 74.8 (6-22); Calcium 8.9 mg/dL (8.4-10.2); Carbon Dioxide 21 mmol/L (22-32); Chloride 108 mmol/L (98-107); Estimated Glomerular Filt Rate 35 mL/min (>60); Glucose 102 mg/dL (80-110); HEMOLYSIS < 15 (0-50); Potassium 3.1 mmol/L (3.4-5.1); Sodium 135 mmol/L (137-145)
[2023-03-21] MEDS: OXYCODONE IR 5 MG TABLET PO ×3 (06:41→20:35)
[2023-03-21 06:45] LABS: Blood Urea Nitrogen 110 mg/dL (7-17)
[2023-03-21 06:49] LABS: Hemoglobin 6.8 g/dL (12.0-16.0)
[2023-03-21 06:51] LABS: Add Manual Diff / Slide Review SLIDE REVIEW
[2023-03-21 07:14] LABS: Anisocytosis 1+
--- NOTE | 2023-03-21 07:38 | P.PN_ITS ---
Subjective Subjective Date Patient Seen: 03/21/23 Time Patient Seen: 07:38 Interval history: Patient's hemoglobin hematocrit continues to drift down over the weekend. Received another unit of packed red cells making her total for this stay 7 units. Hemoglobin hematocrit back down this morning Still no bowel movement over the last several days. Had some additional bowel meds given over the weekend Persistently weak with poor appetite. Conversations regarding hospice versus ongoing more aggressive care have been held over the weekend. Patient probably choosing more towards hospice. She had been resistant to interventions previously including desire to do colonoscopy to workup her ongoing diarrhea which now seems to have suddenly stopped. Patient has become minimally tachycardic likely least in part due to the fact that I discontinued her beta-baudilio when she was modestly hypotensive. She is not had additional trouble with hypotension since then This morning patient is very weak very difficult to engage in any real conversation. She is very clear though does not want any surgery or any invasive procedures. Exam Vital Signs (past 8 hours): - 03/21/23 04:37 Temperature 97.4 F L Pulse Rate 104 H Respiratory Rate 19 Blood Pressure 138/76 Pulse Oximetry 99 Oxygen Flow Rate 0 Oxygen Delivery Method Room Air Oxygen Flow Rate 0 Objective Labs 03/21/23 06:05 03/21/23 06:05 Labs: Laboratory Results - last 24 hr 03/21/23 03/21/23 06:05 06:05 WBC 13.2 H RBC 2.12 L Hgb 6.8 L* Hct 20.0 L* MCV 94.3 MCH 32.0 MCHC 33.9 RDW 16.3 H Plt Count 94 L Neut % (Auto) 86.8 H Lymph % (Auto) 6.4 L [place] % (Auto) 5.7 Eos % (Auto) 0.6 L Baso % (Auto) 0.5 Neut # (Auto) 23608 H Lymph # (Auto) 800 L [place] # (Auto) 700 Eos # (Auto) 100 Baso # (Auto) 100 RBC Morphology See below Anisocytosis 1+ H Sodium 135 L Potassium 3.1 L Chloride 108 H Carbon Dioxide 21 L BUN 110 H* Creatinine 1.47 H Estimated GFR 35 L BUN/Creatinine Ratio 74.8 H Glucose 102 Calcium 8.9 PFSH Medical History Aortic stenosis Chronic back pain Chronic renal failure, stage 3 (moderate) (11/29/16) Coronary artery disease Essential hypertension H/O: gout Ionertoe of right foot History of stroke (05/2014) Hypercalcemia Peripheral edema (01/10/17) Unspecified asthma, uncomplicated Urinary incontinence (07/24/15) Social History marital status: number of children: 3 household members: none lives independently: Yes caregiver/support person: No housing: house pets and animals: Yes education level: master's degree occupational status: other current occupational exposures/hazards: No 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 Acute blood loss anemia likely secondary to upper GI bleed-patient has continued to require blood transfusions otherwise hemoglobin and hematocrit continue to drop. However no output either from an upper GI source (nausea vomiting hematemesis etcetera), or lower GI source (patient 5+ days since last bowel movement). Abdominal CT scan has failed to reveal a source bleeding within the abdomen. Discussion with nuclear plant instrument technician this morning suggests will be very difficult to get a tagged red blood cell scan today or even tomorrow. The scans are generally very unhelpful in finding upper GI source of bleeding. Discussed briefly with Dr. Bui who performed upper endoscopy on the [facility]. At this point with information available he can not really provide any additional guidance. Thought the idea of possibly getting some information from a nuclear medicine study would be a minimally invasive way to evaluate for ongoing bleeding. No evidence of intravascular hemolysis based on testing done last week. The elevated BUN continues to be consistent with an upper GI source of bleeding more than anything else. Patient is in a very difficult position, high risk for interventions and patient not desiring any significant interventions (she even declined colonoscopy when she was in the midst of horrible diarrhea back in January and February). Certainly has declined even a TAVR for aortic valve disease in the past and so any sort of invasive procedure is not consistent with patient's wishes. Patient clearly feels better when her hemoglobin and hematocrit higher. In effort to help her with decision making I think 1 more transfusion of 2 units of packed red cells today would be worth doing. 2. Dysphagia-patient refusing oral medications and has very limited oral intake. Speech therapy did not find any mechanical abnormalities. Patient very hesitant to try and eat and swallow. This is contributing I think to decisions regarding what to do about her bleeding etcetera. Hospice may well be the best answer 3. Hypokalemia-patient persistently hypokalemic again a bit puzzling given the 7 units of packed red cells she is received during this hospitalization would certainly results in some degree of hyperkalemia and certainly argues against there being any intravascular hemolysis. Continue with parental replacement given patient's refusal to take oral potassium replacement 4. Peripheral edema-continue oral furosemide if she will take it. Do not believ e she would benefit from parental furosemide. 5. Anxiety-continue clonazepam for now 6. Aortic stenosis/tachycardia-I am going to restart patient on very low-dose metoprolol see if we can get her heart rate to come down somewhat. Blood pressure certainly is been improved since that was discontinued. Certainly seems to demonstrate clinically a greater degree of aortic stenosis than her echocardiogram would suggest. Overall patient likely needs to be placed on hospice care and her end of life care managed either at home or at correction. However I think given that what appears to be going on is an upper GI bleed which usually is quite treatable, she deserves further evaluation in consultation to ensure that were not missing the possibility to treat something reversible, taking into account her high risk situation with her aortic valve disease as well as patient's desire for no surgeries or invasive procedures. Therefore I think 1 more transfusion today making that the last transfusion, and some sort of evaluation for alternate source of bleeding makes sense.
[2023-03-21] MEDS: FUROSEMIDE 20 MG/2 ML VIAL IV (09:33)
[2023-03-21] MEDS: POTASSIUM CHLORIDE IN WATER 10 MEQ/100 ML PIGGYBACK 100 MEQ IV ×3 (10:59→15:23)
[2023-03-21] MEDS: PANTOPRAZOLE 40 MG VIAL IV ×2 (11:00→20:36)
[2023-03-21] MEDS: clonazePAM 0.5 MG TABLET PO ×2 (12:04→20:35)
[2023-03-21] MEDS: FUROSEMIDE 20 MG TABLET PO (12:04)
[2023-03-21] MEDS: SODIUM CHLORIDE 0.9% FLUSH 10 ML IV ×3 (15:22→20:36)
[2023-03-21] MEDS: BISACODYL 5 MG TABLET 10 MG PO (15:23)
--- NOTE | 2023-03-21 16:24 | PT-IP ANOTE ---
Per medical team at interdisciplinary rounds, hold PT today as goals of care are clarified. Will follow up as indicated.
--- NOTE | 2023-03-21 19:42 | PC.NURSE ---
2 units of blood transfused today. tolerated well. midline flushes but does not drawback. f/u h/h is being drawn now. patient declined most PO meds. accepted po oxy, lasix. poor appetite. i just want to go home. tentative plan is to d/c to [facility] when stable. family in and out visiting today. patient did not get OOB. GI screen was cancelled today, anticipate hospice/ comfort care. call light w/in reach, bed alarm is on.
[2023-03-21 19:47] LABS: Hematocrit 24.5 % (36-46); Hemoglobin 8.1 g/dL (12.0-16.0)
[2023-03-21] MEDS: METOPROLOL IR 25 MG TABLET 12.5 MG PO (20:38)
[2023-03-22 05:41] VITALS: BP 152/54; PULSE 95; RESP 18; TEMP 36.4; O2SAT 98
[2023-03-22 06:18] LABS: Hematocrit 25.3 % (36-46); Hemoglobin 8.4 g/dL (12.0-16.0)
[2023-03-22 06:31] LABS: BUN Creatinine Ratio 68.3 (6-22); Carbon Dioxide 24 mmol/L (22-32); Chloride 108 mmol/L (98-107); Estimated Glomerular Filt Rate 31 mL/min (>60); Glucose 102 mg/dL (80-110); HEMOLYSIS < 15 (0-50); Potassium 3.8 mmol/L (3.4-5.1); Sodium 136 mmol/L (137-145)
[2023-03-22 06:42] LABS: Blood Urea Nitrogen 112 mg/dL (7-17)
[2023-03-22 07:00] VITALS: O2SAT 99
--- NOTE | 2023-03-22 07:38 | CM.DPC ---
Note from 03/21/23 DCP Cont. Pt continues to bleed internally, low H&H despite multiple blood transfusions. Plan is transfer to [facility] w/5-day comfort care, followed by private pay per day w/hospice. December accepts for admission, please update once d/c time is ready. Hopefully pt can tolerate wheelchair for [facility] to [facility] transport. Hospice info done w/family. Hopefully d/c Tues.
--- NOTE | 2023-03-22 08:09 | P.DS_ITS ---
History of Present Illness History of Present Illness Date Patient Seen: 03/22/23 Time Patient Seen: 08:09 Chief complaint: Black diarrhea, Weakness Narrative: 82-year-old female who is admitted with probable GI bleed Patient has been struggling with diarrhea inability to eat weight loss etcetera for several weeks now. She was hospitalized with this back in January. Patient has been somewhat resistant to invasive procedures such as colonoscopy and as such has not had that She did not really respond to oral steroid therapy there is no evidence of infection on multiple cultures. She was started on pancreatic enzyme replacement which did seem to make a difference for her she was able to eat and diarrhea seem to stop least temporarily. She did have a CT scan of the abdomen and pelvis that was essentially unremarkable in January as well However over the last several days apparently she is had recurrent diarrhea with black colored stool which turns out to be Hemoccult positive as expected in the emergency department. She is on Plavix for stroke risk reduction. She does complain of some midepigastric discomfort as well. The diarrhea returned with t he onset of the black-colored stool she thinks they are very much connected than has the sense that if she did not have black stool whatever is causing that she would not have diarrhea either Her hemoglobin hematocrit are actually somewhat improved over where they been recently although down from past. She does have a persistent macrocytosis which has defied explanation to this point. Patient also with severe aortic stenosis not felt to be a candidate or desiring intervention. Also has coronary disease and chronic renal failure. Also with distant history of asthma. Discharge Providers Provider Date of admission: 03/10/23 22:32 Discharge Date: 03/22/23 Primary care physician: David Welsh MD Consults: 03/11/23 06:53 Consult to Physician Routine Comment: Consulting Provider: Beau Alexandra Reason for consultation: gi bleed Has provider been notified: Yes 03/12/23 13:10 Consult to Speech Therapy Evaluate & Treat Comment: Physician Instructions: Evaluate and treat 03/12/23 14:50 Consult to Physical Therapy Evaluate & Treat Comment: Physician Instructions: Evaluate and Treat 03/15/23 08:39 Consult to Home Health Routine Comment: Resume Home Health services. Reason For Exam: Home Health Services Discharge provider: David Welsh MD Summary Hospital Course Discharge Diagnosis: 1. Upper GI bleed secondary to gastric ulcer 2. Acute blood loss anemia secondary to upper GI bleeding 3. Thrombocytopenia 4. Generalized anxiety disorder 5. Chronic renal failure stage III a 6. Severe aortic stenosis with hemodynamic instability 7. Coronary artery disease, not active this hospitalization 8. Peripheral edema 9. 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 History of gout 11. Asthma, stable this hospitalization Hospital Course: Patient was admitted as noted on her H&P. She underwent endoscopy which revealed evidence of gastric ulcer that did not appear to be actively bleeding. She became quite hemodynamically unstable during her endoscopy which was kept super brief because of this. This was felt to be due to her aortic stenosis which apparently is more severe clinically then it appears on echocardiography Patient was started on high-dose parental proton pump inhibitors upon admission and received several units of packed red cells. She showed evidence of ongoing bleeding with elevated BUN as well as decreasing hemoglobin and hematocrit. She received multiple transfusions during the course of her hospitalization yet never really seem to stabilize. She never really had any evidence of significant output/stool as a result of her presumed ongoing GI bleeding, which was felt to be puzzling at best. Patient was quite clear that she would not want any invasive procedures performed at all including colonoscopy. Surgery and anesthesia both felt as though patient would be super high risk for any additional procedures given her instability during her EGD and together with that information and patient's desire to not have any invasive procedures no further evaluations were undertaken. Patient continued to show evidence of anemia although there is no evidence of active large volume bleeding. Patient was highly anxious about eating and swallowing and speech therapy evaluation failed to demonstrate any mechanical abnormality with her swallow function. However patient had very limited oral intake for the vast majority of her hospitalization. This is not felt to be on the basis of any actual mechanical dysphagia but more anxiety. She was started on clonazepam in effort to reduce her anxiety and that had some but minimal benefit Overall patient was super weak and really unable to participate with physical therapy and really had no desire to participate as well. Patient also began to refuse some of her oral medication that did not relate to her known heart disease primarily. She was refusing any bowel meds in anything not related to active symptoms and or her heart or blood pressure. Given this lack of improvement over 1 week plus during her hospitalization discussions were held with patient and with family members about her goals of care. In the end it was decided that patient would best be served by entering into hospice for terminal end of life care given her multiple issues as above including the ongoing anemia with evidence of ongoing GI bleeding her lack of appetite and wasting, her generalized weakness, all this in the setting of her history of a stroke her recent diarrhea her coronary disease and most importantly her severe aortic stenosis for which she is declined any intervention or therapy. Therefore she was discharged [facility] with hospice. Given the previous diarrhea and sudden switch to what seems to be some element of constipation despite the overwhelming evidence of ongoing GI bleed from an upper source, I have begun question whether not there is some colonic obstruction or something like colon cancer as a source of her previous diarrhea now her lower abdominal discomfort and clinical constipation. We did not see anything on CT scan that was performed looking specifically for this but short of doing a colonoscopy may be something that is overlooked. I discussed this with patient and with family in this is yet another reason, given her desire for non in invasive interventional therapies, to seek hospice care verses other alternatives. I concur with patient's decision this seems like the right answer to me as well, given what I have known about her over the years and over the last several months and weeks in particular. Status at Discharge Cognitive/behavioral status at discharge: at baseline, oriented Functional status at discharge: bed bound Overall status at discharge: patient is not back to baseline Exam Vital Signs (past 8 hours): - 03/22/23 05:41 Temperature 97.5 F L Pulse Rate 95 H Respiratory Rate 18 Blood Pressure 152/54 H Pulse Oximetry 98 Oxygen Flow Rate 0 Oxygen Delivery Method Room Air Oxygen Flow Rate 0 Objective Labs 03/22/23 05:48 03/22/23 05:48 Labs: Laboratory Results - last 24 hr 03/19/23 03/21/23 03/22/23 07:00 19:40 05:48 Hgb 8.1 L 8.4 L Hct 24.5 L 25.3 L Sodium Potassium Chloride Carbon Dioxide BUN Creatinine Estimated GFR BUN/Creatinine Ratio Glucose Calcium Blood Type O Positive Antibody Screen Negative Crossmatch See Detail 03/22/23 05:48 Hgb Hct Sodium 136 L Potassium 3.8 Chloride 108 H Carbon Dioxide 24 BUN 112 H* Creatinine 1.64 H Estimated GFR 31 L BUN/Creatinine Ratio 68.3 H Glucose 102 Calcium 9.0 Blood Type Antibody Screen Crossmatch [facility] Medical History Aortic stenosis Chronic back pain Chronic renal failure, stage 3 (moderate) (11/29/16) Coronary artery disease Essential hypertension H/O: gout Hammertoe of right foot History of stroke (05/2014) Hypercalcemia Peripheral edema (01/10/17) Unspecified asthma, uncomplicated Urinary incontinence (07/24/15) Social History marital status: number of children: 3 household members: none lives independently: Yes caregiver/support person: No housing: house pets and animals: Yes education level: master's degree occupational status: other current occupational exposures/hazards: No 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 jim/jehovah's witness: Yazidi special jim needs: No travel history: other leisure activities: music Smoking Status: Former smoker Tobacco: How many years used: 2 Smokeless tobacco user: other quit status: quit date established second hand exposure: No alcohol intake: current substance use type: does not use Discharge Assessment & Plan Assessment and Plan Plan of Treatment: Discharge to hospice with minimal medication to control active medical issues and symptomatic control of symptoms Patient would best be served [facility] under hospice care for the nursing care she is going to require given her severely debilitated stay and lack of other resources at home. Discharge Plan Discharge Plan Patient Disposition: SNF Transfer to: [facility] Discharge orders & Medications Prescriptions: New isosorbide mononitrate 30 mg Tablet Extended Release 24 Hr 30 mg PO DAILY Qty: 30 0RF bisacodyl 10 mg Suppository 10 mg FL DAILY PRN (Reason: Constipation) Qty: 12 0RF bisacodyl 5 mg Tablet,Delayed Release (Dr/Ec) 10 mg PO BID Qty: 60 0RF polyethylene glycol 3350 17 gram Powder In Packet 17 g PO DAILY Qty: 30 0RF clonazepam 0.5 mg Tablet 0.5 mg PO BID Qty: 60 0RF oxycodone 5 mg Tablet 5 mg PO Q3H PRN (Reason: Pain, Moderate (4-6)) Qty: 60 0RF metoprolol tartrate 25 mg Tablet 12.5 mg PO BID Qty: 60 0RF omeprazole 40 mg capsule,delayed release(DR/EC) 40 mg PO BID Qty: 60 0RF lorazepam 2 mg tablet 2 mg PO TID PRN (Reason: anxiety) Qty: 30 0RF Continued nitroglycerin 0.4 mg tablet, sublingual 0.4 mg sublingual Q5-15M PRN (Reason: chest pain) Qty: 100 1RF Rx Instructions: Maximum 3 tabs in 15 mins. Call 911 if chest pain has not gone away. allopurinol 300 mg tablet 450 mg PO QPM Qty: 135 3RF furosemide 20 mg tablet 20 mg PO DAILY Qty: 90 3RF oxybutynin chloride 10 mg tablet extended release 24hr 10 mg PO DAILY Qty: 90 3RF loratadine [Claritin] 10 mg tablet 10 mg PO DAILY albuterol sulfate 90 mcg/actuation HFA aerosol inhaler 1 puff INHALATION BID PRN (Reason: shortness of breath or wheezing) colchicine (gout) 0.6 mg tablet 0.6 mg PO BID PRN (Reason: gout) Qty: 60 0RF albuterol sulfate 2.5 mg /3 mL (0.083 %) Solution For Nebulization 2.5 mg INHALATION PRN PRN (Reason: Shortness Of Breath) acetaminophen [Tylenol 8 Hour] 650 mg tablet extended release 650 mg PO BID PRN (Reason: pain) potassium chloride 20 mEq tablet extended release 20 meq PO DAILY Qty: 30 0RF Discontinued clopidogrel [Plavix] 75 mg tablet 75 mg PO DAILY Qty: 90 3RF prednisone 20 mg tablet 40 mg PO DAILY Qty: 60 0RF rosuvastatin 5 mg tablet 2.5 mg PO QPM Qty: 45 3RF ciprofloxacin HCl 500 mg tablet 500 mg PO BID Qty: 20 0RF fluticasone propionate [Flonase Allergy Relief] 50 mcg/actuation spray,suspension 1 spray INTRANASAL DAILY Qty: 16 8RF isosorbide mononitrate 60 mg tablet extended release 24 hr 60 mg PO DAILY Qty: 90 3RF metoprolol tartrate 50 mg tablet 50 mg PO BID Qty: 180 3RF Creon 36,000-114,000- 180,000 unit capsule,delayed release(DR/EC) 2 cap PO QID Qty: 360 3RF Rx Instructions: administer with meals and/or snacks amlodipine 2.5 mg Tablet 2.5 mg PO DAILY No Action (DME) Disabled Parking See Rx Instructions .ROUTE .MEDSUPPLY Qty: 1 0RF Rx Instructions: Patient qualifies for disabled parking as per the attached form. Follow up/Referrals: David Welsh MD [Primary Care Provider] - Discharge Health Status Multidrug resistant organism: No MDRO Precautions: [place] Diet/Activity/Treatments Diet: Diet as Tolerated Liquid consistency: Normal/Thin Food texture: Regular [facility] Reason for rehabilitation: Other Visit Report/Discharge Packet Stand Alone Forms: Patient Portal/API Discharge Data Primary Care Provider: David Welsh
[2023-03-22] MEDS: BISACODYL 5 MG TABLET 10 MG PO (08:37)
[2023-03-22] MEDS: clonazePAM 0.5 MG TABLET PO (08:37)
[2023-03-22] MEDS: PANTOPRAZOLE 40 MG VIAL IV (08:37)
[2023-03-22] MEDS: FUROSEMIDE 20 MG TABLET PO (08:37)
[2023-03-22] MEDS: METOPROLOL IR 25 MG TABLET 12.5 MG PO (08:37)
[2023-03-22] MEDS: ISOSORBIDE MONONITRATE ER 30 MG TABLET PO (08:37)
[2023-03-22] MEDS: SODIUM CHLORIDE 0.9% FLUSH 10 ML IV (08:38)
--- NOTE | 2023-03-22 08:44 | CM.DPC ---
DCP Cont. Completed PASSAR, copy in red folder at nurse's station. Pt to be d/c today to [facility] for comfort care 5-days, followed by admission to [facility] for continued care at the facility. Family understands plan. No further d/c needs indicated at this time.
[2023-03-22 09:00] VITALS: BP 127/46; PULSE 97; RESP 17; TEMP 36.4; O2SAT 99
--- NOTE | 2023-03-22 11:21 | PT-IP ANOTE ---
The pt is being discharged from therapy services, as she will now be receiving hospice care.
--- NOTE | 2023-03-22 11:39 | PC.NURSE ---
patient refusing bed bath, shower, and oral care. Offered by PCT and RN. Will offer again prior to discharge.
[2023-03-22] MEDS: OXYCODONE IR 5 MG TABLET PO (12:27)
--- NOTE | 2023-03-22 14:04 | PC.NURSE ---
Late Entry: Confirmation with Primary RNJessica. Infusion continued at 150cc/hr after initial 15 minutes. Patient received total volume PRBCs. End time documented in TAR based on confirmation with RN.
--- NOTE | 2023-03-22 14:33 | PC.NURSE ---
Called Dr Welsh to inquire if midline needed to be left in or removed. No order to take it out. No call back. Peripheral IV removed. Patient to wheelchair- two assist. belongings packed up and given to family. [place] [facility] [place] further questions at this time.
== END 2023-03-22 14:25 | DRG 378 ==
LOC: ED 22:32 → AC 22:33
PROVIDERS: Emergency Medicine; Family Medicine; Surgery; Admitting Provider Family Medicine; Emergency Provider Emergency Medicine; PCP Internal Medicine; Referring Provider Emergency Medicine; Visit Provider Internal Medicine
PROC: 0DJ08ZZ Inspection of Upper Intestinal Tract, Via Natural or Artificial Opening Endoscopic (ICD-10-PCS; CPT 43235; principal; 2023-03-11 16:45)
DX: K29.71 Gastritis, unspecified, with bleeding (principal); D62 Acute posthemorrhagic anemia; I97.89 Other postprocedural complications and disorders of the circulatory system, not elsewhere classified; N17.9 Acute kidney failure, unspecified; K25.4 Chronic or unspecified gastric ulcer with hemorrhage; R00.1 Bradycardia, unspecified; Z66 Do not resuscitate; I12.9 Hypertensive chronic kidney disease with stage 1 through stage 4 chronic kidney disease, or unspecified chronic kidney disease; N18.31 Chronic kidney disease, stage 3a; Z87.891 Personal history of nicotine dependence; I35.0 Nonrheumatic aortic (valve) stenosis; I25.10 Atherosclerotic heart disease of native coronary artery without angina pectoris; R19.7 Diarrhea, unspecified; F41.9 Anxiety disorder, unspecified; E87.6 Hypokalemia; R13.10 Dysphagia, unspecified; R00.0 Tachycardia, unspecified; Y84.8 Other medical procedures as the cause of abnormal reaction of the patient, or of later complication, without mention of misadventure at the time of the procedure
CPT/HCPCS: 36415; 36430; 43239; 71045; 71250; 74019; 74176; 74177; 74230; 76770; 80048; 80053; 80076; 82272; 83010; 83615; 83735; 83880; 85014; 85018; 85025; 85610; 85730; 86850; 86900; 86901; 92610; 92611; 93306; 96374; 97116; 97162; 97530; 99223; 99232; 99233; 99284; P9016; A9270; C9113; J0461; J1200; J1642; J1940; J2704; Q9967